=== PATIENT | male | born 1960 | race Caucasian/White ===

== ENCOUNTER 2022-10-11 18:04 | Inpatient (IN) | payer OTHER ==
[2022-10-11] MEDS ORDERED: SODIUM CHLORIDE 0.9% 500 ML 500 ML IV STA (18:07)
[2022-10-11 18:10] LABS: Glucose,Whole Blood 239 mg/dL (70-110)
[2022-10-11 18:21] LABS: Basophils % (A) 0 %; Eosinophils # (A) 0.1 k/uL (0-0.7); Eosinophils % (A) 0 %; HCT 47.3 % (39.0-53.0); HGB 15.8 gm/dL (13.0-17.5); Lymphocytes # (A) 1.4 k/uL (1.0-4.8); Lymphocytes % (A) 7 %; MCH 29.2 pg (25.0-35.0); MCHC 33.4 g/dL (31.0-37.0); MCV 87.3 fL (80.0-100.0); Mean Platelet Volume 8.1; Monocytes # (A) 1.2 k/uL (0-1.0); Monocytes % (A) 6 %; Neutrophils # (A) 16.8 k/uL (1.3-7.7); Neutrophils % (A) 86 %; Platelet Count 237 k/uL (150-450); RBC 5.42 m/uL (4.30-5.90); RDW 12.7 % (11.5-15.5); WBC 19.6 k/uL (3.8-10.6)
[2022-10-11 18:36] LABS: ALT 40 U/L (4-49); AST 52 U/L (17-59); African American GFR (CKD) >90 (>60 ml/min/1.73 sqM); Alkaline Phosphatase 89 U/L (38-126); Anion Gap 12 mmol/L; Blood Urea Nitrogen 50 mg/dL (9-20); Calcium 9.4 mg/dL (8.4-10.2); Carbon Dioxide 23 mmol/L (22-30); Chloride 107 mmol/L (98-107); Creatine Kinase 999 U/L (55-170); Glucose 229 mg/dL (74-99); Non-African American GFR(CKD) >90 (>60 ml/min/1.73 sqM); Potassium 4.6 mmol/L (3.5-5.1); Sodium 142 mmol/L (137-145); Total Bilirubin 1.1 mg/dL (0.2-1.3); Total Protein 7.3 g/dL (6.3-8.2)
[2022-10-11 18:40] LABS: Prothrombin Time 10.2 sec (9.0-12.0)
--- NOTE | 2022-10-11 18:49 | ED ---
Neuro HPI - General Stated Complaint: Possible CVA Time Seen by Provider: 10/11/22 18:07 Source: patient, EMS Mode of arrival: EMS Limitations: altered mental status, physical limitation - History of Present Illness Is the patient presenting with stroke symptoms?: Yes Last Known Well Date: 10/09/22 Onset/Timin -: days(s) Initial Comments: This patient is a 62-year-old man brought to have evaluation of suspected stroke. The patient is reportedly brought [place] the [place] truck stop. The staff there checked because the truck had been there since Tuesday. Camera footage s howed the patient last entering the vehicle on Tuesday. EMS was called and brought the patient in because he was not responsive. They noted he was not moving his right side and he was not able to speak. The patient is only able to answer very simple yes and no questions and sometimes can give one-word answers. Patient denying pain. Location: right arm, right leg Place: outdoors Improves With: none Worsens With: none Context: found down Treatments Prior to Arrival: oxygen, other (IV fluid) - Related Data Home Medications: Home Medications Medication Instructions Recorded Confirmed Atorvastatin [Lipitor] 20 mg PO HS 10/11/22 10/11/22 Ergocalciferol (Vitamin D2) 1,250 mcg PO WEEKLY 10/11/22 10/11/22 [Drisdol (50,000 Iu)] Glimepiride [Amaryl] 4 mg PO BID 10/11/22 10/11/22 Valsartan [Diovan] 160 mg PO DAILY 10/11/22 10/11/22 metFORMIN HCL [Glucophage] 1,000 mg PO BID 10/11/22 10/11/22 Allergies/Adverse Reactions: Allergies Allergy/AdvReac Type Severity Reaction Status Date / Time Unable to Assess Allergy Verified 10/11/22 18:57 Review of Systems ROS Statement: Those systems with pertinent positive or pertinent negative responses have been documented in the HPI. ROS Other: All systems not noted in ROS Statement are negative. Limitations: ROS unobtainable due to patients medical condition Respiratory: Denies: dyspnea Cardiovascular: Denies: chest pain Neurological: Denies: headache General Exam Limitations: altered mental status, physical limitation General appearance: alert Head exam: Present: atraumatic, normocephalic Eye exam: Present: PERRL ENT exam: Present: mucous membranes dry Neck exam: Present: normal inspection, full ROM. Absent: tenderness Respiratory exam: Present: rhonchi. Absent: respiratory distress, wheezes, rales Cardiovascular Exam: Present: regular rate, normal rhythm, normal heart sounds. Absent: systolic murmur, diastolic murmur, rubs, gallop GI/Abdominal exam: Present: soft. Absent: distended, tenderness, guarding, rebound, rigid, mass Extremities exam: Present: normal inspection, normal capillary refill. Absent: pedal edema, calf tenderness Back exam: Present: normal inspection. Absent: vertebral tenderness Neurological exam: Present: alert, CN II-XII intact, motor sensory deficit Expanded Neurological exam: Present: other (Right-sided neglect) Speech: Present: expressive aphasia Cranial nerves: EOM's Intact: Normal Motor strength exam: RUE: 0, LUE: 5, RLE: 0, LLE: 5 Eye Response: (4) open spontaneously Motor Response: (6) obeys commands Verbal Response: (4) confused conversation Skin exam: Present: warm, dry, intact, normal color. Absent: rash Stroke MDM - Lab Data Result diagrams: 10/13/22 05:22 10/17/22 04:51 Lab Results 10/11/22 10/11/22 10/11/22 Range/Units 18:08 18:10 18:10 WBC 19.6 H (3.8-10.6) k/uL RBC 5.42 (4.30-5.90) m/uL Hgb 15.8 (13.0-17.5) gm/dL Hct 47.3 (39.0-53.0) % MCV 87.3 (80.0-100.0) fL MCH 29.2 (25.0-35.0) pg MCHC 33.4 (31.0-37.0) g/dL RDW 12.7 (11.5-15.5) % Plt Count 237 (150-450) k/uL MPV 8.1 Neutrophils % 86 % Lymphocytes % 7 % Monocytes % 6 % Eosinophils % 0 % Basophils % 0 % Neutrophils # 16.8 H (1.3-7.7) k/uL Lymphocytes # 1.4 (1.0-4.8) k/uL Monocytes # 1.2 H (0-1.0) k/uL Eosinophils # 0.1 (0-0.7) k/uL Basophils # 0.0 (0-0.2) k/uL PT 10.2 (9.0-12.0) sec INR 1.0 (<1.2) APTT 21.4 L (22.0-30.0) sec Sodium (137-145) mmol/L Potassium (3.5-5.1) mmol/L Chloride (98-107) mmol/L Carbon Dioxide (22-30) mmol/L Anion Gap mmol/L BUN (9-20) mg/dL Creatinine (0.66-1.25) mg/dL Est GFR (CKD-EPI)AfAm (>60 ml/min/1.73 sqM) Est GFR (CKD-EPI)NonAf (>60 ml/min/1.73 sqM) Glucose (74-99) mg/dL POC Glucose (mg/dL) 239 H (70-110) mg/dL POC Glu Varnish Finisher ID Abilio Ortiz Calcium (8.4-10.2) mg/dL Total Bilirubin (0.2-1.3) mg/dL AST (17-59) U/L ALT (4-49) U/L Alkaline Phosphatase (38-126) U/L Creatine Kinase (55-170) U/L Troponin I (0.000-0.034) ng/mL Total Protein (6.3-8.2) g/dL Albumin (3.5-5.0) g/dL 10/11/22 10/11/22 Range/Units 18:10 18:10 WBC (3.8-10.6) k/uL RBC (4.30-5.90) m/uL Hgb (13.0-17.5) gm/dL Hct (39.0-53.0) % MCV (80.0-100.0) fL MCH (25.0-35.0) pg MCHC (31.0-37.0) g/dL RDW (11.5-15.5) % Plt Count (150-450) k/uL MPV Neutrophils % % Lymphocytes % % Monocytes % % Eosinophils % % Basophils % % Neutrophils # (1.3-7.7) k/uL Lymphocytes # (1.0-4.8) k/uL Monocytes # (0-1.0) k/uL Eosinophils # (0-0.7) k/uL Basophils # (0-0.2) k/uL PT (9.0-12.0) sec INR (<1.2) APTT (22.0-30.0) sec Sodium 142 (137-145) mmol/L Potassium 4.6 (3.5-5.1) mmol/L Chloride 107 (98-107) mmol/L Carbon Dioxide 23 (22-30) mmol/L Anion Gap 12 mmol/L BUN 50 H (9-20) mg/dL Creatinine 0.83 (0.66-1.25) mg/dL Est GFR (CKD-EPI)AfAm >90 (>60 ml/min/1.73 sqM) Est GFR (CKD-EPI)NonAf >90 (>60 ml/min/1.73 sqM) Glucose 229 H (74-99) mg/dL POC Glucose (mg/dL) (70-110) mg/dL POC Glu Varnish Finisher ID Calcium 9.4 (8.4-10.2) mg/dL Total Bilirubin 1.1 (0.2-1.3) mg/dL AST 52 (17-59) U/L ALT 40 (4-49) U/L Alkaline Phosphatase 89 (38-126) U/L Creatine Kinase 999 H (55-170) U/L Troponin I <0.012 (0.000-0.034) ng/mL Total Protein 7.3 (6.3-8.2) g/dL Albumin 4.0 (3.5-5.0) g/dL - NIH Stroke Scale 1a. Level of Consciousness: (0) alert 1b. LOC Questions: (2) answers no questions correctly 1c. LOC Commands: (2) performs no tasks correctly 2. Best Gaze: (2) forced deviation 4. Facial Palsy: (3) complete paralysis 5a. Motor Arm Left: (0) no drift 5b. Motor Arm Right: (4) no movement 6a. Motor Leg Left: (0) no drift 6b. Motor Leg Right: (4) no movement 8. Sensory: (2) severe/total sensory loss 9. Best Language: (2) severe aphasia 10. Dysarthria: (0) normal 11. Extinction/Inattention: (2) profound inattention - Thrombolytic Inclusion/Exclusion Thrombolytic Exclusion Criteria: Symptom Onset > 4.5 Hours - Medical Decision Making Patient is 62-year-old man brought in for suspected stroke after being found unresponsive. Last known well time was on Tuesday. The workup does find large left sided MCA distribution ischemic stroke. The patient will be admitted for further inpatient care and further neurology evaluation. Case discussed with specialists. Chest x-ray is obtained which I interpreted as being negative for acute infiltrate, pneumothorax, congestive heart failure The patient is sent for CT of the brain which I interpreted as showing large left sided MCA distribution ischemic stroke Was pt. sent in by a medical professional or institution (, PA, SENIOR CYTOGENETICS LABORATORY DIRECTOR, urgent care, hospital, or alf...) When possible be specific @ -[No] Did you speak to anyone other than the patient for history (EMS, parent, family, police, friend...)? What history was obtained from this source @ -[History by EMS Did you review nursing and triage notes (agree or disagree)? Why? @ -[I reviewed and agree with nursing and triage notes] Were old charts reviewed (outside hosp., previous admission, EMS record, old EKG, old radiological studies, urgent care reports/EKG's, alf records)? Report findings @ -[No old charts were reviewed] Differential Diagnosis (chest pain, altered mental status, abdominal pain women, abdominal pain men, vaginal bleeding, weakness, fever, dyspnea, syncope, headache, dizziness, GI bleed, back pain, seizure, CVA, palpatations, mental health, musculoskeletal)? @ -[Differential CVA Ischemic stroke, hemorrhagic stroke, brain tumor, atypical migraine, Wernicke's encephalopathy, seizure, multiple sclerosis, meningitis, encephalitis, hypoglycemia, Guillain-Deleon, electrolytes disturbance, myasthenia gravis.... This is not meant to be an all-inclusive list EKG interpreted by me (3pts min.). @ -[As above] X-rays interpreted by me (1pt min.). @ -[As above CT interpreted by me (1pt min.). @ -[As above U/S interpreted by me (1pt. min.). @ -[None done] What testing was considered but not performed or refused? (CT, X-rays, U/S, labs)? Why? @ -[None] What meds were considered but not given or refused? Why? @ -[TPAs considered patient is well outside of the window and this would represent a large risk of bleeding with small chance of any improvement Did you discuss the management of the patient with other professionals (professionals i.e. , PA, SENIOR CYTOGENETICS LABORATORY DIRECTOR, lab, RT, psych nurse, social work manager, newscast producer, teacher, lead security officer, manager rn case)? Give summary @ -[Case is discussed with admitting physician and also with vascular surgery Was smoking cessation discussed for >3mins.? @ -[No] Was critical care preformed (if so, how long)? @ -[yes, 35 minutes Were there social determinants of health that impacted care today? How? (Homelessness, low income, unemployed, alcoholism, drug addiction, transportation, low edu. Level, literacy, decrease access to med. care, long term, rehab)? @ -[No] Was there de-escalation of care discussed even if they declined (Discuss DNR or withdrawal of care, Hospice)? DNR status @ -[No] What co-morbidities impacted this encounter? (DM, HTN, Smoking, COPD, CAD, Cancer, CVA, ARF, Chemo, Hep., AIDS, mental health diagnosis, sleep apnea, morbid obesity)? @ -[None] Was patient admitted / discharged? Hospital course, mention meds given and route, prescriptions, significant lab abnormalities, going to OR and other pertinent info. @ -[Patient admitted for further evaluation and treatment of acute ischemic stroke Undiagnosed new problem with uncertain prognosis? @ -[No] Drug Therapy requiring intensive monitoring for toxicity (Heparin, Nitro, Insulin, Cardizem)? @ -[No] Were any procedures done? @ -[No] Diagnosis/symptom? @ -[acute ischemic stroke Acute aphasia acute hemiparesis Acute dehydration Acute, or Chronic, or Acute on Chronic? @ -[default] Uncomplicated (without systemic symptoms) or Complicated (systemic symptoms)? @ -[uncomplicated Side effects of treatment? @ -[No] Exacerbation, Progression, or Severe Exacerbation? @ -[No] Poses a threat to life or bodily function? How? (Chest pain, [place], [place], pneumonia, PE, COPD, DKA, ARF, appy, cholecystitis, CVA, Diverticulitis, Homicidal, Suicidal, threat to staff... and all critical care pts) @ -[yes - EKG Data -: EKG Interpreted by Me EKG shows normal: sinus rhythm, axis (Normal), intervals (Normal), QRS complexes (Normal) Rate: normal (Rate 75 bpm) Interpretation: nonspecific ST-T wave changes Past Medical History Past Medical History: Unable to Obtain History of Any Multi-Drug Resistant Organisms: Unobtainable Past Surgical History: Unable to Obtain Past Psychological History: Unable to Obtain Smoking Status: Unknown if ever smoked Past Drug Use History: Unable to Obtain Course Vital Signs 10/11/22 10/11/22 10/11/22 18:11 19:38 21:49 Temperature 99.2 F Pulse Rate 82 75 62 Respiratory 18 16 18 Rate Blood Pressure 141/83 156/85 164/89 O2 Sat by Pulse 96 98 Oximetry - Reevaluation(s) Reevaluation #1: 10/11/22 19:[address] Bradshaw from the stroke team. Reevaluation #2: 10/11/22 21:11 Case discussed with the vascular surgery, Dr. Boston states no acute vascular surgical management at this point. Critical Care Time Critical Care Time: Yes (35 minutes) Disposition Clinical Impression: Acute stroke due to ischemia Dis[facility] Condition: Serious Is patient prescribed a controlled substance at d/c from ED?: No
[2022-10-11 18:55] LABS: Partial Thromboplastin Time 21.4 sec (22.0-30.0)
--- NOTE | 2022-10-11 18:55 | CT ---
EXAMINATION TYPE: CT brain wo con for TPA CT DLP: 1259.6 mGycm, Automated exposure control for dose reduction was used. DATE OF EXAM: 10/11/2022 6:46 PM COMPARISON: None. CLINICAL INDICATION:Male, 62 years old with history of Neuro deficit, acute, stroke suspected, pt fou nd unresponsive. Neural deficit TECHNIQUE: Brain: Axial CT images of the brain were obtained with coronal and sagittal reformats created and rev iewed. Contrast used: None. Oral contrast used: None. FINDINGS: Brain: Extra-axial spaces: No abnormal extra-axial fluid collections. Ventricular system: Within normal limits Cerebral parenchyma: Lujan white matter loss of differentiation involving a majority of the left MCA t erritory and small area within the right parietal lobe. No hemorrhagic conversion. No acute intrapare nchymal hemorrhage or mass effect. The lujan-white junction is well differentiated. Cerebellum: Unremarkable. Mass effect: No evidence of midline shift. Intracranial vasculature: Atherosclerotic calcifications of the intracranial vessels. Soft tissues: Normal. Calvarium/osseous structures: No depressed skull fracture. Paranasal sinuses and mastoid air cells: Mild scattered paranasal sinus disease. Visualized orbits: Orbital contents are intact. IMPRESSION: 1. Left MCA territory large acute/subacute CVA. 2. Right parietal smaller acute/subacute CVA 3. No evidence for hemorrhagic conversion. Findings communicated to Dr. Oneal Evans MD on 10/11/2022 6:[address] Cash Painter.
--- NOTE | 2022-10-11 19:29 | CT ---
EXAMINATION TYPE: CT angio head neck CT DLP: 547 mGycm, Automated exposure control for dose reduction was used. DATE OF EXAM: 10/11/2022 7:04 PM COMPARISON: CT same day. CLINICAL INDICATION:Male, 62 years old with history of Neuro deficit, acute, stroke suspected; PHH, p t found unresponsive. Neuro deficit TECHNIQUE: Axially acquired helical CT angiogram of the head and neck was obtained with contrast. Axi al images are supplemented with 3D reconstructions [facility] NASCET criteria used. Contrast used:65ml mL of Isovue 370 with IV Contrast, Oral contrast used: None. FINDINGS: CTA HEAD: No evidence of acute intracranial hemorrhage, mass effect, or midline shift. The ventricles, sulci, a nd cisterns are unremarkable. The visualized portions of the internal carotid arteries, middle cerebral arteries, anterior cerebral arteries, and posterior cerebral arteries are patent. The basilar and vertebral arteries are patent. CTA NECK: Right Carotid System: The common carotid and external carotid arteries are patent. There is less than 50% stenosis at the c arotid bifurcation secondary to calcified/noncalcified plaque. The rest of the internal carotid arter y is patent. Left Carotid System: The common carotid artery is patent. The internal carotid artery is occluded extending from its origi n into the [place]. There is reconstitution at the [place]. Secondary to backflow. Vertebral arteries are patent without evidence hemodynamically significant stenosis. There is a three-vessel aortic arch. The origins of the great vessels are patent. No evidence of hemo dynamically significant stenosis. Upper thorax: IMPRESSION: 1. 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 Reconstitution in the [place]. 2. No evidence of dissection of the cervical internal carotid arteries or vertebral arteries or any evidence of significant stenosis at the right carotid bifurcation. 3. No additional evidence of intracranial high-grade stenosis or intracranial aneurysm.
--- NOTE | 2022-10-11 19:44 | XR ---
EXAMINATION TYPE: XR chest 2V DATE OF EXAM: 10/11/2022 7:15 PM COMPARISON: Chest radiographs from TECHNIQUE: XR chest 2V Frontal and lateral views of the chest. CLINICAL INDICATION:Male, 62 years old with history of altered mental status; FINDINGS: Lungs/Pleura: Low lung volumes are present. There is no evidence of pleural effusion, focal consolida tion, or pneumothorax. Pulmonary vascularity: Unremarkable. Heart/mediastinum: Cardiomediastinal silhouette is unremarkable. Musculoskeletal: No acute osseous pathology. IMPRESSION: Low lung volumes with a generalized hazy appearance which could represent atelectasis versus pulmonar y edema correlate with serum BNP.
[2022-10-11] MEDS: FAMOTIDINE 20 MG/2 ML VIAL IV SCH (20:38)
[2022-10-11] MEDS: SODIUM CHLORIDE 0.9% 1,000 ML IV SCH (20:38)
[2022-10-11] MEDS ORDERED: DEXTROSE 50% SYRINGE 50 ML IVP PRN ×2 (21:14)
--- NOTE | 2022-10-12 01:22 | P.HPIM ---
History of Present Illness H&P Date: 10/11/22 Chief Complaint: unresponsive 62 year old male , unknown past medical history patient was found unresponsive in his truck at a local truck stop. cameras were checked after someone noticed truck has not moved for days, he was seen walking into his truck on Tuesday,. EMS notified, he was found unresponsive in his truck. upon evaluation in the ED, he was found to have large L MCA subacute CVA patient does not speak and unable to provide any further history blood work was suggestive of some dehydration , and leukocytosis , no identifiable source of infection neurology and vascular surgery trousseau consultant notiffied with results of CT brain and CTA head and neck , no recommendation for acute intervention at this time review of systems unable to obtain on exam Constitutional: No acute distress, does not follow commands, moving spontaneously , disheveled Eyes: Anicteric sclerae, moist conjunctiva, Pupils equal round reactive to light ENMT: NC/AT Oropharynx clear, no erythema, or exudates Neck: Supple, no masses, or JVD No carotid bruits No thyromegaly Lungs: Clear to auscultation Clear to percussion Normal respiratory effort, no accessory muscle use Cardiovascular: Heart regular in rate and rhythm, No murmurs, gallops, or rubs No peripheral edema Abdominal: Soft Nontender, no guarding, rebound or rigidity Abdomen moving with respiration Normoactive bowel sounds No hepatomegaly, No splenomegaly No palpable mass No abdominal wall hernia noted Skin: some superficial abrasions over the face and left hand Extremities: No digital cyanosis No clubbing Pedal pulses intact and symmetrical Radial pulses intact and symmetrical No calf tenderness Psychiatric: awake , does not follow commands, aphasic Neuro again does not follow commands , unable to perform neuro exam Lymphatics: no palpable cervical or supraclavicular lymph nodes Past Medical History Past Medical History: Unable to Obtain History of Any Multi-Drug Resistant Organisms: Unobtainable Past Surgical History: Unable to Obtain Past Psychological History: Unable to Obtain Smoking Status: Unknown if ever smoked Past Drug Use History: Unable to Obtain Medications and Allergies Home Medications Medication Instructions Recorded Confirmed Type Atorvastatin [Lipitor] 20 mg PO HS 10/11/22 10/11/22 History Ergocalciferol (Vitamin D2) 1,250 mcg PO WEEKLY 10/11/22 10/11/22 History [Drisdol (50,000 Iu)] Glimepiride [Amaryl] 4 mg PO BID 10/11/22 10/11/22 History Valsartan [Diovan] 160 mg PO DAILY 10/11/22 10/11/22 History metFORMIN HCL [Glucophage] 1,000 mg PO BID 10/11/22 10/11/22 History Allergies Allergy/AdvReac Type Severity Reaction Status Date / Time Unable to Assess Allergy Verified 10/11/22 18:57 Physical Exam Vitals: Vital Signs Temp Pulse Pulse Resp BP BP Pulse Ox 10/11/22 22:58 98.8 F 72 18 159/66 98 10/11/22 21:49 99.2 F 62 18 164/89 10/11/22 19:38 75 16 156/85 98 10/11/22 18:11 82 18 141/83 96 Intake and Output 10/11/22 10/11/22 10/12/22 14:59 22:59 06:59 Other: Weight 90.718 kg Results CBC & Chem 7: 10/11/22 18:10 10/11/22 18:10 Labs: Abnormal Lab Results - Last 24 Hours (Table) 10/11/22 10/11/22 10/11/22 Range/Units 18:08 18:10 18:10 WBC 19.6 H (3.8-10.6) k/uL Neutrophils # 16.8 H (1.3-7.7) k/uL Monocytes # 1.2 H (0-1.0) k/uL APTT 21.4 L (22.0-30.0) sec BUN (9-20) mg/dL Glucose (74-99) mg/dL POC Glucose (mg/dL) 239 H (70-110) mg/dL Creatine Kinase (55-170) U/L 10/11/22 Range/Units 18:10 WBC (3.8-10.6) k/uL Neutrophils # (1.3-7.7) k/uL Monocytes # (0-1.0) k/uL APTT (22.0-30.0) sec BUN 50 H (9-20) mg/dL Glucose 229 H (74-99) mg/dL POC Glucose (mg/dL) (70-110) mg/dL Creatine Kinase 999 H (55-170) U/L Assessment and Plan Assessment: 62 year old male was found unresponsive in his truck after days of being at a local truck stop, I discussed the case with ED doc and I accepted the admission for subacute large L MCA and smaller R parietal subacute CVA acute metabolic encephalopathy secondary to below large L MCA and smaller R parietal subacute CVA CT brain and CTA head and neck done showing above , along with occlusion of the left internal carotid artery extending from its origin into the [place] , no evidence of dissection of the cervical internal carotid or vertebral arteries , no significant stenosis at the right carotid bifurcation . Aspirin , statin check echo cardiogram neurology consult neuro checks monitor vital signs fall precaution s speech eval PT/OT lipid panel IVF hydration with normal saline blood work showing negative Trops Hgb 15.8, WBC 19.6 no evidence of infectious source BUN elevated 50 , suggestive of dehydration full code DVT PPX mechanical
[2022-10-12 05:58] LABS: Glucose,Whole Blood 162 mg/dL (70-110)
[2022-10-12] MEDS: SODIUM CHLORIDE 0.9% 1,000 ML IV SCH ×2 (07:47→16:51)
[2022-10-12] MEDS: INSULIN ASPART (NovoLOG) 100 UNIT/ML VIAL SQ SCH ×4 (07:47→21:30)
[2022-10-12 09:04] LABS: African American GFR (CKD) >90 (>60 ml/min/1.73 sqM); Anion Gap 7 mmol/L; Blood Urea Nitrogen 38 mg/dL (9-20); Calcium 8.7 mg/dL (8.4-10.2); Carbon Dioxide 20 mmol/L (22-30); Chloride 113 mmol/L (98-107); Creatine Kinase 977 U/L (55-170); Glucose 173 mg/dL (74-99); Non-African American GFR(CKD) >90 (>60 ml/min/1.73 sqM); Sodium 140 mmol/L (137-145)
[2022-10-12 09:05] LABS: Potassium 4.3 mmol/L (3.5-5.1)
[2022-10-12 09:06] LABS: Basophils % (A) 0 %; Eosinophils # (A) 0.1 k/uL (0-0.7); Eosinophils % (A) 0 %; HCT 40.6 % (39.0-53.0); HGB 13.7 gm/dL (13.0-17.5); Lymphocytes # (A) 1.6 k/uL (1.0-4.8); Lymphocytes % (A) 11 %; MCH 29.8 pg (25.0-35.0); MCHC 33.7 g/dL (31.0-37.0); MCV 88.6 fL (80.0-100.0); Mean Platelet Volume 8.5; Monocytes % (A) 6 %; Neutrophils % (A) 81 %; Platelet Count 186 k/uL (150-450); RBC 4.59 m/uL (4.30-5.90); RDW 12.7 % (11.5-15.5); WBC 14.7 k/uL (3.8-10.6)
[2022-10-12] MEDS: FAMOTIDINE 20 MG/2 ML VIAL IV SCH ×2 (10:23→21:30)
[2022-10-12] MEDS: ASPIRIN 300 MG SUPP RECTAL SCH (10:23)
--- NOTE | 2022-10-12 10:47 | CA ---
Transthoracic Echo Report Name: Stewart Allan Age: 62 Gender: M : 1960 Exam Date: 10/12/2022 07:47 Exam Location: [place] [facility] Ht (in): 70 Wt (lb): 200 Ordering Physician: King Lock MD Attending/Referring Phys: [id number], Hayde Painter [employer] Harry Mulligan Procedure CPT: Indications: stroke Cardiac Hx: Technical Quality: Fair Contrast 1: Total Dose (mL): Contrast 2: Total Dose (mL): MEASUREMENTS (Male / Female) Normal Values 2D ECHO LV Diastolic Diameter PLAX 4.6 cm 4.2 - 5.9 / 3.9 - 5.3 cm LV Systolic Diameter PLAX 3.2 cm IVS Diastolic Thickness 1.4 cm 0.6 - 1.0 / 0.6 - 0.9 cm LVPW Diastolic Thickness 1.1 cm 0.6 - 1.0 / 0.6 - 0.9 cm LV Relative Wall Thickness 0.6 RV Internal Dim ED PLAX 3.2 cm LVOT Diameter 2.1 cm Aortic Root Diameter 2.6 cm LA Systolic Diameter LX 2.7 cm 3.0 - 4.0 / 2.7 - 3.8 cm LV Diastolic Volume MOD 4C 81.4 cm??? LV Systolic Volume MOD 4C 29.6 cm??? LV Ejection Fraction MOD 4C 63.6 % LV Cardiac Index MOD 4C 1333.3 cm???/min???m??? LV Diastolic Length 4C 8.0 cm LV Systolic Length 4C 7.0 cm LA Volume 43.9 cm??? 18 - 58 / 22 - 52 cm??? Ascending Aorta Diameter 3.4 cm DOPPLER AV Peak Velocity 200.0 cm/s AV Peak Gradient 16.0 mmHg LVOT Peak Velocity 101.3 cm/s LVOT Peak Gradient 4.1 mmHg AV Area Cont Eq pk 1.8 cm??? MV Peak Velocity 111.5 cm/s MV Peak Gradient 5.0 mmHg MV Mean Velocity 55.8 cm/s MV Mean Gradient 1.6 mmHg MV Velocity Time Integral 51.0 cm Mitral E Point Velocity 96.5 cm/s Mitral A Point Velocity 103.1 cm/s Mitral E to A Ratio 0.9 MV Deceleration Time 298.3 ms MV E' Velocity 7.7 cm/s Mitral E to MV E' Ratio 12.5 PV Peak Velocity 96.5 cm/s PV Peak Gradient 3.7 mmHg FINDINGS Left Ventricle Normal LV size. Mild septal hypertrophy. Left ventricular ejection fraction is estimated at 55-60 %. Right Ventricle Normal right ventricular size. Right Atrium Normal right atrial size. Left Atrium Normal left atrial size. LA volume index= 21ml/m2 Mitral Valve Structurally normal mitral valve. No mitral regurgitation. Aortic Valve Mild to moderate AV calcification. no aortic valve stenosis or regurgitation. Tricuspid Valve Structurally normal tricuspid valve. Trace tricuspid regurgitation. Pulmonic Valve Pulmonic valve not well visualized. No pulmonic regurgitation. Pericardium Normal pericardium. Aorta Normal size aortic root and proximal ascending aorta. CONCLUSIONS Normal LV size and systolic function. No significant abnormality on the Doppler exam. Mild calcification of aortic valve leaflets without restriction. No filling defects to indicate thrombus. No pericardial effusion. No pulmonary hypertension Previewed by: Dr. Umesh Duong MD (Electronically Signed) Final Date: 12 October 2022 10:46
[2022-10-12 11:35] LABS: Glucose,Whole Blood 190 mg/dL (70-110)
--- NOTE | 2022-10-12 11:57 | P.PN ---
Subjective Progress Note Date: 10/12/22 Hospital Course: 62-year-old male with history of hypertension, dyslipidemia, diabetes found unresponsive at a local truck stop. Per report, patient was not moving for the last few days. Upon ED evaluation, found to have a large left-sided MCA subacute stroke. Laboratory workup also showed leukocytosis, elevated BUN, and elevated CK. Patient admitted for further stroke workup and started on fluids. Neurology consulted. Subjective: Patient seen and examined at bedside. Not able to provide any meaningful history. Denies any pain. Has a Mars catheter in place. Pertinent positives and negatives as discussed above, a complete review of systems was performed and all other systems are negative. Vitals Signs Reviewed. General: nontoxic, no distress, appears at stated age Derm: warm, dry Head: atraumatic, normocephalic, symmetric Eyes: EOMI, no lid lag, anicteric sclera Mouth: no lip lesion, mucus membranes moist Cardiovascular: S1S2 reg, no murmur Lungs: CTA bilateral, no rhonchi, no rales , no accessory muscle use Abdominal: soft, nontender to palpation, no guarding, no appreciable organomegaly Ext: no gross muscle atrophy, no edema, no contractures Neuro: CN II-XI grossly intact, no focal neuro deficits, right-sided deficits, significant aphasia Psych: Awake and Alert, unable to follow commands Data Reviewed Today: Pertinent Labs: WBC 14.7, potassium 4.3, BUN 38, creatinine 0.64, blood sugars range between 160-190, CK 977 Imaging: Echo report reviewed, shows normal LV size and systolic function, no filling defects to indicate thrombus Assessment and Plan: Large left MCA and small right parietal subacute CVA Left ICA occlusion Acute metabolic encephalopathy secondary to above Mild rhabdomyolysis Dehydration Leukocytosis Type 2 diabetes History of hypertension -Neurology consulted -Might need vascular surgery consultation -carotid US -Aspirin, statin -Nothing by mouth -Per speech therapy, needs further swallow evaluation -PT/OT -Continue telemetry -UA pending, no others signs of infection -Repeat CBC tomorrow -Continue normal saline at 1 30 mL an hour -CK trending down -Sliding scale insulin, hold oral antidiabetic -Permissive hypertension, hold oral antihypertensives DVT ppx: Subcu heparin Code status: full code Anticipated discharge place: pending clinical course Anticipated discharge time: pending clinical course Objective - Vital Signs Vital signs: Vital Signs Temp 98 F 10/12/22 08:34 Pulse 65 10/12/22 08:34 Resp 18 10/12/22 08:34 BP 163/79 10/12/22 08:34 Pulse Ox 95 10/12/22 09:34 FiO2 Intake & Output 10/11/22 10/12/22 10/12/22 18:59 06:59 18:59 Output Total 1100 Balance -1100 Weight 90.718 kg Output: Urine 1100 Other: Voiding Method Indwelling Catheter Indwelling Catheter - Labs CBC & Chem 7: 10/12/22 07:32 10/12/22 07:32 Labs: Abnormal Lab Results - Last 24 Hours (Table) 10/11/22 10/11/22 10/11/22 Range/Units 18:08 18:10 18:10 WBC 19.6 H (3.8-10.6) k/uL Neutrophils # 16.8 H (1.3-7.7) k/uL Monocytes # 1.2 H (0-1.0) k/uL APTT 21.4 L (22.0-30.0) sec Chloride (98-107) mmol/L Carbon Dioxide (22-30) mmol/L BUN (9-20) mg/dL Creatinine (0.66-1.25) mg/dL Glucose (74-99) mg/dL POC Glucose (mg/dL) 239 H (70-110) mg/dL Hemoglobin A1c (<=6.0) % Creatine Kinase (55-170) U/L 10/11/22 10/12/22 10/12/22 Range/Units 18:10 05:56 07:32 WBC (3.8-10.6) k/uL Neutrophils # (1.3-7.7) k/uL Monocytes # (0-1.0) k/uL APTT (22.0-30.0) sec Chloride (98-107) mmol/L Carbon Dioxide (22-30) mmol/L BUN 50 H (9-20) mg/dL Creatinine (0.66-1.25) mg/dL Glucose 229 H (74-99) mg/dL POC Glucose (mg/dL) 162 H (70-110) mg/dL Hemoglobin A1c 8.0 H (<=6.0) % Creatine Kinase 999 H (55-170) U/L 10/12/22 10/12/22 10/12/22 Range/Units 07:32 07:32 11:34 WBC 14.7 H (3.8-10.6) k/uL Neutrophils # 12.0 H (1.3-7.7) k/uL Monocytes # (0-1.0) k/uL APTT (22.0-30.0) sec Chloride 113 H (98-107) mmol/L Carbon Dioxide 20 L (22-30) mmol/L BUN 38 H (9-20) mg/dL Creatinine 0.64 L (0.66-1.25) mg/dL Glucose 173 H (74-99) mg/dL POC Glucose (mg/dL) 190 H (70-110) mg/dL Hemoglobin A1c (<=6.0) % Creatine Kinase 977 H (55-170) U/L
[2022-10-12 12:12] LABS: Chol/HDL Ratio 5.24 Ratio; LDL Cholesterol,Calculated 125.1 mg/dL (0.0-131.0)
--- NOTE | 2022-10-12 12:14 | P.CNNES ---
History of Present Illness Consult date: 10/12/22 Requesting physician: Oneal Evans Reason for Consult: Acute ischemic stroke, left MCA. History of Present Illness: Patient is a 62-year-old male came to the hospital by ambulance yesterday (on Tuesday) at 6:04 PM. Patient at present is globally aphasic, not able to provide any history. As per EMS flow sheet, EMS was called to perform wellness check on patient as his family and his employer have not been able to reach him. When they arrived to find patient located inside the cab of a semitruck. He is found laying supine with his head underneath the steering wheel on top of the gas and brake pedals. The right side of the patient's torso is stuck underneath that the tow motor driver seat. Patient was unconscious, only responsive to strong painful stimuli at this time. GCS 4. Patient was incontinent of urine. Patient appeared to have strong leftward gaze. His last known well was on 10/09/2022. Patient was extricated from the truck and secured onto the stretcher. EKG showed sinus rhythm. Patient's GCS became 7 upon arrival to the ER. Patient's blood pressure was 160/111, which went up to 183/137, pulse rate 107, respiration 18, saturation 99%, blood sugar 326. Vital signs on arrival blood pressure 141/83, pulse rate 82, temperature 99.2. Patient's blood test shows WBC 19.6 hemoglobin 47.3, platelets are normal, PT/PTT normal, electrolytes are normal, BUN 50, creatinine 0.83. Hepatic panel normal, CK 1999. Troponin negative. Repeat BUN 38. CT head revealed left MCA territory large acute/subacute CVA. Right parietal smaller acute/subacute CVA. EKG shows sinus rhythm with sinus arrhythmia. Chest x-ray revealed low lung volumes with generalized hazy appearance which could represent atelectasis versus pulmonary edema, correlate with sit and BNP. Home medication includes metformin, Diovan, Amaryl, vitamin D and Lipitor 20 mg. Patient at present appears to have global aphasia, right hemiplegia. Patient has left gaze deviation. Please refer to examination below. Review of Systems Patient not able to answer any question. He just states "it's okay" ROS unobtainable: due to mental status Past Medical History Past Medical History: Unable to Obtain History of Any Multi-Drug Resistant Organisms: Unobtainable Past Surgical History: Unable to Obtain Past Psychological History: Unable to Obtain Smoking Status: Unknown if ever smoked Past Drug Use History: Unable to Obtain Medications and Allergies Home Medications Medication Instructions Recorded Confirmed Type Atorvastatin [Lipitor] 20 mg PO HS 10/11/22 10/11/22 History Ergocalciferol (Vitamin D2) 1,250 mcg PO WEEKLY 10/11/22 10/11/22 History [Drisdol (50,000 Iu)] Glimepiride [Amaryl] 4 mg PO BID 10/11/22 10/11/22 History Valsartan [Diovan] 160 mg PO DAILY 10/11/22 10/11/22 History metFORMIN HCL [Glucophage] 1,000 mg PO BID 10/11/22 10/11/22 History Allergies Allergy/AdvReac Type Severity Reaction Status Date / Time Unable to Assess Allergy Verified 10/11/22 18:57 Physical Examination - Vital Signs Vital Signs: Vital Signs Temp Pulse Pulse Resp BP BP Pulse Ox 10/12/22 08:34 98 F 65 18 163/79 98 10/12/22 04:00 99.6 F 74 18 155/75 96 10/12/22 02:00 68 18 10/12/22 00:00 99.1 F 68 18 148/79 98 10/11/22 22:58 98.8 F 72 18 159/66 98 10/11/22 21:49 99.2 F 62 18 164/89 10/11/22 19:38 75 16 156/85 98 10/11/22 18:11 82 18 141/83 96 Intake and Output 10/11/22 10/12/22 10/12/22 22:59 06:59 14:59 Output Total 1100 Balance -1100 Output: Urine 1100 Other: Voiding Method Indwelling Catheter Weight 90.718 kg Patient is a middle aged male, who appears somewhat encephalopathic. Patient is encephalopathic, but does become alert awake. Patient is globally a phasic. Patient cannot name any objects, cannot repeat sentences, cannot follow written or verbal directions. Patient has few syllables that he repeat like "it's okay". Attention, concentration and fund of knowledge is severely limited due to aphasia. On cranial nerve examination, pupils are equal, round and reacting to light, he has had an gaze deviation to the left. Visual sanchez could not be assessed. Extraocular muscles are intact although patient has preference to the left. No nystagmus. Patient has right facial weakness, central type. Patient would not protrude his tongue. Lower cranial nerves cannot be assessed. Hearing cannot be assessed. On muscle strength testing, patient is completely flaccid, spastic in the right upper and right lower extremities. In the left upper extremity, he does hold it up, but appears somewhat weak, or perhaps not able to follow directions completely. Likewise his left leg also appears to have some weakness. Patient slightly withdraws his right leg to painful stimuli but no movement in the right upper limb. Deep tendon reflexes are symmetric 0 at the biceps, 0 brachioradialis, 2 at the knees, 0 ankles and plantar is up on the right, down left. Sensory examination cannot be assessed. He does withdraw to painful stimulus of the left side. Cerebellar function cannot be assessed. Tone is increased in the right side of the body and bulk of muscles normal. Fasciculations were noted in bilateral calves. Gait deferred.. On general examination, there is no carotid bruit or murmur, S1-S2 audible. Chest is clear on consultation. Abdomen is soft nontender. No organomegaly, bowel sounds present. Peripheral pulses are present. No edema. Results - Laboratory Findings CBC and BMP: 10/12/22 07:32 10/12/22 07:32 Abnormal Lab Findings: Abnormal Labs 10/11/22 10/11/22 10/11/22 18:08 18:10 18:10 WBC 19.6 H Neutrophils # 16.8 H Monocytes # 1.2 H APTT 21.4 L Chloride Carbon Dioxide BUN Creatinine Glucose POC Glucose (mg/dL) 239 H Creatine Kinase 10/11/22 10/12/22 10/12/22 18:10 05:56 07:32 WBC 14.7 H Neutrophils # 12.0 H Monocytes # APTT Chloride Carbon Dioxide BUN 50 H Creatinine Glucose 229 H POC Glucose (mg/dL) 162 H Creatine Kinase 999 H 10/12/22 07:32 WBC Neutrophils # Monocytes # APTT Chloride 113 H Carbon Dioxide 20 L BUN 38 H Creatinine 0.64 L Glucose 173 H POC Glucose (mg/dL) Creatine Kinase 977 H Assessment and Plan Assessment: * Acute ischemic stroke, involving left MCA vascular territory with global aphasia and right hemiplegia. There is an additional area of acute/subacute ischemic stroke involving much smaller region in the right parietal lobe, which is also probably symptomatic with mild left-sided weakness. Patient's NIH stroke scale reported in the ED was 23. * Left ICA occlusion * Hypertension * Diabetes * Hyperlipidemia Plan: * Patient was not a candidate for TPA because he was outside the window. Patient does have left ICA occlusion, but apparently not a candidate for thrombectomy. * 2-D echo revealed normal left ventricular size and systolic function with EF 55-60%. Mild septal hypertrophy. Normal left atrial size. Mild calcification of the aortic valve leaflets without restriction. No thrombus. * CTA head and neck showed: Occlusion of the left internal carotid artery extending from its origin to the [place]. Reconstitution in the [place]. No evidence of dissection of the cervical internal carotid arteries or vertebral arteries or any evidence of significant stenosis at the right carotid bifurcation. No evidence of intracranial high-grade stenosis or intracranial aneurysm. * Fasting a.m. lipid panel * Hemoglobin A1c 8.0. Optimize control of diabetes to target A1c <7.0. * Permissive hypertension for next 24-48 hours. Keep systolic blood pressure < 200 to prevent hemorrhagic conversion. * Stat urine drug screen. * EEG to rule out any epileptiform activity * Patient to be started on aspirin 300 mg rectally. Patient not a candidate for DAP because of risk of hemorrhagic conversion. * Repeat CT head in the morning to rule out malignant cerebral edema. * Close neuro checks as per protocol. * Telemetry monitoring rule out any arrhythmia * DVT prophylaxis: Heparin 5000 units subcu every 8 hours * Pepcid 20 mg twice a day for gastric ulcer prophylaxis. * Neurology will continue ot follow. Thank you for the consult.
--- NOTE | 2022-10-12 12:56 | FL ---
Modified barium swallow. HISTORY: Dysphagia. Modified barium swallow was performed with the department of speech pathology. The patient was prese nted with various consistencies of barium. There is evidence of aspiration with thin liquid barium. Remaining structures do not demonstrate evid ence for aspiration or penetration at this time. Full report is to follow from the department of spee ch pathology. Impression: Aspiration with thin liquid barium.
[2022-10-12 13:09] LABS: Appearance,Urine Cloudy (Clear); Bacteria,Urine Few /hpf; Bilirubin,Urine Negative (Negative); Blood,Urine Moderate (Negative); Color,Urine Light Red; Glucose,Urine (UA) 4+ (Negative); Leukocyte Esterase,Urine Large (Negative); Mucus,Urine Occasional /hpf; Nitrite,Urine Negative (Negative); PH, Urine 5.5 (5.0-8.0); Protein,Urine 1+ (Negative); RBC,Urine 11 /hpf (0-5); Squamous Epithelial Cell,Urine <1 /hpf (0-4); Urobilinogen,Urine <2.0 mg/dL (<2.0); WBC,Urine 133 /hpf (0-5)
[2022-10-12 13:17] LABS: Amphetamine Screen,Urine Not Detected (NotDetected); Barbiturate Screen,Urine Not Detected (NotDetected); Benzodiazepines Screen,Urine Not Detected (NotDetected); Cocaine Screen,Urine Not Detected (NotDetected); Methadone Screen, Urine Not Detected (NotDetected); Opiate Screen,Urine Not Detected (NotDetected); Oxycodone Screen, Urine Not Detected (NotDetected); Phencyclidine Screen,Urine Not Detected (NotDetected); Tricyclic Antidepressant,Urine Not Detected (NotDetected); Urn Cannabinoid Scrn Not Detected (NotDetected)
[2022-10-12 13:22] LABS: Ketones,Urine 2+ (Negative)
--- NOTE | 2022-10-12 15:37 | US ---
EXAMINATION TYPE: US carotid duplex BILAT DATE OF EXAM: 10/12/2022 COMPARISON: NONE CLINICAL INDICATION: Male, 62 years old with history of left MCA stroke; MCA stroke TECHNIQUE: Carotid duplex ultrasound examination. Indirect Doppler criteria was utilized. FINDINGS: EXAM MEASUREMENTS: RIGHT: Peak Systolic Velocity (PSV) cm/sec ----- Right CCA: 96.4 ----- Right ICA: 71.6 ----- Right ECA: 143.8 ICA/CCA ratio: 0.7 RIGHT: End Diastole cm/sec ----- Right CCA: 19.4 ----- Right ICA: 29.9 ----- Right ECA: 9.1 LEFT: Peak Systolic Velocity (PSV) cm/sec ----- Left CCA: 45.0 ----- Left ICA: occluded ----- Left ECA: 58.1 ICA/CCA ratio: 1.3 LEFT: End Diastole cm/sec ----- Left CCA: 0.0 ----- Left ICA: occluded ----- Left ECA: 11.5 VERTEBRALS (direction of flow): Right Vertebral: Antegrade Left Vertebral: Antegrade Rhythm: Normal LINER REROLL TENDER NOTES: LT CCA is occluded from origin as CTA from yesterday shows IMPRESSION: Occlusion left common carotid artery and left ICA. Criteria for Assigning % of Stenosis / Diameter reduction (Estimation based on the indirect measurements of the internal carotid artery velocities (ICA PSV). 1. Normal (no stenosis)=ICA PSV < 125 cm/s: ratio < 2.0: ICA EDV<40 cm/s. 2. Less than 50% stenosis=ICA PSV < 125 cm/s: ratio < 2.0: ICA EDV<40 cm/s. 3. 50 to 69% stenosis=ICA PSV of 125 to 230 cm/s: ration 2.0 ? 4.0: ICA EDV 40-100 cm/s. 4. Greater than 70% stenosis to near occlusion= ICA PSV > 230 cm/s: ratio > 4.0: ICA EDV > 100 cm/s. 5. Near occlusion= ICA PSV velocities may be low or undetectable: variable ratio and ICA EDV. 6. Total occlusion=unable to detect flow.
[2022-10-12 16:34] LABS: Glucose,Whole Blood 160 mg/dL (70-110)
[2022-10-12] MEDS: HEPARIN SODIUM,PORCINE 5,000 UNIT/ML 1 ML VIAL SQ SCH (16:45)
[2022-10-12 20:04] LABS: Glucose,Whole Blood 188 mg/dL (70-110)
[2022-10-12] MEDS ORDERED: ATORVASTATIN 20 MG TAB PO SCH (21:00)
[2022-10-12] MEDS: ATORVASTATIN 40 MG TAB PO SCH (21:30)
[2022-10-13] MEDS: HEPARIN SODIUM,PORCINE 5,000 UNIT/ML 1 ML VIAL SQ SCH ×3 (00:15→15:10)
[2022-10-13 05:35] LABS: Glucose,Whole Blood 195 mg/dL (70-110)
[2022-10-13 06:02] LABS: African American GFR (CKD) >90 (>60 ml/min/1.73 sqM); Anion Gap 5 mmol/L; Blood Urea Nitrogen 32 mg/dL (9-20); Calcium 8.6 mg/dL (8.4-10.2); Carbon Dioxide 24 mmol/L (22-30); Chloride 112 mmol/L (98-107); Glucose 179 mg/dL (74-99); Non-African American GFR(CKD) >90 (>60 ml/min/1.73 sqM); Potassium 3.8 mmol/L (3.5-5.1); Sodium 141 mmol/L (137-145)
[2022-10-13 06:12] LABS: Basophils # (A) 0.1 k/uL (0-0.2); Basophils % (A) 0 %; Eosinophils # (A) 0.1 k/uL (0-0.7); Eosinophils % (A) 1 %; HCT 38.5 % (39.0-53.0); Lymphocytes # (A) 1.9 k/uL (1.0-4.8); Lymphocytes % (A) 17 %; MCHC 33.8 g/dL (31.0-37.0); MCV 88.8 fL (80.0-100.0); Mean Platelet Volume 8.2; Monocytes # (A) 0.6 k/uL (0-1.0); Monocytes % (A) 6 %; Neutrophils # (A) 8.2 k/uL (1.3-7.7); Neutrophils % (A) 75 %; Platelet Count 164 k/uL (150-450); RBC 4.34 m/uL (4.30-5.90); RDW 12.8 % (11.5-15.5)
[2022-10-13] MEDS: INSULIN ASPART (NovoLOG) 100 UNIT/ML VIAL SQ SCH ×4 (06:52→20:37)
[2022-10-13] MEDS: SODIUM CHLORIDE 0.9% 1,000 ML IV SCH ×4 (08:35→16:46)
[2022-10-13] MEDS: FAMOTIDINE 20 MG/2 ML VIAL IV SCH ×2 (08:35→20:37)
[2022-10-13] MEDS: ASPIRIN 300 MG SUPP RECTAL SCH (08:35)
[2022-10-13 08:52] VITALS: BMI 28.7
[2022-10-13 11:34] LABS: Glucose,Whole Blood 261 mg/dL (70-110)
--- NOTE | 2022-10-13 12:10 | CDI ---
Documentation Clarification Form Date: From: Chiquita Lincoln Phone: [phone] Admit Date: 10/11/2022 08:25:00 PM Patient Name: Stewart Allan Visit Number: [id number] Discharge Date: ATTENTION: The Clinical Documentation Specialists (CDI) and [facility] Coding Staff appreciate your assistance in clarifying documentation. Please respond to the clarification below the line at the bottom and electronically sign. The CDI & [facility] Coding staff will review the response and follow-up if needed. Please note: Queries are made part of the Legal Health Record. If you have any questions, please contact the author of this message via ITS. Dr. King Lock Rhabdomyolysis is documented in the Progress note on 10/12. Additional clarification regarding the type of rhabdomyolysis is requested. History/Risk Factors: "62-year-old man brought to have evaluation of suspected stroke. The patient is reportedly brought [place] the [place] stop." - Per ED/Neuro symptoms note dated 10/11 Clinical Indicators: "Camera footage showed the patient last entering the vehicle on Tuesday" - Per ED/Neuro symptoms note dated 10/11 CK 999 - 10/11 CK 977 - 10/12 Treatment: Per Progress Note on 10/12 "-Continue normal saline at 1 30 mL an hour -CK trending down" Please clarify the type of rhabdomyolysis, if known: [ ] Traumatic rhabdomyolysis due to prolonged immobility [ ] Other, please specify [ ] Unable to Determine Traumatic rhabdomyolysis due to prolonged immobility MTDD
--- NOTE | 2022-10-13 13:25 | P.PN ---
Subjective Progress Note Date: 10/13/22 Hospital Course: 62-year-old male with history of hypertension, dyslipidemia, diabetes found unresponsive [place] a local truck stop. Per report, patient was not moving for the last few days. Upon ED evaluation, found to have a large left-sided MCA subacute stroke. Laboratory workup also showed leukocytosis, elevated BUN, and elevated CK. Patient admitted for further stroke workup and started on fluids. Neurology consulted. Urine indicative of a possible urinary tract infection, st arted on IV ceftriaxone. Echo report reviewed, shows normal LV size and systolic function, no filling defects to indicate thrombus. Subjective: Patient seen and examined at bedside. Not able to provide any meaningful history. Denies any pain. Has a Mars catheter in place. Pertinent positives and negatives as discussed above, a complete review of systems was performed and all other systems are negative. Vitals Signs Reviewed. General: nontoxic, no distress, appears at stated age Derm: warm, dry Head: atraumatic, normocephalic, symmetric Eyes: EOMI, no lid lag, anicteric sclera Mouth: no lip lesion, mucus membranes moist Cardiovascular: S1S2 reg, no murmur Lungs: CTA bilateral, no rhonchi, no rales , no accessory muscle use Abdominal: soft, nontender to palpation, no guarding, no appreciable organomegaly Ext: no gross muscle atrophy, no edema, no contractures Neuro: CN II-XI grossly intact, no focal neuro deficits, right-sided deficits, significant aphasia Psych: Awake and Alert, unable to follow commands Data Reviewed Today: Pertinent Labs: WBC 11, hemoglobin 13, potassium 3.8, creatinine 0.64, blood sugars range between 179-195 Imaging: Carotid Doppler showed occlusion of left common carotid artery and left ICA Assessment and Plan: Large left MCA and small right parietal subacute CVA, , likely embolic Left ICA and common carotid occlusion Acute metabolic encephalopathy secondary to above Mild rhabdomyolysis Dehydration Urinary tract infection Acute metabolic encephalopathy Leukocytosis, resolved Type 2 diabetes History of hypertension -Neurology following, continue aspirin, EEG pending -Continue statin -There is a concern for embolic stroke given both left and right-sided strokes -On telemetry -Per speech therapy, started on pured diet -PT/OT -IV ceftriaxone -Continue normal saline at 1 30 mL an hour -CK trending down -Sliding scale insulin, hold oral antidiabetic -Permissive hypertension, hold oral antihypertensives DVT ppx: Subcu heparin Code status: full code Anticipated discharge place: pending clinical course Anticipated discharge time: pending clinical course Objective - Vital Signs Vital signs: Vital Signs Temp 97.5 F L 10/13/22 11:30 Pulse 56 L 10/13/22 11:30 Resp 20 10/13/22 11:30 BP 185/90 10/13/22 11:30 Pulse Ox 100 10/13/22 11:30 FiO2 Intake & Output 10/12/22 10/13/22 10/13/22 18:59 06:59 18:59 Intake Total 240 240 Output Total 400 1350 700 Balance -160 -1350 -460 Weight 90.718 kg Intake: Oral 240 240 Output: Urine 400 1350 700 Other: Voiding Method Indwelling Catheter Indwelling Catheter Indwelling Catheter - Labs CBC & Chem 7: 10/13/22 05:22 10/13/22 05:22 Labs: Abnormal Lab Results - Last 24 Hours (Table) 10/12/22 10/12/22 10/13/22 Range/Units 16:33 20:02 05:22 WBC 11.0 H (3.8-10.6) k/uL Hct 38.5 L (39.0-53.0) % Neutrophils # 8.2 H (1.3-7.7) k/uL Chloride (98-107) mmol/L BUN (9-20) mg/dL Creatinine (0.66-1.25) mg/dL Glucose (74-99) mg/dL POC Glucose (mg/dL) 160 H 188 H (70-110) mg/dL 10/13/22 10/13/22 10/13/22 Range/Units 05:22 05:32 11:31 WBC (3.8-10.6) k/uL Hct (39.0-53.0) % Neutrophils # (1.3-7.7) k/uL Chloride 112 H (98-107) mmol/L BUN 32 H (9-20) mg/dL Creatinine 0.64 L (0.66-1.25) mg/dL Glucose 179 H (74-99) mg/dL POC Glucose (mg/dL) 195 H 261 H (70-110) mg/dL
[2022-10-13 16:27] LABS: Glucose,Whole Blood 209 mg/dL (70-110)
--- NOTE | 2022-10-13 17:02 | CT ---
EXAMINATION TYPE: CT brain wo con DATE OF EXAM: 10/13/2022 COMPARISON: 10/11/2022 HISTORY: 62-year-old male post CVA TECHNIQUE: Examination was done in axial plane without intravenous contrast. Coronal and sagittal r econstructions performed. CT DLP: 1290.9 mGycm Automated exposure control for dose reduction was used. FINDINGS: Redemonstrated is extensive cortical and subcortical hypodensity throughout the left MCA distribution . Associated sulcal effacement. Overall appearance is unchanged. No herniation or midline shift. Slig ht asymmetrically smaller left lateral ventricle could be due to mild local mass effect or could be c ongenital variation. No evidence for acute intracranial hemorrhage or extra-axial fluid collection. No hydrocephalus. Leftward nasal septal deviation. Moderate mucosal thickening anterior right ethmoid air cells. Mastoi d air cells are well pneumatized. Orbital globes are intact. IMPRESSION: Similar changes of subacute left MCA large vascular territory infarct with extensive hypodensity and sulcal effacement. No hemorrhagic transformation, midline shift, hydrocephalus, or herniation.
[2022-10-13] MEDS: ATORVASTATIN 40 MG TAB PO SCH (20:10)
[2022-10-13 20:12] LABS: Glucose,Whole Blood 191 mg/dL (70-110)
--- NOTE | 2022-10-13 21:02 | EEG ---
ELECTROENCEPHALOGRAM REPORT PREAMBLE: This is a 62-year-old male with acute stroke. The patient was found unresponsive in the semi-truck with right hemiplegia. This study is performed to rule out any epileptiform activity. EEG FINDINGS: This is a 21-channel digital EEG recorded with video component, utilizing 10/20 International System with referential and bipolar montages. Background consists of moderately well-developed, but not very well regulated, mixed frequencies of 4 to 6 Hz theta, intermixed with some 2 to 3 Hz delta activity seen in bihemispheric region. Background does not seem to be reactive to eye opening or closing. Photic stimulation was not performed. Hyperventilation was not done. Different stages of sleep were not seen. No focal or generalized epileptiform activity was seen. IMPRESSION: This is an abnormal EEG due to background slowing of moderate degree. This is suggestive of generalized cerebral dysfunction as can be seen with toxic metabolic encephalopathy or related to diffuse structural brain abnormality. Clinical correlation is recommended. No epileptiform activity was seen. MMODL / IJN: [id number] /
[2022-10-14] MEDS: HEPARIN SODIUM,PORCINE 5,000 UNIT/ML 1 ML VIAL SQ SCH ×4 (00:02→23:32)
[2022-10-14] MEDS: SODIUM CHLORIDE 0.9% 1,000 ML IV SCH ×3 (00:12→17:57)
[2022-10-14 06:06] LABS: Glucose,Whole Blood 193 mg/dL (70-110)
[2022-10-14] MEDS: INSULIN ASPART (NovoLOG) 100 UNIT/ML VIAL SQ SCH ×4 (06:27→20:40)
[2022-10-14] MEDS: FAMOTIDINE 20 MG/2 ML VIAL IV SCH ×2 (10:07→20:02)
[2022-10-14] MEDS: ASPIRIN 81 MG PO SCH (10:07)
[2022-10-14] MEDS: VALSARTAN 160 MG TAB PO SCH (10:08)
[2022-10-14] MEDS: ASPIRIN 300 MG SUPP RECTAL SCH (10:31)
--- NOTE | 2022-10-14 10:56 | P.PN ---
Subjective Progress Note Date: 10/13/22 Patient was seen for a follow-up. Patient is laying in the bed. He is more alert and awake. Continues to be globally aphasic. Objective - Vital Signs Vital signs: Vital Signs Temp 97.6 F 10/13/22 16:00 Pulse 58 L 10/13/22 16:00 Resp 18 10/13/22 16:00 BP 187/84 10/13/22 16:00 Pulse Ox 97 10/13/22 16:00 FiO2 Intake & Output 10/13/22 10/13/22 10/14/22 06:59 18:59 06:59 Intake Total 840 Output Total 1350 1200 Balance -1350 -360 Intake: Oral 840 Output: Urine 1350 1200 Other: Voiding Method Indwelling Catheter Indwelling Catheter - Exam Patient is more alert and awake. Continues to be globally aphasic. Patient only says some syllables like "okay", "shit", "yup". Patient not able to name, repeat or follow directions. Patient has right hemiplegia including face arm and leg. Patient slightly withdraws right leg to the painful stimuli. Patient is also weak on the left side it appears. Patient has bilateral Babinski. - Labs CBC & Chem 7: 10/13/22 05:22 10/13/22 05:22 Labs: Abnormal Lab Results - Last 24 Hours (Table) 10/12/22 10/13/22 10/13/22 Range/Units 20:02 05:22 05:22 WBC 11.0 H (3.8-10.6) k/uL Hct 38.5 L (39.0-53.0) % Neutrophils # 8.2 H (1.3-7.7) k/uL Chloride 112 H (98-107) mmol/L BUN 32 H (9-20) mg/dL Creatinine 0.64 L (0.66-1.25) mg/dL Glucose 179 H (74-99) mg/dL POC Glucose (mg/dL) 188 H (70-110) mg/dL 10/13/22 10/13/22 10/13/22 Range/Units 05:32 11:31 16:26 WBC (3.8-10.6) k/uL Hct (39.0-53.0) % Neutrophils # (1.3-7.7) k/uL Chloride (98-107) mmol/L BUN (9-20) mg/dL Creatinine (0.66-1.25) mg/dL Glucose (74-99) mg/dL POC Glucose (mg/dL) 195 H 261 H 209 H (70-110) mg/dL Microbiology - Last 24 Hours (Table) 10/12/22 11:00 Urine Culture - Preliminary Urine,Voided Gram Neg Bacilli Assessment and Plan Assessment: * Acute ischemic stroke, involving left MCA vascular territory with global aphasia and right hemiplegia. There is an additional area of acute/subacute ischemic stroke involving much smaller region in the right parietal lobe, which is also probably symptomatic with mild left-sided weakness. Patient's NIH stroke scale reported in the ED was 23. * Left ICA occlusion * Dysphagia, due to above. * Hypertension * Diabetes * Hyperlipidemia Plan: * Patient continues to be severely hemiplegic on the right side, with global aphasia, dysphagia. Patient also has mild left hemiparesis as well. * Repeat CT head performed today showed similar changes of subacute left MCA large vascular territory infarct with extensive hypodensity and sulcal effacement. No hemorrhagic transformation, midline shift, hydrocephalus or herniation. I personally reviewed CT head, agree with the findings. * 2-D echo revealed normal left ventricular size and systolic function with EF 55-60%. Mild septal hypertrophy. Normal left atrial size. Mild calcification of the aortic valve leaflets without restriction. No thrombus. * CTA head and neck showed: Occlusion of the left internal carotid artery extending from its origin to the [place]. Reconstitution in the [place]. No evidence of dissection of the cervical internal carotid arteries or vertebral arteries or any evidence of significant stenosis at the right carotid bifurcation. No evidence of intracranial high-grade stenosis or intracranial aneurysm. * Fasting a.m. lipid panel cholesterol 188, LDL 125, HDL 35, triglycerides 135. Start Lipitor 80 mg daily, when able to take by mouth. * Hemoglobin A1c 8.0. Optimize control of diabetes to target A1c <7.0. * May start optimizing control of blood pressure gradually towards normotensive. At present blood pressure running around 183/98. * Stat urine drug screen negative. * EEG was abnormal due to background slowing of moderate degree, suggestive of encephalopathy. No epileptiform activity was seen. * Patient to be started on aspirin 300 mg rectally. May start DAP when patient able to take by mouth. * Close neuro checks * Telemetry monitoring so far showing sinus rhythm, with sinus bradycardia in the 40s. Some PVCs and PACs. * DVT prophylaxis: Heparin 5000 units subcu every 8 hours * Pepcid 20 mg twice a day for gastric ulcer prophylaxis. * PT, OT, speech therapy.
--- NOTE | 2022-10-14 11:10 | P.PN ---
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 Per report, patient was not moving for the last few days. Upon ED evaluation, found to have a large left-sided MCA subacute stroke. Laboratory workup also showed leukocytosis, elevated BUN, and elevated CK. Patient admitted for further stroke workup and started on fluids. Neurology consulted. Urine indicative of a possible urinary tract infection, started on IV ceftriaxone. Echo report reviewed, shows normal LV size and systolic function, no filling defects to indicate thrombus. Repeat head CT does not show any hemorrhagic transformation, midline shift, hydrocephalus, or herniation. EEG shows no epileptiform activity. Subjective: Patient seen and examined at bedside. Not able to provide any meaningful history. Denies any pain. Has a Mars catheter in place. Pertinent positives and negatives as discussed above, a complete review of systems was performed and all other systems are negative. Vitals Signs Reviewed. General: nontoxic, no distress, appears at stated age Derm: warm, dry Head: atraumatic, normocephalic, symmetric Eyes: EOMI, no lid lag, anicteric sclera Mouth: no lip lesion, mucus membranes moist Cardiovascular: S1S2 reg, no murmur Lungs: CTA bilateral, no rhonchi, no rales , no accessory muscle use Abdominal: soft, nontender to palpation, no guarding, no appreciable organomegaly Ext: no gross muscle atrophy, no edema, no contractures Neuro: CN II-XI grossly intact, no focal neuro deficits, right-sided deficits, significant aphasia Psych: Awake and Alert, unable to follow commands Data Reviewed Today: Pertinent Labs: WBC blood sugars range between 191-209 Imaging: Repeat CT had did not show any hemorrhagic transformation, midline shift, hydrocephalus, or herniation Assessment and Plan: Large left MCA and small right parietal subacute CVA, , likely embolic Left ICA and common carotid occlusion Acute metabolic encephalopathy secondary to above Mild rhabdomyolysis Dehydration Urinary tract infection Leukocytosis, resolved Type 2 diabetes Uncontrolled hypertension -Neurology following, continue aspirin, and statin -There is a concern for embolic stroke given both left and right-sided strokes -On telemetry -Per speech therapy, started on pured diet, patient tolerating about 50% of his oral intake -PT/OT -IV ceftriaxone -Continue normal saline at 1 30 mL an hour -CK trending down -Sliding scale insulin, hold oral antidiabetic -Restarted on home valsartan -Discontinue Mars catheter DVT ppx: Subcu heparin Code status: full code Anticipated discharge place: Subacute rehab Anticipated discharge time: pending clinical course Objective - Vital Signs Vital signs: Vital Signs Temp 98.1 F 10/14/22 08:00 Pulse 51 L 10/14/22 08:00 Resp 15 10/14/22 08:00 BP 167/81 10/14/22 08:00 Pulse Ox 97 10/14/22 08:00 FiO2 Intake & Output 10/13/22 10/14/22 10/14/22 18:59 06:59 18:59 Intake Total 840 328 Output Total 1200 600 Balance -360 -272 Intake: IV 10 Invasive Line 3 10 Intake, IV Titration 200 Amount Sodium Chloride 0.9% 1, 200 000 ml @ 130 mls/hr IV . Q7H42M [facility] Rx#:[id number] Oral 840 118 Output: Urine 1200 600 Uretheral (Mars) 600 Other: Voiding Method Indwelling Catheter Indwelling Catheter - Labs CBC & Chem 7: 10/13/22 05:22 10/13/22 05:22 Labs: Abnormal Lab Results - Last 24 Hours (Table) 10/13/22 10/13/22 10/13/22 Range/Units 11:31 16:26 20:10 POC Glucose (mg/dL) 261 H 209 H 191 H (70-110) mg/dL 10/14/22 Range/Units 06:03 POC Glucose (mg/dL) 193 H (70-110) mg/dL Microbiology - Last 24 Hours (Table) 10/12/22 11:00 Urine Culture - Preliminary Urine,Voided Gram Neg Bacilli
[2022-10-14 12:04] LABS: Glucose,Whole Blood 222 mg/dL (70-110)
[2022-10-14 16:34] LABS: Glucose,Whole Blood 245 mg/dL (70-110)
[2022-10-14] MEDS: ATORVASTATIN 40 MG TAB PO SCH (20:00)
[2022-10-14 20:02] LABS: Glucose,Whole Blood 178 mg/dL (70-110)
[2022-10-15] MEDS: SODIUM CHLORIDE 0.9% 1,000 ML IV SCH ×3 (01:20→17:01)
[2022-10-15 05:47] LABS: Glucose,Whole Blood 206 mg/dL (70-110)
[2022-10-15] MEDS: INSULIN ASPART (NovoLOG) 100 UNIT/ML VIAL SQ SCH ×4 (06:21→21:16)
[2022-10-15] MEDS: HEPARIN SODIUM,PORCINE 5,000 UNIT/ML 1 ML VIAL SQ SCH ×3 (09:07→23:28)
[2022-10-15] MEDS: VALSARTAN 160 MG TAB PO SCH (09:07)
[2022-10-15] MEDS: FAMOTIDINE 20 MG/2 ML VIAL IV SCH ×2 (09:07→21:17)
[2022-10-15] MEDS: hydroCHLOROthiazide 25 MG TAB PO SCH (09:08)
[2022-10-15] MEDS: ASPIRIN 81 MG PO SCH (09:08)
[2022-10-15 11:32] LABS: Glucose,Whole Blood 293 mg/dL (70-110)
--- NOTE | 2022-10-15 13:20 | P.PN ---
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 Per report, patient was not moving for the last few days. Upon ED evaluation, found to have a large left-sided MCA subacute stroke. Laboratory workup also showed leukocytosis, elevated BUN, and elevated CK. Patient admitted for further stroke workup and started on fluids. Neurology consulted. Urine indicative of a possible urinary tract infection, started on IV ceftriaxone. Echo report reviewed, shows normal LV size and systolic function, no filling defects to indicate thrombus. Repeat head CT does not show any hemorrhagic transformation, midline shift, hydrocephalus, or herniation. EEG shows no epileptiform activity. Pending guardianship and then subacute rehab Subjective: Patient seen and examined at bedside. Not able to provide any meaningful history. Denies any pain. Has a Mars catheter in place. Pertinent positives and negatives as discussed above, a complete review of systems was performed and all other systems are negative. Vitals Signs Reviewed. General: nontoxic, no distress, appears at stated age Derm: warm, dry Head: atraumatic, normocephalic, symmetric Eyes: EOMI, no lid lag, anicteric sclera Mouth: no lip lesion, mucus membranes moist Cardiovascular: S1S2 reg, no murmur Lungs: CTA bilateral, no rhonchi, no rales , no accessory muscle use Abdominal: soft, nontender to palpation, no guarding, no appreciable organomegaly Ext: no gross muscle atrophy, no edema, no contractures Neuro: CN II-XI grossly intact, no focal neuro deficits, right-sided deficits, significant aphasia Psych: Awake and Alert, unable to follow commands Data Reviewed Today: Pertinent Labs: Blood sugars range between 178-245 Imaging: No new imaging Assessment and Plan: Large left MCA and small right parietal subacute CVA, , possibly embolic Left ICA and common carotid occlusion Acute metabolic encephalopathy secondary to above Mild rhabdomyolysis Dehydration Urinary tract infection Leukocytosis, resolved Type 2 diabetes Uncontrolled hypertension -Neurology following, continue aspirin, and statin -There is a concern for embolic stroke given both left and right-sided strokes -On telemetry -Per speech therapy, started on pured diet, patient tolerating about 50% of his oral intake -PT/OT -IV ceftriaxone -Continue normal saline at 1 30 mL an hour -CK trending down -Sliding scale insulin, hold oral antidiabetic -On home valsartan, also started on hydrochlorothiazide DVT ppx: Subcu heparin Code status: full code Anticipated discharge place: Subacute rehab Anticipated discharge time: pending clinical course Objective - Vital Signs Vital signs: Vital Signs Temp 98.5 F 10/15/22 09:05 Pulse 48 L 10/15/22 12:00 Resp 17 10/15/22 12:00 BP 189/88 10/15/22 12:00 Pulse Ox 96 10/15/22 12:00 FiO2 Intake & Output 10/14/22 10/15/22 10/15/22 18:59 06:59 18:59 Intake Total 1228 236 120 Output Total 800 724 200 Balance 428 -488 -80 Weight 90.718 kg Intake: IV 10 Invasive Line 3 10 Intake, IV Titration 1100 Amount Sodium Chloride 0.9% 1, 1100 000 ml @ 130 mls/hr IV . Q7H42M [facility] Rx#:[id number] Oral 118 236 120 Output: Urine 800 724 200 Uretheral (Mars) 800 Other: Voiding Method Indwelling Catheter External Catheter External Catheter # Voids 1 # Bowel Movements 1 - Labs CBC & Chem 7: 10/13/22 05:22 10/13/22 05:22 Labs: Abnormal Lab Results - Last 24 Hours (Table) 10/14/22 10/14/22 10/15/22 Range/Units 16:32 20:01 05:45 POC Glucose (mg/dL) 245 H 178 H 206 H (70-110) mg/dL 10/15/22 Range/Units 11:31 POC Glucose (mg/dL) 293 H (70-110) mg/dL Microbiology - Last 24 Hours (Table) 10/12/22 11:00 Urine Culture - Final Urine,Voided Klebsiella pneumoniae
[2022-10-15 16:34] LABS: Glucose,Whole Blood 192 mg/dL (70-110)
[2022-10-15] MEDS: hydrALAZINE HCL 50 MG TAB PO SCH ×2 (16:58→21:19)
[2022-10-15 19:43] LABS: Glucose,Whole Blood 206 mg/dL (70-110)
[2022-10-15] MEDS: ATORVASTATIN 40 MG TAB PO SCH ×2 (21:17→21:19)
[2022-10-16] MEDS: SODIUM CHLORIDE 0.9% 1,000 ML IV SCH ×3 (00:30→20:11)
--- NOTE | 2022-10-16 02:05 | P.PN ---
Subjective Progress Note Date: 10/14/22 Patient was seen for a follow-up. Patient is laying in the bed. He is more alert and awake. Continues to be globally aphasic. Telemetry monitoring showing sinus rhythm, sinus bradycardia in the 40s, PVCs, PACs. Objective - Vital Signs Vital signs: Vital Signs Temp 97.6 F 10/14/22 15:47 Pulse 50 L 10/14/22 15:47 Resp 16 10/14/22 15:47 BP 175/79 10/14/22 15:47 Pulse Ox 100 10/14/22 15:47 FiO2 Intake & Output 10/13/22 10/14/22 10/14/22 18:59 06:59 18:59 Intake Total 840 328 Output Total 1200 600 Balance -360 -272 Weight 90.718 kg Intake: IV 10 Invasive Line 3 10 Intake, IV Titration 200 Amount Sodium Chloride 0.9% 1, 200 000 ml @ 130 mls/hr IV . Q7H42M [facility] Rx#:[id number] Oral 840 118 Output: Urine 1200 600 Uretheral (Mars) 600 Other: Voiding Method Indwelling Catheter Indwelling Catheter Indwelling Catheter - Exam Patient is more alert and awake. Continues to be globally aphasic. Patient only says some syllables like "okay", "yup". Patient not able to name, repeat or follow directions. Patient has right hemiplegia including face arm and leg. Patient slightly withdraws right leg to the painful stimuli. Patient is also weak on the left side it appears. Patient has bilateral Babinski. - Labs CBC & Chem 7: 10/13/22 05:22 10/13/22 05:22 Labs: Abnormal Lab Results - Last 24 Hours (Table) 10/13/22 10/14/22 10/14/22 Range/Units 20:10 06:03 11:54 POC Glucose (mg/dL) 191 H 193 H 222 H (70-110) mg/dL 10/14/22 Range/Units 16:32 POC Glucose (mg/dL) 245 H (70-110) mg/dL Microbiology - Last 24 Hours (Table) 10/12/22 11:00 Urine Culture - Preliminary Urine,Voided Gram Neg Bacilli Assessment and Plan Assessment: * Acute ischemic stroke, involving left MCA vascular territory with global aphasia and right hemiplegia. There is an additional area of acute/subacute ischemic stroke involving much smaller region in the right parietal lobe, which is also probably symptomatic with mild left-sided weakness. Patient's NIH stroke scale reported in the ED was 23. * Left ICA occlusion * Dysphagia, due to above. * Hypertension * Diabetes * Hyperlipidemia Plan: * Patient continues to be severely hemiplegic on the right side, with global aphasia, dysphagia. Patient also has mild left hemiparesis as well. * Repeat CT head performed 10/13/2022 showed similar changes of subacute left MCA large vascular territory infarct with extensive hypodensity and sulcal e ffacement. No hemorrhagic transformation, midline shift, hydrocephalus or herniation. I personally reviewed CT head, agree with the findings. * 2-D echo revealed normal left ventricular size and systolic function with EF 55-60%. Mild septal hypertrophy. Normal left atrial size. Mild calcifica tion of the aortic valve leaflets without restriction. No thrombus. * CTA head and neck showed: Occlusion of the left internal carotid artery extending from its origin to the [place]. Reconstitution in the [place]. No evidence of dissection of the cervical internal carotid arteries or vertebral arteries or any evidence of significant stenosis at the right carotid bifurcation. No evidence of intracranial high-grade stenosis or intracranial aneurysm. * Fasting a.m. lipid panel cholesterol 188, LDL 125, HDL 35, triglycerides 135. Start Lipitor 80 mg daily, when able to take by mouth. * Hemoglobin A1c 8.0. Optimize control of diabetes to target A1c <7.0. * May start optimizing control of blood pressure gradually towards normotensive. At present blood pressure running around 175/79.. * Stat urine drug screen negative. * EEG was abnormal due to background slowing of moderate degree, suggestive of encephalopathy. No epileptiform activity was seen. * Patient on aspirin 300 mg rectally. May start DAPT when able to take by mouth. * Close neuro checks * Telemetry monitoring so far showing sinus rhythm, with sinus bradycardia in the 40s. Some PVCs and PACs. * DVT prophylaxis: Heparin 5000 units subcu every 8 hours * Pepcid 20 mg twice a day for gastric ulcer prophylaxis. * PT, OT, speech therapy.
--- NOTE | 2022-10-16 02:09 | P.PN ---
Subjective Progress Note Date: 10/15/22 Patient was seen for a follow-up. Patient is laying in the bed. He is more alert and awake. Continues to be globally aphasic. He is more alert and awake. NG tube has been removed. Patient able to swallow pills. Objective - Vital Signs Vital signs: Vital Signs Temp 98.2 F 10/15/22 23:25 Pulse 54 L 10/15/22 23:25 Resp 16 10/15/22 23:25 BP 180/87 10/15/22 23:25 Pulse Ox 97 10/15/22 23:25 FiO2 Intake & Output 10/15/22 10/15/22 10/16/22 06:59 18:59 06:59 Intake Total 236 240 0 Output Total 724 1550 1050 Balance -488 -1310 -1050 Intake: Oral 236 240 0 Output: Urine 724 1550 1050 Other: Voiding Method External Catheter External Catheter External Catheter # Voids 1 # Bowel Movements 1 - Exam Patient is more alert and awake. Continues to be globally aphasic. Patient only says some syllables like "okay", "yup". Patient more babbling today. Still aphasic, not able to name any object, or repeat. Comprehension is impaired. Patient not able to follow directions. Patient has right hemiplegia including face arm and leg. Patient slightly withdraws right leg to the painful stimuli. Patient is also weak on the left side it appears. Patient has bilateral Babinski. Patient has some scratches and scabs in the left arm. - Labs CBC & Chem 7: 10/13/22 05:22 10/13/22 05:22 Labs: Abnormal Lab Results - Last 24 Hours (Table) 10/15/22 10/15/22 10/15/22 Range/Units 05:45 11:31 16:32 POC Glucose (mg/dL) 206 H 293 H 192 H (70-110) mg/dL 10/15/22 Range/Units 19:42 POC Glucose (mg/dL) 206 H (70-110) mg/dL Microbiology - Last 24 Hours (Table) 10/12/22 11:00 Urine Culture - Final Urine,Voided Klebsiella pneumoniae Assessment and Plan Assessment: * Acute ischemic stroke, involving left MCA vascular territory with global apha cee and right hemiplegia. There is an additional area of acute/subacute ischemic stroke involving much smaller region in the right parietal lobe, which is also probably symptomatic with mild left-sided weakness. Patient's NIH stroke scale reported in the ED was 23. * Left ICA occlusion * Dysphagia, due to above. * Hypertension * Diabetes * Hyperlipidemia Plan: * Patient continues to be severely hemiplegic on the right side, with global aphasia, dysphagia. Patient also has mild left hemiparesis as well. Patient has started to babble more, but still no intelligible speech. * Repeat CT head performed 10/13/2022 showed similar changes of subacute left MCA large vascular territory infarct with extensive hypodensity and sulcal effacement. No hemorrhagic transformation, midline shift, hydrocephalus or herniation. I personally reviewed CT head, agree with the findings. * 2-D echo revealed normal left ventricular size and systolic function with EF 55-60%. Mild septal hypertrophy. Normal left atrial size. Mild calcification of the aortic valve leaflets without restriction. No thrombus. * CTA head and neck showed: Occlusion of the left internal carotid artery extending from its origin to the [place]. Reconstitution in the [place]. No evidence of dissection of the cervical internal carotid arteries or vertebral arteries or any evidence of significant stenosis at the right carotid bifurcation. No evidence of intracranial high-grade stenosis or intracranial aneurysm. * Fasting a.m. lipid panel cholesterol 188, LDL 125, HDL 35, triglycerides 135. Start Lipitor 80 mg daily, when able to take by mouth. * Hemoglobin A1c 8.0. Optimize control of diabetes to target A1c <7.0. * May start optimizing control of blood pressure gradually towards normotensive. At present blood pressure running around 175/79.. * Stat urine drug screen negative. * EEG was abnormal due to background slowing of moderate degree, suggestive of encephalopathy. No epileptiform activity was seen. * Patient to be started on dual antiplatelet medication with aspirin 81 mg and Plavix and 5 mg. * Close neuro checks * Telemetry monitoring so far showing sinus rhythm, with sinus bradycardia in the 40s. Some PVCs and PACs. * DVT prophylaxis: Heparin 5000 units subcu every 8 hours * Pepcid 20 mg twice a day for gastric ulcer prophylaxis. * PT, OT, speech therapy. * Dr. Degroot will cover neurology service over the weekend.
[2022-10-16 05:51] LABS: Glucose,Whole Blood 271 mg/dL (70-110)
[2022-10-16] MEDS: INSULIN ASPART (NovoLOG) 100 UNIT/ML VIAL SQ SCH ×4 (06:02→20:20)
[2022-10-16] MEDS: FAMOTIDINE 20 MG/2 ML VIAL IV SCH ×2 (09:13→20:19)
[2022-10-16] MEDS: hydroCHLOROthiazide 25 MG TAB PO SCH (09:13)
[2022-10-16] MEDS: hydrALAZINE HCL 50 MG TAB PO SCH ×2 (09:13→15:46)
[2022-10-16] MEDS: HEPARIN SODIUM,PORCINE 5,000 UNIT/ML 1 ML VIAL SQ SCH ×3 (09:13→23:33)
[2022-10-16] MEDS: ASPIRIN 81 MG PO SCH (09:13)
[2022-10-16] MEDS: CLOPIDOGREL 75 MG TAB PO SCH (09:13)
[2022-10-16] MEDS: INSULIN DETEMIR (LEVEMIR) 100 UNIT/ML SYR SQ SCH (09:48)
[2022-10-16] MEDS: VALSARTAN 160 MG TAB PO SCH (09:55)
--- NOTE | 2022-10-16 11:02 | P.PN ---
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 Per report, patient was not moving for the last few days. Upon ED evaluation, found to have a large left-sided MCA subacute stroke. Laboratory workup also showed leukocytosis, elevated BUN, and elevated CK. Patient admitted for further stroke workup and started on fluids. Neurology consulted. Urine indicative of a possible urinary tract infection, started on IV ceftriaxone. Echo report reviewed, shows normal LV size and systolic function, no filling defects to indicate thrombus. Repeat head CT does not show any hemorrhagic transformation, midline shift, hydrocephalus, or herniation. EEG shows no epileptiform activity. Pending guardianship and then subacute rehab. Subjective: Patient seen and examined at bedside. Speech improving. Denies any pain. Has a Mars catheter in place. Pertinent positives and negatives as discussed above, a complete review of systems was performed and all other systems are negative. Vitals Signs Reviewed. General: nontoxic, no distress, appears at stated age Derm: warm, dry Head: atraumatic, normocephalic, symmetric Eyes: EOMI, no lid lag, anicteric sclera Mouth: no lip lesion, mucus membranes moist Cardiovascular: S1S2 reg, no murmur Lungs: CTA bilateral, no rhonchi, no rales , no accessory muscle use Abdominal: soft, nontender to palpation, no guarding, no appreciable organomegaly Ext: no gross muscle atrophy, no edema, no contractures Neuro: CN II-XI grossly intact, no focal neuro deficits, right-sided deficits, significant aphasia Psych: Awake and Alert, unable to follow commands Data Reviewed Today: Pertinent Labs: Sugars range between 192-293 Imaging: No new imaging Assessment and Plan: Large left MCA and small right parietal subacute CVA, , possibly embolic Left ICA and common carotid occlusion Acute metabolic encephalopathy secondary to above Mild rhabdomyolysis Dehydration Urinary tract infection Leukocytosis, resolved Type 2 diabetes Uncontrolled hypertension -Neurology following, continue aspirin, and statin -On telemetry -PT/OT/speech therapy -IV ceftriaxone, last dose today -Continue normal saline at 1 30 mL an hour -CK trending down -Repeat BMP tomorrow -Sliding scale insulin, hold oral antidiabetic, started on 5 units of Levemir -On home valsartan, also started on hydrochlorothiazide and hydralazine DVT ppx: Subcu heparin Code status: full code Anticipated discharge place: Subacute rehab Anticipated discharge time: pending clinical course Objective - Vital Signs Vital signs: Vital Signs Temp 97.6 F 10/16/22 09:25 Pulse 53 L 10/16/22 09:25 Resp 18 10/16/22 09:25 BP 188/80 10/16/22 09:25 Pulse Ox 97 10/16/22 09:25 FiO2 Intake & Output 10/15/22 10/16/22 10/16/22 18:59 06:59 18:59 Intake Total 240 0 Output Total 1550 1650 Balance -1310 -1650 Intake: Oral 240 0 Output: Urine 1550 1650 Other: Voiding Method External Catheter External Catheter External Catheter # Bowel Movements 1 - Labs CBC & Chem 7: 10/13/22 05:22 10/13/22 05:22 Labs: Abnormal Lab Results - Last 24 Hours (Table) 10/15/22 10/15/22 10/15/22 Range/Units 11:31 16:32 19:42 POC Glucose (mg/dL) 293 H 192 H 206 H (70-110) mg/dL 10/16/22 Range/Units 05:49 POC Glucose (mg/dL) 271 H (70-110) mg/dL
[2022-10-16 11:38] LABS: Glucose,Whole Blood 171 mg/dL (70-110)
[2022-10-16 16:48] LABS: Glucose,Whole Blood 198 mg/dL (70-110)
[2022-10-16 20:13] LABS: Glucose,Whole Blood 196 mg/dL (70-110)
[2022-10-16] MEDS: ATORVASTATIN 80 MG TAB PO SCH (20:19)
[2022-10-16] MEDS: hydrALAZINE HCL 25 MG TAB PO SCH (20:19)
[2022-10-17 05:26] LABS: African American GFR (CKD) >90 (>60 ml/min/1.73 sqM); Anion Gap 5 mmol/L; Blood Urea Nitrogen 13 mg/dL (9-20); Calcium 9.1 mg/dL (8.4-10.2); Carbon Dioxide 24 mmol/L (22-30); Chloride 104 mmol/L (98-107); Glucose 196 mg/dL (74-99); Non-African American GFR(CKD) >90 (>60 ml/min/1.73 sqM); Potassium 3.9 mmol/L (3.5-5.1); Sodium 133 mmol/L (137-145)
[2022-10-17 05:47] LABS: Glucose,Whole Blood 212 mg/dL (70-110)
[2022-10-17] MEDS: INSULIN DETEMIR (LEVEMIR) 100 UNIT/ML SYR SQ SCH (06:14)
[2022-10-17] MEDS: INSULIN ASPART (NovoLOG) 100 UNIT/ML VIAL SQ SCH ×4 (06:14→21:12)
[2022-10-17] MEDS: hydroCHLOROthiazide 25 MG TAB PO SCH (09:10)
[2022-10-17] MEDS: CLOPIDOGREL 75 MG TAB PO SCH (09:10)
[2022-10-17] MEDS: VALSARTAN 160 MG TAB PO SCH ×2 (09:10→21:12)
[2022-10-17] MEDS: ASPIRIN 81 MG PO SCH (09:10)
[2022-10-17] MEDS: hydrALAZINE HCL 25 MG TAB PO SCH ×3 (09:10→21:12)
[2022-10-17] MEDS: HEPARIN SODIUM,PORCINE 5,000 UNIT/ML 1 ML VIAL SQ SCH ×2 (09:11→15:22)
[2022-10-17] MEDS: FAMOTIDINE 20 MG/2 ML VIAL IV SCH ×2 (09:11→21:13)
[2022-10-17 12:07] LABS: Glucose,Whole Blood 248 mg/dL (70-110)
--- NOTE | 2022-10-17 14:16 | P.PN ---
Subjective Progress Note Date: 10/17/22 Hospital Course: 62-year-old male with history of hypertension, dyslipidemia, diabetes found unresponsive [place] stop. Per report, patient was not moving for the last few days. Upon ED evaluation, found to have a large left-sided MCA subacute stroke. Laboratory workup also showed leukocytosis, elevated BUN, and elevated CK. Patient admitted for further stroke workup and started on fluids. Neurology consulted. Urine indicative of a possible urinary tract infection, started on IV ceftriaxone. Echo report reviewed, shows normal LV size and systolic function, no filling defects to indicate thrombus. Repeat head CT does not show any hemorrhagic transformation, midline shift, hydrocephalus, or herniation. EEG shows no epileptiform activity. Pending guardianship and then subacute rehab. Subjective: Patient seen and examined at bedside. Speech improving. Denies any pain. Has a Mars catheter in place. Pertinent positives and negatives as discussed above, a complete review of systems was performed and all other systems are negative. Vitals Signs Reviewed. General: nontoxic, no distress, appears at stated age Derm: warm, dry Head: atraumatic, normocephalic, symmetric Eyes: EOMI, no lid lag, anicteric sclera Mouth: no lip lesion, mucus membranes moist Cardiovascular: S1S2 reg, no murmur Lungs: CTA bilateral, no rhonchi, no rales , no accessory muscle use Abdominal: soft, nontender to palpation, no guarding, no appreciable organomegaly Ext: no gross muscle atrophy, no edema, no contractures Neuro: CN II-XI grossly intact, no focal neuro deficits, right-sided deficits, significant aphasia Psych: Awake and Alert, unable to follow commands Data Reviewed Today: Pertinent Labs: Sodium 133, creatinine 0.62, blood sugars range between 196-212 Imaging: No new imaging Assessment and Plan: Large left MCA and small right parietal subacute CVA, , possibly embolic Left ICA and common carotid occlusion Acute metabolic encephalopathy secondary to above Mild rhabdomyolysis, resolving Dehydration resolved Urinary tract infection completed course of antibiotics Leukocytosis, resolved Type 2 diabetes Uncontrolled hypertension -Neurology following, continue aspirin, and statin -On telemetry -PT/OT/speech therapy -IV ceftriaxone, last dose today -Repeat BMP tomorrow -Sliding scale insulin, hold oral antidiabetic, on 5 units of Levemir -Valsartan increased, also started on hydrochlorothiazide and hydralazine DVT ppx: Subcu heparin Code status: full code Anticipated discharge place: Subacute rehab Anticipated discharge time: pending clinical course Objective - Vital Signs Vital signs: Vital Signs Temp 98.1 F 10/17/22 08:00 Pulse 65 10/17/22 12:00 Resp 18 10/17/22 12:00 BP 159/75 10/17/22 12:00 Pulse Ox 96 10/17/22 12:00 FiO2 Intake & Output 10/16/22 10/17/22 10/17/22 18:59 06:59 18:59 Intake Total 776 118 Output Total 2350 2750 Balance -9124 -9285 118 Intake: Oral 776 118 Output: Urine 2350 2750 Other: Voiding Method External Catheter External Catheter External Catheter - Labs CBC & Chem 7: 10/13/22 05:22 10/17/22 04:51 Labs: Abnormal Lab Results - Last 24 Hours (Table) 10/16/22 10/16/22 10/17/22 Range/Units 16:47 20:11 04:51 Sodium 133 L (137-145) mmol/L Creatinine 0.62 L (0.66-1.25) mg/dL Glucose 196 H (74-99) mg/dL POC Glucose (mg/dL) 198 H 196 H (70-110) mg/dL 10/17/22 10/17/22 Range/Units 05:45 12:05 Sodium (137-145) mmol/L Creatinine (0.66-1.25) mg/dL Glucose (74-99) mg/dL POC Glucose (mg/dL) 212 H 248 H (70-110) mg/dL
[2022-10-17 17:00] LABS: Glucose,Whole Blood 228 mg/dL (70-110)
[2022-10-17 20:52] LABS: Glucose,Whole Blood 248 mg/dL (70-110)
[2022-10-17] MEDS: ATORVASTATIN 80 MG TAB PO SCH (21:12)
[2022-10-18] MEDS: HEPARIN SODIUM,PORCINE 5,000 UNIT/ML 1 ML VIAL SQ SCH ×3 (00:32→16:56)
[2022-10-18 06:18] LABS: Glucose,Whole Blood 261 mg/dL (70-110)
[2022-10-18] MEDS: INSULIN ASPART (NovoLOG) 100 UNIT/ML VIAL SQ SCH ×4 (07:12→21:06)
[2022-10-18] MEDS: INSULIN DETEMIR (LEVEMIR) 100 UNIT/ML SYR SQ SCH (07:12)
[2022-10-18] MEDS ORDERED: INSULIN DETEMIR (LEVEMIR) 100 UNIT/ML SYR SQ ONE (08:00)
[2022-10-18] MEDS: ASPIRIN 81 MG PO SCH (10:03)
[2022-10-18] MEDS: VALSARTAN 160 MG TAB PO SCH ×2 (10:04→21:06)
[2022-10-18] MEDS: CLOPIDOGREL 75 MG TAB PO SCH (10:04)
[2022-10-18] MEDS: hydroCHLOROthiazide 25 MG TAB PO SCH (10:04)
[2022-10-18] MEDS: hydrALAZINE HCL 25 MG TAB PO SCH ×3 (10:04→21:05)
[2022-10-18] MEDS: FAMOTIDINE 20 MG/2 ML VIAL IV SCH ×2 (10:05→21:06)
[2022-10-18 11:43] LABS: Glucose,Whole Blood 229 mg/dL (70-110)
--- NOTE | 2022-10-18 13:58 | P.PN ---
Subjective Progress Note Date: 10/18/22 Hospital Course: 62-year-old male with history of hypertension, dyslipidemia, diabetes found unr esponsive at a local truck stop. Per report, patient was not moving for the last few days. Upon ED evaluation, found to have a large left-sided MCA subacute stroke. Laboratory workup also showed leukocytosis, elevated BUN, and elevated CK. Patient admitted for further stroke workup and started on fluids. Neurology consulted. Urine indicative of a possible urinary tract infection, started on IV ceftriaxone. Echo report reviewed, shows normal LV size and systolic function, no filling defects to indicate thrombus. Repeat head CT does not show any hemorrhagic transformation, midline shift, hydrocephalus, or herniation. EEG shows no epileptiform activity. Pending guardianship likely Tuesday and then subacute rehab. Subjective: Patient seen and examined at bedside. Speech improving. Denies any pain. Pertinent positives and negatives as discussed above, a complete review of systems was performed and all other systems are negative. Vitals Signs Reviewed. General: nontoxic, no distress, appears at stated age Derm: warm, dry Head: atraumatic, normocephalic, symmetric Eyes: EOMI, no lid lag, anicteric sclera Mouth: no lip lesion, mucus membranes moist Cardiovascular: S1S2 reg, no murmur Lungs: CTA bilateral, no rhonchi, no rales , no accessory muscle use Abdominal: soft, nontender to palpation, no guarding, no appreciable organomegaly Ext: no gross muscle atrophy, no edema, no contractures Neuro: CN II-XI grossly intact, no focal neuro deficits, right-sided deficits, significant aphasia Psych: Awake and Alert, unable to follow commands Data Reviewed Today: Pertinent Labs: Blood sugars range between 229-248 Imaging: No new imaging Assessment and Plan: Large left MCA and small right parietal subacute CVA, , possibly embolic Left ICA and common carotid occlusion Acute metabolic encephalopathy secondary to above Mild rhabdomyolysis, resolving Dehydration resolved Urinary tract infection completed course of antibiotics Leukocytosis, resolved Type 2 diabetes, uncontrolled Uncontrolled hypertension -Neurology following, continue aspirin, and statin -On telemetry -PT/OT/speech therapy -IV ceftriaxone, last dose today -Repeat BMP tomorrow -Sliding scale insulin, hold oral antidiabetic, Levemir increased to 10 units -Hydrochlorothiazide dose increase, continue valsartan and hydralazine DVT ppx: Subcu heparin Code status: full code Anticipated discharge place: Subacute rehab Anticipated discharge time: pending clinical course Objective - Vital Signs Vital signs: Vital Signs Temp 96.1 F L 10/18/22 12:00 Pulse 74 10/18/22 12:00 Resp 17 10/18/22 12:00 BP 159/80 10/18/22 12:00 Pulse Ox 95 10/18/22 12:00 FiO2 Intake & Output 10/17/22 10/18/22 10/18/22 18:59 06:59 18:59 Intake Total 236 200 Output Total 850 400 Balance -614 -200 Intake: Oral 236 200 Output: Urine 850 400 Other: Voiding Method External Catheter External Catheter # Voids 2 - Labs CBC & Chem 7: 10/13/22 05:22 10/17/22 04:51 Labs: Abnormal Lab Results - Last 24 Hours (Table) 10/17/22 10/17/22 10/18/22 Range/Units 16:58 20:49 06:16 POC Glucose (mg/dL) 228 H 248 H 261 H (70-110) mg/dL 10/18/22 Range/Units 11:41 POC Glucose (mg/dL) 229 H (70-110) mg/dL
--- NOTE | 2022-10-18 15:23 | CT ---
EXAMINATION TYPE: CT brain wo con DATE OF EXAM: 10/18/2022 COMPARISON: 10/13/2022. HISTORY: Altered mental status. CT DLP: 1260.4 mGycm Automated exposure control for dose reduction was used. FINDINGS: There is a large area of hypoattenuation seen throughout the left middle cerebral artery territory wh ich is slightly diminished when compared to the previous examination which likely relates to evolutio n of a middle cerebral artery territory infarct. No definitive hemorrhagic transformation is seen at this time. There is no significant mass effect, midline shift, extra axial fluid collection or hydrocephalus see n at this time. The visualized paranasal sinuses and mastoid air cells are clear. IMPRESSION: EVOLUTION OF A LARGE LEFT MIDDLE CEREBRAL ARTERY TERRITORY INFARCT.
[2022-10-18 15:58] LABS: Glucose,Whole Blood 197 mg/dL (70-110)
[2022-10-18 16:50] LABS: Glucose,Whole Blood 199 mg/dL (70-110)
[2022-10-18 20:33] LABS: Glucose,Whole Blood 224 mg/dL (70-110)
[2022-10-18] MEDS: ATORVASTATIN 80 MG TAB PO SCH (21:06)
[2022-10-19] MEDS: HEPARIN SODIUM,PORCINE 5,000 UNIT/ML 1 ML VIAL SQ SCH ×4 (00:13→23:24)
[2022-10-19 06:14] LABS: Glucose,Whole Blood 188 mg/dL (70-110)
[2022-10-19] MEDS: INSULIN DETEMIR (LEVEMIR) 100 UNIT/ML SYR SQ SCH (06:34)
[2022-10-19] MEDS: INSULIN ASPART (NovoLOG) 100 UNIT/ML VIAL SQ SCH ×4 (06:34→20:51)
[2022-10-19] MEDS: ASPIRIN 81 MG PO SCH (08:32)
[2022-10-19] MEDS: FAMOTIDINE 20 MG/2 ML VIAL IV SCH ×2 (08:32→20:50)
[2022-10-19] MEDS: CLOPIDOGREL 75 MG TAB PO SCH (08:32)
[2022-10-19 11:26] LABS: Glucose,Whole Blood 206 mg/dL (70-110)
--- NOTE | 2022-10-19 11:57 | P.PN ---
Subjective Progress Note Date: 10/19/22 62-year-old male with history of hypertension, dyslipidemia, diabetes found unresponsive [place] local truck stop. Per report, patient was not moving for the last few days. Upon ED evaluation, found to have a large left-sided MCA subacute stroke. Laboratory workup also showed leukocytosis, elevated BUN, and elevated CK. Patient admitted for further stroke workup and started on fluids. Neurology consulted. Urine indicative of a possible urinary tract infection, started on IV ceftriaxone. Echo report reviewed, shows normal LV size and systolic function, no filling defects to indicate thrombus. Repeat head CT does not show any hemorrhagic transformation, midline shift, hydrocephalus, or herniation. EEG shows no epileptiform activity. Pending guardianship likely Tuesday and then subacute rehab. Vitals Signs: BP 132/70, HR 59, RR 14, 95% on RA. 10/19 Patient was seen and examined. CT brain shows evolution of a large left MCA infarct. Difficulty communicating, he denies any complaints. General: nontoxic, no distress, appears at stated age Derm: warm, dry Head: atraumatic, normocephalic, symmetric Eyes: EOMI, no lid lag, anicteric sclera Cardiovascular: S1S2 reg, no murmur Lungs: CTA bilateral, no rhonchi, no rales , no accessory muscle use Ext: no gross muscle atrophy, no edema, no contractures Neuro: No focal neuro deficits, right-sided deficits, significant aphasia Psych: Awake and Alert, unable to follow commands Large left MCA and small right parietal subacute CVA, possibly embolic Left ICA and common carotid occlusion Acute metabolic encephalopathy secondary to above Hyponatremia due to dehydration Mild rhabdomyolysis, resolving Leukocytosis due to UTI, resolving Type 2 diabetes, uncontrolled Uncontrolled hypertension Resolved: UTI completed course of antibiotics Based on my assessment of this patient, this patient meets a moderate complexity level of care. Patient has an acute diagnosis of CVA that poses a threat to life or bodily function. Large left MCA and small right parietal subacute CVA, possibly embolic: ASA, Lipitor, Plavix. Brain CT, CTA head and neck, Echocardiogram, Video swallow, EEG, repeat Brain CT 10/13 and 10/18. NDD3 with 1:1 supervision. Telemetry monitoring. Neurochecks. Aspiration and Fall precautions. Neurology, PT/OT/ST on board. Left ICA and common carotid occlusion Acute metabolic encephalopathy secondary to above Hyponatremia due to dehydration Mild rhabdomyolysis, resolving Leukocytosis due to UTI, resolving Type 2 diabetes, uncontrolled: Levemir 10 units QD. ISS. Hypoglycemic precautions. Accuchecks ACHS. Uncontrolled hypertension: Hydralazine, HCTZ, Valsartan. Resolved: UTI completed course of antibiotics DVT prophylaxis with Heparin SQ. FULL CODE. Pending guardianship for placement. I have reviewed the following gis consultant notes: Neurology note. I have reviewed the results of the following tests: POC glucose 188-261. CT brain as above. I have ordered the following tests: I have discussed the care of this patient with the following independent historian: Discussed with case management, plans for guardianship hearing tomorrow. I have independently interpreted the following test below: I have discussed the management of this patient with the following physician: Discussed with Neurology Dr. Schafer, cleared for discharge to [facility]. This patient has a moderate risk of morbidity due to the following reasons: Objective - Vital Signs Vital signs: Vital Signs Temp 97.9 F 10/19/22 04:00 Pulse 59 L 10/19/22 04:00 Resp 14 10/19/22 04:00 BP 132/70 10/19/22 04:00 Pulse Ox 95 10/19/22 04:00 FiO2 Intake & Output 10/18/22 10/19/22 10/19/22 18:59 06:59 18:59 Intake Total 450 Output Total 800 700 Balance -350 -700 Intake: Oral 450 Output: Urine 800 700 Other: Voiding Method External Catheter - Labs CBC & Chem 7: 10/13/22 05:22 10/17/22 04:51 Labs: Abnormal Lab Results - Last 24 Hours (Table) 10/18/22 10/18/22 10/18/22 Range/Units 11:41 15:55 16:50 POC Glucose (mg/dL) 229 H 197 H 199 H (70-110) mg/dL 10/18/22 10/19/22 Range/Units 20:31 06:12 POC Glucose (mg/dL) 224 H 188 H (70-110) mg/dL
[2022-10-19] MEDS: hydrALAZINE HCL 25 MG TAB PO SCH ×3 (15:16→20:50)
[2022-10-19] MEDS: VALSARTAN 160 MG TAB PO SCH ×2 (15:16→20:50)
[2022-10-19 16:50] LABS: Glucose,Whole Blood 272 mg/dL (70-110)
--- NOTE | 2022-10-19 17:10 | P.PN ---
Subjective Progress Note Date: 10/19/22 I am seeing the patient for the first time during this hospital admission. Please refer to Dr. Carreno's note for further details. Patient is unable to give me history but appears has stroke and has significant global aphasia. Stroke work-up has been complete. Please refer to Dr. Carreno's notes for further details. Objective - Vital Signs Vital signs: Vital Signs Temp 98.0 F 10/19/22 12:00 Pulse 68 10/19/22 14:00 Resp 18 10/19/22 14:00 BP 105/69 10/19/22 12:00 Pulse Ox 97 10/19/22 12:00 FiO2 Intake & Output 10/18/22 10/19/22 10/19/22 18:59 06:59 18:59 Intake Total 450 118 Output Total 800 700 230 Balance -350 -700 -112 Weight 90.718 kg Intake: Oral 450 118 Output: Urine 800 700 230 Other: Voiding Method External Catheter External Catheter - Exam General: The patient is lying in bed and is not in acute distress. Neuro: Limited because of his significant aphasia The patient is awake, alert. Has severe aphasia global But appears more expressive aphasia > receptive. Upon asking him to show me a thumbs up he show me hand. Has right lower facial droop. Motor: Strength is hard to assess individual muscle strength: Right upper extremity is 0/5 and right lower is 2. Left is able to lift above gravity. Sensation and cerebellar: Hard to examine. - Labs CBC & Chem 7: 10/13/22 05:22 10/17/22 04:51 Labs: Abnormal Lab Results - Last 24 Hours (Table) 10/18/22 10/19/22 10/19/22 Range/Units 20:31 06:12 11:24 POC Glucose (mg/dL) 224 H 188 H 206 H (70-110) mg/dL 10/19/22 Range/Units 16:47 POC Glucose (mg/dL) 272 H (70-110) mg/dL Assessment and Plan Assessment: * Acute ischemic stroke, involving left MCA vascular territory with severe global aphasia (predominate expressive) and right hemiplegia. There is an additional area of acute/subacute ischemic stroke involving much smaller region in the right parietal lobe, which is also probably symptomatic with mild left-sided weakness. Patient's NIH stroke scale reported in the ED was 23. * Left ICA occlusion * Dysphagia, due to above. * Hypertension * Diabetes * Hyperlipidemia Plan: * Patient continues to be severely hemiplegic on the right side, with global aphasia, dysphagia. Patient also has mild left hemiparesis as well. Patient has started to babble more, but still no intelligible speech. * Repeat CT head performed 10/13/2022 showed similar changes of subacute left MCA large vascular territory infarct with extensive hypodensity and sulcal effacement. No hemorrhagic transformation, midline shift, hydrocephalus or herniation. I personally reviewed CT head, agree with the findings. * Repeat CT head on 10/18/22: Evolution of large left middle cerebral artery territory infarct. Personally reviewed the CT and there is no acute or subacute ischemic stroke. There is no bleed. * 2-D echo revealed normal left ventricular size and systolic function with EF 55-60%. Mild septal hypertrophy. Normal left atrial size. Mild calcification of the aortic valve leaflets without restriction. No thrombus. * CTA head and neck showed: Occlusion of the left internal carotid artery extending from its origin to the [place]. Reconstitution in the ci rcle of [place]. No evidence of dissection of the cervical internal carotid arteries or vertebral arteries or any evidence of significant stenosis at the right carotid bifurcation. No evidence of intracranial high-grade stenosis or intracranial aneurysm. * Fasting a.m. lipid panel cholesterol 188, LDL 125, HDL 35, triglycerides 135. On Lipitor 80 mg daily. * Hemoglobin A1c 8.0. Optimize control of diabetes to target A1c <7.0. * May start optimizing control of blood pressure gradually towards normotensive. * Stat urine drug screen negative. * EEG was abnormal due to background slowing of moderate degree, suggestive of encephalopathy. No epileptiform activity was seen. * Patient to be started on dual antiplatelet medication with aspirin 81 mg and Plavix and 5 mg. * Close neuro checks * Telemetry monitoring to be continued. Recommend an event monitor for 30 days to rule out any a-fib or flutter. * DVT prophylaxis: Heparin 5000 units subcu every 8 hours * Pepcid 20 mg twice a day for gastric ulcer prophylaxis. * PT, OT, speech therapy. * Will defer the rest of medical management to primary team. * Upon discharge, recommend patient to follow-up with neurologist as outpatient within 1-2 weeks. There is no further neurological work-up. Please notify neurology team if any further concerns. The plan is discussed with his nurse. Time with Patient: Less than 30
[2022-10-19 20:37] LABS: Glucose,Whole Blood 297 mg/dL (70-110)
[2022-10-19] MEDS: ATORVASTATIN 80 MG TAB PO SCH (20:50)
[2022-10-20 05:57] LABS: Glucose,Whole Blood 282 mg/dL (70-110)
[2022-10-20] MEDS: INSULIN DETEMIR (LEVEMIR) 100 UNIT/ML SYR SQ SCH (07:13)
[2022-10-20] MEDS: INSULIN ASPART (NovoLOG) 100 UNIT/ML VIAL SQ SCH ×4 (07:13→20:44)
[2022-10-20] MEDS: hydrALAZINE HCL 25 MG TAB PO SCH ×3 (08:21→22:20)
[2022-10-20] MEDS: ASPIRIN 81 MG PO SCH (08:21)
[2022-10-20] MEDS: FAMOTIDINE 20 MG/2 ML VIAL IV SCH ×2 (08:21→20:36)
[2022-10-20] MEDS: CLOPIDOGREL 75 MG TAB PO SCH (08:21)
[2022-10-20] MEDS: VALSARTAN 160 MG TAB PO SCH ×2 (08:22→20:36)
[2022-10-20] MEDS: HEPARIN SODIUM,PORCINE 5,000 UNIT/ML 1 ML VIAL SQ SCH ×3 (08:22→22:41)
[2022-10-20 11:35] LABS: Glucose,Whole Blood 214 mg/dL (70-110)
--- NOTE | 2022-10-20 12:23 | P.PN ---
Subjective Progress Note Date: 10/20/22 62-year-old male with history of hypertension, dyslipidemia, diabetes found unresponsive [place] truck stop. Per report, patient was not moving for the last few days. Upon ED evaluation, found to have a large left-sided MCA subacute stroke. Laboratory workup also showed leukocytosis, elevated BUN, and elevated CK. Patient admitted for further stroke workup and started on fluids. Neurology consulted. Urine indicative of a possible urinary tract infection, started on IV ceftriaxone. Echo report reviewed, shows normal LV size and systolic function, no filling defects to indicate thrombus. Repeat head CT does not show any hemorrhagic transformation, midline shift, hydrocephalus, or herniation. EEG shows no epileptiform activity. Pending guardianship likely Tuesday and then subacute rehab. Vitals Signs: BP 109/67, HR 69, RR 17, 97% on RA. 10/19 Patient was seen and examined. CT brain shows evolution of a large left MCA infarct. Difficulty communicating, he denies any complaints. General: nontoxic, no distress, appears at stated age Derm: warm, dry Head: atraumatic, normocephalic, symmetric Eyes: EOMI, no lid lag, anicteric sclera Cardiovascular: S1S2 reg, no murmur Lungs: CTA bilateral, no rhonchi, no rales , no accessory muscle use Ext: no gross muscle atrophy, no edema, no contractures Neuro: No focal neuro deficits, right-sided deficits, significant aphasia Psych: Awake and Alert, unable to follow commands Large left MCA and small right parietal subacute CVA, possibly embolic Left ICA and common carotid occlusion Acute metabolic encephalopathy secondary to above Hyponatremia due to dehydration Mild rhabdomyolysis, resolving Leukocytosis due to UTI, resolving Type 2 diabetes, uncontrolled Uncontrolled hypertension Resolved: UTI completed course of antibiotics Based on my assessment of this patient, this patient meets a moderate complexity level of care. Patient has an acute diagnosis of CVA that poses a threat to life or bodily function. Large left MCA and small right parietal subacute CVA, possibly embolic: ASA, Lipitor, Plavix. Brain CT, CTA head and neck, Echocardiogram, Video swallow, EEG, repeat Brain CT 10/13 and 10/18. NDD3 with 1:1 supervision. Telemetry monitoring. Neurochecks. Aspiration and Fall precautions. Neurology, PT/OT/ST on board. Event monitor on discharge. Left ICA and common carotid occlusion Acute metabolic encephalopathy secondary to above Hyponatremia due to dehydration Mild rhabdomyolysis, resolving Leukocytosis due to UTI, resolving Type 2 diabetes, uncontrolled: Levemir 10 units QD. ISS. Hypoglycemic precautions. Accuchecks ACHS. Uncontrolled hypertension: Hydralazine, HCTZ, Valsartan. Resolved: UTI completed course of antibiotics DVT prophylaxis with Heparin SQ. FULL CODE. Pending guardianship for placement. I have reviewed the following device sales consultant notes: Neurology note. I have reviewed the results of the following tests: POC glucose 206-297. I have ordered the following tests: I have discussed the care of this patient with the following independent historian: Discussed with case management, plans for guardianship hearing today. I have independently interpreted the following test below: I have discussed the management of this patient with the following physician: This patient has a moderate risk of morbidity due to the following reasons: Objective - Vital Signs Vital signs: Vital Signs Temp 97.8 F 10/20/22 08:20 Pulse 69 10/20/22 08:20 Resp 17 10/20/22 08:20 BP 109/67 10/20/22 08:20 Pulse Ox 97 10/20/22 08:20 FiO2 Intake & Output 10/19/22 10/20/22 10/20/22 18:59 06:59 18:59 Intake Total 118 Output Total 480 Balance -362 Weight 90.718 kg Intake: Oral 118 Output: Urine 480 Other: Voiding Method External Catheter External Catheter External Catheter # Voids 1 - Labs CBC & Chem 7: 10/13/22 05:22 10/17/22 04:51 Labs: Abnormal Lab Results - Last 24 Hours (Table) 10/19/22 10/19/22 10/20/22 Range/Units 16:47 20:35 05:56 POC Glucose (mg/dL) 272 H 297 H 282 H (70-110) mg/dL 10/20/22 Range/Units 11:33 POC Glucose (mg/dL) 214 H (70-110) mg/dL
[2022-10-20 16:26] LABS: Glucose,Whole Blood 186 mg/dL (70-110)
[2022-10-20 20:13] LABS: Glucose,Whole Blood 182 mg/dL (70-110)
[2022-10-20] MEDS: ATORVASTATIN 80 MG TAB PO SCH (20:36)
[2022-10-21 05:56] LABS: Glucose,Whole Blood 255 mg/dL (70-110)
[2022-10-21] MEDS: INSULIN ASPART (NovoLOG) 100 UNIT/ML VIAL SQ SCH ×4 (06:45→20:39)
[2022-10-21] MEDS: INSULIN DETEMIR (LEVEMIR) 100 UNIT/ML SYR SQ SCH (06:45)
[2022-10-21] MEDS: ASPIRIN 81 MG PO SCH (08:53)
[2022-10-21] MEDS: HEPARIN SODIUM,PORCINE 5,000 UNIT/ML 1 ML VIAL SQ SCH ×3 (08:53→23:27)
[2022-10-21] MEDS: hydrALAZINE HCL 25 MG TAB PO SCH ×3 (08:53→20:38)
[2022-10-21] MEDS: VALSARTAN 160 MG TAB PO SCH ×2 (08:53→20:39)
[2022-10-21] MEDS: CLOPIDOGREL 75 MG TAB PO SCH (08:53)
[2022-10-21] MEDS: FAMOTIDINE 20 MG/2 ML VIAL IV SCH (08:53)
[2022-10-21 11:45] LABS: Glucose,Whole Blood 273 mg/dL (70-110)
--- NOTE | 2022-10-21 14:54 | P.PN ---
Subjective Progress Note Date: 10/21/22 62-year-old male with history of hypertension, dyslipidemia, diabetes found unresponsive [place] truck stop. Per report, patient was not moving for the last few days. Upon ED evaluation, found to have a large left-sided MCA subacute stroke. Laboratory workup also showed leukocytosis, elevated BUN, and elevated CK. Patient admitted for further stroke workup and started on fluids. Neurology consulted. Urine indicative of a possible urinary tract infection, started on IV ceftriaxone. Echo report reviewed, shows normal LV size and systolic function, no filling defects to indicate thrombus. Repeat head CT does not show any hemorrhagic transformation, midline shift, hydrocephalus, or herniation. EEG shows no epileptiform activity. Pending guardianship likely Tuesday and then subacute rehab. 10/19 Patient was seen and examined. CT brain shows evolution of a large left MCA infarct. Difficulty communicating, he denies any complaints. 10/21 Patient was seen and examined. No changes in clinical condition. Discussed with social science instructor, plans for discharge to SNF vs inpatient rehab, [place] vs [place]. General: nontoxic, no distress, appears at stated age Derm: warm, dry Head: atraumatic, normocephalic, symmetric Eyes: EOMI, no lid lag, anicteric sclera Cardiovascular: S1S2 reg, no murmur Lungs: CTA bilateral, no rhonchi, no rales , no accessory muscle use Ext: no gross muscle atrophy, no edema, no contractures Neuro: No focal neuro deficits, right-sided deficits, significant aphasia Psych: Awake and Alert, unable to follow commands Large left MCA and small right parietal subacute CVA, possibly embolic Left ICA and common carotid occlusion Acute metabolic encephalopathy secondary to above Hyponatremia due to dehydration Mild rhabdomyolysis, resolving Leukocytosis due to UTI, resolving Type 2 diabetes, uncontrolled Uncontrolled hypertension Resolved: UTI completed course of antibiotics Based on my assessment of this patient, this patient meets a moderate complexity level of care. Patient has an acute diagnosis of CVA that poses a threat to life or bodily function. Large left MCA and small right parietal subacute CVA, possibly embolic: ASA, Lipitor, Plavix. Brain CT, CTA head and neck, Echocardiogram, Video swallow, EEG, repeat Brain CT 10/13 and 10/18. NDD3 with 1:1 supervision. Telemetry monitoring. Neurochecks. Aspiration and Fall precautions. Neurology, PT/OT/ST on board. Event monitor on discharge. Left ICA and common carotid occlusion Acute metabolic encephalopathy secondary to above Hyponatremia due to dehydration Mild rhabdomyolysis, resolving Leukocytosis due to UTI, resolving Type 2 diabetes, uncontrolled: Levemir 10 units QD. ISS. Hypoglycemic precautions. Accuchecks ACHS. Uncontrolled hypertension: Hydralazine, HCTZ, Valsartan. Resolved: UTI completed course of antibiotics DVT prophylaxis with Heparin SQ. FULL CODE. Pending placement. I have reviewed the following aws consultant notes: I have reviewed the results of the following tests: POC glucose. I have ordered the following tests: I have discussed the care of this patient with the following independent historian: Discussed with case management, pending placement. I have independently interpreted the following test below: I have discussed the management of this patient with the following physician: Objective - Vital Signs Vital signs: Vital Signs Temp 98.2 F 10/21/22 08:50 Pulse 71 10/21/22 11:25 Resp 18 10/21/22 11:25 BP 105/63 10/21/22 11:25 Pulse Ox 97 10/21/22 11:25 FiO2 Intake & Output 10/20/22 10/21/22 10/21/22 18:59 06:59 18:59 Intake Total 236 10 120 Output Total 175 150 Balance 61 -140 120 Intake: IV 10 0.9 10 Oral 236 120 Output: Urine 175 150 Other: Voiding Method External Catheter External Catheter External Catheter # Voids 1 # Bowel Movements 1 1 - Labs CBC & Chem 7: 10/13/22 05:22 10/17/22 04:51 Labs: Abnormal Lab Results - Last 24 Hours (Table) 10/20/22 10/20/22 10/21/22 Range/Units 16:24 20:12 05:54 POC Glucose (mg/dL) 186 H 182 H 255 H (70-110) mg/dL 10/21/22 Range/Units 11:41 POC Glucose (mg/dL) 273 H (70-110) mg/dL
[2022-10-21 16:36] LABS: Glucose,Whole Blood 215 mg/dL (70-110)
[2022-10-21 20:30] LABS: Glucose,Whole Blood 197 mg/dL (70-110)
[2022-10-21] MEDS: ATORVASTATIN 80 MG TAB PO SCH (20:38)
[2022-10-21] MEDS: FAMOTIDINE 20 MG TAB PO SCH (20:40)
[2022-10-22 06:05] LABS: Glucose,Whole Blood 209 mg/dL (70-110)
[2022-10-22] MEDS: INSULIN ASPART (NovoLOG) 100 UNIT/ML VIAL SQ SCH ×4 (06:28→21:16)
[2022-10-22] MEDS: INSULIN DETEMIR (LEVEMIR) 100 UNIT/ML SYR SQ SCH (06:28)
[2022-10-22] MEDS: FAMOTIDINE 20 MG TAB PO SCH ×2 (08:54→21:16)
[2022-10-22] MEDS: hydrALAZINE HCL 25 MG TAB PO SCH ×3 (08:54→21:16)
[2022-10-22] MEDS: ASPIRIN 81 MG PO SCH (08:54)
[2022-10-22] MEDS: CLOPIDOGREL 75 MG TAB PO SCH (08:54)
[2022-10-22] MEDS: HEPARIN SODIUM,PORCINE 5,000 UNIT/ML 1 ML VIAL SQ SCH ×3 (08:55→23:39)
[2022-10-22] MEDS: VALSARTAN 160 MG TAB PO SCH ×2 (09:27→21:16)
[2022-10-22 11:15] LABS: Glucose,Whole Blood 224 mg/dL (70-110)
--- NOTE | 2022-10-22 13:46 | P.PN ---
Subjective Progress Note Date: 10/22/22 62-year-old male with history of hypertension, dyslipidemia, diabetes found unresponsive [place] local truck stop. Per report, patient was not moving for the last few days. Upon ED evaluation, found to have a large left-sided MCA subacute stroke. Laboratory workup also showed leukocytosis, elevated BUN, and elevated CK. Patient admitted for further stroke workup and started on fluids. Neurology consulted. Urine indicative of a possible urinary tract infection, started on IV ceftriaxone. Echo report reviewed, shows normal LV size and systolic function, no filling defects to indicate thrombus. Repeat head CT does not show any hemorrhagic transformation, midline shift, hydrocephalus, or herniation. EEG shows no epileptiform activity. Pending guardianship likely Tuesday and then subacute rehab. 10/19 Patient was seen and examined. CT brain shows evolution of a large left MCA infarct. Difficulty communicating, he denies any complaints. 10/21 Patient was seen and examined. No changes in clinical condition. Discussed with social economist, plans for discharge to SNF vs inpatient rehab, [place] vs [place]. 10/22 Patient was seen and examined. No changes in clinical condition. Pending placement. General: nontoxic, no distress, appears at stated age Derm: warm, dry Head: atraumatic, normocephalic, symmetric Eyes: EOMI, no lid lag, anicteric sclera Cardiovascular: S1S2 reg, no murmur Lungs: CTA bilateral, no rhonchi, no rales , no accessory muscle use Ext: no gross muscle atrophy, no edema, no contractures Neuro: No focal neuro deficits, right-sided deficits, significant aphasia Psych: Awake and Alert, unable to follow commands Large left MCA and small right parietal subacute CVA, possibly embolic Left ICA and common carotid occlusion Acute metabolic encephalopathy secondary to above Hyponatremia due to dehydration Mild rhabdomyolysis, resolving Leukocytosis due to UTI, resolving Type 2 diabetes, uncontrolled Uncontrolled hypertension Resolved: UTI completed course of antibiotics Based on my assessment of this patient, this patient meets a moderate complexity level of care. Patient has an acute diagnosis of CVA that poses a threat to life or bodily function. Large left MCA and small right parietal subacute CVA, possibly embolic: ASA, Lipitor, Plavix. Brain CT, CTA head and neck, Echocardiogram, Video swallow, EEG, repeat Brain CT 10/13 and 10/18. NDD3 with 1:1 supervision. Telemetry monitoring. Neurochecks. Aspiration and Fall precautions. Neurology, PT/OT/ST o n board. Event monitor on discharge. Left ICA and common carotid occlusion Acute metabolic encephalopathy secondary to above Hyponatremia due to dehydration Mild rhabdomyolysis, resolving Leukocytosis due to UTI, resolving Type 2 diabetes, uncontrolled: Levemir 10 units QD. ISS. Hypoglycemic precaut ions. Accuchecks ACHS. Uncontrolled hypertension: Hydralazine, HCTZ, Valsartan. Resolved: UTI completed course of antibiotics DVT prophylaxis with Heparin SQ. FULL CODE. Pending placement. I have reviewed the following retirement consultant notes: I have reviewed the results of the following tests: POC glucose. I have ordered the following tests: I have discussed the care of this patient with the following independent historian: I have independently interpreted the following test below: I have discussed the management of this patient with the following physician: Objective - Vital Signs Vital signs: Vital Signs Temp 98.0 F 10/22/22 07:13 Pulse 66 10/22/22 10:17 Resp 16 10/22/22 10:17 BP 112/65 10/22/22 07:13 Pulse Ox 99 10/22/22 07:13 FiO2 Intake & Output 10/21/22 10/22/22 10/22/22 18:59 06:59 18:59 Intake Total 120 120 Output Total 500 Balance -380 120 Intake: Oral 120 120 Output: Urine 500 Straight 500 Other: Voiding Method External Catheter External Catheter External Catheter # Voids 1 # Bowel Movements 1 - Labs CBC & Chem 7: 10/13/22 05:22 10/17/22 04:51 Labs: Abnormal Lab Results - Last 24 Hours (Table) 10/21/22 10/21/22 10/22/22 Range/Units 16:34 20:27 06:04 POC Glucose (mg/dL) 215 H 197 H 209 H (70-110) mg/dL 10/22/22 Range/Units 11:14 POC Glucose (mg/dL) 224 H (70-110) mg/dL
[2022-10-22 16:27] LABS: Glucose,Whole Blood 144 mg/dL (70-110)
[2022-10-22 20:56] LABS: Glucose,Whole Blood 167 mg/dL (70-110)
[2022-10-22] MEDS: ATORVASTATIN 80 MG TAB PO SCH (21:16)
[2022-10-23] MEDS: INSULIN ASPART (NovoLOG) 100 UNIT/ML VIAL SQ SCH ×4 (06:13→21:30)
[2022-10-23] MEDS: INSULIN DETEMIR (LEVEMIR) 100 UNIT/ML SYR SQ SCH (06:13)
[2022-10-23] MEDS: CLOPIDOGREL 75 MG TAB PO SCH (07:58)
[2022-10-23] MEDS: ASPIRIN 81 MG PO SCH (07:58)
[2022-10-23] MEDS: hydrALAZINE HCL 25 MG TAB PO SCH ×3 (07:58→21:30)
[2022-10-23] MEDS: FAMOTIDINE 20 MG TAB PO SCH ×2 (07:59→21:29)
[2022-10-23] MEDS: HEPARIN SODIUM,PORCINE 5,000 UNIT/ML 1 ML VIAL SQ SCH ×3 (07:59→21:30)
[2022-10-23] MEDS: VALSARTAN 160 MG TAB PO SCH ×2 (07:59→21:29)
[2022-10-23 11:01] LABS: Glucose,Whole Blood 236 mg/dL (70-110)
--- NOTE | 2022-10-23 14:01 | P.PN ---
Subjective Progress Note Date: 10/23/22 62-year-old male with history of hypertension, dyslipidemia, diabetes found unresponsive [place] a local truck stop. Per report, patient was not moving for the last few days. Upon ED evaluation, found to have a large left-sided MCA subacute stroke. Laboratory workup also showed leukocytosis, elevated BUN, and elevated CK. Patient admitted for further stroke workup and started on fluids. Neurology consulted. Urine indicative of a possible urinary tract infection, started on IV ceftriaxone. Echo report reviewed, shows normal LV size and systolic function, no filling defects to indicate thrombus. Repeat head CT does not show any hemorrhagic transformation, midline shift, hydrocephalus, or herniation. EEG shows no epileptiform activity. Pending guardianship likely Tuesday and then subacute rehab. 10/19 Patient was seen and examined. CT brain shows evolution of a large left MCA infarct. Difficulty communicating, he denies any complaints. 10/21 Patient was seen and examined. No changes in clinical condition. Discussed with social media editor, plans for discharge to SNF vs inpatient rehab, [place] vs [place]. 10/22 Patient was seen and examined. No changes in clinical condition. Pending placement. 10/23 Patient was seen and examined. No changes in clinical condition. Pending placement. General: nontoxic, no distress, appears at stated age Derm: warm, dry Head: atraumatic, normocephalic, symmetric Eyes: EOMI, no lid lag, anicteric sclera Cardiovascular: S1S2 reg, no murmur Lungs: CTA bilateral, no rhonchi, no rales , no accessory muscle use Ext: no gross muscle atrophy, no edema, no contractures Neuro: No focal neuro deficits, right-sided deficits, significant aphasia Psych: Awake and Alert, unable to follow commands Large left MCA and small right parietal subacute CVA, possibly embolic Left ICA and common carotid occlusion Acute metabolic encephalopathy secondary to above Hyponatremia due to dehydration Mild rhabdomyolysis, resolving Leukocytosis due to UTI, resolving Type 2 diabetes, uncontrolled Uncontrolled hypertension Resolved: UTI completed course of antibiotics Based on my assessment of this patient, this patient meets a moderate complexity level of care. Patient has an acute diagnosis of CVA that poses a threat to life or bodily function. Large left MCA and small right parietal subacute CVA, possibly embolic: ASA, Lipitor, Plavix. Brain CT, CTA head and neck, Echocardiogram, Video swallow, EEG, repeat Brain CT 10/13 and 10/18. NDD3 with 1:1 supervision. Telemetry monitoring. Neurochecks. Aspiration and Fall precautions. Neurology, PT/OT/ST on board. Event monitor on discharge. Left ICA and common carotid occlusion Acute metabolic encephalopathy secondary to above Hyponatremia due to dehydration Mild rhabdomyolysis, resolving Leukocytosis due to UTI, resolving Type 2 diabetes, uncontrolled: Levemir 10 units QD. ISS. Hypoglycemic precautions. Accuchecks ACHS. Uncontrolled hypertension: Hydralazine, HCTZ, Valsartan. Resolved: UTI completed course of antibiotics DVT prophylaxis with Heparin SQ. FULL CODE. Pending placement. I have reviewed the following beauty consultant notes: I have reviewed the results of the following tests: POC glucose. I have ordered the following tests: I have discussed the care of this patient with the following independent historian: I have independently interpreted the following test below: I have discussed the management of this patient with the following physician: Objective - Vital Signs Vital signs: Vital Signs Temp 97.7 F 10/23/22 07:22 Pulse 70 10/23/22 13:17 Resp 18 10/23/22 13:17 BP 100/64 10/23/22 13:17 Pulse Ox 96 10/23/22 13:17 FiO2 Intake & Output 10/22/22 10/23/22 10/23/22 18:59 06:59 18:59 Intake Total 120 180 Output Total 600 Balance 120 -600 180 Intake: Oral 120 180 Output: Urine 600 Other: Voiding Method External Catheter External Catheter # Voids 2 - Labs CBC & Chem 7: 10/13/22 05:22 10/17/22 04:51 Labs: Abnormal Lab Results - Last 24 Hours (Table) 10/22/22 10/22/22 10/23/22 Range/Units 16:26 20:54 10:59 POC Glucose (mg/dL) 144 H 167 H 236 H (70-110) mg/dL
[2022-10-23 17:04] LABS: Glucose,Whole Blood 177 mg/dL (70-110)
[2022-10-23 21:20] LABS: Glucose,Whole Blood 225 mg/dL (70-110)
[2022-10-23] MEDS: ATORVASTATIN 80 MG TAB PO SCH (21:29)
[2022-10-24 06:29] LABS: Glucose,Whole Blood 194 mg/dL (70-110)
[2022-10-24] MEDS: CLOPIDOGREL 75 MG TAB PO SCH (08:25)
[2022-10-24] MEDS: ASPIRIN 81 MG PO SCH (08:25)
[2022-10-24] MEDS: VALSARTAN 160 MG TAB PO SCH ×2 (08:25→20:33)
[2022-10-24] MEDS: hydrALAZINE HCL 25 MG TAB PO SCH ×3 (08:25→20:32)
[2022-10-24] MEDS: INSULIN ASPART (NovoLOG) 100 UNIT/ML VIAL SQ SCH ×4 (08:25→20:33)
[2022-10-24] MEDS: HEPARIN SODIUM,PORCINE 5,000 UNIT/ML 1 ML VIAL SQ SCH ×3 (08:25→20:34)
[2022-10-24] MEDS: INSULIN DETEMIR (LEVEMIR) 100 UNIT/ML SYR SQ SCH (08:25)
[2022-10-24] MEDS: FAMOTIDINE 20 MG TAB PO SCH ×2 (08:25→20:33)
[2022-10-24 11:23] LABS: Glucose,Whole Blood 206 mg/dL (70-110)
--- NOTE | 2022-10-24 12:14 | P.PN ---
Subjective Progress Note Date: 10/24/22 62-year-old male with history of hypertension, dyslipidemia, diabetes found unresponsive [place] a local truck stop. Per report, patient was not moving for the last few days. Upon ED evaluation, found to have a large left-sided MCA subacute stroke. Laboratory workup also showed leukocytosis, elevated BUN, and elevated CK. Patient admitted for further stroke workup and started on fluids. Neurology consulted. Urine indicative of a possible urinary tract infection, started on IV ceftriaxone. Echo report reviewed, shows normal LV size and systolic function, no filling defects to indicate thrombus. Repeat head CT does not show any hemorrhagic transformation, midline shift, hydrocephalus, or herniation. EEG shows no epileptiform activity. Pending guardianship likely Tuesday and then subacute rehab. 10/19 Patient was seen and examined. CT brain shows evolution of a large left MCA infarct. Difficulty communicating, he denies any complaints. 10/21 Patient was seen and examined. No changes in clinical condition. Discussed with licensed clinical social worker, plans for discharge to SNF vs inpatient rehab, [place] vs [place]. 10/22 Patient was seen and examined. No changes in clinical condition. Pending placement. 10/23 Patient was seen and examined. No changes in clinical condition. Pending placement. 10/24 Patient was seen and examined. No changes in clinical condition. Pending placement. General: nontoxic, no distress, appears at stated age Derm: warm, dry Head: atraumatic, normocephalic, symmetric Eyes: EOMI, no lid lag, anicteric sclera Cardiovascular: S1S2 reg, no murmur Lungs: CTA bilateral, no rhonchi, no rales , no accessory muscle use Ext: no gross muscle atrophy, no edema, no contractures Neuro: No focal neuro deficits, right-sided deficits, significant aphasia Psych: Awake and Alert, unable to follow commands Large left MCA and small right parietal subacute CVA, possibly embolic Left ICA and common carotid occlusion Acute metabolic encephalopathy secondary to above Hyponatremia due to dehydration Mild rhabdomyolysis, resolving Leukocytosis due to UTI, resolving Type 2 diabetes, uncontrolled Uncontrolled hypertension Resolved: UTI completed course of antibiotics Based on my assessment of this patient, this patient meets a moderate complexity level of care. Patient has an acute diagnosis of CVA that poses a threat to life or bodily function. Large left MCA and small right parietal subacute CVA, possibly embolic: ASA, Lipitor, Plavix. Brain CT, CTA head and neck, Echocardiogram, Video swallow, EEG, repeat Brain CT 10/13 and 10/18. NDD3 with 1:1 supervision. Telemetry mo nitoring. Neurochecks. Aspiration and Fall precautions. Neurology, PT/OT/ST on board. Event monitor on discharge. Left ICA and common carotid occlusion Acute metabolic encephalopathy secondary to above Hyponatremia due to dehydration Mild rhabdomyolysis, resolving Leukocytosis due to UTI, resolving Type 2 diabetes, uncontrolled: Levemir 10 units QD. ISS. Hypoglycemic precautions. Accuchecks ACHS. Uncontrolled hypertension: Hydralazine, HCTZ, Valsartan. Resolved: UTI completed course of antibiotics DVT prophylaxis with Heparin SQ. FULL CODE. Pending placement. I have reviewed the following human performance consultant notes: I have reviewed the results of the following tests: POC glucose. I have ordered the following tests: I have discussed the care of this patient with the following independent histor sumanth: I have independently interpreted the following test below: I have discussed the management of this patient with the following physician: Objective - Vital Signs Vital signs: Vital Signs Temp 97.0 F L 10/24/22 07:08 Pulse 69 10/24/22 07:08 Resp 20 10/24/22 07:08 BP 127/73 10/24/22 02:00 Pulse Ox 99 10/24/22 07:08 FiO2 Intake & Output 10/23/22 10/24/22 10/24/22 18:59 06:59 18:59 Intake Total 180 Output Total 800 Balance -620 Intake: Oral 180 Output: Urine 800 Other: Voiding Method Diaper # Voids 1 - Labs CBC & Chem 7: 10/13/22 05:22 10/17/22 04:51 Labs: Abnormal Lab Results - Last 24 Hours (Table) 10/23/22 10/23/22 10/24/22 Range/Units 16:51 21:18 06:27 POC Glucose (mg/dL) 177 H 225 H 194 H (70-110) mg/dL 10/24/22 Range/Units 11:22 POC Glucose (mg/dL) 206 H (70-110) mg/dL
[2022-10-24 17:31] LABS: Glucose,Whole Blood 119 mg/dL (70-110)
[2022-10-24 20:25] LABS: Glucose,Whole Blood 166 mg/dL (70-110)
[2022-10-24] MEDS: ATORVASTATIN 80 MG TAB PO SCH (20:33)
[2022-10-25 06:20] LABS: Glucose,Whole Blood 159 mg/dL (70-110)
[2022-10-25] MEDS: INSULIN ASPART (NovoLOG) 100 UNIT/ML VIAL SQ SCH ×4 (06:34→22:17)
[2022-10-25] MEDS: INSULIN DETEMIR (LEVEMIR) 100 UNIT/ML SYR SQ SCH (06:34)
[2022-10-25] MEDS: hydrALAZINE HCL 25 MG TAB PO SCH ×4 (10:22→23:49)
[2022-10-25] MEDS: ASPIRIN 81 MG PO SCH (10:22)
[2022-10-25] MEDS: FAMOTIDINE 20 MG TAB PO SCH ×3 (10:22→23:49)
[2022-10-25] MEDS: HEPARIN SODIUM,PORCINE 5,000 UNIT/ML 1 ML VIAL SQ SCH ×3 (10:22→23:50)
[2022-10-25] MEDS: CLOPIDOGREL 75 MG TAB PO SCH (10:22)
[2022-10-25] MEDS: VALSARTAN 160 MG TAB PO SCH ×3 (10:34→23:50)
[2022-10-25 11:19] LABS: Glucose,Whole Blood 217 mg/dL (70-110)
--- NOTE | 2022-10-25 12:49 | P.PN ---
Subjective Progress Note Date: 10/25/22 62-year-old male with history of hypertension, dyslipidemia, diabetes found unresponsive at a local truck stop. Per report, patient was not moving for the last few days. Upon ED evaluation, found to have a large left-sided MCA subacute stroke. Laboratory workup also showed leukocytosis, elevated BUN, and elevated CK. Patient admitted for further stroke workup and started on fluids. Neurology consulted. Urine indicative of a possible urinary tract infection, started on IV ceftriaxone. Echo report reviewed, shows normal LV size and systolic function, no filling defects to indicate thrombus. Repeat head CT does not show any hemorrhagic transformation, midline shift, hydrocephalus, or herniation. EEG shows no epileptiform activity. Pending guardianship likely Tuesday and then subacute rehab. 10/19 Patient was seen and examined. CT brain shows evolution of a large left MCA infarct. Difficulty communicating, he denies any complaints. 10/21 Patient was seen and examined. No changes in clinical condition. Discussed with social insurance adviser, plans for discharge to SNF vs inpatient rehab, [place] vs [place]. 10/22 Patient was seen and examined. No changes in clinical condition. Pending placement. 10/23 Patient was seen and examined. No changes in clinical condition. Pending placement. 10/24 Patient was seen and examined. No changes in clinical condition. Pending placement. 10/25 Patient was seen and examined. No changes in clinical condition. Pending placement. General: nontoxic, no distress, appears at stated age Derm: warm, dry Head: atraumatic, normocephalic, symmetric Eyes: EOMI, no lid lag, anicteric sclera Cardiovascular: S1S2 reg, no murmur Lungs: CTA bilateral, no rhonchi, no rales , no accessory muscle use Ext: no gross muscle atrophy, no edema, no contractures Neuro: No focal neuro deficits, right-sided deficits, significant aphasia Psych: Awake and Alert, unable to follow commands Large left MCA and small right parietal subacute CVA, possibly embolic Left ICA and common carotid occlusion Acute metabolic encephalopathy secondary to above Hyponatremia due to dehydration Mild rhabdomyolysis, resolving Leukocytosis due to UTI, resolving Type 2 diabetes, uncontrolled Uncontrolled hypertension Resolved: UTI completed course of antibiotics Based on my assessment of this patient, this patient meets a moderate complexity level of care. Patient has an acute diagnosis of CVA that poses a threat to life or bodily function. Large left MCA and small right parietal subacute CVA, possibly embolic: ASA, Lipitor, Plavix. Brain CT, CTA head and neck, Echocardiogram, Video swallow, EEG, repeat Brain CT 10/13 and 10/18. NDD3 with 1:1 supervision. Telemetry monitoring. Neurochecks. Aspiration and Fall precautions. Neurology, PT/OT/ST on board. Event monitor on discharge. Left ICA and common carotid occlusion Acute metabolic encephalopathy secondary to above Hyponatremia due to dehydration Mild rhabdomyolysis, resolving Leukocytosis due to UTI, resolving Type 2 diabetes, uncontrolled: Levemir 10 units QD. ISS. Hypoglycemic precautions. Accuchecks ACHS. Uncontrolled hypertension: Hydralazine, HCTZ, Valsartan. Resolved: UTI completed course of antibiotics DVT prophylaxis with Heparin SQ. FULL CODE. Pending placement. I have reviewed the following sql consultant notes: I have reviewed the results of the following tests: POC glucose. I have ordered the following tests: I have discussed the care of this patient with the following independent historian: I have independently interpreted the following test below: I have discussed the management of this patient with the following physician: Objective - Vital Signs Vital signs: Vital Signs Temp 98.6 F 10/25/22 06:50 Pulse 70 10/25/22 06:50 Resp 17 10/25/22 06:50 BP 109/62 10/25/22 06:50 Pulse Ox 94 L 10/25/22 06:50 FiO2 Intake & Output 10/24/22 10/25/22 10/25/22 18:59 06:59 18:59 Weight 90.718 kg Other: Voiding Method Diaper Diaper # Voids 1 1 1 - Labs CBC & Chem 7: 10/13/22 05:22 10/17/22 04:51 Labs: Abnormal Lab Results - Last 24 Hours (Table) 10/24/22 10/24/22 10/25/22 Range/Units 17:25 20: 06:17 POC Glucose (mg/dL) 119 H 166 H 159 H (70-110) mg/dL 10/25/22 Range/Units 11:17 POC Glucose (mg/dL) 217 H (70-110) mg/dL
[2022-10-25 16:11] LABS: Glucose,Whole Blood 136 mg/dL (70-110)
--- NOTE | 2022-10-25 18:19 | CT ---
EXAMINATION TYPE: CT brain wo con CT DLP: 1163.4 mGycm, Automated exposure control for dose reduction was used. DATE OF EXAM: 10/25/2022 5:49 PM COMPARISON: . CLINICAL INDICATION:Male, 62 years old with history of worsening aphasia, Worsening aphasia. TECHNIQUE: Brain: Axial CT images of the brain were obtained with coronal and sagittal reformats created and rev iewed. Contrast used: None. Oral contrast used: None. FINDINGS: Brain: Extra-axial spaces: No abnormal extra-axial fluid collections. Ventricular system: Within normal limits Cerebral parenchyma: Evolution of left MCA territory infarct. Right e parietal region injury unchange d from prior. No acute intraparenchymal hemorrhage or mass effect. The drew-white junction is well d ifferentiated. Cerebellum: Unremarkable. Mass effect: No evidence of midline shift. Intracranial vasculature: unremarkable Soft tissues: Normal. Calvarium/osseous structures: No depressed skull fracture. Paranasal sinuses and mastoid air cells: Mild scattered paranasal sinus disease. Visualized orbits: Orbital contents are intact. IMPRESSION: 1. Evolution of left MCA territory infarct. No hemorrhagic conversion at this time. No new areas of infarct visualized. 2. Remote right parietal region injury.
[2022-10-25 21:04] LABS: Glucose,Whole Blood 188 mg/dL (70-110)
[2022-10-25] MEDS: ATORVASTATIN 80 MG TAB PO SCH ×2 (22:17→23:49)
[2022-10-26 06:07] LABS: Glucose,Whole Blood 184 mg/dL (70-110)
[2022-10-26] MEDS: INSULIN DETEMIR (LEVEMIR) 100 UNIT/ML SYR SQ SCH (06:54)
[2022-10-26] MEDS: INSULIN ASPART (NovoLOG) 100 UNIT/ML VIAL SQ SCH ×4 (06:54→20:32)
[2022-10-26] MEDS: CLOPIDOGREL 75 MG TAB PO SCH (09:07)
[2022-10-26] MEDS: FAMOTIDINE 20 MG TAB PO SCH ×2 (09:07→20:31)
[2022-10-26] MEDS: HEPARIN SODIUM,PORCINE 5,000 UNIT/ML 1 ML VIAL SQ SCH ×3 (09:07→23:54)
[2022-10-26] MEDS: VALSARTAN 160 MG TAB PO SCH ×2 (09:07→20:32)
[2022-10-26] MEDS: ASPIRIN 81 MG PO SCH (09:07)
[2022-10-26] MEDS: hydrALAZINE HCL 25 MG TAB PO SCH ×3 (09:07→20:31)
--- NOTE | 2022-10-26 11:44 | P.PN ---
Subjective Progress Note Date: 10/26/22 Hospital Course: 62-year-old male with history of hypertension, dyslipidemia, diabetes [place] unresponsive [place]. Per report, patient was not moving for the last few days. Upon ED evaluation, found to have a large left-sided MCA subacute stroke. Laboratory workup also showed leukocytosis, elevated BUN, and elevated CK. Patient admitted for further stroke workup and started on fluids. Neurology consulted. Urine indicative of a possible urinary tract infection, started on IV ceftriaxone. Echo report reviewed, shows normal LV size and systolic function, no filling defects to indicate thrombus. Repeat head CT does not show any hemorrhagic transformation, midline shift, hydrocephalus, or herniation. EEG shows no epileptiform activity. Pending placement. Subjective: Patient seen and examined at bedside. No acute events overnight. Pertinent positives and negatives as discussed above, a complete review of systems was performed and all other systems are negative. Vitals Signs Reviewed. General: nontoxic, no distress, appears at stated age Derm: warm, dry Head: atraumatic, normocephalic, symmetric Eyes: EOMI, no lid lag, anicteric sclera Cardiovascular: S1S2 reg, no murmur Lungs: CTA bilateral, no rhonchi, no rales , no accessory muscle use Ext: no gross muscle atrophy, no edema, no contractures Neuro: No focal neuro deficits, right-sided deficits, significant aphasia Psych: Awake and Alert, unable to follow commands Data Reviewed Today: Pertinent Labs: Blood sugars range between 171-198 Imaging: Repeat brain CT showed left MCA territory infarct evolution Assessment and Plan: Large left MCA and small right parietal subacute CVA, possibly embolic Left ICA and common carotid occlusion Acute metabolic encephalopathy secondary to above, resolved Hyponatremia due to dehydration, resolved Mild rhabdomyolysis, resolved Leukocytosis due to UTI, resolved Type 2 diabetes, uncontrolled Uncontrolled hypertension Urinary tract infection, resolved - No changes in medical therapy -Pending placement -Continue Levemir 10 units, sliding scale insulin -Continue hydralazine, hydrochlorothiazide, valsartan -No new strokes DVT ppx: Subcu heparin Code status: Full code Anticipated discharge place: Placement Anticipated discharge time: Pending bed availability Objective - Vital Signs Vital signs: Vital Signs Temp 97.7 F 10/26/22 07:52 Pulse 81 10/26/22 07:52 Resp 18 10/26/22 07:52 BP 110/64 10/26/22 07:52 Pulse Ox 97 10/26/22 09:08 FiO2 21 10/26/22 09:08 Intake & Output 10/25/22 10/26/22 10/26/22 18:59 06:59 18:59 Weight 90.718 kg Other: Voiding Method Diaper Diaper # Voids 1 2 # Bowel Movements 2 - Labs CBC & Chem 7: 10/13/22 05:22 10/17/22 04:51 Labs: Abnormal Lab Results - Last 24 Hours (Table) 10/25/22 10/25/22 10/26/22 Range/Units 16:09 21:04 06:06 POC Glucose (mg/dL) 136 H 188 H 184 H (70-110) mg/dL
[2022-10-26 12:36] LABS: Glucose,Whole Blood 296 mg/dL (70-110)
[2022-10-26 17:19] LABS: Glucose,Whole Blood 84 mg/dL (70-110)
[2022-10-26 20:12] LABS: Glucose,Whole Blood 192 mg/dL (70-110)
[2022-10-26] MEDS: ATORVASTATIN 80 MG TAB PO SCH (20:31)
[2022-10-27 06:01] LABS: Glucose,Whole Blood 239 mg/dL (70-110)
[2022-10-27] MEDS: INSULIN DETEMIR (LEVEMIR) 100 UNIT/ML SYR SQ SCH (06:44)
[2022-10-27] MEDS: INSULIN ASPART (NovoLOG) 100 UNIT/ML VIAL SQ SCH ×4 (06:44→21:28)
[2022-10-27] MEDS: HEPARIN SODIUM,PORCINE 5,000 UNIT/ML 1 ML VIAL SQ SCH ×2 (07:32→16:31)
[2022-10-27] MEDS: ASPIRIN 81 MG PO SCH (07:32)
[2022-10-27] MEDS: FAMOTIDINE 20 MG TAB PO SCH ×2 (07:32→21:28)
[2022-10-27] MEDS: CLOPIDOGREL 75 MG TAB PO SCH (07:33)
[2022-10-27] MEDS: VALSARTAN 160 MG TAB PO SCH ×2 (07:33→21:17)
[2022-10-27] MEDS: hydrALAZINE HCL 25 MG TAB PO SCH ×3 (07:33→21:23)
--- NOTE | 2022-10-27 11:37 | P.PN ---
Subjective Progress Note Date: 10/27/22 Hospital Course: 62-year-old male with history of hypertension, dyslipidemia, diabetes found unresponsive [place] stop. Per report, patient was not moving for the last few days. Upon ED evaluation, found to have a large left-sided MCA subacute stroke. Laboratory workup also showed leukocytosis, elevated BUN, and elevated CK. Patient admitted for further stroke workup and started on fluids. Neurology consulted. Urine indicative of a possible urinary tract infection, st arted on IV ceftriaxone. Echo report reviewed, shows normal LV size and systolic function, no filling defects to indicate thrombus. Repeat head CT does not show any hemorrhagic transformation, midline shift, hydrocephalus, or herniation. EEG shows no epileptiform activity. Pending placement. Subjective: Patient seen and examined at bedside. No acute events overnight. He did have urinary retention, Mars catheter placed. Pertinent positives and negatives as discussed above, a complete review of systems was performed and all other systems are negative. Vitals Signs Reviewed. General: nontoxic, no distress, appears at stated age Derm: warm, dry Head: atraumatic, normocephalic, symmetric Eyes: EOMI, no lid lag, anicteric sclera Cardiovascular: S1S2 reg, no murmur Lungs: CTA bilateral, no rhonchi, no rales , no accessory muscle use Ext: no gross muscle atrophy, no edema, no contractures Neuro: No focal neuro deficits, right-sided deficits, significant aphasia Psych: Awake and Alert, unable to follow commands Data Reviewed Today: Pertinent Labs: Blood sugars range between 84-239 Imaging: No new imaging Assessment and Plan: Large left MCA and small right parietal subacute CVA, possibly embolic Left ICA and common carotid occlusion Acute metabolic encephalopathy secondary to above, resolved Hyponatremia due to dehydration, resolved Mild rhabdomyolysis, resolved Leukocytosis due to UTI, resolved Type 2 diabetes, uncontrolled Uncontrolled hypertension Urinary tract infection, resolved Acute urinary retention -Started on Flomax 0.4 mg daily -Has a Mars catheter in place -Pending placement -Increase Levemir to 15 units, continue sliding scale insulin -Continue hydralazine, hydrochlorothiazide, valsartan DVT ppx: Subcu heparin Code status: Full code Anticipated discharge place: Placement Anticipated discharge time: Pending bed availability Objective - Vital Signs Vital signs: Vital Signs Temp 97.9 F 10/27/22 07:34 Pulse 71 10/27/22 07:34 Resp 17 10/27/22 07:34 BP 132/65 10/27/22 07:34 Pulse Ox 100 10/27/22 07:34 FiO2 21 10/26/22 09:08 Intake & Output 10/26/22 10/27/22 10/27/22 18:59 06:59 18:59 Output Total 1100 Balance -1100 Output: Urine 1100 Other: Voiding Method Indwelling Catheter Indwelling Catheter # Voids 1 # Bowel Movements 1 - Labs CBC & Chem 7: 10/13/22 05:22 10/17/22 04:51 Labs: Abnormal Lab Results - Last 24 Hours (Table) 10/26/22 10/26/22 10/27/22 Range/Units 12:34 20:10 06:00 POC Glucose (mg/dL) 296 H 192 H 239 H (70-110) mg/dL
[2022-10-27 11:58] LABS: Glucose,Whole Blood 155 mg/dL (70-110)
[2022-10-27] MEDS: TAMSULOSIN 0.4 MG CAP.ER.24H PO SCH (12:26)
[2022-10-27 16:47] LABS: Glucose,Whole Blood 149 mg/dL (70-110)
[2022-10-27 21:04] LABS: Glucose,Whole Blood 160 mg/dL (70-110)
[2022-10-27] MEDS: ATORVASTATIN 80 MG TAB PO SCH (21:28)
[2022-10-28] MEDS: HEPARIN SODIUM,PORCINE 5,000 UNIT/ML 1 ML VIAL SQ SCH ×4 (00:52→23:12)
[2022-10-28 06:19] LABS: Glucose,Whole Blood 161 mg/dL (70-110)
[2022-10-28] MEDS: INSULIN ASPART (NovoLOG) 100 UNIT/ML VIAL SQ SCH ×4 (06:34→20:35)
[2022-10-28] MEDS: INSULIN DETEMIR (LEVEMIR) 100 UNIT/ML SYR SQ SCH (06:34)
[2022-10-28] MEDS: VALSARTAN 160 MG TAB PO SCH (08:02)
[2022-10-28] MEDS: hydrALAZINE HCL 25 MG TAB PO SCH (08:02)
[2022-10-28] MEDS: TAMSULOSIN 0.4 MG CAP.ER.24H PO SCH (08:02)
[2022-10-28] MEDS: ASPIRIN 81 MG PO SCH (08:02)
[2022-10-28] MEDS: CLOPIDOGREL 75 MG TAB PO SCH (08:02)
[2022-10-28] MEDS: FAMOTIDINE 20 MG TAB PO SCH ×2 (08:02→20:35)
--- NOTE | 2022-10-28 10:45 | P.PN ---
Subjective Progress Note Date: 10/28/22 Hospital Course: 62-year-old male with history of hypertension, dyslipidemia, diabetes found un responsive [place] a local truck stop. Per report, patient was not moving for the last few days. Upon ED evaluation, found to have a large left-sided MCA subacute stroke. Laboratory workup also showed leukocytosis, elevated BUN, and elevated CK. Patient admitted for further stroke workup and started on fluids. Neurology consulted. Urine indicative of a possible urinary tract infection, started on IV ceftriaxone. Echo report reviewed, shows normal LV size and systolic function, no filling defects to indicate thrombus. Repeat head CT does not show any hemorrhagic transformation, midline shift, hydrocephalus, or herniation. EEG shows no epileptiform activity. Pending placement. Subjective: Patient seen and examined at bedside. No acute events overnight. León in place. Has been slightly hypotensive. Pertinent positives and negatives as discussed above, a complete review of systems was performed and all other systems are negative. Vitals Signs Reviewed. General: nontoxic, no distress, appears at stated age Derm: warm, dry Head: atraumatic, normocephalic, symmetric Eyes: EOMI, no lid lag, anicteric sclera Cardiovascular: S1S2 reg, no murmur Lungs: CTA bilateral, no rhonchi, no rales , no accessory muscle use Ext: no gross muscle atrophy, no edema, no contractures Neuro: No focal neuro deficits, right-sided deficits, significant aphasia Psych: Awake and Alert, unable to follow commands Data Reviewed Today: Pertinent Labs: Blood sugars range between 149-161 Imaging: No new imaging Assessment and Plan: Large left MCA and small right parietal subacute CVA, possibly embolic Left ICA and common carotid occlusion Acute metabolic encephalopathy secondary to above, resolved Hyponatremia due to dehydration, resolved Mild rhabdomyolysis, resolved Leukocytosis due to UTI, resolved Type 2 diabetes, with hyperglycemia HTN Urinary tract infection, resolved Acute urinary retention s/p león -continue Flomax 0.4 mg daily -Has a León catheter in place, will try voiding trial in 1-2 days -Pending placement -[id number] units, continue sliding scale insulin -Hydralazine dose decreased to 25 TID, continue hydrochlorothiazide, valsartan DVT ppx: Subcu heparin Code status: Full code Anticipated discharge place: Placement Anticipated discharge time: Pending bed availability Objective - Vital Signs Vital signs: Vital Signs Temp 98.1 F 10/28/22 07:02 Pulse 91 10/28/22 07:02 Resp 17 10/28/22 07:02 BP 103/66 10/28/22 07:02 Pulse Ox 95 10/28/22 07:02 FiO2 21 10/27/22 11:45 Intake & Output 10/27/22 10/28/22 10/28/22 18:59 06:59 18:59 Output Total 200 400 Balance -200 -400 Output: Urine 200 400 Other: Voiding Method Indwelling Catheter Indwelling Catheter # Bowel Movements 1 - Labs CBC & Chem 7: 10/13/22 05:22 10/17/22 04:51 Labs: Abnormal Lab Results - Last 24 Hours (Table) 10/27/22 10/27/22 10/27/22 Range/Units 11:51 16:45 21:03 POC Glucose (mg/dL) 155 H 149 H 160 H (70-110) mg/dL 10/28/22 Range/Units 06:17 POC Glucose (mg/dL) 161 H (70-110) mg/dL
[2022-10-28 11:40] LABS: Glucose,Whole Blood 212 mg/dL (70-110)
[2022-10-28] MEDS ORDERED: hydrALAZINE HCL 25 MG TAB PO SCH (16:00)
[2022-10-28 16:34] LABS: Glucose,Whole Blood 138 mg/dL (70-110)
[2022-10-28 20:33] LABS: Glucose,Whole Blood 170 mg/dL (70-110)
[2022-10-28] MEDS: ATORVASTATIN 80 MG TAB PO SCH (20:35)
[2022-10-29 06:00] LABS: Glucose,Whole Blood 158 mg/dL (70-110)
[2022-10-29] MEDS: INSULIN DETEMIR (LEVEMIR) 100 UNIT/ML SYR SQ SCH (06:52)
[2022-10-29] MEDS: INSULIN ASPART (NovoLOG) 100 UNIT/ML VIAL SQ SCH ×4 (06:52→20:56)
[2022-10-29] MEDS: CLOPIDOGREL 75 MG TAB PO SCH (08:11)
[2022-10-29] MEDS: ASPIRIN 81 MG PO SCH (08:11)
[2022-10-29] MEDS: FAMOTIDINE 20 MG TAB PO SCH ×2 (08:12→20:55)
[2022-10-29] MEDS: HEPARIN SODIUM,PORCINE 5,000 UNIT/ML 1 ML VIAL SQ SCH ×3 (08:12→23:23)
[2022-10-29] MEDS: TAMSULOSIN 0.4 MG CAP.ER.24H PO SCH (08:12)
[2022-10-29 09:08] LABS: Basophils % (A) 0 %; Eosinophils # (A) 0.1 k/uL (0-0.7); Eosinophils % (A) 1 %; HCT 42.3 % (39.0-53.0); HGB 14.2 gm/dL (13.0-17.5); Lymphocytes # (A) 1.6 k/uL (1.0-4.8); Lymphocytes % (A) 13 %; MCHC 33.5 g/dL (31.0-37.0); MCV 86.7 fL (80.0-100.0); Mean Platelet Volume 7.5; Monocytes # (A) 0.8 k/uL (0-1.0); Monocytes % (A) 6 %; Neutrophils # (A) 9.8 k/uL (1.3-7.7); Neutrophils % (A) 79 %; RBC 4.88 m/uL (4.30-5.90); RDW 13.1 % (11.5-15.5); WBC 12.4 k/uL (3.8-10.6)
[2022-10-29 09:15] LABS: Platelet Count 370 k/uL (150-450)
[2022-10-29 09:22] LABS: African American GFR (CKD) 33 (>60 ml/min/1.73 sqM); Anion Gap 11 mmol/L; Blood Urea Nitrogen 98 mg/dL (9-20); Calcium 9.6 mg/dL (8.4-10.2); Carbon Dioxide 19 mmol/L (22-30); Chloride 102 mmol/L (98-107); Glucose 144 mg/dL (74-99); Magnesium 2.8 mg/dL (1.6-2.3); Non-African American GFR(CKD) 28 (>60 ml/min/1.73 sqM); Potassium 4.8 mmol/L (3.5-5.1); Sodium 132 mmol/L (137-145)
[2022-10-29 11:22] LABS: Glucose,Whole Blood 160 mg/dL (70-110)
--- NOTE | 2022-10-29 12:23 | P.PN ---
Subjective Progress Note Date: 10/29/22 Hospital Course: 62-year-old male with history of hypertension, dyslipidemia, diabetes found un responsive [place] a local truck stop. Per report, patient was not moving for the last few days. Upon ED evaluation, found to have a large left-sided MCA subacute stroke. Laboratory workup also showed leukocytosis, elevated BUN, and elevated CK. Patient admitted for further stroke workup and started on fluids. Neurology consulted. Urine indicative of a possible urinary tract infection, started on IV ceftriaxone. Echo report reviewed, shows normal LV size and systolic function, no filling defects to indicate thrombus. Repeat head CT does not show any hemorrhagic transformation, midline shift, hydrocephalus, or herniation. EEG shows no epileptiform activity. Pending placement. Patient had periods of hypotension, now has ANNA. Started on fluids. BP meds held. Subjective: Patient seen and examined at bedside. No acute events overnight. León in place. Pertinent positives and negatives as discussed above, a complete review of systems was performed and all other systems are negative. Vitals Signs Reviewed. General: nontoxic, no distress, appears at stated age Derm: warm, dry Head: atraumatic, normocephalic, symmetric Eyes: EOMI, no lid lag, anicteric sclera Cardiovascular: S1S2 reg, no murmur Lungs: CTA bilateral, no rhonchi, no rales , no accessory muscle use Ext: no gross muscle atrophy, no edema, no contractures Neuro: right-sided deficits, significant aphasia Psych: Awake and Alert, follows some commands Data Reviewed Today: Pertinent Labs: WBC 12.4, sodium 132, right carpal 19, BUN 98, creatinine Imaging: No new imaging Assessment and Plan: Acute kidney injury, likely secondary to hypotension Large left MCA and small right parietal subacute CVA, possibly embolic Left ICA and common carotid occlusion Acute metabolic encephalopathy secondary to above, resolved Hyponatremia mild, hypovolemic Mild rhabdomyolysis, resolved Leukocytosis, likely secondary to dehydration Type 2 diabetes, with hyperglycemia History of hypertension Urinary tract infection, resolved Acute urinary retention s/p león -continue Flomax 0.4 mg daily -Continue León catheter for now -Renal ultrasound -Hold antihypertensives -Started on lactated Ringer 1 25 mL an hour -Repeat BMP tomorrow -[id number] units, continue sliding scale insulin DVT ppx: Subcu heparin Code status: Full code Anticipated discharge place: Placement Anticipated discharge time: Pending bed availability Objective - Vital Signs Vital signs: Vital Signs Temp 97.9 F 10/29/22 07:52 Pulse 67 10/29/22 07:52 Resp 14 10/29/22 07:52 BP 94/56 10/29/22 07:52 Pulse Ox 100 10/29/22 07:52 FiO2 21 10/27/22 11:45 Intake & Output 10/28/22 10/29/22 10/29/22 18:59 06:59 18:59 Output Total 300 Balance -300 Output: Urine 300 Other: Voiding Method Indwelling Catheter Indwelling Catheter # Bowel Movements 1 2 - Labs CBC & Chem 7: 10/29/22 08:27 10/29/22 08:27 Labs: Abnormal Lab Results - Last 24 Hours (Table) 10/28/22 10/28/22 10/29/22 Range/Units 16:32 20:32 05:58 WBC (3.8-10.6) k/uL Neutrophils # (1.3-7.7) k/uL Sodium (137-145) mmol/L Carbon Dioxide (22-30) mmol/L BUN (9-20) mg/dL Creatinine (0.66-1.25) mg/dL Glucose (74-99) mg/dL POC Glucose (mg/dL) 138 H 170 H 158 H (70-110) mg/dL Magnesium (1.6-2.3) mg/dL 10/29/22 10/29/22 10/29/22 Range/Units 08:27 08:27 11:21 WBC 12.4 H (3.8-10.6) k/uL Neutrophils # 9.8 H (1.3-7.7) k/uL Sodium 132 L (137-145) mmol/L Carbon Dioxide 19 L (22-30) mmol/L BUN 98 H (9-20) mg/dL Creatinine 2.39 H (0.66-1.25) mg/dL Glucose 144 H (74-99) mg/dL POC Glucose (mg/dL) 160 H (70-110) mg/dL Magnesium 2.8 H (1.6-2.3) mg/dL
--- NOTE | 2022-10-29 12:47 | US ---
EXAMINATION TYPE: US kidneys/renal and bladder DATE OF EXAM: 10/29/2022 COMPARISON: NONE CLINICAL INDICATION: Male, 62 years old with history of jeremiah; EXAM MEASUREMENTS: Right Kidney: 10.9 x 5.5 x 6.2 cm Left Kidney: 11.2 x 6.2 x 6.4 cm Right Kidney: No hydronephrosis or masses seen Left Kidney: No hydronephrosis or masses seen Bladder: patient has catheter There is no evidence for hydronephrosis at this point in time. No nephrolithiasis is seen. No ijeoma s are identified. IMPRESSION: Cortical medullary differentiation maintained. No evidence for obstructive uropathy.
[2022-10-29 16:53] LABS: Glucose,Whole Blood 143 mg/dL (70-110)
[2022-10-29] MEDS: LACTATED RINGERS 1,000 ML IV SCH ×2 (18:13→20:56)
[2022-10-29 20:54] LABS: Glucose,Whole Blood 122 mg/dL (70-110)
[2022-10-29] MEDS: ATORVASTATIN 80 MG TAB PO SCH (20:55)
[2022-10-30] MEDS: LACTATED RINGERS 1,000 ML IV SCH ×3 (05:00→20:49)
[2022-10-30 06:13] LABS: Glucose,Whole Blood 131 mg/dL (70-110)
[2022-10-30] MEDS: INSULIN ASPART (NovoLOG) 100 UNIT/ML VIAL SQ SCH ×4 (06:16→20:49)
[2022-10-30] MEDS: INSULIN DETEMIR (LEVEMIR) 100 UNIT/ML SYR SQ SCH (06:19)
[2022-10-30 08:25] LABS: Basophils # (A) 0.1 k/uL (0-0.2); Basophils % (A) 1 %; Eosinophils # (A) 0.2 k/uL (0-0.7); Eosinophils % (A) 1 %; HCT 43.2 % (39.0-53.0); HGB 13.9 gm/dL (13.0-17.5); Lymphocytes # (A) 1.5 k/uL (1.0-4.8); Lymphocytes % (A) 12 %; MCH 28.7 pg (25.0-35.0); MCHC 32.3 g/dL (31.0-37.0); MCV 88.9 fL (80.0-100.0); Mean Platelet Volume 7.6; Monocytes # (A) 0.7 k/uL (0-1.0); Monocytes % (A) 6 %; Neutrophils % (A) 80 %; Platelet Count 364 k/uL (150-450); RBC 4.86 m/uL (4.30-5.90); RDW 13.1 % (11.5-15.5); WBC 12.6 k/uL (3.8-10.6)
[2022-10-30 08:49] LABS: African American GFR (CKD) 54 (>60 ml/min/1.73 sqM); Anion Gap 14 mmol/L; Blood Urea Nitrogen 89 mg/dL (9-20); Calcium 9.7 mg/dL (8.4-10.2); Carbon Dioxide 16 mmol/L (22-30); Chloride 103 mmol/L (98-107); Glucose 119 mg/dL (74-99); Non-African American GFR(CKD) 46 (>60 ml/min/1.73 sqM); Potassium 5.2 mmol/L (3.5-5.1); Sodium 133 mmol/L (137-145)
[2022-10-30] MEDS: ASPIRIN 81 MG PO SCH (09:21)
[2022-10-30] MEDS: FAMOTIDINE 20 MG TAB PO SCH ×2 (09:21→20:54)
[2022-10-30] MEDS: HEPARIN SODIUM,PORCINE 5,000 UNIT/ML 1 ML VIAL SQ SCH ×3 (09:21→23:47)
[2022-10-30] MEDS: CLOPIDOGREL 75 MG TAB PO SCH (09:21)
[2022-10-30] MEDS: TAMSULOSIN 0.4 MG CAP.ER.24H PO SCH (09:21)
[2022-10-30 11:11] LABS: Glucose,Whole Blood 157 mg/dL (70-110)
[2022-10-30] MEDS: SODIUM BICARBONATE TAB 650 MG TAB PO SCH ×3 (12:16→20:54)
--- NOTE | 2022-10-30 13:41 | P.PN ---
Subjective Progress Note Date: 10/30/22 Hospital Course: 62-year-old male with history of hypertension, dyslipidemia, diabetes found unresponsive [place] local truck stop. Per report, patient was not moving for the last few days. Upon ED evaluation, found to have a large left-sided MCA subacute stroke. Laboratory workup also showed leukocytosis, elevated BUN, and elevated CK. Patient admitted for further stroke workup and started on fluids. Neurology consulted. Urine indicative of a possible urinary tract infection, st arted on IV ceftriaxone. Echo report reviewed, shows normal LV size and systolic function, no filling defects to indicate thrombus. Repeat head CT does not show any hemorrhagic transformation, midline shift, hydrocephalus, or herniation. EEG shows no epileptiform activity. Pending placement. Patient had periods of hypotension, now has ANNA. Started on fluids. BP meds held. Renal function improving. Patient also has poor oral intake. Subjective: Patient seen and examined at bedside. No acute events overnight. León in place. Pertinent positives and negatives as discussed above, a complete review of systems was performed and all other systems are negative. Vitals Signs Reviewed. General: nontoxic, no distress, appears at stated age Derm: warm, dry Head: atraumatic, normocephalic, symmetric Eyes: EOMI, no lid lag, anicteric sclera Cardiovascular: S1S2 reg, no murmur Lungs: CTA bilateral, no rhonchi, no rales , no accessory muscle use Ext: no gross muscle atrophy, no edema, no contractures Neuro: right-sided deficits, significant aphasia Psych: Awake and Alert, follows some commands Data Reviewed Today: Pertinent Labs: WBC 12.6, sodium 133, potassium 5.2, bicarb 16, creatinine 1.59, blood sugars range between 119-157 Imaging: No new imaging Assessment and Plan: Acute kidney injury, likely secondary to hypotension, improving Large left MCA and small right parietal subacute CVA, possibly embolic Left ICA and common carotid occlusion Acute metabolic encephalopathy secondary to above, resolved Hyponatremia mild, hypovolemic, resolving Mild rhabdomyolysis, resolved Leukocytosis, likely secondary to dehydration Type 2 diabetes, with hyperglycemia History of hypertension Urinary tract infection, resolved Acute urinary retention s/p león -continue Flomax 0.4 mg daily -Continue León catheter for now -Hold antihypertensives -On lactated Ringer 1 25 mL an hour -Repeat BMP tomorrow -[id number] units, continue sliding scale insulin -Start Marinol for appetite stimulant DVT ppx: Subcu heparin Code status: Full code Anticipated discharge place: Placement Anticipated discharge time: Pending bed availability Objective - Vital Signs Vital signs: Vital Signs Temp 97.1 F L 10/30/22 07:36 Pulse 64 10/30/22 07:36 Resp 16 10/30/22 07:36 BP 131/61 10/30/22 07:36 Pulse Ox 100 10/30/22 11:29 FiO2 21 10/30/22 11:29 Intake & Output 10/29/22 10/30/22 10/30/22 18:59 06:59 18:59 Output Total 1000 Balance -1000 Weight 90.718 kg Output: Urine 1000 Other: Voiding Method Indwelling Catheter Indwelling Catheter Indwelling Catheter # Bowel Movements 1 1 - Labs CBC & Chem 7: 10/30/22 07:13 10/30/22 07:13 Labs: Abnormal Lab Results - Last 24 Hours (Table) 10/29/22 10/29/22 10/30/22 Range/Units 16:52 20:50 06:06 WBC (3.8-10.6) k/uL Neutrophils # (1.3-7.7) k/uL Sodium (137-145) mmol/L Potassium (3.5-5.1) mmol/L Carbon Dioxide (22-30) mmol/L BUN (9-20) mg/dL Creatinine (0.66-1.25) mg/dL Glucose (74-99) mg/dL POC Glucose (mg/dL) 143 H 122 H 131 H (70-110) mg/dL 10/30/22 10/30/22 10/30/22 Range/Units 07:13 07:13 11:08 WBC 12.6 H (3.8-10.6) k/uL Neutrophils # 10.0 H (1.3-7.7) k/uL Sodium 133 L (137-145) mmol/L Potassium 5.2 H (3.5-5.1) mmol/L Carbon Dioxide 16 L (22-30) mmol/L BUN 89 H (9-20) mg/dL Creatinine 1.59 H (0.66-1.25) mg/dL Glucose 119 H (74-99) mg/dL POC Glucose (mg/dL) 157 H (70-110) mg/dL
[2022-10-30 16:25] LABS: Glucose,Whole Blood 113 mg/dL (70-110)
[2022-10-30] MEDS: droNABinol 2.5 MG CAP PO SCH (17:08)
[2022-10-30 20:49] LABS: Glucose,Whole Blood 146 mg/dL (70-110)
[2022-10-30] MEDS: ATORVASTATIN 80 MG TAB PO SCH (20:54)
[2022-10-31] MEDS: LACTATED RINGERS 1,000 ML IV SCH ×3 (04:32→20:49)
[2022-10-31 06:14] LABS: Glucose,Whole Blood 125 mg/dL (70-110)
[2022-10-31] MEDS: INSULIN ASPART (NovoLOG) 100 UNIT/ML VIAL SQ SCH ×4 (06:17→20:49)
[2022-10-31] MEDS: droNABinol 2.5 MG CAP PO SCH ×2 (06:23→17:06)
[2022-10-31] MEDS: INSULIN DETEMIR (LEVEMIR) 100 UNIT/ML SYR SQ SCH (06:23)
[2022-10-31 07:00] LABS: Basophils % (A) 0 %; Eosinophils # (A) 0.3 k/uL (0-0.7); Eosinophils % (A) 3 %; HCT 39.6 % (39.0-53.0); HGB 13.4 gm/dL (13.0-17.5); Lymphocytes # (A) 1.6 k/uL (1.0-4.8); Lymphocytes % (A) 16 %; MCH 29.3 pg (25.0-35.0); MCHC 33.8 g/dL (31.0-37.0); MCV 86.6 fL (80.0-100.0); Monocytes # (A) 0.6 k/uL (0-1.0); Monocytes % (A) 6 %; Neutrophils # (A) 7.1 k/uL (1.3-7.7); Neutrophils % (A) 73 %; Platelet Count 325 k/uL (150-450); RBC 4.57 m/uL (4.30-5.90); RDW 12.8 % (11.5-15.5); WBC 9.7 k/uL (3.8-10.6)
[2022-10-31 07:16] LABS: African American GFR (CKD) 82 (>60 ml/min/1.73 sqM); Anion Gap 7 mmol/L; Blood Urea Nitrogen 54 mg/dL (9-20); Calcium 9.2 mg/dL (8.4-10.2); Carbon Dioxide 24 mmol/L (22-30); Chloride 103 mmol/L (98-107); Glucose 115 mg/dL (74-99); Non-African American GFR(CKD) 71 (>60 ml/min/1.73 sqM); Potassium 4.3 mmol/L (3.5-5.1); Sodium 134 mmol/L (137-145)
[2022-10-31] MEDS: TAMSULOSIN 0.4 MG CAP.ER.24H PO SCH (08:30)
[2022-10-31] MEDS: HEPARIN SODIUM,PORCINE 5,000 UNIT/ML 1 ML VIAL SQ SCH ×3 (08:30→23:33)
[2022-10-31] MEDS: ASPIRIN 81 MG PO SCH (08:30)
[2022-10-31] MEDS: CLOPIDOGREL 75 MG TAB PO SCH (08:30)
[2022-10-31] MEDS: SODIUM BICARBONATE TAB 650 MG TAB PO SCH ×3 (08:30→20:48)
[2022-10-31] MEDS: FAMOTIDINE 20 MG TAB PO SCH ×2 (08:30→20:48)
[2022-10-31 11:45] LABS: Glucose,Whole Blood 112 mg/dL (70-110)
--- NOTE | 2022-10-31 12:03 | P.PN ---
Subjective Progress Note Date: 10/31/22 Hospital Course: 62-year-old male with history of hypertension, dyslipidemia, diabetes found un responsive at a local truck stop. Per report, patient was not moving for the last few days. Upon ED evaluation, found to have a large left-sided MCA subacute stroke. Laboratory workup also showed leukocytosis, elevated BUN, and elevated CK. Patient admitted for further stroke workup and started on fluids. Neurology consulted. Urine indicative of a possible urinary tract infection, started on IV ceftriaxone. Echo report reviewed, shows normal LV size and systolic function, no filling defects to indicate thrombus. Repeat head CT does not show any hemorrhagic transformation, midline shift, hydrocephalus, or herniation. EEG shows no epileptiform activity. Pending placement. Patient had periods of hypotension, now has ANNA. Started on fluids. BP meds held. Renal function improving. Patient also has poor oral intake. Subjective: Patient seen and examined at bedside. No acute events overnight. León in place. Pertinent positives and negatives as discussed above, a complete review of systems was performed and all other systems are negative. Vitals Signs Reviewed. General: nontoxic, no distress, appears at stated age Derm: warm, dry Head: atraumatic, normocephalic, symmetric Eyes: EOMI, no lid lag, anicteric sclera Cardiovascular: S1S2 reg, no murmur Lungs: CTA bilateral, no rhonchi, no rales , no accessory muscle use Ext: no gross muscle atrophy, no edema, no contractures Neuro: right-sided deficits, significant aphasia Psych: Awake and Alert, follows some commands Data Reviewed Today: Pertinent Labs: WBC 9.7, BUN 54, creatinine 1.12, blood sugars range between 1:15 to 146 Imaging: No new imaging Assessment and Plan: Acute kidney injury, likely secondary to hypotension, improving Large left MCA and small right parietal subacute CVA, possibly embolic Left ICA and common carotid occlusion Acute metabolic encephalopathy secondary to above, resolved Hyponatremia mild, hypovolemic, resolving Mild rhabdomyolysis, resolved Leukocytosis, likely secondary to dehydration Type 2 diabetes, with hyperglycemia History of hypertension Urinary tract infection, resolved Acute urinary retention s/p león -continue Flomax 0.4 mg daily -Continue León catheter for now -Started amlodipine 5 mg -On lactated Ringer 1 25 mL an hour -Repeat BMP tomorrow -[id number] units, continue sliding scale insulin -On Marinol for appetite stimulant DVT ppx: Subcu heparin Code status: Full code Anticipated discharge place: Placement Anticipated discharge time: Pending bed availability Objective - Vital Signs Vital signs: Vital Signs Temp 97.9 F 10/31/22 06:57 Pulse 63 10/31/22 06:57 Resp 16 10/31/22 06:57 BP 129/75 10/31/22 06:57 Pulse Ox 98 10/31/22 09:31 FiO2 21 10/31/22 09:31 Intake & Output 10/30/22 10/31/22 10/31/22 18:59 06:59 18:59 Output Total 1110 1300 Balance -1110 -1300 Output: Urine 1110 1300 Other: Voiding Method Indwelling Catheter Indwelling Catheter - Labs CBC & Chem 7: 10/31/22 06:38 10/31/22 06:38 Labs: Abnormal Lab Results - Last 24 Hours (Table) 10/30/22 10/30/22 10/31/22 Range/Units 16:23 20:47 06:13 Sodium (137-145) mmol/L BUN (9-20) mg/dL Glucose (74-99) mg/dL POC Glucose (mg/dL) 113 H 146 H 125 H (70-110) mg/dL 10/31/22 10/31/22 Range/Units 06:38 11:44 Sodium 134 L (137-145) mmol/L BUN 54 H (9-20) mg/dL Glucose 115 H (74-99) mg/dL POC Glucose (mg/dL) 112 H (70-110) mg/dL
[2022-10-31] MEDS: amLODIPine 5 MG TAB PO SCH (12:09)
[2022-10-31 16:43] LABS: Glucose,Whole Blood 88 mg/dL (70-110)
[2022-10-31 20:40] LABS: Glucose,Whole Blood 88 mg/dL (70-110)
[2022-10-31] MEDS: ATORVASTATIN 80 MG TAB PO SCH (20:48)
[2022-11-01] MEDS: LACTATED RINGERS 1,000 ML IV SCH ×3 (05:12→21:46)
[2022-11-01 06:36] LABS: Glucose,Whole Blood 120 mg/dL (70-110)
[2022-11-01] MEDS: droNABinol 2.5 MG CAP PO SCH ×2 (06:40→17:22)
[2022-11-01] MEDS: INSULIN DETEMIR (LEVEMIR) 100 UNIT/ML SYR SQ SCH (06:40)
[2022-11-01] MEDS: INSULIN ASPART (NovoLOG) 100 UNIT/ML VIAL SQ SCH ×4 (06:41→21:41)
[2022-11-01] MEDS: HEPARIN SODIUM,PORCINE 5,000 UNIT/ML 1 ML VIAL SQ SCH ×2 (09:27→17:21)
[2022-11-01] MEDS: ASPIRIN 81 MG PO SCH (09:31)
[2022-11-01] MEDS: amLODIPine 5 MG TAB PO SCH (09:31)
[2022-11-01] MEDS: FAMOTIDINE 20 MG TAB PO SCH ×2 (09:31→21:46)
[2022-11-01] MEDS: CLOPIDOGREL 75 MG TAB PO SCH (09:31)
[2022-11-01] MEDS: TAMSULOSIN 0.4 MG CAP.ER.24H PO SCH (09:31)
[2022-11-01] MEDS: SODIUM BICARBONATE TAB 650 MG TAB PO SCH ×3 (09:31→21:46)
--- NOTE | 2022-11-01 11:06 | P.PN ---
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 Per report, patient was not moving for the last few days. Upon ED evaluation, found to have a large left-sided MCA subacute stroke. Laboratory workup also showed leukocytosis, elevated BUN, and elevated CK. Patient admitted for further stroke workup and started on fluids. Neurology consulted. Urine indicative of a possible urinary tract infection, started on IV ceftriaxone. Echo report reviewed, shows normal LV size and systolic function, no filling defects to indicate thrombus. Repeat head CT does not show any hemorrhagic transformation, midline shift, hydrocephalus, or herniation. EEG shows no epileptiform activity. Pending placement. Patient had periods of hypotension, now has ANNA. Started on fluids. BP meds held. Renal function improving. Patient also has poor oral intake. Subjective: Patient seen and examined at bedside. No acute events overnight. León in place. Pertinent positives and negatives as discussed above, a complete review of systems was performed and all other systems are negative. Vitals Signs Reviewed. General: nontoxic, no distress, appears at stated age Derm: warm, dry Head: atraumatic, normocephalic, symmetric Eyes: EOMI, no lid lag, anicteric sclera Cardiovascular: S1S2 reg, no murmur Lungs: CTA bilateral, no rhonchi, no rales , no accessory muscle use Ext: no gross muscle atrophy, no edema, no contractures Neuro: right-sided deficits, significant aphasia Psych: Awake and Alert, follows some commands Data Reviewed Today: Pertinent Labs: Blood sugars range between 88-120 Imaging: No new imaging Assessment and Plan: Acute kidney injury, likely secondary to hypotension, improving Large left MCA and small right parietal subacute CVA, possibly embolic Left ICA and common carotid occlusion Acute metabolic encephalopathy secondary to above, resolved Hyponatremia mild, hypovolemic, resolving Mild rhabdomyolysis, resolved Leukocytosis, likely secondary to dehydration Type 2 diabetes, with hyperglycemia History of hypertension Urinary tract infection, resolved Acute urinary retention s/p león -continue Flomax 0.4 mg daily -Continue León catheter for now -Started amlodipine 5 mg -On lactated Ringer 1 25 mL an hour -[id number] units, continue sliding scale insulin -On Marinol for appetite stimulant DVT ppx: Subcu heparin Code status: Full code Anticipated discharge place: Placement Anticipated discharge time: Pending bed availability Objective - Vital Signs Vital signs: Vital Signs Temp 98.3 F 11/01/22 07:38 Pulse 77 11/01/22 07:38 Resp 20 11/01/22 08:00 BP 178/93 11/01/22 07:38 Pulse Ox 94 L 11/01/22 08:18 FiO2 21 10/31/22 09:31 Intake & Output 10/31/22 11/01/22 11/01/22 18:59 06:59 18:59 Output Total 1110 300 Balance -1110 -300 Output: Urine 1110 300 Other: Voiding Method Indwelling Catheter Indwelling Catheter Indwelling Catheter - Labs CBC & Chem 7: 10/31/22 06:38 10/31/22 06:38 Labs: Abnormal Lab Results - Last 24 Hours (Table) 10/31/22 11/01/22 Range/Units 11:44 06:35 POC Glucose (mg/dL) 112 H 120 H (70-110) mg/dL
[2022-11-01 12:07] LABS: Glucose,Whole Blood 133 mg/dL (70-110)
[2022-11-01 16:52] LABS: Glucose,Whole Blood 140 mg/dL (70-110)
[2022-11-01 21:31] LABS: Glucose,Whole Blood 145 mg/dL (70-110)
[2022-11-01] MEDS: ATORVASTATIN 80 MG TAB PO SCH (21:46)
[2022-11-02] MEDS: HEPARIN SODIUM,PORCINE 5,000 UNIT/ML 1 ML VIAL SQ SCH ×4 (01:20→23:34)
[2022-11-02] MEDS: LACTATED RINGERS 1,000 ML IV SCH ×2 (05:14→21:30)
[2022-11-02 06:25] LABS: Glucose,Whole Blood 129 mg/dL (70-110)
[2022-11-02] MEDS: INSULIN ASPART (NovoLOG) 100 UNIT/ML VIAL SQ SCH ×4 (06:33→21:28)
[2022-11-02] MEDS: INSULIN DETEMIR (LEVEMIR) 100 UNIT/ML SYR SQ SCH (06:41)
[2022-11-02] MEDS: droNABinol 2.5 MG CAP PO SCH ×2 (06:41→17:49)
[2022-11-02] MEDS: TAMSULOSIN 0.4 MG CAP.ER.24H PO SCH (08:58)
[2022-11-02] MEDS: ASPIRIN 81 MG PO SCH (08:58)
[2022-11-02] MEDS: SODIUM BICARBONATE TAB 650 MG TAB PO SCH ×3 (08:58→21:31)
[2022-11-02] MEDS: CLOPIDOGREL 75 MG TAB PO SCH (08:58)
[2022-11-02] MEDS: FAMOTIDINE 20 MG TAB PO SCH ×2 (08:58→21:31)
[2022-11-02] MEDS: amLODIPine 5 MG TAB PO SCH (08:58)
[2022-11-02 11:25] LABS: Glucose,Whole Blood 143 mg/dL (70-110)
--- NOTE | 2022-11-02 14:31 | P.PN ---
Subjective Progress Note Date: 11/02/22 62-year-old male with history of hypertension, dyslipidemia, diabetes found unresponsive [place]. Per report, patient was not moving for the last few days. Upon ED evaluation, found to have a large left-sided MCA subacute stroke. Laboratory workup also showed leukocytosis, elevated BUN, and elevated CK. Patient admitted for further stroke workup and started on fluids. Neurology consulted. Urine indicative of a possible urinary tract infection, started on IV ceftriaxone. Echo report reviewed, shows normal LV size and systolic function, no filling defects to indicate thrombus. Repeat head CT does not show any hemorrhagic transformation, midline shift, hydrocephalus, or herniation. EEG shows no epileptiform activity. Pending guardianship likely Tuesday and then subacute rehab. 10/19 Patient was seen and examined. CT brain shows evolution of a large left MCA infarct. Difficulty communicating, he denies any complaints. 10/21 Patient was seen and examined. No changes in clinical condition. Discussed with social insurance specialist, plans for discharge to SNF vs inpatient rehab, [place] vs [place]. 10/22 Patient was seen and examined. No changes in clinical condition. Pending placement. 10/23 Patient was seen and examined. No changes in clinical condition. Pending placement. 10/24 Patient was seen and examined. No changes in clinical condition. Pending placement. 10/25 Patient was seen and examined. No changes in clinical condition. Pending placement. 11/02 Patient was seen and examined. Developed ANNA. Currently on LR at 125 cc/hr. No new labs done today. POC glucose 129. Pending placement. General: nontoxic, no distress, appears at stated age Derm: warm, dry Head: atraumatic, normocephalic, symmetric Eyes: EOMI, no lid lag, anicteric sclera Cardiovascular: S1S2 reg, no murmur Lungs: CTA bilateral, no rhonchi, no rales , no accessory muscle use Ext: no gross muscle atrophy, no edema, no contractures Neuro: No focal neuro deficits, right-sided deficits, significant aphasia Psych: Awake and Alert, unable to follow commands Acute kidney injury Large left MCA and small right parietal subacute CVA, possibly embolic Left ICA and common carotid occlusion Acute metabolic encephalopathy secondary to above Mild rhabdomyolysis, resolving Leukocytosis due to UTI, resolving Type 2 diabetes, uncontrolled Uncontrolled hypertension Resolved: UTI completed course of antibiotics Based on my assessment of this patient, this patient meets a moderate complexity level of care. Patient has an acute diagnosis of CVA that poses a threat to life or bodily function. Acute kidney injury: Continue IV hydration. Repeat BMP tomorrow morning. Large left MCA and small right parietal subacute CVA, possibly embolic: ASA, Lipitor, Plavix. Brain CT, CTA head and neck, Echocardiogram, Video swallow, EEG, repeat Brain CT 10/13 and 10/18. NDD3 with 1:1 supervision. Telemetry monitoring. Neurochecks. Aspiration and Fall precautions. Neurology, PT/OT/ST on board. Event monitor on discharge. Left ICA and common carotid occlusion Acute metabolic encephalopathy secondary to above Mild rhabdomyolysis, resolving Leukocytosis due to UTI, resolving Type 2 diabetes, uncontrolled: Levemir 10 units QD. ISS. Hypoglycemic precautions. Accuchecks ACHS. Uncontrolled hypertension: Hydralazine, HCTZ, Valsartan. Resolved: UTI completed course of antibiotics DVT prophylaxis with Heparin SQ. FULL CODE. Pending placement. I have reviewed the following executive consultant notes: I have reviewed the results of the following tests: POC glucose. I have ordered the following tests: I have discussed the care of this patient with the following independent historian: I have independently interpreted the following test below: I have discussed the management of this patient with the following physician: Objective - Vital Signs Vital signs: Vital Signs Temp 97.9 F 11/02/22 07:01 Pulse 60 11/02/22 07:01 Resp 18 11/02/22 07:01 BP 139/75 11/02/22 07:01 Pulse Ox 96 11/02/22 08:25 FiO2 21 10/31/22 09:31 Intake & Output 11/01/22 11/02/22 11/02/22 18:59 06:59 18:59 Intake Total 480 Output Total 925 550 Balance -445 -550 Intake: Oral 480 Output: Urine 925 550 Other: Voiding Method Indwelling Catheter Indwelling Catheter # Bowel Movements 1 1 - Labs CBC & Chem 7: 10/31/22 06:38 10/31/22 06:38 Labs: Abnormal Lab Results - Last 24 Hours (Table) 11/01/22 11/01/22 11/01/22 Range/Units 12:05 16:50 21:29 POC Glucose (mg/dL) 133 H 140 H 145 H (70-110) mg/dL 11/02/22 Range/Units 06:23 POC Glucose (mg/dL) 129 H (70-110) mg/dL
[2022-11-02 16:13] LABS: Glucose,Whole Blood 122 mg/dL (70-110)
[2022-11-02 21:14] LABS: Glucose,Whole Blood 104 mg/dL (70-110)
[2022-11-02] MEDS: ATORVASTATIN 80 MG TAB PO SCH (21:31)
[2022-11-03] MEDS: LACTATED RINGERS 1,000 ML IV SCH ×3 (04:37→22:20)
[2022-11-03 06:18] LABS: Glucose,Whole Blood 111 mg/dL (70-110)
[2022-11-03] MEDS: INSULIN ASPART (NovoLOG) 100 UNIT/ML VIAL SQ SCH ×4 (06:58→22:21)
[2022-11-03] MEDS: INSULIN DETEMIR (LEVEMIR) 100 UNIT/ML SYR SQ SCH (07:01)
[2022-11-03] MEDS: droNABinol 2.5 MG CAP PO SCH ×2 (07:01→16:42)
[2022-11-03] MEDS: HEPARIN SODIUM,PORCINE 5,000 UNIT/ML 1 ML VIAL SQ SCH ×3 (08:54→22:26)
[2022-11-03] MEDS: SODIUM BICARBONATE TAB 650 MG TAB PO SCH ×3 (08:54→22:26)
[2022-11-03] MEDS: ASPIRIN 81 MG PO SCH (08:54)
[2022-11-03] MEDS: FAMOTIDINE 20 MG TAB PO SCH ×2 (08:54→22:26)
[2022-11-03] MEDS: TAMSULOSIN 0.4 MG CAP.ER.24H PO SCH (08:54)
[2022-11-03] MEDS: CLOPIDOGREL 75 MG TAB PO SCH (08:54)
[2022-11-03] MEDS: amLODIPine 5 MG TAB PO SCH (08:54)
[2022-11-03 11:21] LABS: African American GFR (CKD) >90 (>60 ml/min/1.73 sqM); Anion Gap 8 mmol/L; Blood Urea Nitrogen 22 mg/dL (9-20); Calcium 9.1 mg/dL (8.4-10.2); Carbon Dioxide 23 mmol/L (22-30); Chloride 102 mmol/L (98-107); Glucose 167 mg/dL (74-99); Non-African American GFR(CKD) 90 (>60 ml/min/1.73 sqM); Potassium 4.1 mmol/L (3.5-5.1); Sodium 133 mmol/L (137-145)
[2022-11-03 11:38] LABS: Glucose,Whole Blood 159 mg/dL (70-110)
--- NOTE | 2022-11-03 12:06 | P.PN ---
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 Per report, patient was not moving for the last few days. Upon ED evaluation, found to have a large left-sided MCA subacute stroke. Laboratory workup also showed leukocytosis, elevated BUN, and elevated CK. Patient admitted for further stroke workup and started on fluids. Neurology consulted. Urine indicative of a possible urinary tract infection, started on IV ceftriaxone. Echo report reviewed, shows normal LV size and systolic function, no filling defects to indicate thrombus. Repeat head CT does not show any hemorrhagic transformation, midline shift, hydrocephalus, or herniation. EEG shows no epileptiform activity. Pending guardianship likely Tuesday and then subacute rehab. 10/19 Patient was seen and examined. CT brain shows evolution of a large left MCA infarct. Difficulty communicating, he denies any complaints. 10/21 Patient was seen and examined. No changes in clinical condition. Discussed with clinical social work therapist, plans for discharge to SNF vs inpatient rehab, [place] vs [place]. 10/22 Patient was seen and examined. No changes in clinical condition. Pending placement. 10/23 Patient was seen and examined. No changes in clinical condition. Pending placement. 10/24 Patient was seen and examined. No changes in clinical condition. Pending placement. 10/25 Patient was seen and examined. No changes in clinical condition. Pending placement. 11/02 Patient was seen and examined. Developed ANNA. Currently on LR at 125 cc/hr. No new labs done today. POC glucose 129. Pending placement. 11/03 Patient was seen and examined. No acute events overnight. BMP shows Na 133, BUN 22, glucose 167. Pending placement. General: nontoxic, no distress, appears at stated age Derm: warm, dry Head: atraumatic, normocephalic, symmetric Eyes: EOMI, no lid lag, anicteric sclera Cardiovascular: S1S2 reg, no murmur Lungs: CTA bilateral, no rhonchi, no rales , no accessory muscle use Ext: no gross muscle atrophy, no edema, no contractures Neuro: No focal neuro deficits, right-sided deficits, significant aphasia Psych: Awake and Alert, unable to follow commands Acute kidney injury Large left MCA and small right parietal subacute CVA, possibly embolic Left ICA and common carotid occlusion Acute metabolic encephalopathy secondary to above Mild rhabdomyolysis, resolving Leukocytosis due to UTI, resolving Type 2 diabetes, uncontrolled Uncontrolled hypertension Resolved: UTI completed course of antibiotics Based on my assessment of this patient, this patient meets a moderate complexity level of care. Patient has an acute diagnosis of CVA that poses a threat to life or bodily function. Acute kidney injury: Continue IV hydration. Repeat BMP tomorrow morning. Large left MCA and small right parietal subacute CVA, possibly embolic: ASA, Lipitor, Plavix. Brain CT, CTA head and neck, Echocardiogram, Video swallow, EEG, repeat Brain CT 10/13 and 10/18. NDD3 with 1:1 supervision. Telemetry monitoring. Neurochecks. Aspiration and Fall precautions. Neurology, PT/OT/ST on board. Event monitor on discharge. Left ICA and common carotid occlusion Acute metabolic encephalopathy secondary to above Mild rhabdomyolysis, resolving Leukocytosis due to UTI, resolving Type 2 diabetes, uncontrolled: Levemir 10 units QD. ISS. Hypoglycemic precautions. Accuchecks ACHS. Uncontrolled hypertension: Hydralazine, HCTZ, Valsartan. Resolved: UTI completed course of antibiotics DVT prophylaxis with Heparin SQ. FULL CODE. Pending placement. I have reviewed the following systems development consultant notes: I have reviewed the results of the following tests: BMP, POC glucose. I have ordered the following tests: I have discussed the care of this patient with the following independent historian: I have independently interpreted the following test below: I have discussed the management of this patient with the following physician: Objective - Vital Signs Vital signs: Vital Signs Temp 97.6 F 11/03/22 07:39 Pulse 56 L 11/03/22 07:39 Resp 18 11/03/22 08:00 BP 148/75 11/03/22 07:39 Pulse Ox 97 11/03/22 07:39 FiO2 21 10/31/22 09:31 Intake & Output 11/02/22 11/03/22 11/03/22 18:59 06:59 18:59 Intake Total 1080 400 Output Total 400 250 Balance 680 -250 400 Weight 90.718 kg Intake: Oral 1080 400 Output: Urine 400 250 Other: Voiding Method Indwelling Catheter Indwelling Catheter Indwelling Catheter - Labs CBC & Chem 7: 10/31/22 06:38 11/03/22 10:09 Labs: Abnormal Lab Results - Last 24 Hours (Table) 0811/03/22 11/03/22 Range/Units 16:12 06:15 10:09 Sodium 133 L (137-145) mmol/L BUN 22 H (9-20) mg/dL Glucose 167 H (74-99) mg/dL POC Glucose (mg/dL) 122 H 111 H (70-110) mg/dL 11/03/22 Range/Units 11:36 Sodium (137-145) mmol/L BUN (9-20) mg/dL Glucose (74-99) mg/dL POC Glucose (mg/dL) 159 H (70-110) mg/dL
[2022-11-03 16:46] LABS: Glucose,Whole Blood 165 mg/dL (70-110)
[2022-11-03 19:54] LABS: Glucose,Whole Blood 150 mg/dL (70-110)
[2022-11-03] MEDS: ATORVASTATIN 80 MG TAB PO SCH (22:25)
[2022-11-04] MEDS: LACTATED RINGERS 1,000 ML IV SCH ×2 (03:44→18:09)
[2022-11-04 05:56] LABS: Glucose,Whole Blood 156 mg/dL (70-110)
[2022-11-04] MEDS: INSULIN DETEMIR (LEVEMIR) 100 UNIT/ML SYR SQ SCH (06:37)
[2022-11-04] MEDS: droNABinol 2.5 MG CAP PO SCH ×2 (06:38→18:17)
[2022-11-04] MEDS: INSULIN ASPART (NovoLOG) 100 UNIT/ML VIAL SQ SCH ×4 (06:38→21:08)
[2022-11-04] MEDS: HEPARIN SODIUM,PORCINE 5,000 UNIT/ML 1 ML VIAL SQ SCH ×3 (08:26→23:43)
[2022-11-04] MEDS: ASPIRIN 81 MG PO SCH (08:26)
[2022-11-04] MEDS: TAMSULOSIN 0.4 MG CAP.ER.24H PO SCH (08:27)
[2022-11-04] MEDS: FAMOTIDINE 20 MG TAB PO SCH ×2 (08:27→20:59)
[2022-11-04] MEDS: SODIUM BICARBONATE TAB 650 MG TAB PO SCH ×3 (08:27→20:59)
[2022-11-04] MEDS: CLOPIDOGREL 75 MG TAB PO SCH (08:27)
[2022-11-04] MEDS: amLODIPine 5 MG TAB PO SCH (08:27)
[2022-11-04 11:21] LABS: Glucose,Whole Blood 217 mg/dL (70-110)
--- NOTE | 2022-11-04 14:53 | P.PN ---
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 Per report, patient was not moving for the last few days. Upon ED evaluation, found to have a large left-sided MCA subacute stroke. Laboratory workup also showed leukocytosis, elevated BUN, and elevated CK. Patient admitted for further stroke workup and started on fluids. Neurology consulted. Urine indicative of a possible urinary tract infection, started on IV ceftriaxone. Echo report reviewed, shows normal LV size and systolic function, no filling defects to indicate thrombus. Repeat head CT does not show any hemorrhagic transformation, midline shift, hydrocephalus, or herniation. EEG shows no epileptiform activity. Pending guardianship likely Tuesday and then subacute rehab. 10/19 Patient was seen and examined. CT brain shows evolution of a large left MCA infarct. Difficulty communicating, he denies any complaints. 10/21 Patient was seen and examined. No changes in clinical condition. Discussed with healthcare social worker, plans for discharge to SNF vs inpatient rehab, [place] vs [place]. 10/22 Patient was seen and examined. No changes in clinical condition. Pending placement. 10/23 Patient was seen and examined. No changes in clinical condition. Pending placement. 10/24 Patient was seen and examined. No changes in clinical condition. Pending placement. 10/25 Patient was seen and examined. No changes in clinical condition. Pending placement. 11/02 Patient was seen and examined. Developed ANNA. Currently on LR at 125 cc/hr. No new labs done today. POC glucose 129. Pending placement. 11/03 Patient was seen and examined. No acute events overnight. BMP shows Na 133, BUN 22, glucose 167. Pending placement. 11/04 Patient was seen and examined. No acute events overnight. Pending placement. General: nontoxic, no distress, appears at stated age Derm: warm, dry Head: atraumatic, normocephalic, symmetric Eyes: EOMI, no lid lag, anicteric sclera Cardiovascular: S1S2 reg, no murmur Lungs: CTA bilateral, no rhonchi, no rales , no accessory muscle use Ext: no gross muscle atrophy, no edema, no contractures Neuro: No focal neuro deficits, right-sided deficits, significant aphasia Psych: Awake and Alert, unable to follow commands Acute kidney injury Large left MCA and small right parietal subacute CVA, possibly embolic Left ICA and common carotid occlusion Acute metabolic encephalopathy secondary to above Mild rhabdomyolysis, resolving Leukocytosis due to UTI, resolving Type 2 diabetes, uncontrolled Uncontrolled hypertension Resolved: UTI completed course of antibiotics Based on my assessment of this patient, this patient meets a moderate complexity level of care. Patient has an acute diagnosis of CVA that poses a threat to life or bodily function. Acute kidney injury: Decrease LR to 50 cc/hr. Large left MCA and small right parietal subacute CVA, possibly embolic: ASA, Lipitor, Plavix. Brain CT, CTA head and neck, Echocardiogram, Video swallow, EEG, repeat Brain CT 10/13 and 10/18. NDD3 with 1:1 supervision. Telemetry monitoring. Neurochecks. Aspiration and Fall precautions. Neurology, PT/OT/ST on board. Event monitor on discharge. Left ICA and common carotid occlusion Acute metabolic encephalopathy secondary to above Mild rhabdomyolysis, resolving Leukocytosis due to UTI, resolving Type 2 diabetes, uncontrolled: Levemir 10 units QD. ISS. Hypoglycemic precautions. Accuchecks ACHS. Uncontrolled hypertension: Hydralazine, HCTZ, Valsartan. Resolved: UTI completed course of antibiotics DVT prophylaxis with Heparin SQ. FULL CODE. Pending placement. I have reviewed the following senior talent management consultant notes: I have reviewed the results of the following tests: POC glucose. I have ordered the following tests: I have discussed the care of this patient with the following independent historian: I have independently interpreted the following test below: I have discussed the management of this patient with the following physician: Objective - Vital Signs Vital signs: Vital Signs Temp 97.8 F 11/04/22 07:11 Pulse 56 L 11/04/22 07:11 Resp 16 11/04/22 07:11 BP 132/78 11/04/22 07:11 Pulse Ox 100 11/04/22 07:11 FiO2 21 10/31/22 09:31 Intake & Output 11/03/22 11/04/22 11/04/22 18:59 06:59 18:59 Intake Total 600 Output Total 1100 Balance -500 Intake: Oral 600 Output: Urine 1100 [place] 550 Other: Voiding Method Indwelling Catheter Diaper Incontinent # Voids 1 1 # Bowel Movements 2 1 - Labs CBC & Chem 7: 10/31/22 06:38 11/03/22 10:09 Labs: Abnormal Lab Results - Last 24 Hours (Table) 11/03/22 11/03/22 11/04/22 Range/Units 16:40 19:53 05:54 POC Glucose (mg/dL) 165 H 150 H 156 H (70-110) mg/dL 11/04/22 Range/Units 11:18 POC Glucose (mg/dL) 217 H (70-110) mg/dL
[2022-11-04 16:46] LABS: Glucose,Whole Blood 83 mg/dL (70-110)
[2022-11-04 20:14] LABS: Glucose,Whole Blood 123 mg/dL (70-110)
[2022-11-04] MEDS: ATORVASTATIN 80 MG TAB PO SCH (20:59)
[2022-11-05 06:07] LABS: Glucose,Whole Blood 100 mg/dL (70-110)
[2022-11-05] MEDS: INSULIN ASPART (NovoLOG) 100 UNIT/ML VIAL SQ SCH ×4 (06:22→21:34)
[2022-11-05] MEDS: INSULIN DETEMIR (LEVEMIR) 100 UNIT/ML SYR SQ SCH (06:27)
[2022-11-05] MEDS: droNABinol 2.5 MG CAP PO SCH ×2 (06:27→17:25)
[2022-11-05] MEDS: TAMSULOSIN 0.4 MG CAP.ER.24H PO SCH (09:16)
[2022-11-05] MEDS: CLOPIDOGREL 75 MG TAB PO SCH (09:16)
[2022-11-05] MEDS: amLODIPine 5 MG TAB PO SCH (09:16)
[2022-11-05] MEDS: ASPIRIN 81 MG PO SCH (09:16)
[2022-11-05] MEDS: SODIUM BICARBONATE TAB 650 MG TAB PO SCH ×3 (09:16→21:30)
[2022-11-05] MEDS: HEPARIN SODIUM,PORCINE 5,000 UNIT/ML 1 ML VIAL SQ SCH ×2 (09:17→15:38)
[2022-11-05] MEDS: FAMOTIDINE 20 MG TAB PO SCH ×2 (09:17→21:30)
[2022-11-05 11:27] LABS: Glucose,Whole Blood 109 mg/dL (70-110)
[2022-11-05] MEDS: LACTATED RINGERS 1,000 ML IV SCH (14:02)
--- NOTE | 2022-11-05 15:16 | P.PN ---
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 Per report, patient was not moving for the last few days. Upon ED evaluation, found to have a large left-sided MCA subacute stroke. Laboratory workup also showed leukocytosis, elevated BUN, and elevated CK. Patient admitted for further stroke workup and started on fluids. Neurology consulted. Urine indicative of a possible urinary tract infection, started on IV ceftriaxone. Echo report reviewed, shows normal LV size and systolic function, no filling defects to indicate thrombus. Repeat head CT does not show any hemorrhagic transformation, midline shift, hydrocephalus, or herniation. EEG shows no epileptiform activity. Pending guardianship likely Tuesday and then subacute rehab. 10/19 Patient was seen and examined. CT brain shows evolution of a large left MCA infarct. Difficulty communicating, he denies any complaints. 10/21 Patient was seen and examined. No changes in clinical condition. Discussed with school social worker, plans for discharge to SNF vs inpatient rehab, [place] vs [place]. 10/22 Patient was seen and examined. No changes in clinical condition. Pending placement. 10/23 Patient was seen and examined. No changes in clinical condition. Pending placement. 10/24 Patient was seen and examined. No changes in clinical condition. Pending placement. 10/25 Patient was seen and examined. No changes in clinical condition. Pending placement. 11/02 Patient was seen and examined. Developed ANNA. Currently on LR at 125 cc/hr. No new labs done today. POC glucose 129. Pending placement. 11/03 Patient was seen and examined. No acute events overnight. BMP shows Na 133, BUN 22, glucose 167. Pending placement. 11/04 Patient was seen and examined. No acute events overnight. Pending placement. 11/05 Patient was seen and examined. No acute events overnight. Pending placement. General: nontoxic, no distress, appears at stated age Derm: warm, dry Head: atraumatic, normocephalic, symmetric Eyes: EOMI, no lid lag, anicteric sclera Cardiovascular: S1S2 reg, no murmur Lungs: CTA bilateral, no rhonchi, no rales , no accessory muscle use Ext: no gross muscle atrophy, no edema, no contractures Neuro: No focal neuro deficits, right-sided deficits, significant aphasia Psych: Awake and Alert, unable to follow commands Acute kidney injury Large left MCA and small right parietal subacute CVA, possibly embolic Left ICA and common carotid occlusion Acute metabolic encephalopathy secondary to above Mild rhabdomyolysis, resolving Leukocytosis due to UTI, resolving Type 2 diabetes, uncontrolled Uncontrolled hypertension Resolved: UTI completed course of antibiotics Based on my assessment of this patient, this patient meets a moderate complexity level of care. Patient has an acute diagnosis of CVA that poses a threat to life or bodily function. Acute kidney injury: Decrease LR to 50 cc/hr. Large left MCA and small right parietal subacute CVA, possibly embolic: ASA, Lip itor, Plavix. Brain CT, CTA head and neck, Echocardiogram, Video swallow, EEG, repeat Brain CT 10/13 and 10/18. NDD3 with 1:1 supervision. Telemetry monitoring. Neurochecks. Aspiration and Fall precautions. Neurology, PT/OT/ST on board. Event monitor on discharge. Left ICA and common carotid occlusion Acute metabolic encephalopathy secondary to above Mild rhabdomyolysis, resolving Leukocytosis due to UTI, resolving Type 2 diabetes, uncontrolled: Levemir 10 units QD. ISS. Hypoglycemic precautions. Accuchecks ACHS. Uncontrolled hypertension: Hydralazine, HCTZ, Valsartan. Resolved: UTI completed course of antibiotics DVT prophylaxis with Heparin SQ. FULL CODE. Pending placement. I have reviewed the following oracle drm consultant notes: I have reviewed the results of the following tests: POC glucose. I have ordered the following tests: I have discussed the care of this patient with the following independent historian: I have independently interpreted the following test below: I have discussed the management of this patient with the following physician: Objective - Vital Signs Vital signs: Vital Signs Temp 97.5 F L 11/05/22 13:49 Pulse 64 11/05/22 13:49 Resp 18 11/05/22 13:49 BP 119/67 11/05/22 13:49 Pulse Ox 98 11/05/22 13:49 FiO2 21 11/05/22 09:26 Intake & Output 11/04/22 11/05/22 11/05/22 18:59 06:59 18:59 Intake Total 600 Balance 600 Weight 90.718 kg Intake: Intake, IV Titration 600 Amount Lactated Ringers 1,000 ml 600 @ 50 mls/hr IV .Q20H [facility] Rx#:[id number] Other: Voiding Method Diaper Diaper Incontinent Incontinent # Voids 2 2 - Labs CBC & Chem 7: 10/31/22 06:38 11/03/22 10:09 Labs: Abnormal Lab Results - Last 24 Hours (Table) 11/04/22 Range/Units 20:13 POC Glucose (mg/dL) 123 H (70-110) mg/dL
[2022-11-05 17:00] LABS: Glucose,Whole Blood 117 mg/dL (70-110)
[2022-11-05 20:40] LABS: Glucose,Whole Blood 123 mg/dL (70-110)
[2022-11-05] MEDS: ATORVASTATIN 80 MG TAB PO SCH (21:30)
[2022-11-06] MEDS: HEPARIN SODIUM,PORCINE 5,000 UNIT/ML 1 ML VIAL SQ SCH ×3 (00:05→16:02)
[2022-11-06 06:16] LABS: Glucose,Whole Blood 139 mg/dL (70-110)
[2022-11-06] MEDS: INSULIN ASPART (NovoLOG) 100 UNIT/ML VIAL SQ SCH ×4 (07:28→21:31)
[2022-11-06] MEDS: CLOPIDOGREL 75 MG TAB PO SCH (07:46)
[2022-11-06] MEDS: SODIUM BICARBONATE TAB 650 MG TAB PO SCH ×3 (07:46→21:31)
[2022-11-06] MEDS: amLODIPine 5 MG TAB PO SCH (07:46)
[2022-11-06] MEDS: TAMSULOSIN 0.4 MG CAP.ER.24H PO SCH (07:46)
[2022-11-06] MEDS: ASPIRIN 81 MG PO SCH (07:46)
[2022-11-06] MEDS: droNABinol 2.5 MG CAP PO SCH ×2 (07:46→16:51)
[2022-11-06] MEDS: FAMOTIDINE 20 MG TAB PO SCH ×2 (07:46→21:31)
[2022-11-06] MEDS: INSULIN DETEMIR (LEVEMIR) 100 UNIT/ML SYR SQ SCH (07:47)
[2022-11-06] MEDS: LACTATED RINGERS 1,000 ML IV SCH (08:06)
[2022-11-06 11:14] LABS: Glucose,Whole Blood 179 mg/dL (70-110)
--- NOTE | 2022-11-06 15:58 | P.PN ---
Subjective Progress Note Date: 11/06/22 62-year-old male with history of hypertension, dyslipidemia, diabetes found unresponsive [place] stop. Per report, patient was not moving for the last few days. Upon ED evaluation, found to have a large left-sided MCA subacute stroke. Laboratory workup also showed leukocytosis, elevated BUN, and elevated CK. Patient admitted for further stroke workup and started on fluids. Neurology consulted. Urine indicative of a possible urinary tract infection, started on IV ceftriaxone. Echo report reviewed, shows normal LV size and systolic function, no filling defects to indicate thrombus. Repeat head CT does not show any hemorrhagic transformation, midline shift, hydrocephalus, or herniation. EEG shows no epileptiform activity. Pending guardianship likely Tuesday and then subacute rehab. 10/19 Patient was seen and examined. CT brain shows evolution of a large left MCA infarct. Difficulty communicating, he denies any complaints. 10/21 Patient was seen and examined. No changes in clinical condition. Discussed with social work professor, plans for discharge to SNF vs inpatient rehab, [place] vs [place]. 10/22 Patient was seen and examined. No changes in clinical condition. Pending placement. 10/23 Patient was seen and examined. No changes in clinical condition. Pending placement. 10/24 Patient was seen and examined. No changes in clinical condition. Pending placement. 10/25 Patient was seen and examined. No changes in clinical condition. Pending placement. 11/02 Patient was seen and examined. Developed ANNA. Currently on LR at 125 cc/hr. No new labs done today. POC glucose 129. Pending placement. 11/03 Patient was seen and examined. No acute events overnight. BMP shows Na 133, BUN 22, glucose 167. Pending placement. 11/04 Patient was seen and examined. No acute events overnight. Pending placement. 11/05 Patient was seen and examined. No acute events overnight. Pending placement. 11/06 Patient was seen and examined. No acute events overnight. Pending placement. General: nontoxic, no distress, appears at stated age Derm: warm, dry Head: atraumatic, normocephalic, symmetric Eyes: EOMI, no lid lag, anicteric sclera Cardiovascular: S1S2 reg, no murmur Lungs: CTA bilateral, no rhonchi, no rales , no accessory muscle use Ext: no gross muscle atrophy, no edema, no contractures Neuro: No focal neuro deficits, right-sided deficits, significant aphasia Psych: Awake and Alert, unable to follow commands Acute kidney injury Large left MCA and small right parietal subacute CVA, possibly embolic Left ICA and common carotid occlusion Acute metabolic encephalopathy secondary to above Mild rhabdomyolysis, resolving Leukocytosis due to UTI, resolving Type 2 diabetes, uncontrolled Uncontrolled hypertension Resolved: UTI completed course of antibiotics Based on my assessment of this patient, this patient meets a moderate complexity level of care. Patient has an acute diagnosis of CVA that poses a threat to life or bodily function. Acute kidney injury: LR to 50 cc/hr. Large left MCA and small right parietal subacute CVA, possibly embolic: ASA, Lipitor, Plavix. Brain CT, CTA head and neck, Echocardiogram, Video swallow, EEG, repeat Brain CT 10/13 and 10/18. NDD3 with 1:1 supervision. Telemetry monitoring. Neurochecks. Aspiration and Fall precautions. Neurology, PT/OT/ST on board. Event monitor on discharge. Left ICA and common carotid occlusion Acute metabolic encephalopathy secondary to above Mild rhabdomyolysis, resolving Leukocytosis due to UTI, resolving Type 2 diabetes, uncontrolled: Levemir 10 units QD. ISS. Hypoglycemic precautions. Accuchecks ACHS. Uncontrolled hypertension: Hydralazine, HCTZ, Valsartan. Resolved: UTI completed course of antibiotics DVT prophylaxis with Heparin SQ. FULL CODE. Pending placement. I have reviewed the following strategic sourcing consultant notes: I have reviewed the results of the following tests: POC glucose. I have ordered the following tests: I have discussed the care of this patient with the following independent historian: I have independently interpreted the following test below: I have discussed the management of this patient with the following physician: Objective - Vital Signs Vital signs: Vital Signs Temp 98.3 F 11/06/22 14:26 Pulse 80 11/06/22 14:26 Resp 15 11/06/22 14:26 BP 122/57 11/06/22 14:26 Pulse Ox 96 11/06/22 14:26 FiO2 21 11/05/22 09:26 Intake & Output 11/05/22 11/06/22 11/06/22 18:59 06:59 18:59 Intake Total 730 Balance 730 Intake: Oral 730 Other: Voiding Method Diaper Diaper Diaper Incontinent Incontinent Incontinent # Voids 4 3 # Bowel Movements 0 1 1 - Labs CBC & Chem 7: 10/31/22 06:38 11/03/22 10:09 Labs: Abnormal Lab Results - Last 24 Hours (Table) 11/05/22 11/05/22 11/06/22 Range/Units 16:59 20:38 06:13 POC Glucose (mg/dL) 117 H 123 H 139 H (70-110) mg/dL 11/06/22 Range/Units 11:11 POC Glucose (mg/dL) 179 H (70-110) mg/dL
[2022-11-06 16:38] LABS: Glucose,Whole Blood 120 mg/dL (70-110)
[2022-11-06 20:06] LABS: Glucose,Whole Blood 174 mg/dL (70-110)
[2022-11-06] MEDS: ATORVASTATIN 80 MG TAB PO SCH (21:31)
[2022-11-07] MEDS: HEPARIN SODIUM,PORCINE 5,000 UNIT/ML 1 ML VIAL SQ SCH ×3 (00:21→17:03)
[2022-11-07 06:16] LABS: Glucose,Whole Blood 122 mg/dL (70-110)
[2022-11-07] MEDS: LACTATED RINGERS 1,000 ML IV SCH (06:55)
[2022-11-07] MEDS: INSULIN ASPART (NovoLOG) 100 UNIT/ML VIAL SQ SCH ×4 (06:56→21:09)
[2022-11-07] MEDS: droNABinol 2.5 MG CAP PO SCH ×2 (07:12→17:03)
[2022-11-07] MEDS: INSULIN DETEMIR (LEVEMIR) 100 UNIT/ML SYR SQ SCH (07:12)
[2022-11-07] MEDS: ASPIRIN 81 MG PO SCH (07:43)
[2022-11-07] MEDS: FAMOTIDINE 20 MG TAB PO SCH ×2 (07:43→21:09)
[2022-11-07] MEDS: CLOPIDOGREL 75 MG TAB PO SCH (07:43)
[2022-11-07] MEDS: amLODIPine 5 MG TAB PO SCH (07:43)
[2022-11-07] MEDS: TAMSULOSIN 0.4 MG CAP.ER.24H PO SCH (07:43)
[2022-11-07] MEDS: SODIUM BICARBONATE TAB 650 MG TAB PO SCH ×3 (07:43→21:09)
[2022-11-07 10:49] LABS: Glucose,Whole Blood 211 mg/dL (70-110)
[2022-11-07 12:02] LABS: Glucose,Whole Blood 175 mg/dL (70-110)
--- NOTE | 2022-11-07 13:31 | P.PN ---
Subjective Progress Note Date: 11/07/22 62-year-old male with history of hypertension, dyslipidemia, diabetes found unresponsive [place] stop. Per report, patient was not moving for the last few days. Upon ED evaluation, found to have a large left-sided MCA subacute stroke. Laboratory workup also showed leukocytosis, elevated BUN, and elevated CK. Patient admitted for further stroke workup and started on fluids. Neurology consulted. Urine indicative of a possible urinary tract infection, started on IV ceftriaxone. Echo report reviewed, shows normal LV size and systolic function, no filling defects to indicate thrombus. Repeat head CT does not show any hemorrhagic transformation, midline shift, hydrocephalus, or herniation. EEG shows no epileptiform activity. Pending guardianship likely Tuesday and then subacute rehab. 10/19 Patient was seen and examined. CT brain shows evolution of a large left MCA infarct. Difficulty communicating, he denies any complaints. 10/21 Patient was seen and examined. No changes in clinical condition. Discussed with neonatal social worker, plans for discharge to SNF vs inpatient rehab, [place] vs [place]. 10/22 Patient was seen and examined. No changes in clinical condition. Pending placement. 10/23 Patient was seen and examined. No changes in clinical condition. Pending placement. 10/24 Patient was seen and examined. No changes in clinical condition. Pending placement. 10/25 Patient was seen and examined. No changes in clinical condition. Pending placement. 11/02 Patient was seen and examined. Developed ANNA. Currently on LR at 125 cc/hr. No new labs done today. POC glucose 129. Pending placement. 11/03 Patient was seen and examined. No acute events overnight. BMP shows Na 133, BUN 22, glucose 167. Pending placement. 11/04 Patient was seen and examined. No acute events overnight. Pending placement. 11/05 Patient was seen and examined. No acute events overnight. Pending placement. 11/06 Patient was seen and examined. No acute events overnight. Pending placement. 11/07 Patient was seen and examined. No acute events overnight. Pending placement. General: nontoxic, no distress, appears at stated age Derm: warm, dry Head: atraumatic, normocephalic, symmetric Eyes: EOMI, no lid lag, anicteric sclera Cardiovascular: S1S2 reg, no murmur Lungs: CTA bilateral, no rhonchi, no rales , no accessory muscle use Ext: no gross muscle atrophy, no edema, no contractures Neuro: No focal neuro deficits, right-sided deficits, significant aphasia Psych: Awake and Alert, unable to follow commands Acute kidney injury Large left MCA and small right parietal subacute CVA, possibly embolic Left ICA and common carotid occlusion Acute metabolic encephalopathy secondary to above Mild rhabdomyolysis, resolving Leukocytosis due to UTI, resolving Type 2 diabetes, uncontrolled Uncontrolled hypertension Resolved: UTI completed course of antibiotics Based on my assessment of this patient, this patient meets a moderate complexity level of care. Patient has an acute diagnosis of CVA that poses a threat to life or bodily function. Acute kidney injury: LR to 50 cc/hr. Large left MCA and small right parietal subacute CVA, possibly embolic: ASA, Lipitor, Plavix. Brain CT, CTA head and neck, Echocardiogram, Video swallow, EEG, repeat Brain CT 10/13 and 10/18. NDD3 with 1:1 supervision. Telemetry monitoring. Neurochecks. Aspiration and Fall precautions. Neurology, PT/OT/ST on board. Event monitor on discharge. Left ICA and common carotid occlusion Acute metabolic encephalopathy secondary to above Mild rhabdomyolysis, resolving Leukocytosis due to UTI, resolving Type 2 diabetes, uncontrolled: Levemir 10 units QD. ISS. Hypoglycemic precautions. Accuchecks ACHS. Uncontrolled hypertension: Hydralazine, HCTZ, Valsartan. Resolved: UTI completed course of antibiotics DVT prophylaxis with Heparin SQ. FULL CODE. Pending placement. I have reviewed the following testing consultant notes: I have reviewed the results of the following tests: POC glucose. I have ordered the following tests: I have discussed the care of this patient with the following independent historian: I have independently interpreted the following test below: I have discussed the management of this patient with the following physician: Objective - Vital Signs Vital signs: Vital Signs Temp 98.5 F 11/07/22 07:41 Pulse 55 L 11/07/22 07:41 Resp 16 11/07/22 11:10 BP 106/63 11/07/22 07:41 Pulse Ox 97 11/07/22 07:41 FiO2 21 11/05/22 09:26 Intake & Output 11/06/22 11/07/22 11/07/22 18:59 06:59 18:59 Intake Total 730 250 Balance 730 250 Intake: Oral 730 250 Other: Voiding Method Diaper Diaper Diaper Incontinent Incontinent Incontinent # Voids 2 1 # Bowel Movements 1 1 - Labs CBC & Chem 7: 10/31/22 06:38 11/03/22 10:09 Labs: Abnormal Lab Results - Last 24 Hours (Table) 11/06/22 11/06/22 11/07/22 Range/Units 16:36 20:03 06:14 POC Glucose (mg/dL) 120 H 174 H 122 H (70-110) mg/dL 11/07/22 11/07/22 Range/Units 10:47 11:51 POC Glucose (mg/dL) 211 H 175 H (70-110) mg/dL
[2022-11-07 16:51] LABS: Glucose,Whole Blood 136 mg/dL (70-110)
[2022-11-07 20:29] LABS: Glucose,Whole Blood 161 mg/dL (70-110)
[2022-11-07] MEDS: ATORVASTATIN 80 MG TAB PO SCH (21:09)
[2022-11-08] MEDS: LACTATED RINGERS 1,000 ML IV SCH ×2 (02:58→20:57)
[2022-11-08 06:19] LABS: Glucose,Whole Blood 116 mg/dL (70-110)
[2022-11-08] MEDS: INSULIN ASPART (NovoLOG) 100 UNIT/ML VIAL SQ SCH ×4 (06:25→21:03)
[2022-11-08] MEDS: INSULIN DETEMIR (LEVEMIR) 100 UNIT/ML SYR SQ SCH (06:41)
[2022-11-08] MEDS: droNABinol 2.5 MG CAP PO SCH ×2 (06:41→16:51)
[2022-11-08] MEDS: HEPARIN SODIUM,PORCINE 5,000 UNIT/ML 1 ML VIAL SQ SCH ×4 (08:08→23:47)
[2022-11-08] MEDS: FAMOTIDINE 20 MG TAB PO SCH ×2 (08:08→21:03)
[2022-11-08] MEDS: SODIUM BICARBONATE TAB 650 MG TAB PO SCH ×3 (08:08→21:03)
[2022-11-08] MEDS: CLOPIDOGREL 75 MG TAB PO SCH (08:08)
[2022-11-08] MEDS: TAMSULOSIN 0.4 MG CAP.ER.24H PO SCH (08:08)
[2022-11-08] MEDS: amLODIPine 5 MG TAB PO SCH (08:08)
[2022-11-08] MEDS: ASPIRIN 81 MG PO SCH (08:08)
[2022-11-08 11:33] LABS: Glucose,Whole Blood 197 mg/dL (70-110)
[2022-11-08 13:03] LABS: African American GFR (CKD) >90 (>60 ml/min/1.73 sqM); Anion Gap 5 mmol/L; Blood Urea Nitrogen 21 mg/dL (9-20); Calcium 9.2 mg/dL (8.4-10.2); Carbon Dioxide 29 mmol/L (22-30); Chloride 102 mmol/L (98-107); Glucose 174 mg/dL (74-99); Non-African American GFR(CKD) >90 (>60 ml/min/1.73 sqM); Potassium 4.1 mmol/L (3.5-5.1); Sodium 136 mmol/L (137-145)
--- NOTE | 2022-11-08 14:37 | P.PN ---
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 Per report, patient was not moving for the last few days. Upon ED evaluation, found to have a large left-sided MCA subacute stroke. Laboratory workup also showed leukocytosis, elevated BUN, and elevated CK. Patient admitted for further stroke workup and started on fluids. Neurology consulted. Urine indicative of a possible urinary tract infection, started on IV ceftriaxone. Echo report reviewed, shows normal LV size and systolic function, no filling defects to indicate thrombus. Repeat head CT does not show any hemorrhagic transformation, midline shift, hydrocephalus, or herniation. EEG shows no epileptiform activity. Pending guardianship likely Tuesday and then subacute rehab. 10/19 Patient was seen and examined. CT brain shows evolution of a large left MCA infarct. Difficulty communicating, he denies any complaints. 10/21 Patient was seen and examined. No changes in clinical condition. Discussed with social worker delinquency prevention, [place] 10[place]22 Patient was seen and examined. No changes in clinical condition. Pending placement. 10/23 Patient was seen and examined. No changes in clinical condition. Pending placement. 10/24 Patient was seen and examined. No changes in clinical condition. Pending placement. 10/25 Patient was seen and examined. No changes in clinical condition. Pending placement. 11/02 Patient was seen and examined. Developed ANNA. Currently on LR at 125 cc/hr. No new labs done today. POC glucose 129. Pending placement. 11/03 Patient was seen and examined. No acute events overnight. BMP shows Na 133, BUN 22, glucose 167. Pending placement. 11/04 Patient was seen and examined. No acute events overnight. Pending placement. 11/05 Patient was seen and examined. No acute events overnight. Pending placement. 11/06 Patient was seen and examined. No acute events overnight. Pending placement. 11/07 Patient was seen and examined. No acute events overnight. Pending placement. 11/08 Patient was seen and examined. No acute events overnight. BMP shows Na 136, BUN 21, glucose 174. Pending placement. General: nontoxic, no distress, appears at stated age Derm: warm, dry Head: atraumatic, normocephalic, symmetric Eyes: EOMI, no lid lag, anicteric sclera Cardiovascular: S1S2 reg, no murmur Lungs: CTA bilateral, no rhonchi, no rales , no accessory muscle use Ext: no gross muscle atrophy, no edema, no contractures Neuro: No focal neuro deficits, right-sided deficits, significant aphasia Psych: Awake and Alert, unable to follow commands Acute kidney injury Large left MCA and small right parietal subacute CVA, possibly embolic Left ICA and common carotid occlusion Acute metabolic encephalopathy secondary to above Mild rhabdomyolysis, resolving Leukocytosis due to UTI, resolving Type 2 diabetes, uncontrolled Uncontrolled hypertension Resolved: UTI completed course of antibiotics Based on my assessment of this patient, this patient meets a moderate complexity level of care. Patient has an acute diagnosis of CVA that poses a threat to life or bodily function. Acute kidney injury: LR to 50 cc/hr. Large left MCA and small right parietal subacute CVA, possibly embolic: ASA, Lipitor, Plavix. Brain CT, CTA head and neck, Echocardiogram, Video swallow, EEG, repeat Brain CT 10/13 and 10/18. NDD3 with 1:1 supervision. Telemetry monitoring. Neurochecks. Aspiration and Fall precautions. Neurology, PT/OT/ST o n board. Event monitor on discharge. Left ICA and common carotid occlusion Acute metabolic encephalopathy secondary to above Mild rhabdomyolysis, resolving Leukocytosis due to UTI, resolving Type 2 diabetes, uncontrolled: Levemir 10 units QD. ISS. Hypoglycemic precautions. Accuchecks ACHS. Uncontrolled hypertension: Hydralazine, HCTZ, Valsartan. Resolved: UTI completed course of antibiotics DVT prophylaxis with Heparin SQ. FULL CODE. Pending placement. I have reviewed the following independent consultant notes: I have reviewed the results of the following tests: BMP. I have ordered the following tests: I have discussed the care of this patient with the following independent historian: I have independently interpreted the following test below: I have discussed the management of this patient with the following physician: Objective - Vital Signs Vital signs: Vital Signs Temp 98.2 F 11/08/22 06:55 Pulse 54 L 11/08/22 06:55 Resp 16 11/08/22 09:04 BP 131/71 11/08/22 06:55 Pulse Ox 96 11/08/22 06:55 FiO2 21 11/05/22 09:26 Intake & Output 11/07/22 11/08/22 11/08/22 18:59 06:59 18:59 Intake Total 500 200 Balance 500 200 Intake: Oral 500 200 Other: Voiding Method Diaper Diaper Diaper Incontinent Incontinent Incontinent # Voids 2 2 - Labs CBC & Chem 7: 10/31/22 06:38 11/08/22 12:17 Labs: Abnormal Lab Results - Last 24 Hours (Table) 11/07/22 11/07/22 11/08/22 Range/Units 16:49 20:28 06:17 Sodium (137-145) mmol/L BUN (9-20) mg/dL Glucose (74-99) mg/dL POC Glucose (mg/dL) 136 H 161 H 116 H (70-110) mg/dL 11/08/22 11/08/22 Range/Units 11:31 12:17 Sodium 136 L (137-145) mmol/L BUN 21 H (9-20) mg/dL Glucose 174 H (74-99) mg/dL POC Glucose (mg/dL) 197 H (70-110) mg/dL
[2022-11-08 16:19] LABS: Glucose,Whole Blood 112 mg/dL (70-110)
[2022-11-08 19:59] LABS: Glucose,Whole Blood 160 mg/dL (70-110)
[2022-11-08] MEDS: ATORVASTATIN 80 MG TAB PO SCH (21:03)
[2022-11-09 05:32] LABS: Glucose,Whole Blood 129 mg/dL (70-110)
[2022-11-09] MEDS: INSULIN ASPART (NovoLOG) 100 UNIT/ML VIAL SQ SCH ×4 (05:49→20:35)
[2022-11-09] MEDS: INSULIN DETEMIR (LEVEMIR) 100 UNIT/ML SYR SQ SCH (06:36)
[2022-11-09] MEDS: droNABinol 2.5 MG CAP PO SCH ×2 (06:36→17:17)
[2022-11-09] MEDS: SODIUM BICARBONATE TAB 650 MG TAB PO SCH ×3 (09:31→20:40)
[2022-11-09] MEDS: TAMSULOSIN 0.4 MG CAP.ER.24H PO SCH (09:31)
[2022-11-09] MEDS: CLOPIDOGREL 75 MG TAB PO SCH (09:31)
[2022-11-09] MEDS: HEPARIN SODIUM,PORCINE 5,000 UNIT/ML 1 ML VIAL SQ SCH ×3 (09:31→23:13)
[2022-11-09] MEDS: amLODIPine 5 MG TAB PO SCH (09:31)
[2022-11-09] MEDS: ASPIRIN 81 MG PO SCH (09:31)
[2022-11-09] MEDS: FAMOTIDINE 20 MG TAB PO SCH ×2 (09:31→20:40)
[2022-11-09] MEDS: LACTATED RINGERS 1,000 ML IV SCH (09:32)
[2022-11-09 11:35] LABS: Glucose,Whole Blood 224 mg/dL (70-110)
--- NOTE | 2022-11-09 12:59 | P.PN ---
Subjective Progress Note Date: 11/09/22 Hospital Course: 62-year-old male with history of hypertension, dyslipidemia, diabetes found unresponsive [place] truck stop. Per report, patient was not moving for the last few days. Upon ED evaluation, found to have a large left-sided MCA subacute stroke. Laboratory workup also showed leukocytosis, elevated BUN, and elevated CK. Patient admitted for further stroke workup and started on fluids. Neurology consulted. Urine indicative of a possible urinary tract infection, st arted on IV ceftriaxone. Echo report reviewed, shows normal LV size and systolic function, no filling defects to indicate thrombus. Repeat head CT does not show any hemorrhagic transformation, midline shift, hydrocephalus, or herniation. EEG shows no epileptiform activity. Pending placement. Patient had periods of hypotension, developed acute kidney injury, resolved with IV fluids. BP meds held. Renal function improved. Oral intake has also improved. Subjective: Patient seen and examined at bedside. No acute events overnight. Pertinent positives and negatives as discussed above, a complete review of systems was performed and all other systems are negative. Vitals Signs Reviewed. General: nontoxic, no distress, appears at stated age Derm: warm, dry Head: atraumatic, normocephalic, symmetric Eyes: EOMI, no lid lag, anicteric sclera Cardiovascular: S1S2 reg, no murmur Lungs: CTA bilateral, no rhonchi, no rales , no accessory muscle use Ext: no gross muscle atrophy, no edema, no contractures Neuro: right-sided deficits, significant aphasia Psych: Awake and Alert, follows some commands Data Reviewed Today: Pertinent Labs: Blood sugars range between 88-120 Imaging: No new imaging Assessment and Plan: Large left MCA and small right parietal subacute CVA, possibly embolic Left ICA and common carotid occlusion Acute metabolic encephalopathy secondary to above, resolved Hyponatremia mild, hypovolemic, resolved Mild rhabdomyolysis, resolved Leukocytosis, likely secondary to dehydration, resolved Type 2 diabetes, with hyperglycemia History of hypertension Urinary tract infection, resolved Acute urinary retention, resolved Acute kidney injury, resolved -Currently only on amlodipine 5 mg daily for hypertension -Continue aspirin, Plavix, statin -Levemir 15 units daily, sliding scale insulin -Continue Flomax DVT ppx: Subcu heparin Code status: Full code Anticipated discharge place: Placement Anticipated discharge time: Pending bed availability Objective - Vital Signs Vital signs: Vital Signs Temp 97.9 F 11/09/22 07:14 Pulse 59 L 11/09/22 07:14 Resp 17 11/09/22 07:14 BP 106/63 11/09/22 07:14 Pulse Ox 97 11/09/22 07:14 FiO2 21 11/05/22 09:26 Intake & Output 11/08/22 11/09/22 11/09/22 18:59 06:59 18:59 Intake Total 800 Output Total 750 600 Balance 50 -600 Intake: Oral 800 Output: Urine 750 600 Other: Voiding Method Diaper Diaper Diaper Incontinent Incontinent Incontinent External Catheter External Catheter - Labs CBC & Chem 7: 10/31/22 06:38 11/08/22 12:17 Labs: Abnormal Lab Results - Last 24 Hours (Table) 11/08/22 11/08/22 11/08/22 Range/Units 12:17 16:18 19:57 Sodium 136 L (137-145) mmol/L BUN 21 H (9-20) mg/dL Glucose 174 H (74-99) mg/dL POC Glucose (mg/dL) 112 H 160 H (70-110) mg/dL 11/09/22 11/09/22 Range/Units 05:31 11:34 Sodium (137-145) mmol/L BUN (9-20) mg/dL Glucose (74-99) mg/dL POC Glucose (mg/dL) 129 H 224 H (70-110) mg/dL
[2022-11-09 16:23] LABS: Glucose,Whole Blood 95 mg/dL (70-110)
[2022-11-09 19:04] LABS: Glucose,Whole Blood 127 mg/dL (70-110)
[2022-11-09] MEDS: ATORVASTATIN 80 MG TAB PO SCH (20:40)
[2022-11-10 05:37] LABS: Glucose,Whole Blood 141 mg/dL (70-110)
[2022-11-10] MEDS: INSULIN ASPART (NovoLOG) 100 UNIT/ML VIAL SQ SCH ×4 (06:13→21:09)
[2022-11-10] MEDS: INSULIN DETEMIR (LEVEMIR) 100 UNIT/ML SYR SQ SCH (06:39)
[2022-11-10] MEDS: droNABinol 2.5 MG CAP PO SCH ×2 (06:39→20:09)
[2022-11-10] MEDS: TAMSULOSIN 0.4 MG CAP.ER.24H PO SCH (08:59)
[2022-11-10] MEDS: ASPIRIN 81 MG PO SCH (08:59)
[2022-11-10] MEDS: FAMOTIDINE 20 MG TAB PO SCH ×2 (08:59→21:15)
[2022-11-10] MEDS: amLODIPine 10 MG TAB PO SCH (08:59)
[2022-11-10] MEDS: SODIUM BICARBONATE TAB 650 MG TAB PO SCH ×3 (09:00→21:15)
[2022-11-10] MEDS: HEPARIN SODIUM,PORCINE 5,000 UNIT/ML 1 ML VIAL SQ SCH ×3 (09:00→23:48)
[2022-11-10] MEDS: CLOPIDOGREL 75 MG TAB PO SCH (09:00)
--- NOTE | 2022-11-10 10:48 | P.PN ---
Subjective Progress Note Date: 11/10/22 Hospital Course: 62-year-old male with history of hypertension, dyslipidemia, diabetes found un responsive at a local truck stop. Per report, patient was not moving for the last few days. Upon ED evaluation, found to have a large left-sided MCA subacute stroke. Laboratory workup also showed leukocytosis, elevated BUN, and elevated CK. Patient admitted for further stroke workup and started on fluids. Neurology consulted. Urine indicative of a possible urinary tract infection, started on IV ceftriaxone. Echo report reviewed, shows normal LV size and systolic function, no filling defects to indicate thrombus. Repeat head CT does not show any hemorrhagic transformation, midline shift, hydrocephalus, or herniation. EEG shows no epileptiform activity. Pending placement. Patient had periods of hypotension, developed acute kidney injury, resolved with IV fluids. BP meds held. Renal function improved. Oral intake has also improved. Subjective: Patient seen and examined at bedside. No acute events overnight. He has an external urinary catheter Pertinent positives and negatives as discussed above, a complete review of systems was performed and all other systems are negative. Vitals Signs Reviewed. General: nontoxic, no distress, appears at stated age Derm: warm, dry Head: atraumatic, normocephalic, symmetric Eyes: EOMI, no lid lag, anicteric sclera Cardiovascular: S1S2 reg, no murmur Lungs: CTA bilateral, no rhonchi, no rales , no accessory muscle use Ext: no gross muscle atrophy, no edema, no contractures Neuro: right-sided deficits, significant aphasia Psych: Awake and Alert, follows some commands Data Reviewed Today: Pertinent Labs: Blood sugars range between 95-224 Imaging: No new imaging Assessment and Plan: Large left MCA and small right parietal subacute CVA, possibly embolic Left ICA and common carotid occlusion Acute metabolic encephalopathy secondary to above, resolved Hyponatremia mild, hypovolemic, resolved Mild rhabdomyolysis, resolved Leukocytosis, likely secondary to dehydration, resolved Type 2 diabetes, with hyperglycemia History of hypertension Urinary tract infection, resolved Acute urinary retention, resolved Acute kidney injury, resolved -Amlodipine increased to 10 mg daily -Continue aspirin, Plavix, statin -Levemir 15 units daily, sliding scale insulin -Continue Flomax DVT ppx: Subcu heparin Code status: Full code Anticipated discharge place: Placement/guardianship Anticipated discharge time: Pending bed availability Objective - Vital Signs Vital signs: Vital Signs Temp 97.7 F 09/06/23 07:54 Pulse 77 11/10/22 07:54 Resp 18 11/10/22 07:54 BP 123/69 11/10/22 07:54 Pulse Ox 95 11/10/22 07:54 FiO2 21 11/05/22 09:26 Intake & Output 11/09/22 11/10/22 11/10/22 18:59 06:59 18:59 Output Total 950 300 Balance -950 -300 Output: Urine 950 300 Other: Voiding Method Diaper Diaper Incontinent Incontinent External Catheter External Catheter # Voids 1 - Labs CBC & Chem 7: 10/31/22 06:38 11/08/22 12:17 Labs: Abnormal Lab Results - Last 24 Hours (Table) 11/09/22 11/09/22 11/10/22 Range/Units 11:34 19:01 05:36 POC Glucose (mg/dL) 224 H 127 H 141 H (70-110) mg/dL
[2022-11-10 11:29] LABS: Glucose,Whole Blood 141 mg/dL (70-110)
[2022-11-10] MEDS: ACETAMINOPHEN TAB 325 MG TAB PO PRN ×2 (13:15→21:16)
[2022-11-10] MEDS: LACTATED RINGERS 1,000 ML IV SCH (15:02)
[2022-11-10] MEDS ORDERED: HEPARIN SODIUM,PORCINE 5,000 UNIT/ML 1 ML VIAL ONE (16:00)
[2022-11-10] MEDS ORDERED: SODIUM BICARBONATE TAB 650 MG TAB ONE (16:00)
[2022-11-10] MEDS ORDERED: droNABinol 2.5 MG CAP PO ONE (16:00)
[2022-11-10 16:41] LABS: Glucose,Whole Blood 140 mg/dL (70-110)
[2022-11-10 20:35] LABS: Glucose,Whole Blood 118 mg/dL (70-110)
[2022-11-10] MEDS: ATORVASTATIN 80 MG TAB PO SCH (21:15)
[2022-11-11 06:18] LABS: Glucose,Whole Blood 130 mg/dL (70-110)
[2022-11-11] MEDS: INSULIN ASPART (NovoLOG) 100 UNIT/ML VIAL SQ SCH ×4 (06:21→21:03)
[2022-11-11] MEDS: droNABinol 2.5 MG CAP PO SCH ×2 (07:01→17:27)
[2022-11-11] MEDS: INSULIN DETEMIR (LEVEMIR) 100 UNIT/ML SYR SQ SCH (07:01)
[2022-11-11] MEDS: CLOPIDOGREL 75 MG TAB PO SCH (08:38)
[2022-11-11] MEDS: TAMSULOSIN 0.4 MG CAP.ER.24H PO SCH (08:38)
[2022-11-11] MEDS: HEPARIN SODIUM,PORCINE 5,000 UNIT/ML 1 ML VIAL SQ SCH ×3 (08:38→23:28)
[2022-11-11] MEDS: FAMOTIDINE 20 MG TAB PO SCH ×2 (08:38→20:23)
[2022-11-11] MEDS: ASPIRIN 81 MG PO SCH (08:38)
[2022-11-11] MEDS: SODIUM BICARBONATE TAB 650 MG TAB PO SCH ×3 (08:38→20:23)
[2022-11-11] MEDS: amLODIPine 10 MG TAB PO SCH (08:38)
--- NOTE | 2022-11-11 11:03 | P.PN ---
Subjective Progress Note Date: 11/11/22 Hospital Course: 62-year-old male with history of hypertension, dyslipidemia, diabetes found unresponsive [place] stop. Per report, patient was not moving for the last few days. Upon ED evaluation, found to have a large left-sided MCA subacute stroke. Laboratory workup also showed leukocytosis, elevated BUN, and elevated CK. Patient admitted for further stroke workup and started on fluids. Neurology consulted. Urine indicative of a possible urinary tract infection, st arted on IV ceftriaxone. Echo report reviewed, shows normal LV size and systolic function, no filling defects to indicate thrombus. Repeat head CT does not show any hemorrhagic transformation, midline shift, hydrocephalus, or herniation. EEG shows no epileptiform activity. Patient had periods of hypotension, developed acute kidney injury, resolved with IV fluids. BP meds held. Renal function improved. Oral intake has also improved. Pending placement. Subjective: Patient seen and examined at bedside. No acute events overnight. He has an external urinary catheter Pertinent positives and negatives as discussed above, a complete review of systems was performed and all other systems are negative. Vitals Signs Reviewed. General: nontoxic, no distress, appears at stated age Derm: warm, dry Head: atraumatic, normocephalic, symmetric Eyes: EOMI, no lid lag, anicteric sclera Cardiovascular: S1S2 reg, no murmur Lungs: CTA bilateral, no rhonchi, no rales , no accessory muscle use Ext: no gross muscle atrophy, no edema, no contractures Neuro: right-sided deficits, significant aphasia Psych: Awake and Alert, follows some commands Data Reviewed Today: Pertinent Labs: Blood sugars range between 118-141 Imaging: No new imaging Assessment and Plan: Large left MCA and small right parietal subacute CVA, possibly embolic Left ICA and common carotid occlusion Acute metabolic encephalopathy secondary to above, resolved Hyponatremia mild, hypovolemic, resolved Mild rhabdomyolysis, resolved Leukocytosis, likely secondary to dehydration, resolved Type 2 diabetes, with hyperglycemia History of hypertension Urinary tract infection, resolved Acute urinary retention, resolved Acute kidney injury, resolved -Amlodipine 10 mg daily, BP better controlled now -Continue aspirin, Plavix, statin -Levemir 15 units daily, sliding scale insulin -Continue Flomax -Repeat BMP tomorrow DVT ppx: Subcu heparin Code status: Full code Anticipated discharge place: Placement/guardianship Anticipated discharge time: Pending bed availability Objective - Vital Signs Vital signs: Vital Signs Temp 98.3 F 11/11/22 08:00 Pulse 64 11/11/22 08:00 Resp 18 11/11/22 08:00 BP 125/66 11/11/22 08:00 Pulse Ox 96 11/11/22 08:23 FiO2 21 11/05/22 09:26 Intake & Output 11/10/22 11/11/22 11/11/22 18:59 06:59 18:59 Output Total 300 937 Balance -300 -937 Output: Urine 300 400 Post Void Residual 537 Other: Voiding Method Diaper Diaper Incontinent Incontinent External Catheter External Catheter # Bowel Movements 1 - Labs CBC & Chem 7: 10/31/22 06:38 11/08/22 12:17 Labs: Abnormal Lab Results - Last 24 Hours (Table) 11/10/22 11/10/22 11/10/22 Range/Units 11:27 16:40 20:33 POC Glucose (mg/dL) 141 H 140 H 118 H (70-110) mg/dL 11/11/22 Range/Units 06:16 POC Glucose (mg/dL) 130 H (70-110) mg/dL
[2022-11-11 12:16] LABS: Glucose,Whole Blood 158 mg/dL (70-110)
[2022-11-11] MEDS: LACTATED RINGERS 1,000 ML IV SCH (14:16)
[2022-11-11 16:22] LABS: Glucose,Whole Blood 120 mg/dL (70-110)
[2022-11-11] MEDS: ACETAMINOPHEN TAB 325 MG TAB PO PRN (20:22)
[2022-11-11] MEDS: ATORVASTATIN 80 MG TAB PO SCH (20:23)
[2022-11-11 20:32] LABS: Glucose,Whole Blood 158 mg/dL (70-110)
[2022-11-12 05:41] LABS: Glucose,Whole Blood 177 mg/dL (70-110)
[2022-11-12] MEDS: INSULIN DETEMIR (LEVEMIR) 100 UNIT/ML SYR SQ SCH (06:04)
[2022-11-12] MEDS: INSULIN ASPART (NovoLOG) 100 UNIT/ML VIAL SQ SCH ×4 (06:04→20:11)
[2022-11-12] MEDS: droNABinol 2.5 MG CAP PO SCH ×2 (06:04→18:14)
[2022-11-12 08:02] LABS: African American GFR (CKD) >90 (>60 ml/min/1.73 sqM); Anion Gap 8 mmol/L; Blood Urea Nitrogen 30 mg/dL (9-20); Calcium 8.7 mg/dL (8.4-10.2); Carbon Dioxide 24 mmol/L (22-30); Chloride 103 mmol/L (98-107); Glucose 155 mg/dL (74-99); Non-African American GFR(CKD) >90 (>60 ml/min/1.73 sqM); Potassium 4.1 mmol/L (3.5-5.1); Sodium 135 mmol/L (137-145)
[2022-11-12] MEDS: LACTATED RINGERS 1,000 ML IV SCH (09:18)
[2022-11-12] MEDS: amLODIPine 10 MG TAB PO SCH (11:04)
[2022-11-12] MEDS: ASPIRIN 81 MG PO SCH (11:04)
[2022-11-12] MEDS: HEPARIN SODIUM,PORCINE 5,000 UNIT/ML 1 ML VIAL SQ SCH ×3 (11:04→21:56)
[2022-11-12] MEDS: SODIUM BICARBONATE TAB 650 MG TAB PO SCH ×3 (11:04→20:11)
[2022-11-12] MEDS: TAMSULOSIN 0.4 MG CAP.ER.24H PO SCH (11:04)
[2022-11-12] MEDS: CLOPIDOGREL 75 MG TAB PO SCH (11:04)
[2022-11-12] MEDS: FAMOTIDINE 20 MG TAB PO SCH ×2 (11:04→20:11)
[2022-11-12 11:38] LABS: Glucose,Whole Blood 177 mg/dL (70-110)
[2022-11-12 11:43] LABS: Basophils % (A) 0 %; Eosinophils # (A) 0.1 k/uL (0-0.7); Eosinophils % (A) 1 %; HCT 41.7 % (39.0-53.0); HGB 13.7 gm/dL (13.0-17.5); Lymphocytes # (A) 0.9 k/uL (1.0-4.8); Lymphocytes % (A) 15 %; MCH 29.2 pg (25.0-35.0); MCHC 32.9 g/dL (31.0-37.0); MCV 88.7 fL (80.0-100.0); Monocytes # (A) 0.4 k/uL (0-1.0); Monocytes % (A) 6 %; Neutrophils # (A) 4.4 k/uL (1.3-7.7); Neutrophils % (A) 76 %; Platelet Count 201 k/uL (150-450); WBC 5.7 k/uL (3.8-10.6)
--- NOTE | 2022-11-12 12:30 | XR ---
EXAMINATION TYPE: XR chest 1V portable DATE OF EXAM: 11/12/2022 11:18 AM CLINICAL INDICATION:Male, 62 years old with history of fever; COMPARISON: Chest radiographs from 10/11/2022 TECHNIQUE: XR chest 1V portable Frontal view of the chest. FINDINGS: Lungs/Pleura: There is no evidence of pleural effusion, focal consolidation, or pneumothorax. Pulmonary vascularity: Unremarkable. Heart/mediastinum: Cardiomediastinal silhouette is unremarkable. Musculoskeletal: No acute osseous pathology. IMPRESSION: No acute cardiopulmonary disease/process.
[2022-11-12] MEDS: ACETAMINOPHEN TAB 325 MG TAB PO PRN (14:45)
--- NOTE | 2022-11-12 14:52 | P.PN ---
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 Per report, patient was not moving for the last few days. Upon ED evaluation, found to have a large left-sided MCA subacute stroke. Laboratory workup also showed leukocytosis, elevated BUN, and elevated CK. Patient admitted for further stroke workup and started on fluids. Neurology consulted. Urine indicative of a possible urinary tract infection, started on IV ceftriaxone. Echo report reviewed, shows normal LV size and systolic function, no filling defects to indicate thrombus. Repeat head CT does not show any hemorrhagic transformation, midline shift, hydrocephalus, or herniation. EEG shows no epileptiform activity. Patient had periods of hypotension, developed acute kidney injury, resolved with IV fluids. BP meds held. Renal function improved. Oral intake has also improved. Now having fever. Infectious work up pending. Pending placement. Subjective: Patient seen and examined at bedside. No acute events overnight. He was febrile overnight. Pertinent positives and negatives as discussed above, a complete review of systems was performed and all other systems are negative. Vitals Signs Reviewed. General: nontoxic, no distress, appears at stated age Derm: warm, dry, right lateral foot small ulcer with clear drainage Head: atraumatic, normocephalic, symmetric Eyes: EOMI, no lid lag, anicteric sclera Cardiovascular: S1S2 reg, no murmur Lungs: CTA bilateral, no rhonchi, no rales , no accessory muscle use Ext: no gross muscle atrophy, no edema, no contractures Neuro: right-sided deficits, significant aphasia Psych: Awake and Alert, follows some commands Data Reviewed Today: Pertinent Labs: WBC 5.7, creatinine 0.87, blood sugars range between 120-177 Imaging: Chest x-ray independently interpreted, no acute process. Assessment and Plan: Febrile Large left MCA and small right parietal subacute CVA, possibly embolic Left ICA and common carotid occlusion Acute metabolic encephalopathy secondary to above, resolved Hyponatremia mild, hypovolemic, resolved Mild rhabdomyolysis, resolved Leukocytosis, likely secondary to dehydration, resolved Type 2 diabetes, with hyperglycemia History of hypertension Urinary tract infection, resolved Acute urinary retention, resolved Acute kidney injury, resolved -Patient has a right lateral foot ulceration, no significant induration or drainage -Chest x-ray does not show any acute process. Urinalysis pending -Blood cultures pending -Amlodipine 10 mg daily, BP better controlled now -Continue aspirin, Plavix, statin -Levemir 15 units daily, sliding scale insulin -Continue Flomax DVT ppx: Subcu heparin Code status: Full code Anticipated discharge place: Placement/guardianship Anticipated discharge time: Pending bed availability Objective - Vital Signs Vital signs: Vital Signs Temp 98.3 F 11/12/22 13:21 Pulse 72 11/12/22 13:21 Resp 16 11/12/22 13:21 BP 117/71 11/12/22 13:21 Pulse Ox 98 11/12/22 13:21 FiO2 21 11/05/22 09:26 Intake & Output 11/11/22 11/12/22 11/12/22 18:59 06:59 18:59 Intake Total 340 100 Output Total 937 Balance -937 340 100 Weight 90.718 kg Intake: Oral 340 100 Output: Urine 400 Post Void Residual 537 Other: Voiding Method Diaper Diaper Diaper Incontinent Incontinent Incontinent External Catheter # Voids 4 # Bowel Movements 1 1 - Labs CBC & Chem 7: 11/12/22 05:42 11/12/22 05:42 Labs: Abnormal Lab Results - Last 24 Hours (Table) 11/11/22 11/11/22 11/12/22 Range/Units 16:21 20:29 05:39 Lymphocytes # (1.0-4.8) k/uL Sodium (137-145) mmol/L BUN (9-20) mg/dL Glucose (74-99) mg/dL POC Glucose (mg/dL) 120 H 158 H 177 H (70-110) mg/dL 11/12/22 11/12/22 11/12/22 Range/Units 05:42 05:42 11:36 Lymphocytes # 0.9 L (1.0-4.8) k/uL Sodium 135 L (137-145) mmol/L BUN 30 H (9-20) mg/dL Glucose 155 H (74-99) mg/dL POC Glucose (mg/dL) 177 H (70-110) mg/dL
[2022-11-12 16:13] LABS: Glucose,Whole Blood 108 mg/dL (70-110)
[2022-11-12 19:14] LABS: Appearance,Urine Clear (Clear); Bilirubin,Urine Negative (Negative); Blood,Urine Negative (Negative); Color,Urine Yellow; Glucose,Urine (UA) Trace (Negative); Ketones,Urine Negative (Negative); Leukocyte Esterase,Urine Moderate (Negative); Mucus,Urine Rare /hpf; Nitrite,Urine Negative (Negative); Protein,Urine Trace (Negative); RBC,Urine 1 /hpf (0-5); Specific Gravity,Urine 1.028 (1.001-1.035); Squamous Epithelial Cell,Urine <1 /hpf (0-4); Urobilinogen,Urine <2.0 mg/dL (<2.0); WBC,Urine 4 /hpf (0-5)
[2022-11-12 19:21] LABS: Glucose,Whole Blood 139 mg/dL (70-110)
[2022-11-12] MEDS: ATORVASTATIN 80 MG TAB PO SCH (20:11)
[2022-11-13] MEDS: LACTATED RINGERS 1,000 ML IV SCH ×2 (02:06→21:19)
[2022-11-13 05:52] LABS: Glucose,Whole Blood 115 mg/dL (70-110)
[2022-11-13] MEDS: INSULIN ASPART (NovoLOG) 100 UNIT/ML VIAL SQ SCH ×4 (11:12→21:17)
[2022-11-13] MEDS: SODIUM BICARBONATE TAB 650 MG TAB PO SCH ×3 (11:22→21:17)
[2022-11-13] MEDS: droNABinol 2.5 MG CAP PO SCH ×2 (11:22→18:00)
[2022-11-13] MEDS: FAMOTIDINE 20 MG TAB PO SCH ×2 (11:23→21:17)
[2022-11-13] MEDS: CLOPIDOGREL 75 MG TAB PO SCH (11:23)
[2022-11-13] MEDS: TAMSULOSIN 0.4 MG CAP.ER.24H PO SCH (11:23)
[2022-11-13] MEDS: INSULIN DETEMIR (LEVEMIR) 100 UNIT/ML SYR SQ SCH (11:23)
[2022-11-13] MEDS: amLODIPine 10 MG TAB PO SCH (11:23)
[2022-11-13] MEDS: HEPARIN SODIUM,PORCINE 5,000 UNIT/ML 1 ML VIAL SQ SCH ×2 (11:23→18:00)
[2022-11-13] MEDS: ASPIRIN 81 MG PO SCH (11:23)
[2022-11-13 11:43] LABS: Glucose,Whole Blood 193 mg/dL (70-110)
--- NOTE | 2022-11-13 13:21 | P.PN ---
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 Per report, patient was not moving for the last few days. Upon ED evaluation, found to have a large left-sided MCA subacute stroke. Laboratory workup also showed leukocytosis, elevated BUN, and elevated CK. Patient admitted for further stroke workup and started on fluids. Neurology consulted. Urine indicative of a possible urinary tract infection, started on IV ceftriaxone. Echo report reviewed, shows normal LV size and systolic function, no filling defects to indicate thrombus. Repeat head CT does not show any hemorrhagic transformation, midline shift, hydrocephalus, or herniation. EEG shows no epileptiform activity. Patient had periods of hypotension, developed acute kidney injury, resolved with IV fluids. BP meds held. Renal function improved. Oral intake has also improved. Now having fever. Infectious work up pending. Pending placement. Subjective: Patient seen and examined at bedside. No acute events overnight. No more fevers Pertinent positives and negatives as discussed above, a complete review of systems was performed and all other systems are negative. Vitals Signs Reviewed. General: nontoxic, no distress, appears at stated age Derm: warm, dry, right lateral foot small ulcer with clear drainage Head: atraumatic, normocephalic, symmetric Eyes: EOMI, no lid lag, anicteric sclera Cardiovascular: S1S2 reg, no murmur Lungs: CTA bilateral, no rhonchi, no rales , no accessory muscle use Ext: no gross muscle atrophy, no edema, no contractures Neuro: right-sided deficits, significant aphasia Psych: Awake and Alert, follows some commands Data Reviewed Today: Pertinent Labs: Urinalysis did show moderate leukocyte esterase, urine culture pending, blood glucose ranged between 108-193 Imaging: No new imaging Assessment and Plan: Isolated Febrile Large left MCA and small right parietal subacute CVA, possibly embolic Left ICA and common carotid occlusion Acute metabolic encephalopathy secondary to above, resolved Hyponatremia mild, hypovolemic, resolved Mild rhabdomyolysis, resolved Leukocytosis, likely secondary to dehydration, resolved Type 2 diabetes, with hyperglycemia History of hypertension Urinary tract infection, resolved Acute urinary retention, resolved Acute kidney injury, resolved -Patient has a right lateral foot ulceration, no significant induration or drainage, unlikely to be source of infection -Urinalysis does show moderate leukocyte esterase, urine culture pending -Blood cultures pending -Amlodipine 10 mg daily, BP better controlled now -Continue aspirin, Plavix, statin -Levemir 15 units daily, sliding scale insulin -Continue Flomax DVT ppx: Subcu heparin Code status: Full code Anticipated discharge place: Placement/guardianship Anticipated discharge time: Pending bed availability Objective - Vital Signs Vital signs: Vital Signs Temp 98.5 F 11/13/22 07:00 Pulse 56 L 11/13/22 07:00 Resp 18 11/13/22 07:00 BP 103/66 11/13/22 07:00 Pulse Ox 94 L 11/13/22 08:48 FiO2 21 11/05/22 09:26 Intake & Output 11/12/22 11/13/22 11/13/22 18:59 06:59 18:59 Intake Total 100 717 Balance 100 717 Intake: Oral 100 717 Other: Voiding Method Diaper Incontinent # Voids 2 2 1 # Bowel Movements 1 1 - Labs CBC & Chem 7: 11/12/22 05:42 11/12/22 05:42 Labs: Abnormal Lab Results - Last 24 Hours (Table) 11/12/22 11/12/22 11/13/22 Range/Units 18:48 19:18 05:52 POC Glucose (mg/dL) 139 H 115 H (70-110) mg/dL Urine Protein Trace H (Negative) Urine Glucose (UA) Trace H (Negative) Ur Leukocyte Esterase Moderate H (Negative) Urine Mucus Rare H (None) /hpf 11/13/22 Range/Units 11:41 POC Glucose (mg/dL) 193 H (70-110) mg/dL Urine Protein (Negative) Urine Glucose (UA) (Negative) Ur Leukocyte Esterase (Negative) Urine Mucus (None) /hpf
[2022-11-13 16:16] LABS: Glucose,Whole Blood 113 mg/dL (70-110)
[2022-11-13] MEDS: ACETAMINOPHEN TAB 325 MG TAB PO PRN (18:05)
[2022-11-13 19:47] LABS: Glucose,Whole Blood 170 mg/dL (70-110)
[2022-11-13] MEDS: ATORVASTATIN 80 MG TAB PO SCH (21:17)
[2022-11-14] MEDS: HEPARIN SODIUM,PORCINE 5,000 UNIT/ML 1 ML VIAL SQ SCH ×3 (00:27→17:24)
[2022-11-14 05:37] LABS: Glucose,Whole Blood 129 mg/dL (70-110)
[2022-11-14] MEDS: INSULIN ASPART (NovoLOG) 100 UNIT/ML VIAL SQ SCH ×4 (05:44→22:14)
[2022-11-14] MEDS: INSULIN DETEMIR (LEVEMIR) 100 UNIT/ML SYR SQ SCH (06:10)
[2022-11-14] MEDS: droNABinol 2.5 MG CAP PO SCH ×2 (06:10→17:29)
[2022-11-14] MEDS: ACETAMINOPHEN TAB 325 MG TAB PO PRN ×2 (11:25→17:24)
[2022-11-14] MEDS: TAMSULOSIN 0.4 MG CAP.ER.24H PO SCH (11:25)
[2022-11-14] MEDS: FAMOTIDINE 20 MG TAB PO SCH ×2 (11:26→21:17)
[2022-11-14] MEDS: ASPIRIN 81 MG PO SCH (11:26)
[2022-11-14] MEDS: CLOPIDOGREL 75 MG TAB PO SCH (11:26)
[2022-11-14] MEDS: amLODIPine 10 MG TAB PO SCH (11:26)
[2022-11-14] MEDS: SODIUM BICARBONATE TAB 650 MG TAB PO SCH ×3 (11:26→21:17)
[2022-11-14] MEDS: polyethylene glycoL 3350 17 GM POWD.PACK PO SCH (11:27)
[2022-11-14 11:44] LABS: Glucose,Whole Blood 164 mg/dL (70-110)
--- NOTE | 2022-11-14 12:26 | P.PN ---
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 Per report, patient was not moving for the last few days. Upon ED evaluation, found to have a large left-sided MCA subacute stroke. Laboratory workup also showed leukocytosis, elevated BUN, and elevated CK. Patient admitted for further stroke workup and started on fluids. Neurology consulted. Urine indicative of a possible urinary tract infection, started on IV ceftriaxone. Echo report reviewed, shows normal LV size and systolic function, no filling defects to indicate thrombus. Repeat head CT does not show any hemorrhagic transformation, midline shift, hydrocephalus, or herniation. EEG shows no epileptiform activity. Patient had periods of hypotension, developed acute kidney injury, resolved with IV fluids. BP meds held. Renal function improved. Oral intake has also improved. Now having fever. Infectious work up pending. Pending placement. Subjective: Patient seen and examined at bedside. No acute events overnight. No more fevers Pertinent positives and negatives as discussed above, a complete review of systems was performed and all other systems are negative. Vitals Signs Reviewed. General: nontoxic, no distress, appears at stated age Derm: warm, dry, right lateral foot small ulcer with clear drainage Head: atraumatic, normocephalic, symmetric Eyes: EOMI, no lid lag, anicteric sclera Cardiovascular: S1S2 reg, no murmur Lungs: CTA bilateral, no rhonchi, no rales , no accessory muscle use Ext: no gross muscle atrophy, no edema, no contractures Neuro: right-sided deficits, significant aphasia Psych: Awake and Alert, follows some commands Data Reviewed Today: Pertinent Labs: Blood glucose ranged between 113-170 Imaging: No new imaging Assessment and Plan: Isolated Febrile Large left MCA and small right parietal subacute CVA, possibly embolic Left ICA and common carotid occlusion Acute metabolic encephalopathy secondary to above, resolved Hyponatremia mild, hypovolemic, resolved Mild rhabdomyolysis, resolved Leukocytosis, likely secondary to dehydration, resolved Type 2 diabetes, with hyperglycemia History of hypertension Urinary tract infection, resolved Acute urinary retention, resolved Acute kidney injury, resolved Constipation -Patient has a right lateral foot ulceration, no significant induration or drainage, unlikely to be source of infection -Urinalysis does show moderate leukocyte esterase, urine culture growing group D enterococcus, wait for sensitivities, any treatment if any further signs of infection, patient has been afebrile since that one isolated episode -Blood cultures negative growth to date -Amlodipine 10 mg daily, BP better controlled now -Continue aspirin, Plavix, statin -Levemir 15 units daily, sliding scale insulin -Continue Flomax -MiraLAX added DVT ppx: Subcu heparin Code status: Full code Anticipated discharge place: Placement/guardianship Anticipated discharge time: Pending bed availability Objective - Vital Signs Vital signs: Vital Signs Temp 98.4 F 11/14/22 00:30 Pulse 66 11/14/22 00:30 Resp 18 11/14/22 00:30 BP 127/60 11/14/22 00:30 Pulse Ox 94 L 11/14/22 00:30 FiO2 21 11/05/22 09:26 Intake & Output 11/13/22 11/14/22 11/14/22 18:59 06:59 18:59 Other: Voiding Method Incontinent # Voids 2 2 # Bowel Movements 1 - Labs CBC & Chem 7: 11/12/22 05:42 11/12/22 05:42 Labs: Abnormal Lab Results - Last 24 Hours (Table) 11/13/22 11/13/22 11/14/22 Range/Units 16:15 19:47 05:36 POC Glucose (mg/dL) 113 H 170 H 129 H (70-110) mg/dL 11/14/22 Range/Units 11:43 POC Glucose (mg/dL) 164 H (70-110) mg/dL Microbiology - Last 24 Hours (Table) 11/12/22 18:48 Urine Culture - Preliminary Urine,Catheterized Group D Enterococcus 11/12/22 10:53 Blood Culture - Preliminary Blood 11/12/22 10:53 Blood Culture - Preliminary Blood
[2022-11-14 16:57] LABS: Glucose,Whole Blood 100 mg/dL (70-110)
[2022-11-14] MEDS: LACTATED RINGERS 1,000 ML IV SCH (18:39)
[2022-11-14] MEDS: ATORVASTATIN 80 MG TAB PO SCH (21:17)
[2022-11-14 21:48] LABS: Glucose,Whole Blood 133 mg/dL (70-110)
[2022-11-15] MEDS: HEPARIN SODIUM,PORCINE 5,000 UNIT/ML 1 ML VIAL SQ SCH ×4 (00:03→23:45)
[2022-11-15 06:01] LABS: Glucose,Whole Blood 149 mg/dL (70-110)
[2022-11-15] MEDS: INSULIN ASPART (NovoLOG) 100 UNIT/ML VIAL SQ SCH ×4 (06:06→21:19)
[2022-11-15] MEDS: INSULIN DETEMIR (LEVEMIR) 100 UNIT/ML SYR SQ SCH (06:10)
[2022-11-15] MEDS: droNABinol 2.5 MG CAP PO SCH ×2 (06:10→17:04)
[2022-11-15] MEDS: ASPIRIN 81 MG PO SCH (08:41)
[2022-11-15] MEDS: TAMSULOSIN 0.4 MG CAP.ER.24H PO SCH (08:41)
[2022-11-15] MEDS: amLODIPine 10 MG TAB PO SCH (08:41)
[2022-11-15] MEDS: polyethylene glycoL 3350 17 GM POWD.PACK PO SCH (08:41)
[2022-11-15] MEDS: SODIUM BICARBONATE TAB 650 MG TAB PO SCH ×3 (08:41→20:12)
[2022-11-15] MEDS: CLOPIDOGREL 75 MG TAB PO SCH (08:41)
[2022-11-15] MEDS: FAMOTIDINE 20 MG TAB PO SCH ×2 (08:41→20:14)
[2022-11-15 11:18] LABS: Glucose,Whole Blood 157 mg/dL (70-110)
--- NOTE | 2022-11-15 14:25 | P.PN ---
Subjective Progress Note Date: 11/15/22 Hospital Course: 62-year-old male with history of hypertension, dyslipidemia, diabetes found unresponsive [place] truck stop. Per report, patient was not moving for the last few days. Upon ED evaluation, found to have a large left-sided MCA subacute stroke. Laboratory workup also showed leukocytosis, elevated BUN, and elevated CK. Patient admitted for further stroke workup and started on fluids. Neurology consulted. Urine indicative of a possible urinary tract infection, st arted on IV ceftriaxone. Echo report reviewed, shows normal LV size and systolic function, no filling defects to indicate thrombus. Repeat head CT does not show any hemorrhagic transformation, midline shift, hydrocephalus, or herniation. EEG shows no epileptiform activity. Patient had periods of hypotension, developed acute kidney injury, resolved with IV fluids. BP meds held. Renal function improved. Oral intake has also improved. Had isolated episode of fever. Infectious work up mostly unremarkable. Pending placement. Subjective: Patient seen and examined at bedside. No acute events overnight. No more fevers Pertinent positives and negatives as discussed above, a complete review of systems was performed and all other systems are negative. Vitals Signs Reviewed. General: nontoxic, no distress, appears at stated age Derm: warm, dry, right lateral foot small ulcer with clear drainage Head: atraumatic, normocephalic, symmetric Eyes: EOMI, no lid lag, anicteric sclera Cardiovascular: S1S2 reg, no murmur Lungs: CTA bilateral, no rhonchi, no rales , no accessory muscle use Ext: no gross muscle atrophy, no edema, no contractures Neuro: right-sided deficits, significant aphasia Psych: Awake and Alert, follows some commands Data Reviewed Today: Pertinent Labs: Blood glucose ranged between 100-157 Imaging: No new imaging Assessment and Plan: Isolated episode of Febrile Large left MCA and small right parietal subacute CVA, possibly embolic Left ICA and common carotid occlusion Acute metabolic encephalopathy secondary to above, resolved Hyponatremia mild, hypovolemic, resolved Mild rhabdomyolysis, resolved Leukocytosis, likely secondary to dehydration, resolved Type 2 diabetes, with hyperglycemia History of hypertension Urinary tract infection, resolved Acute urinary retention, resolved Acute kidney injury, resolved Constipation -Patient has a right lateral foot ulceration, no significant induration or drainage, unlikely to be source of infection -Urinalysis does show moderate leukocyte esterase, urine culture growing group D enterococcus, wait for sensitivities, any treatment if any further signs of infection, patient has been afebrile since that one isolated episode -Blood cultures negative growth to date -Amlodipine 10 mg daily, BP better controlled now -Continue aspirin, Plavix, statin -Levemir 15 units daily, sliding scale insulin -Continue Flomax -MiraLAX DVT ppx: Subcu heparin Code status: Full code Anticipated discharge place: Placement/guardianship Anticipated discharge time: Pending bed availability Objective - Vital Signs Vital signs: Vital Signs Temp 98.1 F 11/15/22 13:23 Pulse 58 L 11/15/22 13:23 Resp 16 11/15/22 13:23 BP 118/73 11/15/22 13:23 Pulse Ox 96 11/15/22 13:23 FiO2 21 11/05/22 09:26 Intake & Output 11/14/22 11/15/22 11/15/22 18:59 06:59 18:59 Other: Voiding Method Incontinent Incontinent # Voids 2 - Labs CBC & Chem 7: 11/12/22 05:42 11/12/22 05:42 Labs: Abnormal Lab Results - Last 24 Hours (Table) 11/14/22 11/15/22 11/15/22 Range/Units 21:47 06:00 11:16 POC Glucose (mg/dL) 133 H 149 H 157 H (70-110) mg/dL Microbiology - Last 24 Hours (Table) 11/12/22 10:53 Blood Culture - Preliminary Blood 11/12/22 10:53 Blood Culture - Preliminary Blood 11/12/22 18:48 Urine Culture - Preliminary Urine,Catheterized Group D Enterococcus
[2022-11-15 16:20] LABS: Glucose,Whole Blood 112 mg/dL (70-110)
[2022-11-15] MEDS: ATORVASTATIN 80 MG TAB PO SCH (20:12)
[2022-11-15] MEDS: LACTATED RINGERS 1,000 ML IV SCH (20:12)
[2022-11-15 20:49] LABS: Glucose,Whole Blood 255 mg/dL (70-110)
[2022-11-16 06:27] LABS: Glucose,Whole Blood 139 mg/dL (70-110)
[2022-11-16] MEDS: INSULIN ASPART (NovoLOG) 100 UNIT/ML VIAL SQ SCH ×4 (06:28→20:58)
[2022-11-16] MEDS: INSULIN DETEMIR (LEVEMIR) 100 UNIT/ML SYR SQ SCH (06:40)
[2022-11-16] MEDS: droNABinol 2.5 MG CAP PO SCH ×2 (08:08→17:05)
[2022-11-16] MEDS: FAMOTIDINE 20 MG TAB PO SCH ×2 (08:09→20:58)
[2022-11-16] MEDS: SODIUM BICARBONATE TAB 650 MG TAB PO SCH ×4 (08:09→20:58)
[2022-11-16] MEDS: HEPARIN SODIUM,PORCINE 5,000 UNIT/ML 1 ML VIAL SQ SCH ×4 (08:09→23:42)
[2022-11-16] MEDS: amLODIPine 10 MG TAB PO SCH (08:09)
[2022-11-16] MEDS: ASPIRIN 81 MG PO SCH (08:09)
[2022-11-16] MEDS: TAMSULOSIN 0.4 MG CAP.ER.24H PO SCH (08:09)
[2022-11-16] MEDS: CLOPIDOGREL 75 MG TAB PO SCH (08:09)
[2022-11-16] MEDS: polyethylene glycoL 3350 17 GM POWD.PACK PO SCH (08:09)
--- NOTE | 2022-11-16 11:16 | P.PN ---
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 Per report, patient was not moving for the last few days. Upon ED evaluation, found to have a large left-sided MCA subacute stroke. Laboratory workup also showed leukocytosis, elevated BUN, and elevated CK. Patient admitted for further stroke workup and started on fluids. Neurology consulted. Urine indicative of a possible urinary tract infection, started on IV ceftriaxone. Echo report reviewed, shows normal LV size and systolic function, no filling defects to indicate thrombus. Repeat head CT does not show any hemorrhagic transformation, midline shift, hydrocephalus, or herniation. EEG shows no epileptiform activity. Patient had periods of hypotension, developed acute kidney injury, resolved with IV fluids. BP meds held. Renal function improved. Oral intake has also improved. Had isolated episode of fever. Infectious work up mostly unremarkable. Pending placement. Subjective: Patient seen and examined at bedside. No acute events overnight. No more fevers. Pertinent positives and negatives as discussed above, a complete review of systems was performed and all other systems are negative. Vitals Signs Reviewed. General: nontoxic, no distress, appears at stated age Derm: warm, dry, right lateral foot small ulcer with clear drainage Head: atraumatic, normocephalic, symmetric Eyes: EOMI, no lid lag, anicteric sclera Cardiovascular: S1S2 reg, no murmur Lungs: CTA bilateral, no rhonchi, no rales , no accessory muscle use Ext: no gross muscle atrophy, no edema, no contractures Neuro: right-sided deficits, significant aphasia Psych: Awake and Alert, follows some commands Data Reviewed Today: Pertinent Labs: Blood glucose ranged between 112 to 225 Imaging: No new imaging Assessment and Plan: Isolated episode of Febrile Large left MCA and small right parietal subacute CVA, possibly embolic Left ICA and common carotid occlusion Acute metabolic encephalopathy secondary to above, resolved Hyponatremia mild, hypovolemic, resolved Mild rhabdomyolysis, resolved Leukocytosis, likely secondary to dehydration, resolved Type 2 diabetes, with hyperglycemia History of hypertension Urinary tract infection, resolved Acute urinary retention, resolved Acute kidney injury, resolved Constipation -Patient has a right lateral foot ulceration, no significant induration or drainage, unlikely to be source of infection -Urinalysis does show moderate leukocyte esterase, urine culture growing group D enterococcus, we'll hold off treatment for now ,patient has been afebrile since that one isolated episode -Blood cultures negative growth to date -Amlodipine 10 mg daily, BP better controlled now -Continue aspirin, Plavix, statin -Levemir 15 units daily, sliding scale insulin -Continue Flomax -MiraLAX DVT ppx: Subcu heparin Code status: Full code Anticipated discharge place: Placement/guardianship Anticipated discharge time: Pending bed availability Objective - Vital Signs Vital signs: Vital Signs Temp 97.5 F L 11/16/22 08:00 Pulse 55 L 11/16/22 08:00 Resp 16 11/16/22 08:00 BP 120/70 11/16/22 08:00 Pulse Ox 95 11/16/22 08:00 FiO2 21 11/05/22 09:26 Intake & Output 11/15/22 11/16/22 11/16/22 18:59 06:59 18:59 Other: Voiding Method Incontinent Incontinent # Voids 5 3 - Labs CBC & Chem 7: 11/12/22 05:42 11/12/22 05:42 Labs: Abnormal Lab Results - Last 24 Hours (Table) 11/15/22 11/15/22 11/15/22 Range/Units 11:16 16:18 20:47 POC Glucose (mg/dL) 157 H 112 H 255 H (70-110) mg/dL 11/16/22 Range/Units 06:25 POC Glucose (mg/dL) 139 H (70-110) mg/dL Microbiology - Last 24 Hours (Table) 11/12/22 10:53 Blood Culture - Preliminary Blood 11/12/22 10:53 Blood Culture - Preliminary Blood 11/12/22 18:48 Urine Culture - Final Urine,Catheterized Enterococcus faecalis
[2022-11-16 11:42] LABS: Glucose,Whole Blood 136 mg/dL (70-110)
[2022-11-16 16:39] LABS: Glucose,Whole Blood 164 mg/dL (70-110)
[2022-11-16 20:49] LABS: Glucose,Whole Blood 166 mg/dL (70-110)
[2022-11-16] MEDS: ATORVASTATIN 80 MG TAB PO SCH (20:58)
[2022-11-17 06:28] LABS: Glucose,Whole Blood 141 mg/dL (70-110)
[2022-11-17] MEDS: INSULIN ASPART (NovoLOG) 100 UNIT/ML VIAL SQ SCH ×4 (06:28→20:33)
[2022-11-17] MEDS: INSULIN DETEMIR (LEVEMIR) 100 UNIT/ML SYR SQ SCH (06:34)
[2022-11-17] MEDS: droNABinol 2.5 MG CAP PO SCH ×2 (07:26→15:46)
[2022-11-17] MEDS: TAMSULOSIN 0.4 MG CAP.ER.24H PO SCH (07:26)
[2022-11-17] MEDS: HEPARIN SODIUM,PORCINE 5,000 UNIT/ML 1 ML VIAL SQ SCH ×3 (07:27→23:22)
[2022-11-17] MEDS: SODIUM BICARBONATE TAB 650 MG TAB PO SCH ×3 (09:54→20:33)
[2022-11-17] MEDS: amLODIPine 10 MG TAB PO SCH (09:54)
[2022-11-17] MEDS: CLOPIDOGREL 75 MG TAB PO SCH (09:55)
[2022-11-17] MEDS: polyethylene glycoL 3350 17 GM POWD.PACK PO SCH (09:55)
[2022-11-17] MEDS: FAMOTIDINE 20 MG TAB PO SCH ×2 (09:55→20:33)
[2022-11-17] MEDS: ASPIRIN 81 MG PO SCH (09:55)
[2022-11-17 11:18] LABS: Glucose,Whole Blood 194 mg/dL (70-110)
--- NOTE | 2022-11-17 11:21 | P.PN ---
Subjective Progress Note Date: 11/17/22 Hospital Course: 62-year-old male with history of hypertension, dyslipidemia, diabetes found un responsive [place] local truck stop. Per report, patient was not moving for the last few days. Upon ED evaluation, found to have a large left-sided MCA subacute stroke. Laboratory workup also showed leukocytosis, elevated BUN, and elevated CK. Patient admitted for further stroke workup and started on fluids. Neurology consulted. Urine indicative of a possible urinary tract infection, started on IV ceftriaxone. Echo report reviewed, shows normal LV size and systolic function, no filling defects to indicate thrombus. Repeat head CT does not show any hemorrhagic transformation, midline shift, hydrocephalus, or herniation. EEG shows no epileptiform activity. Patient had periods of hypotension, developed acute kidney injury, resolved with IV fluids. BP meds held. Renal function improved. Oral intake has also improved. Had isolated episode of fever. Infectious work up mostly unremarkable. Pending placement. Subjective: Patient seen and examined at bedside. No acute events overnight. No more fevers. Pertinent positives and negatives as discussed above, a complete review of systems was performed and all other systems are negative. Vitals Signs Reviewed. General: nontoxic, no distress, appears at stated age Derm: warm, dry, right lateral foot small ulcer with clear drainage Head: atraumatic, normocephalic, symmetric Eyes: EOMI, no lid lag, anicteric sclera Cardiovascular: S1S2 reg, no murmur Lungs: CTA bilateral, no rhonchi, no rales , no accessory muscle use Ext: no gross muscle atrophy, no edema, no contractures Neuro: right-sided deficits, significant aphasia Psych: Awake and Alert, follows some commands Data Reviewed Today: Pertinent Labs: Blood glucose ranged between 141-194 Imaging: No new imaging Assessment and Plan: Isolated episode of Febrile Large left MCA and small right parietal subacute CVA, possibly embolic Left ICA and common carotid occlusion Acute metabolic encephalopathy secondary to above, resolved Hyponatremia mild, hypovolemic, resolved Mild rhabdomyolysis, resolved Leukocytosis, likely secondary to dehydration, resolved Type 2 diabetes, with hyperglycemia History of hypertension Urinary tract infection, resolved Acute urinary retention, resolved Acute kidney injury, resolved Constipation -Patient has a right lateral foot ulceration, no significant induration or drainage, unlikely to be source of infection -Urinalysis does show moderate leukocyte esterase, urine culture growing group D enterococcus, we'll hold off treatment for now ,patient has been afebrile since that one isolated episode -Blood cultures negative growth to date -Amlodipine 10 mg daily, BP better controlled now -Continue aspirin, Plavix, statin -Levemir 15 units daily, sliding scale insulin -Continue Flomax -MiraLAX DVT ppx: Subcu heparin Code status: Full code Anticipated discharge place: Placement/guardianship Anticipated discharge time: Pending bed availability Objective - Vital Signs Vital signs: Vital Signs Temp 97.7 F 11/17/22 09:24 Pulse 99 11/17/22 09:24 Resp 14 11/17/22 09:24 BP 121/76 11/17/22 09:24 Pulse Ox 99 11/17/22 09:24 FiO2 21 11/05/22 09:26 Intake & Output 11/16/22 11/17/22 11/17/22 18:59 06:59 18:59 Other: Voiding Method Incontinent # Voids 3 2 - Labs CBC & Chem 7: 11/12/22 05:42 11/12/22 05:42 Labs: Abnormal Lab Results - Last 24 Hours (Table) 11/16/22 11/16/22 11/16/22 Range/Units 11:40 16:38 20:46 POC Glucose (mg/dL) 136 H 164 H 166 H (70-110) mg/dL 11/17/22 11/17/22 Range/Units 06:27 11:17 POC Glucose (mg/dL) 141 H 194 H (70-110) mg/dL
[2022-11-17 16:36] LABS: Glucose,Whole Blood 146 mg/dL (70-110)
[2022-11-17 20:19] LABS: Glucose,Whole Blood 193 mg/dL (70-110)
[2022-11-17] MEDS: ATORVASTATIN 80 MG TAB PO SCH (20:33)
[2022-11-18 05:54] LABS: Glucose,Whole Blood 151 mg/dL (70-110)
[2022-11-18] MEDS: INSULIN DETEMIR (LEVEMIR) 100 UNIT/ML SYR SQ SCH (06:44)
[2022-11-18] MEDS: INSULIN ASPART (NovoLOG) 100 UNIT/ML VIAL SQ SCH ×5 (08:10→20:48)
[2022-11-18] MEDS: polyethylene glycoL 3350 17 GM POWD.PACK PO SCH (09:36)
[2022-11-18] MEDS: droNABinol 2.5 MG CAP PO SCH ×2 (09:37→16:51)
[2022-11-18] MEDS: amLODIPine 10 MG TAB PO SCH (09:37)
[2022-11-18] MEDS: TAMSULOSIN 0.4 MG CAP.ER.24H PO SCH (09:37)
[2022-11-18] MEDS: ASPIRIN 81 MG PO SCH (09:37)
[2022-11-18] MEDS: HEPARIN SODIUM,PORCINE 5,000 UNIT/ML 1 ML VIAL SQ SCH ×3 (09:37→22:43)
[2022-11-18] MEDS: SODIUM BICARBONATE TAB 650 MG TAB PO SCH ×3 (09:37→20:48)
[2022-11-18] MEDS: CLOPIDOGREL 75 MG TAB PO SCH (09:37)
[2022-11-18] MEDS: FAMOTIDINE 20 MG TAB PO SCH ×2 (09:37→20:48)
[2022-11-18] MEDS: ACETAMINOPHEN TAB 325 MG TAB PO PRN (10:22)
--- NOTE | 2022-11-18 11:43 | P.PN ---
Subjective Progress Note Date: 11/18/22 Hospital Course: 62-year-old male with history of hypertension, dyslipidemia, diabetes found un responsive [place] a local truck stop. Per report, patient was not moving for the last few days. Upon ED evaluation, found to have a large left-sided MCA subacute stroke. Laboratory workup also showed leukocytosis, elevated BUN, and elevated CK. Patient admitted for further stroke workup and started on fluids. Neurology consulted. Urine indicative of a possible urinary tract infection, started on IV ceftriaxone. Echo report reviewed, shows normal LV size and systolic function, no filling defects to indicate thrombus. Repeat head CT does not show any hemorrhagic transformation, midline shift, hydrocephalus, or herniation. EEG shows no epileptiform activity. Patient had periods of hypotension, developed acute kidney injury, resolved with IV fluids. BP meds held. Renal function improved. Oral intake has also improved. Had isolated episode of fever. Infectious work up mostly unremarkable. Pending placement. Subjective: Patient seen and examined at bedside. No acute events overnight. No more fevers. Pertinent positives and negatives as discussed above, a complete review of systems was performed and all other systems are negative. Vitals Signs Reviewed. General: nontoxic, no distress, appears at stated age Derm: warm, dry, right lateral foot small ulcer with clear drainage Head: atraumatic, normocephalic, symmetric Eyes: EOMI, no lid lag, anicteric sclera Cardiovascular: S1S2 reg, no murmur Lungs: CTA bilateral, no rhonchi, no rales , no accessory muscle use Ext: no gross muscle atrophy, no edema, no contractures Neuro: right-sided deficits, significant aphasia Psych: Awake and Alert, follows some commands Data Reviewed Today: Pertinent Labs: Blood glucose ranged between 146-194 Imaging: No new imaging Assessment and Plan: Large left MCA and small right parietal subacute CVA, possibly embolic Left ICA and common carotid occlusion Type 2 diabetes, with hyperglycemia History of hypertension Acute metabolic encephalopathy secondary to above, resolved Hyponatremia mild, hypovolemic, resolved Mild rhabdomyolysis, resolved Leukocytosis, likely secondary to dehydration, resolved Urinary tract infection, resolved Acute urinary retention, resolved Acute kidney injury, resolved Constipation Isolated episode of Febrile -Amlodipine 10 mg daily, BP better controlled now -Continue aspirin, Plavix, statin -Levemir 15 units daily, sliding scale insulin -Continue Flomax -MiraLAX -Patient has a right lateral foot ulceration, no significant induration or drainage, unlikely to be source of infection -Urinalysis does show moderate leukocyte esterase, urine culture growing group D enterococcus, we'll hold off treatment for now ,patient has been afebrile since that one isolated episode -Blood cultures negative growth to date DVT ppx: Subcu heparin Code status: Full code Anticipated discharge place: Placement/guardianship Anticipated discharge time: Pending bed availability Objective - Vital Signs Vital signs: Vital Signs Temp 97.9 F 11/18/22 07:44 Pulse 63 11/18/22 07:44 Resp 16 11/18/22 07:44 BP 118/74 11/18/22 07:44 Pulse Ox 93 L 11/18/22 07:44 FiO2 21 11/05/22 09:26 Intake & Output 11/17/22 11/18/22 11/18/22 18:59 06:59 18:59 Intake Total 250 Balance 250 Intake: Oral 250 Other: Voiding Method Incontinent External Catheter # Voids 5 2 - Labs CBC & Chem 7: 11/12/22 05:42 11/12/22 05:42 Labs: Abnormal Lab Results - Last 24 Hours (Table) 11/17/22 11/17/22 11/18/22 Range/Units 16:35 20:17 05:52 POC Glucose (mg/dL) 146 H 193 H 151 H (70-110) mg/dL Microbiology - Last 24 Hours (Table) 11/12/22 10:53 Blood Culture - Final Blood 11/12/22 10:53 Blood Culture - Final Blood
[2022-11-18 12:28] LABS: Glucose,Whole Blood 164 mg/dL (70-110)
[2022-11-18 17:02] LABS: Glucose,Whole Blood 138 mg/dL (70-110)
[2022-11-18 19:42] LABS: Glucose,Whole Blood 210 mg/dL (70-110)
[2022-11-18] MEDS: ATORVASTATIN 80 MG TAB PO SCH (20:48)
[2022-11-19 05:52] LABS: Glucose,Whole Blood 134 mg/dL (70-110)
[2022-11-19] MEDS: droNABinol 2.5 MG CAP PO SCH ×2 (06:14→17:03)
[2022-11-19] MEDS: INSULIN ASPART (NovoLOG) 100 UNIT/ML VIAL SQ SCH ×4 (06:14→20:43)
[2022-11-19] MEDS: INSULIN DETEMIR (LEVEMIR) 100 UNIT/ML SYR SQ SCH (06:14)
[2022-11-19] MEDS: HEPARIN SODIUM,PORCINE 5,000 UNIT/ML 1 ML VIAL SQ SCH ×3 (10:05→22:54)
[2022-11-19] MEDS: polyethylene glycoL 3350 17 GM POWD.PACK PO SCH (10:05)
[2022-11-19] MEDS: ASPIRIN 81 MG PO SCH (10:06)
[2022-11-19] MEDS: amLODIPine 10 MG TAB PO SCH (10:06)
[2022-11-19] MEDS: TAMSULOSIN 0.4 MG CAP.ER.24H PO SCH (10:06)
[2022-11-19] MEDS: FAMOTIDINE 20 MG TAB PO SCH ×2 (10:06→19:42)
[2022-11-19] MEDS: CLOPIDOGREL 75 MG TAB PO SCH (10:06)
[2022-11-19] MEDS: SODIUM BICARBONATE TAB 650 MG TAB PO SCH ×3 (10:06→19:42)
--- NOTE | 2022-11-19 10:48 | P.PN ---
Subjective Progress Note Date: 11/19/22 Hospital Course: 62-year-old male with history of hypertension, dyslipidemia, diabetes found unresponsive [place] a local truck stop. Per report, patient was not moving for the last few days. Upon ED evaluation, found to have a large left-sided MCA subacute stroke. Laboratory workup also showed leukocytosis, elevated BUN, and elevated CK. Patient admitted for further stroke workup and started on fluids. Neurology consulted. Urine indicative of a possible urinary tract infection, started on IV ceftriaxone. Echo report reviewed, shows normal LV size and systolic function, no filling defects to indicate thrombus. Repeat head CT does not show any hemorrhagic transformation, midline shift, hydrocephalus, or herniation. EEG shows no epileptiform activity. Patient had periods of h ypotension, developed acute kidney injury, resolved with IV fluids. BP meds held. Renal function improved. Oral intake has also improved. Had isolated episode of fever. Infectious work up mostly unremarkable. Pending placement. Subjective: Patient seen and examined at bedside. No acute events overnight. No more fevers. Pertinent positives and negatives as discussed above, a complete review of systems was performed and all other systems are negative. Vitals Signs Reviewed. General: nontoxic, no distress, appears at stated age Derm: warm, dry, right lateral foot small ulcer with scab Head: atraumatic, normocephalic, symmetric Eyes: EOMI, no lid lag, anicteric sclera Cardiovascular: S1S2 reg, no murmur Lungs: CTA bilateral, no rhonchi, no rales , no accessory muscle use Ext: no gross muscle atrophy, no edema, no contractures Neuro: right-sided deficits, significant aphasia Psych: Awake and Alert, follows some commands Data Reviewed Today: Pertinent Labs: Blood glucose ranged between 134-210 Imaging: No new imaging Assessment and Plan: Large left MCA and small right parietal subacute CVA, possibly embolic Left ICA and common carotid occlusion Type 2 diabetes, with hyperglycemia History of hypertension Acute metabolic encephalopathy secondary to above, resolved Hyponatremia mild, hypovolemic, resolved Mild rhabdomyolysis, resolved Leukocytosis, likely secondary to dehydration, resolved Urinary tract infection, resolved Acute urinary retention, resolved Acute kidney injury, resolved Constipation Isolated episode of Febrile -Amlodipine 10 mg daily, BP better controlled now -Continue aspirin, Plavix, statin -Levemir 15 units daily, sliding scale insulin -Continue Flomax -MiraLAX -Patient has a right lateral foot ulceration, no significant induration or dr diya, unlikely to be source of infection -Urinalysis does show moderate leukocyte esterase, urine culture growing group D enterococcus, we'll hold off treatment for now ,patient has been afebrile since that one isolated episode -Blood cultures negative growth to date DVT ppx: Subcu heparin Code status: Full code Anticipated discharge place: Placement/guardianship Anticipated discharge time: Pending bed availability Objective - Vital Signs Vital signs: Vital Signs Temp 97.8 F 11/19/22 07:29 Pulse 63 11/19/22 00:15 Resp 16 11/19/22 07:29 BP 119/68 11/19/22 07:29 Pulse Ox 97 11/19/22 08:51 FiO2 21 11/05/22 09:26 Intake & Output 11/18/22 11/19/22 11/19/22 18:59 06:59 18:59 Intake Total 237 Output Total 525 Balance -525 237 Weight 90.718 kg Intake: Oral 237 Output: Urine 525 Other: Voiding Method External Catheter External Catheter External Catheter - Labs CBC & Chem 7: 11/12/22 05:42 11/12/22 05:42 Labs: Abnormal Lab Results - Last 24 Hours (Table) 11/18/22 11/18/22 11/18/22 Range/Units 12:14 17:00 19:41 POC Glucose (mg/dL) 164 H 138 H 210 H (70-110) mg/dL 11/19/22 Range/Units 05:51 POC Glucose (mg/dL) 134 H (70-110) mg/dL
[2022-11-19 11:21] LABS: Glucose,Whole Blood 229 mg/dL (70-110)
[2022-11-19 16:26] LABS: Glucose,Whole Blood 160 mg/dL (70-110)
[2022-11-19] MEDS: ATORVASTATIN 80 MG TAB PO SCH (19:42)
[2022-11-19 20:26] LABS: Glucose,Whole Blood 168 mg/dL (70-110)
[2022-11-19] MEDS: ACETAMINOPHEN TAB 325 MG TAB PO PRN (20:43)
[2022-11-20 06:35] LABS: Glucose,Whole Blood 166 mg/dL (70-110)
[2022-11-20] MEDS: INSULIN DETEMIR (LEVEMIR) 100 UNIT/ML SYR SQ SCH (06:43)
[2022-11-20] MEDS: INSULIN ASPART (NovoLOG) 100 UNIT/ML VIAL SQ SCH ×4 (06:43→20:23)
[2022-11-20] MEDS: droNABinol 2.5 MG CAP PO SCH ×2 (06:44→18:25)
[2022-11-20] MEDS: FAMOTIDINE 20 MG TAB PO SCH ×2 (08:52→20:23)
[2022-11-20] MEDS: polyethylene glycoL 3350 17 GM POWD.PACK PO SCH (08:52)
[2022-11-20] MEDS: ASPIRIN 81 MG PO SCH (08:52)
[2022-11-20] MEDS: TAMSULOSIN 0.4 MG CAP.ER.24H PO SCH (08:52)
[2022-11-20] MEDS: SODIUM BICARBONATE TAB 650 MG TAB PO SCH ×3 (08:52→20:23)
[2022-11-20] MEDS: amLODIPine 10 MG TAB PO SCH (08:52)
[2022-11-20] MEDS: CLOPIDOGREL 75 MG TAB PO SCH (08:52)
[2022-11-20] MEDS: HEPARIN SODIUM,PORCINE 5,000 UNIT/ML 1 ML VIAL SQ SCH ×3 (08:52→23:35)
[2022-11-20 10:03] LABS: HCT 43.5 % (39.0-53.0); MCH 28.8 pg (25.0-35.0); MCHC 32.1 g/dL (31.0-37.0); MCV 89.6 fL (80.0-100.0); Mean Platelet Volume 7.2; Platelet Count 357 k/uL (150-450); RBC 4.85 m/uL (4.30-5.90); WBC 12.8 k/uL (3.8-10.6)
[2022-11-20 10:16] LABS: ALT 44 U/L (4-49); AST 26 U/L (17-59); African American GFR (CKD) >90 (>60 ml/min/1.73 sqM); Albumin 3.7 g/dL (3.5-5.0); Albumin/Globulin Ratio 1.2; Alkaline Phosphatase 92 U/L (38-126); Anion Gap 8 mmol/L; Blood Urea Nitrogen 31 mg/dL (9-20); Calcium 9.9 mg/dL (8.4-10.2); Carbon Dioxide 23 mmol/L (22-30); Chloride 105 mmol/L (98-107); Globulin 3.2 g/dL; Glucose 174 mg/dL (74-99); Magnesium 1.7 mg/dL (1.6-2.3); Non-African American GFR(CKD) >90 (>60 ml/min/1.73 sqM); Potassium 4.7 mmol/L (3.5-5.1); Sodium 136 mmol/L (137-145); Total Bilirubin 0.6 mg/dL (0.2-1.3); Total Protein 6.9 g/dL (6.3-8.2)
[2022-11-20 11:02] LABS: Glucose,Whole Blood 199 mg/dL (70-110)
[2022-11-20 16:43] LABS: Glucose,Whole Blood 150 mg/dL (70-110)
[2022-11-20] MEDS ORDERED: MAGNESIUM SULFATE-D5W PMX 1 GM in DEXTROSE/WATER 1 100ML.BAG IVPB SCH (17:30)
[2022-11-20] MEDS ORDERED: MAGNESIUM CITRATE 296 ML BOTTLE PO ONE (17:31)
[2022-11-20] MEDS ORDERED: MAGNESIUM OXIDE 400 MG TAB PO STA (17:37)
--- NOTE | 2022-11-20 17:49 | P.PN ---
Subjective Progress Note Date: 11/20/22 Hospital course: Patient is a very pleasant 62-year-old male with history of hypertension, dyslipidemia, diabetes found unresponsive at a local truck stop on 10/11/22. Per report, patient was not moving for a few days and please/EMS were called to investigate. Patient was brought to the emergency department for evaluation. He underwent a CT brain and was found to have a large left-sided MCA subacute stroke. Laboratory workup also showed leukocytosis, elevated BUN, and elevated CK. Patient was admitted under our services for further stroke workup and star kenny on IV fluids. Neurology was consulted. Urine indicative of a possible urinary tract infection, started on IV ceftriaxone. Echo report reviewed, revealed normal LV size and systolic function with an EF of 55-60%, no filling defects to indicate thrombus. Repeat head CT on 10/13/22 did not show any hemorrhagic transformation, midline shift, hydrocephalus, or herniation. EEG reported no epileptiform activity. Carotid Dopplers revealing occlusion of left common carotid artery and left ICA. Patient again underwent CT head on 10/18/22 which revealed evolution of a large left middle cerebral artery territory infarct and computed tomography scan again completed on 10/25/22 showing evolution of large MCA territory infarct and a remote right parietal region injury. Patient had periods of hypotension, developed acute kidney injury and was treated with IV fluid hydration. He underwent a renal ultrasound showing cortical medullary differentiation maintained with no evidence for obstructive uropathy.. BP meds were held and after IV fluid hydration, Renal function improved. Oral intake has also improved. Patient had Isolated episode of fever and this was believed to be to secondary to atelectasis. Patient encouraged to use incentive spirometry as infectious workup negative. patient has been followed by neurology, physical and occupational therapy, and case management/social work. Per social work, Full guardianship hearing is scheduled next week as discharge plan and placement is pending guardianship. Patient will require rehab upon discharge as he continues to have right-sided flaccidity/weakness and moderate to severe aphasia. Physical exam: Patient seen and fully evaluated at bedside this morning. Patient is able to follow some commands and answer yes or no questions but has noted moderate to severe aphasia and continued right-sided weakness/flaccidity. Vitals Signs Reviewed. General: nontoxic, no distress, appears at stated age Derm: warm, dry, right lateral foot small ulcer with scab Head: atraumatic, normocephalic, symmetric Eyes: EOMI, no lid lag, anicteric sclera Cardiovascular: S1S2 reg, no murmur Lungs: CTA bilateral, no rhonchi, no rales , no accessory muscle use Ext: no gross muscle atrophy, no edema, no contractures Neuro: right-sided deficits, significant aphasia Psych: Awake and Alert, follows some commands Assessment and Plan: Large left MCA and small right parietal subacute CVA, possibly embolic Left ICA and common carotid occlusion Type 2 diabetes, with hyperglycemia. Hemoglobin A1c 8.0%. Hypertension Acute metabolic encephalopathy secondary to above, resolved Hyponatremia mild, hypovolemic, resolvedwith IV fluid hydration Mild rhabdomyolysis, resolved with IV fluid hydration Leukocytosis, reactive Urinary tract infection, resolved Acute urinary retention, resolved Acute kidney injury, resolved Constipation, resolved Isolated episode of Febrile temp, resolved Enterococcus faecalis UTI, completed 5 day course of IV antibiotics with Ro cephin on 10/16/22 Hypomagnesemia -Continue daily medication regimen with aspirin 81 mg, amlodipine 10 mg daily, atorvastatin 80 mg nightly, Plavix 75 mg daily, Pepcid 20 mg every 12 hours, and Flomax 0.4 mg nightly. -Continue glycemic protocol with NovoLog sliding scale and Levemir 15 units daily. blood glucose levels ranging from 134-229 over the past 24 hours. -Continue MiraLAX 17 g daily -Patient has a right lateral foot ulceration, no significant induration or drainage. Continue wound care and offloading off of heel (pt has air boots/heel protectors) -Physical and occupational therapy following. -Discussed with [facility] social contact worker, Full guardianship hearing is scheduled next week as discharge plan and placement is pending guardianship. -Patient will require rehab upon discharge as he continues to have right-sided flaccidity/weakness and moderate to severe aphasia. Data Reviewed: -Labs completed and reviewed. CBC showing mild leukocytosis with WBC count of 0.8. BMP showing mild prerenal azotemia with BUN of 31 otherwise normal findings. Magnesium slightly low 1.7 and orders placed for replacement with Mag-Ox 400 mg by mouth 1 dose -Vital signs reviewed. Blood pressure 134/77, heart rate 64, respiratory rate 18, temp 98.1F, SpO2 of 92% on room air. DVT ppx: Subcu heparin Code status: Full code Anticipated discharge place: Placement/guardianship Anticipated discharge time: Pending bed availability Patient was seen independently by Nurse Pracitioner. This document was prepared using [employer] dictation software. Please allow for errors in regional administrative assistant, while rare they do occur. Objective - Vital Signs Vital signs: Vital Signs Temp 98.1 F 11/20/22 08:13 Pulse 64 11/20/22 08:13 Resp 18 11/20/22 08:13 BP 134/77 11/20/22 08:13 Pulse Ox 92 L 11/20/22 08:13 FiO2 21 11/05/22 09:26 Intake & Output 11/19/22 11/20/22 11/20/22 18:59 06:59 18:59 Intake Total 240 Balance 240 Intake: Oral 240 Other: Voiding Method External Catheter Diaper Incontinent # Voids 2 1 # Bowel Movements 1 - Labs CBC & Chem 7: 11/20/22 09:42 11/20/22 09:42 Labs: Abnormal Lab Results - Last 24 Hours (Table) 11/19/22 11/19/22 11/19/22 Range/Units 11:18 16:25 20:24 POC Glucose (mg/dL) 229 H 160 H 168 H (70-110) mg/dL 11/20/22 Range/Units 06:33 POC Glucose (mg/dL) 166 H (70-110) mg/dL
[2022-11-20 20:20] LABS: Glucose,Whole Blood 190 mg/dL (70-110)
[2022-11-20] MEDS: ATORVASTATIN 80 MG TAB PO SCH (20:23)
[2022-11-21 06:29] LABS: Glucose,Whole Blood 149 mg/dL (70-110)
[2022-11-21] MEDS: INSULIN ASPART (NovoLOG) 100 UNIT/ML VIAL SQ SCH ×4 (06:32→20:54)
[2022-11-21] MEDS: droNABinol 2.5 MG CAP PO SCH ×2 (06:36→17:25)
[2022-11-21] MEDS: INSULIN DETEMIR (LEVEMIR) 100 UNIT/ML SYR SQ SCH (06:36)
[2022-11-21] MEDS: amLODIPine 10 MG TAB PO SCH (07:49)
[2022-11-21] MEDS: ASPIRIN 81 MG PO SCH (07:49)
[2022-11-21] MEDS: CLOPIDOGREL 75 MG TAB PO SCH (07:49)
[2022-11-21] MEDS: HEPARIN SODIUM,PORCINE 5,000 UNIT/ML 1 ML VIAL SQ SCH ×3 (07:49→23:07)
[2022-11-21] MEDS: SODIUM BICARBONATE TAB 650 MG TAB PO SCH ×3 (07:49→20:54)
[2022-11-21] MEDS: TAMSULOSIN 0.4 MG CAP.ER.24H PO SCH (07:49)
[2022-11-21] MEDS: FAMOTIDINE 20 MG TAB PO SCH ×2 (07:50→20:54)
[2022-11-21] MEDS: polyethylene glycoL 3350 17 GM POWD.PACK PO SCH (07:50)
[2022-11-21] MEDS ORDERED: bisacodyL 10 MG SUPP RECTAL PRN (10:42)
[2022-11-21 11:28] LABS: Glucose,Whole Blood 199 mg/dL (70-110)
--- NOTE | 2022-11-21 15:22 | P.PN ---
Subjective Progress Note Date: 11/21/22 Hospital course: Patient is a very pleasant 62-year-old male with history of hypertension, dyslipidemia, diabetes found unresponsive at a local truck stop on 10/11/22. Per report, patient was not moving for a few days and please/EMS were called to investigate. Patient was brought to the emergency department for evaluation. He underwent a CT brain and was found to have a large left-sided MCA subacute stroke. Laboratory workup also showed leukocytosis, elevated BUN, and elevated CK. Patient was admitted under our services for further stroke workup and star kenny on IV fluids. Neurology was consulted. Urine indicative of a possible urinary tract infection, started on IV ceftriaxone. Echo report reviewed, revealed normal LV size and systolic function with an EF of 55-60%, no filling defects to indicate thrombus. Repeat head CT on 10/13/22 did not show any hemorrhagic transformation, midline shift, hydrocephalus, or herniation. EEG reported no epileptiform activity. Carotid Dopplers revealing occlusion of left common carotid artery and left ICA. Patient again underwent CT head on 10/18/22 which revealed evolution of a large left middle cerebral artery territory infarct and computed tomography scan again completed on 10/25/22 showing evolution of large MCA territory infarct and a remote right parietal region injury. Patient had periods of hypotension, developed acute kidney injury and was treated with IV fluid hydration. He underwent a renal ultrasound showing cortical medullary differentiation maintained with no evidence for obstructive uropathy.. BP meds were held and after IV fluid hydration, Renal function improved. Oral intake has also improved. Patient had Isolated episode of fever and this was believed to be to secondary to atelectasis. Patient encouraged to use incentive spirometry as infectious workup negative. patient has been followed by neurology, physical and occupational therapy, and case management/social work. Per social work, Full guardianship hearing is scheduled next week as discharge plan and placement is pending guardianship. Patient will require rehab upon discharge as he continues to have right-sided flaccidity/weakness and moderate to severe aphasia. Physical exam: Patient seen and fully evaluated at bedside this morning. Vitals Signs Reviewed. General: nontoxic, no distress, appears at stated age Derm: warm, dry, right lateral foot small ulcer with scab Head: atraumatic, normocephalic, symmetric Eyes: EOMI, no lid lag, anicteric sclera Cardiovascular: S1S2 reg, no murmur Lungs: CTA bilateral, no rhonchi, no rales , no accessory muscle use Ext: no gross muscle atrophy, no edema, no contractures Neuro: right-sided deficits, significant aphasia Psych: Awake and Alert, follows some commands Assessment and Plan: Large left MCA and small right parietal subacute CVA, Left ICA and common carotid occlusion Type 2 diabetes, with hyperglycemia. Hemoglobin A1c 8.0%. Hypertension Acute metabolic encephalopathy secondary to above, resolved Hyponatremia mild, hypovolemic, resolvedwith IV fluid hydration Mild rhabdomyolysis, resolved with IV fluid hydration Leukocytosis, reactive Urinary tract infection, resolved Acute urinary retention, resolved Acute kidney injury, resolved Constipation, resolved Isolated episode of Febrile temp, resolved Enterococcus faecalis UTI, completed 5 day course of IV antibiotics with Rocephin on 10/16/22 Hypomagnesemia, replaced -Continue daily medication regimen with aspirin 81 mg, amlodipine 10 mg daily, atorvastatin 80 mg nightly, Plavix 75 mg daily, Pepcid 20 mg every 12 hours, and Flomax 0.4 mg nightly. -Continue glycemic protocol with NovoLog sliding scale and Levemir 15 units daily. blood glucose levels ranging from 134-229 over the past 24 hours. -Continue MiraLAX 17 g daily -Patient has a right lateral foot ulceration, no significant induration or drainage. Continue wound care and offloading off of heel (pt has air boots/heel protectors) -Physical and occupational therapy following. -Discussed with [facility] social service technician, Full guardianship hearing is scheduled next week as discharge plan and placement is pending guardianship. -Patient will require rehab upon discharge as he continues to have right-sided flaccidity/weakness and moderate to severe aphasia. Data Reviewed: -Vital signs reviewed. Blood pressure 113/75, heart rate 68, respiratory rate 18, temp 97.7F, SpO2 of 97% on room air. DVT ppx: Subcu heparin Code status: Full code Anticipated discharge place: Placement/guardianship Anticipated discharge time: Pending bed availability Patient was seen independently by Nurse Pracitioner. This document was prepared using [employer] dictation software. Please allow for errors in birthing nurse, while rare they do occur. Objective - Vital Signs Vital signs: Vital Signs Temp 97.7 F 11/21/22 07:33 Pulse 68 11/21/22 07:33 Resp 18 11/21/22 07:33 BP 113/75 11/21/22 07:33 Pulse Ox 97 11/21/22 07:33 FiO2 21 11/05/22 09:26 Intake & Output 11/20/22 11/21/22 11/21/22 18:59 06:59 18:59 Other: Voiding Method Diaper Incontinent # Voids 1 2 - Labs CBC & Chem 7: 11/20/22 09:42 11/20/22 09:42 Labs: Abnormal Lab Results - Last 24 Hours (Table) 11/20/22 11/20/22 11/20/22 Range/Units 09:42 09:42 10:56 WBC 12.8 H (3.8-10.6) k/uL Sodium 136 L (137-145) mmol/L BUN 31 H (9-20) mg/dL Glucose 174 H (74-99) mg/dL POC Glucose (mg/dL) 199 H (70-110) mg/dL 11/20/22 11/20/22 11/21/22 Range/Units 16:42 20:18 06:28 WBC (3.8-10.6) k/uL Sodium (137-145) mmol/L BUN (9-20) mg/dL Glucose (74-99) mg/dL POC Glucose (mg/dL) 150 H 190 H 149 H (70-110) mg/dL
[2022-11-21 16:35] LABS: Glucose,Whole Blood 190 mg/dL (70-110)
[2022-11-21 20:39] LABS: Glucose,Whole Blood 193 mg/dL (70-110)
[2022-11-21] MEDS: ATORVASTATIN 80 MG TAB PO SCH (20:54)
[2022-11-22] MEDS: INSULIN ASPART (NovoLOG) 100 UNIT/ML VIAL SQ SCH ×4 (06:23→21:55)
[2022-11-22 06:24] LABS: Glucose,Whole Blood 150 mg/dL (70-110)
[2022-11-22] MEDS: INSULIN DETEMIR (LEVEMIR) 100 UNIT/ML SYR SQ SCH (06:29)
[2022-11-22] MEDS: droNABinol 2.5 MG CAP PO SCH ×2 (06:29→17:15)
[2022-11-22] MEDS: polyethylene glycoL 3350 17 GM POWD.PACK PO SCH (08:49)
[2022-11-22] MEDS: CLOPIDOGREL 75 MG TAB PO SCH (08:49)
[2022-11-22] MEDS: HEPARIN SODIUM,PORCINE 5,000 UNIT/ML 1 ML VIAL SQ SCH ×2 (08:49→16:56)
[2022-11-22] MEDS: amLODIPine 10 MG TAB PO SCH (08:49)
[2022-11-22] MEDS: ASPIRIN 81 MG PO SCH (08:49)
[2022-11-22] MEDS: FAMOTIDINE 20 MG TAB PO SCH ×2 (08:49→21:51)
[2022-11-22] MEDS: TAMSULOSIN 0.4 MG CAP.ER.24H PO SCH (08:49)
[2022-11-22] MEDS: SODIUM BICARBONATE TAB 650 MG TAB PO SCH ×3 (08:49→21:51)
[2022-11-22 11:25] LABS: Glucose,Whole Blood 281 mg/dL (70-110)
--- NOTE | 2022-11-22 15:37 | P.PN ---
Subjective Progress Note Date: 11/22/22 Hospital course: Patient is a very pleasant 62-year-old male with history of hypertension, dyslipidemia, diabetes found unresponsive [place] stop on 10/11/22. Per report, patient was not moving for a few days and please/EMS were called to investigate. Patient was brought to the emergency department for evaluation. He underwent a CT brain and was found to have a large left-sided MCA subacute stroke. Laboratory workup also showed leukocytosis, elevated BUN, and elevated CK. Patient was admitted under our services for further stroke workup and star kenny on IV fluids. Neurology was consulted. Urine indicative of a possible urinary tract infection, started on IV ceftriaxone. Echo report reviewed, revealed normal LV size and systolic function with an EF of 55-60%, no filling defects to indicate thrombus. Repeat head CT on 10/13/22 did not show any hemorrhagic transformation, midline shift, hydrocephalus, or herniation. EEG reported no epileptiform activity. Carotid Dopplers revealing occlusion of left common carotid artery and left ICA. Patient again underwent CT head on 10/18/22 which revealed evolution of a large left middle cerebral artery territory infarct and computed tomography scan again completed on 10/25/22 showing evolution of large MCA territory infarct and a remote right parietal region injury. Patient had periods of hypotension, developed acute kidney injury and was treated with IV fluid hydration. He underwent a renal ultrasound showing cortical medullary differentiation maintained with no evidence for obstructive uropathy.. BP meds were held and after IV fluid hydration, Renal function improved. Oral intake has also improved. Patient had Isolated episode of fever and this was believed to be to secondary to atelectasis. Patient encouraged to use incentive spirometry as infectious workup negative. patient has been followed by neurology, physical and occupational therapy, and case management/social work. Per social work, Full guardianship hearing is scheduled next week as discharge plan and placement is pending guardianship. Patient will require rehab upon discharge as he continues to have right-sided flaccidity/weakness and moderate to severe aphasia. Physical exam: Patient seen and fully evaluated at bedside this morning. He denies having any pain or complaints at this time. Patient continues to await court case for guardianship and placement in rehabilitation facility. Vitals Signs Reviewed. 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 Hemoglobin A1c 8.0%. Hypertension Acute metabolic encephalopathy secondary to above, resolved Hyponatremia mild, hypovolemic, resolvedwith IV fluid hydration Mild rhabdomyolysis, resolved with IV fluid hydration Leukocytosis, reactive Urinary tract infection, resolved Acute urinary retention, resolved Acute kidney injury, resolved Constipation, resolved Isolated episode of Febrile temp, resolved Enterococcus faecalis UTI, completed 5 day course of IV antibiotics with Rocephin on 10/16/22 Hypomagnesemia, replaced -Continue daily medication regimen with aspirin 81 mg, amlodipine 10 mg daily, atorvastatin 80 mg nightly, Plavix 75 mg daily, Pepcid 20 mg every 12 hours, and Flomax 0.4 mg nightly. -Continue glycemic protocol with NovoLog sliding scale and Levemir 15 units daily. blood glucose levels ranging from 134-229 over the past 24 hours. -Continue MiraLAX 17 g daily -Patient has a right lateral foot ulceration, no significant induration or drainage. Continue wound care and offloading off of heel (pt has air boots/heel protectors) -Physical and occupational therapy following. -Discussed with [employer] social [employer] teacher, Full guardianship hearing is scheduled next week as discharge plan and placement is pending guardianship. -Patient requires rehab upon discharge as he continues to have right-sided flaccidity/weakness and moderate to severe aphasia. Data Reviewed: -Vital signs reviewed. Blood pressure 129/74, heart rate 60, respiratory rate 19, temp 96.7F, and SpO2 of 98% on room air. DVT ppx: Subcu heparin Code status: Full code Anticipated discharge place: Placement/guardianship Anticipated discharge time: Pending bed availability Patient was seen independently by Nurse Pracitioner. This document was prepared using [employer] dictation software. Please allow for errors in cruise director, while rare they do occur. Objective - Vital Signs Vital signs: Vital Signs Temp 98.7 F 11/21/22 19:48 Pulse 62 11/22/22 01:40 Resp 18 11/21/22 20:00 BP 118/71 11/22/22 01:40 Pulse Ox 98 11/22/22 01:40 FiO2 21 11/05/22 09:26 Intake & Output 11/21/22 11/22/22 11/22/22 18:59 06:59 18:59 Other: Voiding Method Diaper Diaper # Voids 3 2 - Labs CBC & Chem 7: 11/20/22 09:42 11/20/22 09:42 Labs: Abnormal Lab Results - Last 24 Hours (Table) 11/21/22 11/21/22 11/21/22 Range/Units 11:26 16:34 20:37 POC Glucose (mg/dL) 199 H 190 H 193 H (70-110) mg/dL 11/22/22 Range/Units 06:22 POC Glucose (mg/dL) 150 H (70-110) mg/dL
[2022-11-22 16:35] LABS: Glucose,Whole Blood 303 mg/dL (70-110)
[2022-11-22 20:54] LABS: Glucose,Whole Blood 327 mg/dL (70-110)
[2022-11-22] MEDS: ATORVASTATIN 80 MG TAB PO SCH (21:51)
[2022-11-23] MEDS: HEPARIN SODIUM,PORCINE 5,000 UNIT/ML 1 ML VIAL SQ SCH ×3 (00:41→17:51)
[2022-11-23 05:50] LABS: Glucose,Whole Blood 118 mg/dL (70-110)
[2022-11-23] MEDS: INSULIN ASPART (NovoLOG) 100 UNIT/ML VIAL SQ SCH ×4 (06:05→21:39)
[2022-11-23] MEDS: droNABinol 2.5 MG CAP PO SCH ×2 (06:44→17:51)
[2022-11-23] MEDS: amLODIPine 10 MG TAB PO SCH (07:46)
[2022-11-23] MEDS: polyethylene glycoL 3350 17 GM POWD.PACK PO SCH (07:46)
[2022-11-23] MEDS: FAMOTIDINE 20 MG TAB PO SCH ×2 (07:46→21:34)
[2022-11-23] MEDS: SODIUM BICARBONATE TAB 650 MG TAB PO SCH ×3 (07:46→21:34)
[2022-11-23] MEDS: CLOPIDOGREL 75 MG TAB PO SCH (07:46)
[2022-11-23] MEDS: INSULIN DETEMIR (LEVEMIR) 100 UNIT/ML SYR SQ SCH (07:46)
[2022-11-23] MEDS: TAMSULOSIN 0.4 MG CAP.ER.24H PO SCH (07:46)
[2022-11-23] MEDS: ASPIRIN 81 MG PO SCH (07:46)
[2022-11-23 11:24] LABS: Glucose,Whole Blood 245 mg/dL (70-110)
--- NOTE | 2022-11-23 15:40 | P.PN ---
Subjective Progress Note Date: 11/23/22 Hospital course: Patient is a very pleasant 62-year-old male with history of hypertension, dyslipidemia, diabetes found unresponsive at a local truck stop on 10/11/22. Per report, patient was not moving for a few days and please/EMS were called to investigate. Patient was brought to the emergency department for evaluation. He underwent a CT brain and was found to have a large left-sided MCA subacute stroke. Laboratory workup also showed leukocytosis, elevated BUN, and elevated CK. Patient was admitted under our services for further stroke workup and star kenny on IV fluids. Neurology was consulted. Urine indicative of a possible urinary tract infection, started on IV ceftriaxone. Echo report reviewed, revealed normal LV size and systolic function with an EF of 55-60%, no filling defects to indicate thrombus. Repeat head CT on 10/13/22 did not show any hemorrhagic transformation, midline shift, hydrocephalus, or herniation. EEG reported no epileptiform activity. Carotid Dopplers revealing occlusion of left common carotid artery and left ICA. Patient again underwent CT head on 10/18/22 which revealed evolution of a large left middle cerebral artery territory infarct and computed tomography scan again completed on 10/25/22 showing evolution of large MCA territory infarct and a remote right parietal region injury. Patient had periods of hypotension, developed acute kidney injury and was treated with IV fluid hydration. He underwent a renal ultrasound showing cortical medullary differentiation maintained with no evidence for obstructive uropathy.. BP meds were held and after IV fluid hydration, Renal function improved. Oral intake has also improved. Patient had Isolated episode of fever and this was believed to be to secondary to atelectasis. Patient encouraged to use incentive spirometry as infectious workup negative. patient has been followed by neurology, physical and occupational therapy, and case management/social work. Per social work, Full guardianship hearing is scheduled this week as discharge plan and placement is pending guardianship. Patient will require rehab upon discharge as he continues to have right-sided flaccidity/weakness and moderate to severe aphasia. Physical exam: Patient seen and fully evaluated at bedside this morning. He denies having any pain or complaints at this time. Patient continues to await court case for guardianship scheduled this week and placement in rehabilitation facility. Vitals Signs Reviewed. General: nontoxic, no distress, appears at stated age Derm: warm, dry, right lateral foot small ulcer with scab Head: atraumatic, normocephalic, symmetric Eyes: EOMI, no lid lag, anicteric sclera Cardiovascular: S1S2 reg, no murmur Lungs: CTA bilateral, no rhonchi, no rales , no accessory muscle use Ext: no gross muscle atrophy, no edema, no contractures Neuro: right-sided deficits, significant aphasia Psych: Awake and Alert, follows some commands Assessment and Plan: Large left MCA and small right parietal subacute CVA, unlikely to be embolic Left ICA and common carotid occlusion Type 2 diabetes, with hyperglycemia. Hemoglobin A1c 8.0%. Hypertension Acute metabolic encephalopathy secondary to above, resolved Hyponatremia mild, hypovolemic, resolvedwith IV fluid hydration Mild rhabdomyolysis, resolved with IV fluid hydration Leukocytosis, reactive Urinary tract infection, resolved Acute urinary retention, resolved Acute kidney injury, resolved Constipation, resolved Isolated episode of Febrile temp, resolved Enterococcus faecalis UTI, completed 5 day course of IV antibiotics with Rocephin on 10/16/22 Hypomagnesemia, replaced -Continue daily medication regimen with aspirin 81 mg, amlodipine 10 mg daily, atorvastatin 80 mg nightly, Plavix 75 mg daily, Pepcid 20 mg every 12 hours, and Flomax 0.4 mg nightly. -Continue glycemic protocol with NovoLog sliding scale and Levemir 15 units daily. blood glucose levels ranging from 134-229 over the past 24 hours. -Continue MiraLAX 17 g daily -Patient has a right lateral foot ulceration, no significant induration or drainage. Continue wound care and offloading off of heel (pt has air boots/heel protectors) -Physical and occupational therapy following. -Discussed with [employer] social work professor, Full guardianship hearing is scheduled next week as discharge plan and placement is pending guardianship. -Patient requires rehab upon discharge as he continues to have right-sided flaccidity/weakness and moderate to severe aphasia. Data Reviewed: -Vital signs reviewed. Blood pressure 108/68, heart rate 82, respiratory rate 17, temp 98.4F, SpO2 of 98% on room air DVT ppx: Subcu heparin Code status: Full code Anticipated discharge place: Placement/guardianship Anticipated discharge time: Pending bed availability Patient was seen independently by Nurse Pracitioner. This document was prepared using [employer] dictation software. Please allow for errors in physical science teacher, while rare they do occur. Luis Cruz NP rendered care for this patient independently, reviewed the findings and plan as documented in the note above. I did not physically speak with or examine the patient on this date. Objective - Vital Signs Vital signs: Vital Signs Temp 98.4 F 11/23/22 07:04 Pulse 82 11/23/22 07:04 Resp 17 11/23/22 07:04 BP 108/68 11/23/22 07:04 Pulse Ox 98 11/23/22 07:04 FiO2 21 11/05/22 09:26 Intake & Output 11/22/22 11/23/22 11/23/22 18:59 06:59 18:59 Other: Voiding Method Diaper # Voids 5 1 # Bowel Movements 1 - Labs CBC & Chem 7: 11/20/22 09:42 11/20/22 09:42 Labs: Abnormal Lab Results - Last 24 Hours (Table) 11/22/22 11/22/22 11/22/22 Range/Units 11:24 16:33 20:52 POC Glucose (mg/dL) 281 H 303 H 327 H (70-110) mg/dL 11/23/22 Range/Units 05:48 POC Glucose (mg/dL) 118 H (70-110) mg/dL
[2022-11-23 17:03] LABS: Glucose,Whole Blood 157 mg/dL (70-110)
[2022-11-23 20:22] LABS: Glucose,Whole Blood 132 mg/dL (70-110)
[2022-11-23] MEDS: ATORVASTATIN 80 MG TAB PO SCH (21:34)
[2022-11-24] MEDS: HEPARIN SODIUM,PORCINE 5,000 UNIT/ML 1 ML VIAL SQ SCH ×3 (00:28→15:26)
[2022-11-24 05:35] LABS: Glucose,Whole Blood 120 mg/dL (70-110)
[2022-11-24] MEDS: INSULIN ASPART (NovoLOG) 100 UNIT/ML VIAL SQ SCH ×4 (06:18→20:57)
[2022-11-24] MEDS: INSULIN DETEMIR (LEVEMIR) 100 UNIT/ML SYR SQ SCH (06:30)
[2022-11-24] MEDS: droNABinol 2.5 MG CAP PO SCH ×2 (06:30→17:10)
[2022-11-24] MEDS: polyethylene glycoL 3350 17 GM POWD.PACK PO SCH (08:43)
[2022-11-24] MEDS: TAMSULOSIN 0.4 MG CAP.ER.24H PO SCH (08:43)
[2022-11-24] MEDS: amLODIPine 10 MG TAB PO SCH (08:43)
[2022-11-24] MEDS: CLOPIDOGREL 75 MG TAB PO SCH (08:43)
[2022-11-24] MEDS: ASPIRIN 81 MG PO SCH (08:43)
[2022-11-24] MEDS: FAMOTIDINE 20 MG TAB PO SCH ×2 (08:43→20:57)
[2022-11-24] MEDS: SODIUM BICARBONATE TAB 650 MG TAB PO SCH ×3 (08:43→20:56)
[2022-11-24 11:46] LABS: Glucose,Whole Blood 184 mg/dL (70-110)
--- NOTE | 2022-11-24 17:03 | P.PN ---
Subjective Progress Note Date: 11/24/22 Hospital course: Patient is a very pleasant 62-year-old male with history of hypertension, dyslipidemia, diabetes found unresponsive at a local truck stop on 10/11/22. Per report, patient was not moving for a few days and please/EMS were called to investigate. Patient was brought to the emergency department for evaluation. He underwent a CT brain and was found to have a large left-sided MCA subacute stroke. Laboratory workup also showed leukocytosis, elevated BUN, and elevated CK. Patient was admitted under our services for further stroke workup and star kenny on IV fluids. Neurology was consulted. Urine indicative of a possible urinary tract infection, started on IV ceftriaxone. Echo report reviewed, revealed normal LV size and systolic function with an EF of 55-60%, no filling defects to indicate thrombus. Repeat head CT on 10/13/22 did not show any hemorrhagic transformation, midline shift, hydrocephalus, or herniation. EEG reported no epileptiform activity. Carotid Dopplers revealing occlusion of left common carotid artery and left ICA. Patient again underwent CT head on 10/18/22 which revealed evolution of a large left middle cerebral artery territory infarct and computed tomography scan again completed on 10/25/22 showing evolution of large MCA territory infarct and a remote right parietal region injury. Patient had periods of hypotension, developed acute kidney injury and was treated with IV fluid hydration. He underwent a renal ultrasound showing cortical medullary differentiation maintained with no evidence for obstructive uropathy.. BP meds were held and after IV fluid hydration, Renal function improved. Oral intake has also improved. Patient had Isolated episode of fever and this was believed to be to secondary to atelectasis. Patient encouraged to use incentive spirometry as infectious workup negative. patient has been followed by neurology, physical and occupational therapy, and case management/social work. Per social work, Full guardianship hearing is scheduled this week as discharge plan and placement is pending guardianship. Patient will require rehab upon discharge as he continues to have right-sided flaccidity/weakness and moderate to severe aphasia. Physical exam: Patient seen and fully evaluated at bedside this morning. He denies having any pain or complaints at this time. Patient continues to await court case for guardianship scheduled this afternoon and placement in rehabilitation facility. Patient was able to slightly move right leg when assessed this morning. This is the first time patient has been able to move right lower extremity independently since initial assessment. Vitals Signs Reviewed. General: nontoxic, no distress, appears at stated age Derm: warm, dry, right lateral foot small ulcer with scab Head: atraumatic, normocephalic, symmetric Eyes: EOMI, no lid lag, anicteric sclera Cardiovascular: S1S2 reg, no murmur Lungs: CTA bilateral, no rhonchi, no rales , no accessory muscle use Ext: no gross muscle atrophy, no edema, no contractures Neuro: right-sided deficits, significant aphasia Psych: Awake and Alert, follows some commands Assessment and Plan: Large left MCA and small right parietal subacute CVA, unlikely to be embolic Left ICA and common carotid occlusion Type 2 diabetes, with hyperglycemia. Hemoglobin A1c 8.0%. Hypertension Acute metabolic encephalopathy secondary to above, resolved Hyponatremia mild, hypovolemic, resolvedwith IV fluid hydration Mild rhabdomyolysis, resolved with IV fluid hydration Leukocytosis, reactive Urinary tract infection, resolved Acute urinary retention, resolved Acute kidney injury, resolved Constipation, resolved Isolated episode of Febrile temp, resolved Enterococcus faecalis UTI, completed 5 day course of IV antibiotics with Rocephin on 10/16/22 Hypomagnesemia, replaced -Continue daily medication regimen with aspirin 81 mg, amlodipine 10 mg daily, atorvastatin 80 mg nightly, Plavix 75 mg daily, Pepcid 20 mg every 12 hours, and Flomax 0.4 mg nightly. -Continue glycemic protocol with NovoLog sliding scale and Levemir 15 units daily. blood glucose levels ranging from 134-229 over the past 24 hours. -Continue MiraLAX 17 g daily -Patient has a right lateral foot ulceration, no significant induration or drainage. Continue wound care and offloading off of heel (pt has air boots/heel protectors) -Physical and occupational therapy following. -Discussed with [employer] social scientist, Full guardianship hearing is scheduled next week as discharge plan and placement is pending guardianship. -Patient requires rehab upon discharge as he continues to have right-sided flaccidity/weakness and moderate to severe aphasia. Data Reviewed: -Vital signs reviewed. Blood pressure 116/70, heart rate 55, respiratory rate 18, temp 97.2F, SpO2 of 96% on room air. -Blood glucose levels ranging from 118-245 over the past 24 hours. DVT ppx: Subcu heparin Code status: Full code Anticipated discharge place: Placement/guardianship Anticipated discharge time: Pending bed availability Patient was seen independently by Nurse Pracitioner. This document was prepared using [employer] dictation software. Please allow for errors in furrier apprentice, while rare they do occur. Luis Cruz NP rendered care for this patient independently, reviewed the fi ndings and plan as documented in the note above. I did not physically speak with or examine the patient on this date. Objective - Vital Signs Vital signs: Vital Signs Temp 97.2 F L 11/24/22 07:13 Pulse 55 L 11/24/22 07:13 Resp 18 11/24/22 07:13 BP 116/70 11/24/22 07:13 Pulse Ox 96 11/24/22 07:13 FiO2 21 11/05/22 09:26 Intake & Output 11/23/22 11/24/22 11/24/22 18:59 06:59 18:59 Intake Total 1080 Balance 1080 Intake: Oral 1080 Other: # Voids 2 2 - Labs CBC & Chem 7: 11/20/22 09:42 11/20/22 09:42 Labs: Abnormal Lab Results - Last 24 Hours (Table) 11/23/22 11/23/22 11/23/22 Range/Units 11:17 17:00 20:21 POC Glucose (mg/dL) 245 H 157 H 132 H (70-110) mg/dL 11/24/22 Range/Units 05:34 POC Glucose (mg/dL) 120 H (70-110) mg/dL
[2022-11-24 17:14] LABS: Glucose,Whole Blood 162 mg/dL (70-110)
[2022-11-24 20:21] LABS: Glucose,Whole Blood 156 mg/dL (70-110)
[2022-11-24] MEDS: ATORVASTATIN 80 MG TAB PO SCH (20:56)
[2022-11-25] MEDS: HEPARIN SODIUM,PORCINE 5,000 UNIT/ML 1 ML VIAL SQ SCH ×4 (00:35→23:43)
[2022-11-25 05:56] LABS: Glucose,Whole Blood 134 mg/dL (70-110)
[2022-11-25] MEDS: INSULIN ASPART (NovoLOG) 100 UNIT/ML VIAL SQ SCH ×4 (06:28→21:25)
[2022-11-25] MEDS: droNABinol 2.5 MG CAP PO SCH ×2 (06:29→17:26)
[2022-11-25] MEDS: INSULIN DETEMIR (LEVEMIR) 100 UNIT/ML SYR SQ SCH (06:29)
[2022-11-25] MEDS: ASPIRIN 81 MG PO SCH (10:21)
[2022-11-25] MEDS: SODIUM BICARBONATE TAB 650 MG TAB PO SCH ×3 (10:21→21:25)
[2022-11-25] MEDS: FAMOTIDINE 20 MG TAB PO SCH ×2 (10:22→21:25)
[2022-11-25] MEDS: TAMSULOSIN 0.4 MG CAP.ER.24H PO SCH (10:22)
[2022-11-25] MEDS: CLOPIDOGREL 75 MG TAB PO SCH (10:22)
[2022-11-25] MEDS: amLODIPine 10 MG TAB PO SCH (10:22)
[2022-11-25] MEDS: polyethylene glycoL 3350 17 GM POWD.PACK PO SCH (10:23)
[2022-11-25 11:36] LABS: Glucose,Whole Blood 227 mg/dL (70-110)
[2022-11-25 16:31] LABS: Glucose,Whole Blood 124 mg/dL (70-110)
--- NOTE | 2022-11-25 17:00 | P.PN ---
Subjective Progress Note Date: 11/25/22 Hospital course: Patient is a very pleasant 62-year-old male with history of hypertension, dyslipidemia, diabetes found unresponsive [place] local truck stop on 10/11/22. Per report, patient was not moving for a few days and please/EMS were called to investigate. Patient was brought to the emergency department for evaluation. He underwent a CT brain and was found to have a large left-sided MCA subacute stroke. Laboratory workup also showed leukocytosis, elevated BUN, and elevated CK. Patient was admitted under our services for further stroke workup and star kenny on IV fluids. Neurology was consulted. Urine indicative of a possible urinary tract infection, started on IV ceftriaxone. Echo report reviewed, revealed normal LV size and systolic function with an EF of 55-60%, no filling defects to indicate thrombus. Repeat head CT on 10/13/22 did not show any hemorrhagic transformation, midline shift, hydrocephalus, or herniation. EEG reported no epileptiform activity. Carotid Dopplers revealing occlusion of left common carotid artery and left ICA. Patient again underwent CT head on 10/18/22 which revealed evolution of a large left middle cerebral artery territory infarct and computed tomography scan again completed on 10/25/22 showing evolution of large MCA territory infarct and a remote right parietal region injury. Patient had periods of hypotension, developed acute kidney injury and was treated with IV fluid hydration. He underwent a renal ultrasound showing cortical medullary differentiation maintained with no evidence for obstructive uropathy.. BP meds were held and after IV fluid hydration, Renal function improved. Oral intake has also improved. Patient had Isolated episode of fever and this was believed to be to secondary to atelectasis. Patient encouraged to use incentive spirometry as infectious workup negative. patient has been followed by neurology, physical and occupational therapy, and case management/social work. Per social work, Full guardianship hearing is scheduled this week as discharge plan and placement is pending guardianship. Patient will require rehab upon discharge as he continues to have right-sided flaccidity/weakness and moderate to severe aphasia. Physical exam: Patient seen and fully evaluated at bedside this morning. He denies having any pain or complaints at this time. Patient does show mild improvement and is now able to lift right leg off of the bed. He continues to have complete flaccidity of right upper extremity and difficulties with speech. Vitals Signs Reviewed. General: nontoxic, no distress, appears at stated age Derm: warm, dry, right lateral foot small ulcer with scab Head: atraumatic, normocephalic, symmetric Eyes: EOMI, no lid lag, anicteric sclera Cardiovascular: S1S2 reg, no murmur Lungs: CTA bilateral, no rhonchi, no rales , no accessory muscle use Ext: no gross muscle atrophy, no edema, no contractures Neuro: right-sided deficits, significant aphasia Psych: Awake and Alert, follows some commands Assessment and Plan: Large left MCA and small right parietal subacute CVA, unlikely to be embolic Left ICA and common carotid occlusion Type 2 diabetes, with hyperglycemia. Hemoglobin A1c 8.0%. Hypertension Acute metabolic encephalopathy secondary to above, resolved Hyponatremia mild, hypovolemic, resolvedwith IV fluid hydration Mild rhabdomyolysis, resolved with IV fluid hydration Leukocytosis, reactive Urinary tract infection, resolved Acute urinary retention, resolved Acute kidney injury, resolved Constipation, resolved Isolated episode of Febrile temp, resolved Enterococcus faecalis UTI, completed 5 day course of IV antibiotics with Rocephin on 10/16/22 Hypomagnesemia, replaced -Continue daily medication regimen with aspirin 81 mg, amlodipine 10 mg daily, atorvastatin 80 mg nightly, Plavix 75 mg daily, Pepcid 20 mg every 12 hours, and Flomax 0.4 mg nightly. -Continue glycemic protocol with NovoLog sliding scale and Levemir 15 units daily. blood glucose levels ranging from 134-229 over the past 24 hours. -Continue MiraLAX 17 g daily -Patient has a right lateral foot ulceration, no significant induration or drainage. Continue wound care and offloading off of heel (pt has air boots/heel protectors) -Physical and occupational therapy following. -Patient requires rehab upon discharge as he continues to have right-sided flaccidity/weakness and moderate to severe aphasia. Data Reviewed: -Vital signs reviewed. Blood pressure 120/72, heart rate 57, respiratory rate 18, temp 97.6F, SpO2 of 97% on room air.. DVT ppx: Subcu heparin Code status: Full code Anticipated discharge place: Placement/guardianship Anticipated discharge time: Pending placement bed availability Patient was seen independently by Nurse Pracitioner. This document was prepared using [employer] dictation software. Please allow for errors in independent producer, while rare they do occur. Luis Cruz NP rendered care for this patient independently, reviewed the findings and plan as documented in the note above. I did not physically speak with or examine the patient on this date. Objective - Vital Signs Vital signs: Vital Signs Temp 97.6 F 11/25/22 07:10 Pulse 57 L 11/25/22 07:10 Resp 18 11/25/22 07:10 BP 120/72 11/25/22 07:10 Pulse Ox 97 11/25/22 07:10 FiO2 21 11/05/22 09:26 Intake & Output 11/24/22 11/25/22 11/25/22 18:59 06:59 18:59 Intake Total 1080 Balance 1080 Intake: Oral 1080 Other: Voiding Method Diaper Diaper # Voids 2 3 - Labs CBC & Chem 7: 11/20/22 09:42 11/20/22 09:42 Labs: Abnormal Lab Results - Last 24 Hours (Table) 11/24/22 11/24/22 11/24/22 Range/Units 11:35 17:11 20:17 POC Glucose (mg/dL) 184 H 162 H 156 H (70-110) mg/dL 11/25/22 Range/Units 05:53 POC Glucose (mg/dL) 134 H (70-110) mg/dL
[2022-11-25 20:15] LABS: Glucose,Whole Blood 127 mg/dL (70-110)
[2022-11-25] MEDS: ATORVASTATIN 80 MG TAB PO SCH (21:25)
[2022-11-26] MEDS: ACETAMINOPHEN TAB 325 MG TAB PO PRN (04:25)
[2022-11-26 06:14] LABS: Glucose,Whole Blood 140 mg/dL (70-110)
[2022-11-26] MEDS: INSULIN DETEMIR (LEVEMIR) 100 UNIT/ML SYR SQ SCH (06:32)
[2022-11-26] MEDS: INSULIN ASPART (NovoLOG) 100 UNIT/ML VIAL SQ SCH ×4 (06:32→22:31)
[2022-11-26] MEDS: droNABinol 2.5 MG CAP PO SCH ×2 (06:32→17:21)
[2022-11-26] MEDS: polyethylene glycoL 3350 17 GM POWD.PACK PO SCH (08:38)
[2022-11-26] MEDS: ASPIRIN 81 MG PO SCH (08:38)
[2022-11-26] MEDS: TAMSULOSIN 0.4 MG CAP.ER.24H PO SCH (08:38)
[2022-11-26] MEDS: FAMOTIDINE 20 MG TAB PO SCH ×2 (08:38→22:31)
[2022-11-26] MEDS: SODIUM BICARBONATE TAB 650 MG TAB PO SCH ×3 (08:38→22:31)
[2022-11-26] MEDS: HEPARIN SODIUM,PORCINE 5,000 UNIT/ML 1 ML VIAL SQ SCH ×3 (08:38→23:48)
[2022-11-26] MEDS: CLOPIDOGREL 75 MG TAB PO SCH (08:39)
[2022-11-26] MEDS: amLODIPine 10 MG TAB PO SCH (08:39)
[2022-11-26 11:14] LABS: Glucose,Whole Blood 153 mg/dL (70-110)
--- NOTE | 2022-11-26 11:14 | XR ---
EXAMINATION TYPE: XR shoulder complete RT DATE OF EXAM: 11/26/2022 COMPARISON: NONE HISTORY: Pain TECHNIQUE: Three views are submitted. FINDINGS: There is evidence of a remote fracture involving the right humeral neck. Arthropathy of the glenohume ral joint and AC joint. Use osteopenia. Widening of the AC joint. The lungs are clear. IMPRESSION: 1. Remote right humeral neck fracture with widening of the AC joint correlate for grade 1 ligamentous injury\ Separation.
[2022-11-26 16:48] LABS: Glucose,Whole Blood 94 mg/dL (70-110)
--- NOTE | 2022-11-26 17:22 | P.PN ---
Subjective Progress Note Date: 11/26/22 Hospital course: Patient is a very pleasant 62-year-old male with history of hypertension, dyslipidemia, diabetes found unresponsive [place] truck stop on 10/11/22. Per report, patient was not moving for a few days and please/EMS were called to investigate. Patient was brought to the emergency department for evaluation. He underwent a CT brain and was found to have a large left-sided MCA subacute stroke. Laboratory workup also showed leukocytosis, elevated BUN, and elevated CK. Patient was admitted under our services for further stroke workup and star kenny on IV fluids. Neurology was consulted. Urine indicative of a possible urinary tract infection, started on IV ceftriaxone. Echo report reviewed, revealed normal LV size and systolic function with an EF of 55-60%, no filling defects to indicate thrombus. Repeat head CT on 10/13/22 did not show any hemorrhagic transformation, midline shift, hydrocephalus, or herniation. EEG reported no epileptiform activity. Carotid Dopplers revealing occlusion of left common carotid artery and left ICA. Patient again underwent CT head on 10/18/22 which revealed evolution of a large left middle cerebral artery territory infarct and computed tomography scan again completed on 10/25/22 showing evolution of large MCA territory infarct and a remote right parietal region injury. Patient had periods of hypotension, developed acute kidney injury and was treated with IV fluid hydration. He underwent a renal ultrasound showing cortical medullary differentiation maintained with no evidence for obstructive uropathy.. BP meds were held and after IV fluid hydration, Renal function improved. Oral intake has also improved. Patient had Isolated episode of fever and this was believed to be to secondary to atelectasis. Patient encouraged to use incentive spirometry as infectious workup negative. patient has been followed by neurology, physical and occupational therapy, and case management/social work. Per social work, Full guardianship hearing is scheduled this week as discharge plan and placement is pending guardianship. Patient will require rehab upon discharge as he continues to have right-sided flaccidity/weakness and moderate to severe aphasia. Physical exam: Patient seen and fully evaluated at bedside this morning. He was holding right arm/shoulder reporting severe pain. Concerns for subluxation of right shoulder with possible clavicular separation. Patient had no reported falls or injuries, patient does have right upper extremity flaccidity. Vitals Signs Reviewed. General: nontoxic, no distress, appears at stated age Derm: warm, dry, right lateral foot small ulcer with scab Head: atraumatic, normocephalic, symmetric Eyes: EOMI, no lid lag, anicteric sclera Cardiovascular: S1S2 reg, no murmur Lungs: CTA bilateral, no rhonchi, no rales , no accessory muscle use Ext: no gross muscle atrophy, no edema, no contractures Neuro: right-sided deficits, significant aphasia Psych: Awake and Alert, follows some commands Assessment and Plan: Large left MCA and small right parietal subacute CVA, unlikely to be embolic Left ICA and common carotid occlusion Type 2 diabetes, with hyperglycemia. Hemoglobin A1c 8.0%. Hypertension Acute metabolic encephalopathy secondary to above, resolved Hyponatremia mild, hypovolemic, resolvedwith IV fluid hydration Mild rhabdomyolysis, resolved with IV fluid hydration Leukocytosis, reactive Urinary tract infection, resolved Acute urinary retention, resolved Acute kidney injury, resolved Constipation, resolved Isolated episode of Febrile temp, resolved Enterococcus faecalis UTI, completed 5 day course of IV antibiotics with Rocephin on 10/16/22 Hypomagnesemia, replaced -Continue daily medication regimen with aspirin 81 mg, amlodipine 10 mg daily, atorvastatin 80 mg nightly, Plavix 75 mg daily, Pepcid 20 mg every 12 hours, and Flomax 0.4 mg nightly. -Continue glycemic protocol with NovoLog sliding scale and Levemir 15 units daily. blood glucose levels ranging from 134-229 over the past 24 hours. -Continue MiraLAX 17 g daily -Patient has a right lateral foot ulceration, no significant induration or drainage. Continue wound care and offloading off of heel (pt has air boots/heel protectors) -Physical and occupational therapy following. -Patient requires rehab upon discharge as he continues to have right-sided f laccidity/weakness and moderate to severe aphasia. Right shoulder pain -Patient with right upper extremity weakness, right shoulder pain is concerning for subluxation of right shoulder secondary to right upper extremity flaccidity. -Orthopedic surgery consulted. Order placed for x-ray right shoulder Order placed for sling right arm. Data Reviewed: -Vital signs reviewed. Blood pressure 111/71, heart rate 55, respiratory rate 14, temp 97.9F, SpO2 of 97% on room air. DVT ppx: Subcu heparin Code status: Full code Anticipated discharge place: Placement/guardianship Anticipated discharge time: Pending placement bed availability Patient was seen independently by Nurse Pracitioner. This document was prepared using [employer] dictation software. Please allow for errors in clinical nursing intern, while rare they do occur. Luis Cruz COMPRESSED GAS PLANT WORKER rendered care for this patient independently, reviewed the findi ngs and plan as documented in the note above. I did not physically speak with or examine the patient on this date. Objective - Vital Signs Vital signs: Vital Signs Temp 97.5 F L 11/26/22 01:18 Pulse 59 L 11/26/22 01:18 Resp 17 11/26/22 01:18 BP 110/68 11/26/22 01:18 Pulse Ox 97 11/26/22 01:18 FiO2 21 11/05/22 09:26 Intake & Output 11/25/22 11/26/22 11/26/22 18:59 06:59 18:59 Intake Total 1080 Balance 1080 Weight 90.718 kg Intake: Oral 1080 Other: Voiding Method Incontinent Incontinent # Voids 4 - Labs CBC & Chem 7: 11/20/22 09:42 11/20/22 09:42 Labs: Abnormal Lab Results - Last 24 Hours (Table) 11/25/22 11/25/22 11/25/22 Range/Units 11:32 16:27 20:13 POC Glucose (mg/dL) 227 H 124 H 127 H (70-110) mg/dL 11/26/22 Range/Units 06:10 POC Glucose (mg/dL) 140 H (70-110) mg/dL
[2022-11-26] MEDS: HYDROcodone/APAP 5-325MG 1 EACH TAB PO PRN (17:23)
--- NOTE | 2022-11-26 19:24 | P.CNOR ---
History of Present Illness - [facility] Consult date: 11/26/22 History of present illness: This patient is a 62- year old male who presented to [facility] emergency department on 10/11/22 via EMS from a local truck stop as patient was found to be unresponsive. Patient was found to have a suffered a subacute stroke. Patient continues to have right sided weakness and severe aphasia as a result. Patient is admitted under the care of internal medicine. Patient is planning to discharge to rehab. Orthopedics is consulted for evaluation of right shoulder pain. Patient is examined bedside this afternoon with Dr. Redding. Per nursing, there have been no new falls or injuries. Patient complains of right shoulder pain to physical therapist and staff. No additional verbalized complaints at this time. Past Medical History Past Medical History: Unable to Obtain History of Any Multi-Drug Resistant Organisms: Unobtainable Past Surgical History: Unable to Obtain Past Psychological History: Unable to Obtain Smoking Status: Unknown if ever smoked Past Drug Use History: Unable to Obtain Medications and Allergies Home Medications Medication Instructions Recorded Confirmed Type Atorvastatin [Lipitor] 20 mg PO HS 10/11/22 10/11/22 History Ergocalciferol (Vitamin D2) 1,250 mcg PO WEEKLY 10/11/22 10/11/22 History [Drisdol (50,000 Iu)] Glimepiride [Amaryl] 4 mg PO BID 10/11/22 10/11/22 History Valsartan [Diovan] 160 mg PO DAILY 10/11/22 10/11/22 History metFORMIN HCL [Glucophage] 1,000 mg PO BID 10/11/22 10/11/22 History Allergies Allergy/AdvReac Type Severity Reaction Status Date / Time Unable to Assess Allergy Verified 10/11/22 18:57 Physical Examination On examination, patient in lying in bed in no apparent distress. He appears to be resting comfortably. His head appears normocephalic and atrauamtic. His breathing appears nonlabor. Focused examination of the right shoulder is conducted. There is no erythema, ecchymosis, skin discoloration. No open wounds. No signs of trauma. No obvious deformities. There is mild pain with palpation of the anterior shoulder. Active ROM not performed due to right sided weakness secondary to CVA. There is minimal discomfort with passive range of motion of the shoulder. The right upper extremity is warm and well perfused. Results Right shoulder x-ray 11/26/22: Remote, healed fracture of the right proximal humerus. Slight widening of the AC joint. - Labs Labs: Abnormal Lab Results - Last 24 Hours (Table) 11/25/22 11/26/22 11/26/22 Range/Units 20:13 06:10 11:13 POC Glucose (mg/dL) 127 H 140 H 153 H (70-110) mg/dL H & H 10/11/22 10/12/22 10/13/22 Range/Units 18:10 07:32 05:22 Hgb 15.8 13.7 13.0 (13.0-17.5) gm/dL Hct 47.3 40.6 38.5 L (39.0-53.0) % 10/29/22 10/30/22 10/31/22 Range/Units 08:27 07:13 06:38 Hgb 14.2 13.9 13.4 (13.0-17.5) gm/dL Hct 42.3 43.2 39.6 (39.0-53.0) % 11/12/22 11/20/22 Range/Units 05:42 09:42 Hgb 13.7 14.0 (13.0-17.5) gm/dL Hct 41.7 43.5 (39.0-53.0) % Coagulation 10/11/22 Range/Units 18:10 INR 1.0 (<1.2) Result Diagrams: 11/20/22 09:42 11/20/22 09:42 Assessment and Plan Assessment: Right shoulder pain AC joint sprain Prior healed right proximal humerus fracture Right sided weakness secondary to CVA Plan: - Patient was examined along with Dr. Redding. Recommend conservative treatment at this time. Patient may wear sling for right upper extremity as needed for comfort. - Patient may continue physical therapy as tolerated. - Pain management per admitting team. - We will sign off at this time. Will follow peripherally as he remains inpatient.
[2022-11-26 20:33] LABS: Glucose,Whole Blood 138 mg/dL (70-110)
[2022-11-26] MEDS: ATORVASTATIN 80 MG TAB PO SCH (22:31)
[2022-11-27 06:02] LABS: Glucose,Whole Blood 122 mg/dL (70-110)
[2022-11-27] MEDS: INSULIN ASPART (NovoLOG) 100 UNIT/ML VIAL SQ SCH ×4 (06:20→22:16)
[2022-11-27] MEDS: INSULIN DETEMIR (LEVEMIR) 100 UNIT/ML SYR SQ SCH (06:30)
[2022-11-27] MEDS: polyethylene glycoL 3350 17 GM POWD.PACK PO SCH (08:41)
[2022-11-27] MEDS: HEPARIN SODIUM,PORCINE 5,000 UNIT/ML 1 ML VIAL SQ SCH ×2 (08:41→16:15)
[2022-11-27] MEDS: CLOPIDOGREL 75 MG TAB PO SCH (08:41)
[2022-11-27] MEDS: TAMSULOSIN 0.4 MG CAP.ER.24H PO SCH (08:41)
[2022-11-27] MEDS: SODIUM BICARBONATE TAB 650 MG TAB PO SCH ×3 (08:41→20:51)
[2022-11-27] MEDS: FAMOTIDINE 20 MG TAB PO SCH ×2 (08:41→20:51)
[2022-11-27] MEDS: ASPIRIN 81 MG PO SCH (08:41)
[2022-11-27] MEDS: amLODIPine 10 MG TAB PO SCH (08:41)
[2022-11-27] MEDS: droNABinol 2.5 MG CAP PO SCH ×2 (08:49→18:02)
[2022-11-27 11:24] LABS: Glucose,Whole Blood 163 mg/dL (70-110)
--- NOTE | 2022-11-27 14:15 | P.PN ---
Subjective Progress Note Date: 11/27/22 Hospital course: Patient is a very pleasant 62-year-old male with history of hypertension, dyslipidemia, diabetes found unresponsive at a local truck stop on 10/11/22. Per report, patient was not moving for a few days and please/EMS were called to investigate. Patient was brought to the emergency department for evaluation. He underwent a CT brain and was found to have a large left-sided MCA subacute stroke. Laboratory workup also showed leukocytosis, elevated BUN, and elevated CK. Patient was admitted under our services for further stroke workup and star kenny on IV fluids. Neurology was consulted. Urine indicative of a possible urinary tract infection, started on IV ceftriaxone. Echo report reviewed, revealed normal LV size and systolic function with an EF of 55-60%, no filling defects to indicate thrombus. Repeat head CT on 10/13/22 did not show any hemorrhagic transformation, midline shift, hydrocephalus, or herniation. EEG reported no epileptiform activity. Carotid Dopplers revealing occlusion of left common carotid artery and left ICA. Patient again underwent CT head on 10/18/22 which revealed evolution of a large left middle cerebral artery territory infarct and computed tomography scan again completed on 10/25/22 showing evolution of large MCA territory infarct and a remote right parietal region injury. Patient had periods of hypotension, developed acute kidney injury and was treated with IV fluid hydration. He underwent a renal ultrasound showing cortical medullary differentiation maintained with no evidence for obstructive uropathy.. BP meds were held and after IV fluid hydration, Renal function improved. Oral intake has also improved. Patient had Isolated episode of fever and this was believed to be to secondary to atelectasis. Patient encouraged to use incentive spirometry as infectious workup negative. patient has been followed by neurology, physical and occupational therapy, and case management/social work. Per social work, Full guardianship hearing is scheduled this week as discharge plan and placement is pending guardianship. Patient will require rehab upon discharge as he continues to have right-sided flaccidity/weakness and moderate to severe aphasia. Physical exam: Patient seen and fully evaluated at bedside this morning. He was sleeping upon initial assessment and easily awoken via verbal stimuli. Patient has sling in place to right arm. He denies having any complaints of pain or discomfort at this time. Vitals Signs Reviewed. General: nontoxic, no distress, appears at stated age Derm: warm, dry, right lateral foot small ulcer with scab Head: atraumatic, normocephalic, symmetric Eyes: EOMI, no lid lag, anicteric sclera Cardiovascular: S1S2 reg, no murmur Lungs: CTA bilateral, no rhonchi, no rales , no accessory muscle use Ext: no gross muscle atrophy, no edema, no contractures. Right arm in sling. Neuro: right-sided deficits, significant aphasia Psych: Awake and Alert, follows some commands Assessment and Plan: Large left MCA and small right parietal subacute CVA, unlikely to be embolic Left ICA and common carotid occlusion Type 2 diabetes, with hyperglycemia. Hemoglobin A1c 8.0%. Hypertension Acute metabolic encephalopathy secondary to above, resolved Hyponatremia mild, hypovolemic, resolvedwith IV fluid hydration Mild rhabdomyolysis, resolved with IV fluid hydration Leukocytosis, reactive Urinary tract infection, resolved Acute urinary retention, resolved Acute kidney injury, resolved Constipation, resolved Isolated episode of Febrile temp, resolved Enterococcus faecalis UTI, completed 5 day course of IV antibiotics with Rocephin on 10/16/22 Hypomagnesemia, replaced -Continue daily medication regimen with aspirin 81 mg, amlodipine 10 mg daily, atorvastatin 80 mg nightly, Plavix 75 mg daily, Pepcid 20 mg every 12 hours, and Flomax 0.4 mg nightly. -Continue glycemic protocol with NovoLog sliding scale and Levemir 15 units daily. blood glucose levels ranging from 134-229 over the past 24 hours. -Continue MiraLAX 17 g daily -Patient has a right lateral foot ulceration, no significant induration or drainage. Continue wound care and offloading off of heel (pt has air boots/heel protectors) -Physical and occupational therapy following. -Patient requires rehab upon discharge as he continues to have right-sided flaccidity/weakness and moderate to severe aphasia. Right shoulder pain -Patient with right upper extremity weakness, right shoulder pain is concerning for subluxation of right shoulder secondary to right upper extremity flaccidity. -X-ray right shoulder was completed and reviewed. Radiology report stating remote right humeral neck fracture with widening of the before meals joint concerning for grade 1 ligamentous injury/separation -Orthopedic surgery evaluated, in agreement with right arm sling. Reviewed documentation in chart stating symptoms consistent with before meals joint sprain and prior healed right proximal humerus fracture. Recommended patient of physical therapy as tolerated symptomatic care and pain management, and sling as needed for comfort. Data Reviewed: -Vital signs reviewed. Blood pressure 121/72, heart rate 61, respiratory rate 17, temp 98.0F, and SpO2 of 96% on room air. DVT ppx: Subcu heparin Code status: Full code Anticipated discharge place: Placement/guardianship Anticipated discharge time: Pending placement bed availability Patient was seen independently by Nurse Pracitioner. This document was prepared using [employer] 2000 dictation software. Please allow for errors in early childhood education instructor, while rare they do occur. Luis Cruz NP rendered care for this patient independently, reviewed the findings and plan as documented in the note above. I did not physically speak with or examine the patient on this date. . Objective - Vital Signs Vital signs: Vital Signs Temp 98.0 F 11/27/22 07:05 Pulse 61 11/27/22 07:05 Resp 17 11/27/22 07:05 BP 121/72 11/27/22 07:05 Pulse Ox 96 11/27/22 07:05 FiO2 21 11/05/22 09:26 Intake & Output 11/26/22 11/27/22 11/27/22 18:59 06:59 18:59 Intake Total 1080 Balance 1080 Intake: Oral 1080 Other: Voiding Method Incontinent Incontinent # Voids 2 2 # Bowel Movements 1 - Labs CBC & Chem 7: 11/20/22 09:42 11/20/22 09:42 Labs: Abnormal Lab Results - Last 24 Hours (Table) 11/26/22 11/26/22 11/27/22 Range/Units 11:13 20:31 05:57 POC Glucose (mg/dL) 153 H 138 H 122 H (70-110) mg/dL
[2022-11-27 17:45] LABS: Glucose,Whole Blood 142 mg/dL (70-110)
[2022-11-27] MEDS: HYDROcodone/APAP 5-325MG 1 EACH TAB PO PRN (18:02)
[2022-11-27] MEDS: ATORVASTATIN 80 MG TAB PO SCH (20:51)
[2022-11-27 20:57] LABS: Glucose,Whole Blood 105 mg/dL (70-110)
[2022-11-28] MEDS: HYDROcodone/APAP 5-325MG 1 EACH TAB PO PRN ×2 (00:09→22:36)
[2022-11-28] MEDS: HEPARIN SODIUM,PORCINE 5,000 UNIT/ML 1 ML VIAL SQ SCH ×4 (00:17→22:34)
[2022-11-28 06:17] LABS: Glucose,Whole Blood 109 mg/dL (70-110)
[2022-11-28] MEDS: INSULIN ASPART (NovoLOG) 100 UNIT/ML VIAL SQ SCH ×4 (06:25→22:34)
[2022-11-28] MEDS: INSULIN DETEMIR (LEVEMIR) 100 UNIT/ML SYR SQ SCH (06:31)
[2022-11-28] MEDS: droNABinol 2.5 MG CAP PO SCH ×2 (06:31→16:57)
[2022-11-28 09:04] LABS: HCT 36.7 % (39.6-50.0); HGB 12.3 d/dL (13.0-17.0); MCH 28.7 pg (27.0-32.0); MCHC 33.5 d/dL (32.0-37.0); MCV 85.7 FL (80.0-97.0); Mean Platelet Volume 9.6 FL (9.5-12.2); NRBC Per 100 WBC 0 X 10*3/uL (0.00-0.01); Platelet Count 302 X 10*3/uL (140-440); RBC 4.28 X 10*6/uL (4.40-5.60); RDW 13.1 % (11.5-14.5); WBC 10.05 X 10*3/uL (4.50-10.00)
[2022-11-28] MEDS: CLOPIDOGREL 75 MG TAB PO SCH (09:17)
[2022-11-28] MEDS: TAMSULOSIN 0.4 MG CAP.ER.24H PO SCH (09:17)
[2022-11-28] MEDS: SODIUM BICARBONATE TAB 650 MG TAB PO SCH ×3 (09:17→22:34)
[2022-11-28] MEDS: amLODIPine 10 MG TAB PO SCH (09:17)
[2022-11-28] MEDS: FAMOTIDINE 20 MG TAB PO SCH ×2 (09:17→22:34)
[2022-11-28] MEDS: ASPIRIN 81 MG PO SCH (09:17)
[2022-11-28] MEDS: polyethylene glycoL 3350 17 GM POWD.PACK PO SCH (09:17)
[2022-11-28 11:26] LABS: Glucose,Whole Blood 130 mg/dL (70-110)
--- NOTE | 2022-11-28 11:47 | P.PN ---
Subjective Progress Note Date: 11/28/22 Hospital course: Patient is a very pleasant 62-year-old male with history of hypertension, dyslipidemia, diabetes found unresponsive at [place] local truck stop on 10/11/22. Per report, patient was not moving for a few days and please/EMS were called to investigate. Patient was brought to the emergency department for evaluation. He underwent a CT brain and was found to have a large left-sided MCA subacute stroke. Laboratory workup also showed leukocytosis, elevated BUN, and elevated CK. Patient was admitted under our services for further stroke workup and star kenny on IV fluids. Neurology was consulted. Urine indicative of a possible urinary tract infection, started on IV ceftriaxone. Echo report reviewed, revealed normal LV size and systolic function with an EF of 55-60%, no filling defects to indicate thrombus. Repeat head CT on 10/13/22 did not show any hemorrhagic transformation, midline shift, hydrocephalus, or herniation. EEG reported no epileptiform activity. Carotid Dopplers revealing occlusion of left common carotid artery and left ICA. Patient again underwent CT head on 10/18/22 which revealed evolution of a large left middle cerebral artery territory infarct and computed tomography scan again completed on 10/25/22 showing evolution of large MCA territory infarct and a remote right parietal region injury. Patient had periods of hypotension, developed acute kidney injury and was treated with IV fluid hydration. He underwent a renal ultrasound showing cortical medullary differentiation maintained with no evidence for obstructive uropathy.. BP meds were held and after IV fluid hydration, Renal function improved. Oral intake has also improved. Patient had Isolated episode of fever and this was believed to be to secondary to atelectasis. Patient encouraged to use incentive spirometry as infectious workup negative. patient has been followed by neurology, physical and occupational therapy, and case management/social work. Per social work, Full guardianship has been granted to the state and they are working on placement. Patient will require rehab upon discharge as he continues to have right-sided flaccidity/weakness and moderate to severe aphasia. Physical exam: Patient seen and fully evaluated at bedside this morning. He was sleeping upon initial assessment and easily awoken via verbal stimuli. Sling remains in place to right upper extremity. Patient denies having any pain or complaints this morning. Vitals Signs Reviewed. General: nontoxic, no distress, appears at stated age Derm: warm, dry, right lateral foot small ulcer with scab Head: atraumatic, normocephalic, symmetric Eyes: EOMI, no lid lag, anicteric sclera Cardiovascular: S1S2 reg, no murmur Lungs: CTA bilateral, no rhonchi, no rales , no accessory muscle use Ext: no gross muscle atrophy, no edema, no contractures. Right arm in sling. Neuro: right-sided deficits, significant aphasia Psych: Awake and Alert, follows some commands Assessment and Plan: Large left MCA and small right parietal subacute CVA, unlikely to be embolic Left ICA and common carotid occlusion Type 2 diabetes, with hyperglycemia. Hemoglobin A1c 8.0%. Hypertension Acute metabolic encephalopathy secondary to above, resolved Hyponatremia mild, hypovolemic, resolvedwith IV fluid hydration Mild rhabdomyolysis, resolved with IV fluid hydration Leukocytosis, reactive Urinary tract infection, resolved Acute urinary retention, resolved Acute kidney injury, resolved Constipation, resolved Isolated episode of Febrile temp, resolved Enterococcus faecalis UTI, completed 5 day course of IV antibiotics with Rocephin on 10/16/22 Hypomagnesemia, replaced -Continue daily medication regimen with aspirin 81 mg, amlodipine 10 mg daily, atorvastatin 80 mg nightly, Plavix 75 mg daily, Pepcid 20 mg every 12 hours, and Flomax 0.4 mg nightly. -Continue glycemic protocol with NovoLog sliding scale and Levemir 15 units daily. blood glucose levels ranging from 134-229 over the past 24 hours. -Continue MiraLAX 17 g daily -Patient has a right lateral foot ulceration, no significant induration or drainage. Continue wound care and offloading off of heel (pt has air boots/heel protectors) -Physical and occupational therapy following. -Patient requires rehab upon discharge as he continues to have right-sided flaccidity/weakness and moderate to severe aphasia. Right shoulder pain -Patient with right upper extremity weakness, right shoulder pain is concerning for subluxation of right shoulder secondary to right upper extremity flaccidity. -X-ray right shoulder was completed and reviewed. Radiology report stating remote right humeral neck fracture with widening of the before meals joint concerning for grade 1 ligamentous injury/separation -Orthopedic surgery evaluated, in agreement with right arm sling. Reviewed documentation in chart stating symptoms consistent with before meals joint sprain and prior healed right proximal humerus fracture. Recommended patient of physical therapy as tolerated symptomatic care and pain management, and sling as needed for comfort. Data Reviewed: -Vital signs reviewed. Blood pressure 121/71, heart rate 54, respiratory rate 1 8, temp 97.9 F, and SpO2 of 96% on room air. Morning labs completed and reviewed. CBC showing mild leukocytosis with WBC of 10.05 improving from previous 12.8 along with stable normocytic anemia with hemoglobin of 12.3. BMP unremarkable. Magnesium normal findings at 1.9. Liver profile remains unremarkable. DVT ppx: Subcu heparin Code status: Full code Anticipated discharge place: Placement/guardianship Anticipated discharge time: Pending placement bed availability Patient was seen independently by Nurse Pracitioner. This document was prepared using [employer] dictation software. Please allow for errors in career development counselor, while rare they do occur. Luis Cruz, SURVEILLANCE DIRECTOR rendered care for this patient independently, reviewed the findings and plan as documented in the note above. I did not physically speak with or examine the patient on this date. Objective - Vital Signs Vital signs: Vital Signs Temp 97.9 F 11/28/22 07:15 Pulse 54 L 11/28/22 07:15 Resp 18 11/28/22 07:15 BP 121/71 11/28/22 07:15 Pulse Ox 97 11/28/22 07:15 FiO2 21 11/05/22 09:26 Intake & Output 11/27/22 11/28/22 11/28/22 18:59 06:59 18:59 Other: Voiding Method Incontinent # Voids 1 2 - Labs CBC & Chem 7: 11/28/22 05:46 11/28/22 05:46 Labs: Abnormal Lab Results - Last 24 Hours (Table) 11/27/22 11/27/22 Range/Units 11:23 17:43 POC Glucose (mg/dL) 163 H 142 H (70-110) mg/dL
[2022-11-28 12:11] LABS: ALT 23 U/L (10-49); AST 15 U/L (14-35); Albumin 3.6 d/dL (3.8-4.9); Albumin/Globulin Ratio 1.38 Ratio (1.60-3.17); Alkaline Phosphatase 87 U/L (41-126); Blood Urea Nitrogen 30.6 mg/dL (9.0-27.0); Calcium 9.3 mg/dL (8.7-10.3); Carbon Dioxide 23.2 mmol/L (21.6-31.8); Chloride 101 mmol/L (96-109); Globulin 2.6 d/dL (1.6-3.3); Glucose 100 mg/dL (70-110); Magnesium 1.9 mg/dL (1.5-2.4); Sodium 136 mmol/L (135-145); Total Bilirubin 0.6 mg/dL (0.3-1.2); Total Protein 6.2 d/dL (6.2-8.2)
[2022-11-28 16:39] LABS: Glucose,Whole Blood 154 mg/dL (70-110)
[2022-11-28 20:48] LABS: Glucose,Whole Blood 166 mg/dL (70-110)
[2022-11-28] MEDS: ATORVASTATIN 80 MG TAB PO SCH (22:34)
[2022-11-29 06:20] LABS: Glucose,Whole Blood 105 mg/dL (70-110)
[2022-11-29] MEDS: INSULIN ASPART (NovoLOG) 100 UNIT/ML VIAL SQ SCH ×4 (06:45→22:37)
[2022-11-29] MEDS: droNABinol 2.5 MG CAP PO SCH ×2 (06:48→17:03)
[2022-11-29] MEDS: INSULIN DETEMIR (LEVEMIR) 100 UNIT/ML SYR SQ SCH (06:49)
[2022-11-29] MEDS: HEPARIN SODIUM,PORCINE 5,000 UNIT/ML 1 ML VIAL SQ SCH ×3 (08:57→22:48)
[2022-11-29] MEDS: FAMOTIDINE 20 MG TAB PO SCH ×2 (08:57→22:48)
[2022-11-29] MEDS: TAMSULOSIN 0.4 MG CAP.ER.24H PO SCH (08:57)
[2022-11-29] MEDS: polyethylene glycoL 3350 17 GM POWD.PACK PO SCH (08:57)
[2022-11-29] MEDS: amLODIPine 10 MG TAB PO SCH (08:57)
[2022-11-29] MEDS: SODIUM BICARBONATE TAB 650 MG TAB PO SCH ×3 (08:57→22:48)
[2022-11-29] MEDS: ASPIRIN 81 MG PO SCH (08:57)
[2022-11-29] MEDS: CLOPIDOGREL 75 MG TAB PO SCH (08:57)
[2022-11-29] MEDS: HYDROcodone/APAP 5-325MG 1 EACH TAB PO PRN ×3 (09:06→22:48)
[2022-11-29 11:29] LABS: Glucose,Whole Blood 151 mg/dL (70-110)
[2022-11-29 16:48] LABS: Glucose,Whole Blood 95 mg/dL (70-110)
--- NOTE | 2022-11-29 17:24 | P.PN ---
Subjective Progress Note Date: 11/29/22 Hospital course: Patient is a very pleasant 62-year-old male with history of hypertension, dyslipidemia, diabetes found unresponsive [place] truck stop on 10/11/22. Per report, patient was not moving for a few days and please/EMS were called to investigate. Patient was brought to the emergency department for evaluation. He underwent a CT brain and was found to have a large left-sided MCA subacute stroke. Laboratory workup also showed leukocytosis, elevated BUN, and elevated CK. Patient was admitted under our services for further stroke workup and star kenny on IV fluids. Neurology was consulted. Urine indicative of a possible urinary tract infection, started on IV ceftriaxone. Echo report reviewed, revealed normal LV size and systolic function with an EF of 55-60%, no filling defects to indicate thrombus. Repeat head CT on 10/13/22 did not show any hemorrhagic transformation, midline shift, hydrocephalus, or herniation. EEG reported no epileptiform activity. Carotid Dopplers revealing occlusion of left common carotid artery and left ICA. Patient again underwent CT head on 10/18/22 which revealed evolution of a large left middle cerebral artery territory infarct and computed tomography scan again completed on 10/25/22 showing evolution of large MCA territory infarct and a remote right parietal region injury. Patient had periods of hypotension, developed acute kidney injury and was treated with IV fluid hydration. He underwent a renal ultrasound showing cortical medullary differentiation maintained with no evidence for obstructive uropathy.. BP meds were held and after IV fluid hydration, Renal function improved. Oral intake has also improved. Patient had Isolated episode of fever and this was believed to be to secondary to atelectasis. Patient encouraged to use incentive spirometry as infectious workup negative. patient has been followed by neurology, physical and occupational therapy, and case management/social work. Per social work, Full guardianship has been granted to the state and they are working on placement. Patient will require rehab upon discharge as he continues to have right-sided flaccidity/weakness and moderate to severe aphasia. Physical exam: Patient seen and fully evaluated at bedside this morning. He was sitting on the edge of the bed working with physical therapy. Patient was able to lift right leg off the floor 1 and appeared very excited about this achievement. Vitals Signs Reviewed. General: nontoxic, no distress, appears at stated age Derm: warm, dry, right lateral foot small ulcer with scab Head: atraumatic, normocephalic, symmetric Eyes: EOMI, no lid lag, anicteric sclera Cardiovascular: S1S2 reg, no murmur Lungs: CTA bilateral, no rhonchi, no rales , no accessory muscle use Ext: no gross muscle atrophy, no edema, no contractures. Right arm in sling. Neuro: right-sided deficits, significant aphasia Psych: Awake and Alert, follows some commands Assessment and Plan: Large left MCA and small right parietal subacute CVA, unlikely to be embolic Left ICA and common carotid occlusion Type 2 diabetes, with hyperglycemia. Hemoglobin A1c 8.0%. Hypertension Acute metabolic encephalopathy secondary to above, resolved Hyponatremia mild, hypovolemic, resolvedwith IV fluid hydration Mild rhabdomyolysis, resolved with IV fluid hydration Leukocytosis, reactive Urinary tract infection, resolved Acute urinary retention, resolved Acute kidney injury, resolved Constipation, resolved Isolated episode of Febrile temp, resolved Enterococcus faecalis UTI, completed 5 day course of IV antibiotics with Rocephin on 10/16/22 Hypomagnesemia, replaced -Continue daily medication regimen with aspirin 81 mg, amlodipine 10 mg daily, atorvastatin 80 mg nightly, Plavix 75 mg daily, Pepcid 20 mg every 12 hours, and Flomax 0.4 mg nightly. -Continue glycemic protocol with NovoLog sliding scale and Levemir 15 units daily. blood glucose levels ranging from 134-229 over the past 24 hours. -Continue MiraLAX 17 g daily -Patient has a right lateral foot ulceration, no significant induration or drainage. Continue wound care and offloading off of heel (pt has air boots/heel protectors) -Physical and occupational therapy following. -Patient requires rehab upon discharge as he continues to have right-sided flaccidity/weakness and moderate to severe aphasia. Right shoulder pain -Patient with right upper extremity weakness, right shoulder pain is concerning for subluxation of right shoulder secondary to right upper extremity flaccidity. -X-ray right shoulder was completed and reviewed. Radiology report stating remote right humeral neck fracture with widening of the before meals joint concerning for grade 1 ligamentous injury/separation -Orthopedic surgery evaluated, in agreement with right arm sling. Reviewed documentation in chart stating symptoms consistent with AC joint sprain and prior healed right proximal humerus fracture. Recommended patient continue physical therapy as tolerated, symptomatic care and pain management, and sling as needed for comfort. Data Reviewed: -Vital signs reviewed. Blood pressure 123/66, heart rate 64, respiratory rate 17, temp 98.3F, and SpO2 of 95% on room air. DVT ppx: Subcu heparin Code status: Full code Anticipated discharge place: Placement/guardianship Anticipated discharge time: Pending placement bed availability Patient was seen independently by Nurse Pracitioner. This document was prepared using [employer] dictation software. Please allow for errors in machine deburrer, while rare they do occur. Luis Cruz AUTOMOTIVE DRIVABILITY TECHNICIAN rendered care for this patient independently, reviewed the findings and plan as documented in the note above. I did not physically speak with or examine the patient on this date Objective - Vital Signs Vital signs: Vital Signs Temp 98.3 F 11/29/22 07:13 Pulse 64 11/29/22 07:13 Resp 17 11/29/22 07:13 BP 123/66 11/29/22 07:13 Pulse Ox 95 11/29/22 07:13 FiO2 21 11/05/22 09:26 Intake & Output 11/28/22 11/29/22 11/29/22 18:59 06:59 18:59 Other: Voiding Method Diaper Diaper Incontinent Incontinent # Voids 2 1 - Labs CBC & Chem 7: 11/28/22 05:46 11/28/22 05:46 Labs: Abnormal Lab Results - Last 24 Hours (Table) 11/28/22 11/28/22 11/28/22 Range/Units 05:46 05:46 11:24 WBC 10.05 H (4.50-10.00) X 10*3/uL RBC 4.28 L (4.40-5.60) X 10*6/uL Hgb 12.3 L (13.0-17.0) d/dL Hct 36.7 L (39.6-50.0) % BUN 30.6 H (9.0-27.0) mg/dL BUN/Creatinine Ratio 30.60 H (12.00-20.00) Ratio POC Glucose (mg/dL) 130 H (70-110) mg/dL Albumin 3.6 L (3.8-4.9) d/dL Albumin/Globulin Ratio 1.38 L (1.60-3.17) Ratio 11/28/22 11/28/22 Range/Units 16:37 20:46 WBC (4.50-10.00) X 10*3/uL RBC (4.40-5.60) X 10*6/uL Hgb (13.0-17.0) d/dL Hct (39.6-50.0) % BUN (9.0-27.0) mg/dL BUN/Creatinine Ratio (12.00-20.00) Ratio POC Glucose (mg/dL) 154 H 166 H (70-110) mg/dL Albumin (3.8-4.9) d/dL Albumin/Globulin Ratio (1.60-3.17) Ratio
[2022-11-29 20:57] LABS: Glucose,Whole Blood 148 mg/dL (70-110)
[2022-11-29] MEDS: ATORVASTATIN 80 MG TAB PO SCH (22:48)
[2022-11-30 06:03] LABS: Glucose,Whole Blood 108 mg/dL (70-110)
[2022-11-30] MEDS: INSULIN ASPART (NovoLOG) 100 UNIT/ML VIAL SQ SCH ×4 (07:07→21:23)
[2022-11-30] MEDS: SODIUM BICARBONATE TAB 650 MG TAB PO SCH ×3 (07:44→20:19)
[2022-11-30] MEDS: droNABinol 2.5 MG CAP PO SCH ×2 (07:44→17:05)
[2022-11-30] MEDS: ASPIRIN 81 MG PO SCH (07:44)
[2022-11-30] MEDS: INSULIN DETEMIR (LEVEMIR) 100 UNIT/ML SYR SQ SCH (07:44)
[2022-11-30] MEDS: FAMOTIDINE 20 MG TAB PO SCH ×2 (07:44→20:19)
[2022-11-30] MEDS: CLOPIDOGREL 75 MG TAB PO SCH (07:44)
[2022-11-30] MEDS: TAMSULOSIN 0.4 MG CAP.ER.24H PO SCH (07:44)
[2022-11-30] MEDS: amLODIPine 10 MG TAB PO SCH (07:44)
[2022-11-30] MEDS: HEPARIN SODIUM,PORCINE 5,000 UNIT/ML 1 ML VIAL SQ SCH ×3 (07:44→23:22)
[2022-11-30] MEDS: polyethylene glycoL 3350 17 GM POWD.PACK PO SCH (07:44)
[2022-11-30] MEDS: HYDROcodone/APAP 5-325MG 1 EACH TAB PO PRN ×2 (08:05→20:20)
[2022-11-30 11:33] LABS: Glucose,Whole Blood 184 mg/dL (70-110)
--- NOTE | 2022-11-30 16:24 | P.PN ---
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 Per report, patient was not moving for a few days and please/EMS were called to investigate. Patient was brought to the emergency department for evaluation. He underwent a CT brain and was found to have a large left-sided MCA subacute stroke. Laboratory workup also showed leukocytosis, elevated BUN, and elevated CK. Patient was admitted under our services for further stroke workup and star kenny on IV fluids. Neurology was consulted. Urine indicative of a possible urinary tract infection, started on IV ceftriaxone. Echo report reviewed, revealed normal LV size and systolic function with an EF of 55-60%, no filling defects to indicate thrombus. Repeat head CT on 10/13/22 did not show any hemorrhagic transformation, midline shift, hydrocephalus, or herniation. EEG reported no epileptiform activity. Carotid Dopplers revealing occlusion of left common carotid artery and left ICA. Patient again underwent CT head on 10/18/22 which revealed evolution of a large left middle cerebral artery territory infarct and computed tomography scan again completed on 10/25/22 showing evolution of large MCA territory infarct and a remote right parietal region injury. Patient had periods of hypotension, developed acute kidney injury and was treated with IV fluid hydration. He underwent a renal ultrasound showing cortical medullary differentiation maintained with no evidence for obstructive uropathy.. BP meds were held and after IV fluid hydration, Renal function improved. Oral intake has also improved. Patient had Isolated episode of fever and this was believed to be to secondary to atelectasis. Patient encouraged to use incentive spirometry as infectious workup negative. patient has been followed by neurology, physical and occupational therapy, and case management/social work. Per social work, Full guardianship has been granted to the state and they are working on placement. Patient will require rehab upon discharge as he continues to have right-sided flaccidity/weakness and moderate to severe aphasia. Physical exam: Patient seen and fully evaluated at bedside this morning. He was resting in bed this morning but easily awoken via verbal stimuli. Patient currently denies having any pain or complaints at this time. He was again able to elevate right lower extremity off of bed but remains unable to move right arm and continues with moderate aphasia. Vitals Signs Reviewed. General: nontoxic, no distress, appears at stated age Derm: warm, dry, right lateral foot small ulcer with scab Head: atraumatic, normocephalic, symmetric Eyes: EOMI, no lid lag, anicteric sclera Cardiovascular: S1S2 reg, no murmur Lungs: CTA bilateral, no rhonchi, no rales , no accessory muscle use Ext: no gross muscle atrophy, no edema, no contractures. Right arm in sling. Neuro: right-sided deficits, significant aphasia Psych: Awake and Alert, follows some commands Assessment and Plan: Large left MCA and small right parietal subacute CVA, unlikely to be embolic Left ICA and common carotid occlusion Type 2 diabetes, with hyperglycemia. Hemoglobin A1c 8.0%. Hypertension Acute metabolic encephalopathy secondary to above, resolved Hyponatremia mild, hypovolemic, resolvedwith IV fluid hydration Mild rhabdomyolysis, resolved with IV fluid hydration Leukocytosis, reactive Urinary tract infection, resolved Acute urinary retention, resolved Acute kidney injury, resolved Constipation, resolved Isolated episode of Febrile temp, resolved Enterococcus faecalis UTI, completed 5 day course of IV antibiotics with Rocephin on 10/16/22 Hypomagnesemia, replaced -Continue daily medication regimen with aspirin 81 mg, amlodipine 10 mg daily, atorvastatin 80 mg nightly, Plavix 75 mg daily, Pepcid 20 mg every 12 hours, and Flomax 0.4 mg nightly. -Continue glycemic protocol with NovoLog sliding scale and Levemir 15 units daily. blood glucose levels ranging from 134-229 over the past 24 hours. -Continue MiraLAX 17 g daily -Patient has a right lateral foot ulceration, no significant induration or drainage. Continue wound care and offloading off of heel (pt has air boots/heel protectors) -Physical and occupational therapy following. -Patient requires rehab upon discharge as he continues to have right-sided flaccidity/weakness and moderate to severe aphasia. Right shoulder pain -Patient with right upper extremity weakness, right shoulder pain is concerning for subluxation of right shoulder secondary to right upper extremity flaccidity. -X-ray right shoulder was completed and reviewed. Radiology report stating remote right humeral neck fracture with widening of the before meals joint concerning for grade 1 ligamentous injury/separation -Orthopedic surgery evaluated, in agreement with right arm sling. Reviewed do cumentation in chart stating symptoms consistent with AC joint sprain and prior healed right proximal humerus fracture. Recommended patient continue physical therapy as tolerated, symptomatic care and pain management, and sling as needed for comfort. Data Reviewed: -Vital signs reviewed. Blood pressure 112/68, heart rate 56, respiratory rate 16, temp 98.0F, SpO2 of 96% on room air. DVT ppx: Subcu heparin Code status: Full code Anticipated discharge place: Placement/guardianship Anticipated discharge time: Pending placement bed availability Patient was seen independently by Nurse Pracitioner. This document was prepared using [employer] dictation software. Please allow for errors in cane weigher, while rare they do occur. Luis Cruz NP rendered care for this patient independently, reviewed the findings and plan as documented in the note above. I did not physically speak with or examine the patient on this date. Objective - Vital Signs Vital signs: Vital Signs Temp 98 F 11/30/22 06:58 Pulse 56 L 11/30/22 06:58 Resp 16 11/30/22 06:58 BP 112/68 11/30/22 06:58 Pulse Ox 96 11/30/22 06:58 FiO2 21 11/05/22 09:26 Intake & Output 11/29/22 11/30/22 11/30/22 18:59 06:59 18:59 Other: Voiding Method Diaper Incontinent # Voids 2 3 - Labs CBC & Chem 7: 11/28/22 05:46 11/28/22 05:46 Labs: Abnormal Lab Results - Last 24 Hours (Table) 11/29/22 11/29/22 Range/Units 11:27 20:55 POC Glucose (mg/dL) 151 H 148 H (70-110) mg/dL
[2022-11-30 16:39] LABS: Glucose,Whole Blood 129 mg/dL (70-110)
[2022-11-30] MEDS: ATORVASTATIN 80 MG TAB PO SCH (20:19)
[2022-11-30 21:04] LABS: Glucose,Whole Blood 158 mg/dL (70-110)
[2022-12-01 05:57] LABS: Glucose,Whole Blood 124 mg/dL (70-110)
[2022-12-01] MEDS: INSULIN ASPART (NovoLOG) 100 UNIT/ML VIAL SQ SCH ×4 (06:09→21:30)
[2022-12-01] MEDS: ASPIRIN 81 MG PO SCH (08:30)
[2022-12-01] MEDS: SODIUM BICARBONATE TAB 650 MG TAB PO SCH ×3 (08:30→19:52)
[2022-12-01] MEDS: droNABinol 2.5 MG CAP PO SCH ×2 (08:30→16:57)
[2022-12-01] MEDS: INSULIN DETEMIR (LEVEMIR) 100 UNIT/ML SYR SQ SCH (08:30)
[2022-12-01] MEDS: polyethylene glycoL 3350 17 GM POWD.PACK PO SCH (08:30)
[2022-12-01] MEDS: TAMSULOSIN 0.4 MG CAP.ER.24H PO SCH (08:30)
[2022-12-01] MEDS: HEPARIN SODIUM,PORCINE 5,000 UNIT/ML 1 ML VIAL SQ SCH ×3 (08:30→23:38)
[2022-12-01] MEDS: CLOPIDOGREL 75 MG TAB PO SCH (08:30)
[2022-12-01] MEDS: FAMOTIDINE 20 MG TAB PO SCH ×2 (08:30→19:52)
[2022-12-01] MEDS: amLODIPine 10 MG TAB PO SCH (08:30)
[2022-12-01 11:33] LABS: Glucose,Whole Blood 201 mg/dL (70-110)
--- NOTE | 2022-12-01 12:54 | P.PN ---
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 Per report, patient was not moving for a few days and please/EMS were called to investigate. Patient was brought to the emergency department for evaluation. He underwent a CT brain and was found to have a large left-sided MCA subacute stroke. Laboratory workup also showed leukocytosis, elevated BUN, and elevated CK. Patient was admitted under our services for further stroke workup and started on IV fluids. Neurology was consulted. Urine indicative of a possible urinary tract infection, started on IV ceftriaxone. Echo report reviewed, revealed normal LV size and systolic function with an EF of 55-60%, no filling defects to indicate thrombus. Repeat head CT on 10/13/22 did not show any hemorrhagic transformation, midline shift, hydrocephalus, or herniation. EEG reported no epileptiform activity. Carotid Dopplers revealing occlusion of left common carotid artery and left ICA. Patient again underwent CT head on 10/18/22 which revealed evolution of a large left middle cerebral artery territory infarct and computed tomography scan again completed on 10/25/22 showing evolution of large MCA territory infarct and a remote right parietal region injury. Patient had periods of hypotension, developed acute kidney injury and was treated with IV fluid hydration. He underwent a renal ultrasound showing cortical medullary differentiation maintained with no evidence for obstructive uropathy.. BP meds were held and after IV fluid hydration, Renal function improved. Oral intake has also improved. Patient had Isolated episode of fever and this was believed to be to secondary to atelectasis. Patient encouraged to use incentive spirometry as infectious workup negative. patient has been followed by neurology, physical and occupational therapy, and case management/social work. Per social work, Full guardianship has been granted to the state and they are working on placement. Patient will require rehab upon discharge as he continues to have right-sided flaccidity/weakness and moderate to severe aphasia. Patient seen and examined at bedside. No acute events overnight. Vitals Signs Reviewed. General: nontoxic, no distress, appears at stated age Derm: warm, dry, right lateral foot small ulcer with scab Head: atraumatic, normocephalic, symmetric Eyes: EOMI, no lid lag, anicteric sclera Cardiovascular: S1S2 reg, no murmur Lungs: CTA bilateral, no rhonchi, no rales , no accessory muscle use Ext: no gross muscle atrophy, no edema, no contractures. Right arm in sling. 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 Hemoglobin A1c 8.0%. Hypertension Acute metabolic encephalopathy secondary to above, resolved Hyponatremia mild, hypovolemic, resolved with IV fluid hydration Mild rhabdomyolysis, resolved with IV fluid hydration Leukocytosis, reactive Urinary tract infection, resolved Acute urinary retention, resolved Acute kidney injury, resolved Constipation, resolved Isolated episode of Febrile temp, resolved Enterococcus faecalis UTI, completed 5 day course of IV antibiotics with Rocephin on 10/16/22 Hypomagnesemia, resolved -Continue daily medication regimen with aspirin 81 mg, amlodipine 10 mg daily, atorvastatin 80 mg nightly, Plavix 75 mg daily, Pepcid 20 mg every 12 hours, and Flomax 0.4 mg nightly. -Continue glycemic protocol with NovoLog sliding scale and Levemir 15 units daily. -Continue MiraLAX 17 g daily -Patient has a right lateral foot ulceration, no significant induration or drainage. Continue wound care and offloading off of heel (pt has air boots/heel protectors) -Physical and occupational therapy following. -Patient requires rehab upon discharge as he continues to have right-sided flaccidity/weakness and moderate to severe aphasia. Right shoulder pain -Patient with right upper extremity weakness, right shoulder pain is concerning for subluxation of right shoulder secondary to right upper extremity flaccidity. -X-ray right shoulder showed remote right humeral neck fracture with widening of the before meals joint concerning for grade 1 ligamentous injury/separation -Orthopedic surgery evaluated, in agreement with right arm sling, continue physical therapy as tolerated, symptomatic care and pain management, and sling as needed for comfort. Data Reviewed: -Blood glucose range between 124-184 DVT ppx: Subcu heparin Code status: Full code Anticipated discharge place: Placement/guardianship Anticipated discharge time: Pending placement bed availability Objective - Vital Signs Vital signs: Vital Signs Temp 97.5 F L 12/01/22 07:10 Pulse 56 L 12/01/22 08:31 Resp 18 12/01/22 08:31 BP 109/60 12/01/22 07:10 Pulse Ox 95 12/01/22 07:10 FiO2 21 11/05/22 09:26 Intake & Output 11/30/22 12/01/22 12/01/22 18:59 06:59 18:59 Other: Voiding Method Diaper Diaper Diaper Incontinent Incontinent Incontinent # Voids 2 3 - Labs CBC & Chem 7: 11/28/22 05:46 11/28/22 05:46 Labs: Abnormal Lab Results - Last 24 Hours (Table) 11/30/22 11/30/22 12/01/22 Range/Units 16:32 21:02 05:56 POC Glucose (mg/dL) 129 H 158 H 124 H (70-110) mg/dL 12/01/22 Range/Units 11:32 POC Glucose (mg/dL) 201 H (70-110) mg/dL
[2022-12-01 16:52] LABS: Glucose,Whole Blood 114 mg/dL (70-110)
[2022-12-01] MEDS: ATORVASTATIN 80 MG TAB PO SCH (19:53)
[2022-12-01] MEDS: HYDROcodone/APAP 5-325MG 1 EACH TAB PO PRN (19:55)
[2022-12-01 21:12] LABS: Glucose,Whole Blood 157 mg/dL (70-110)
[2022-12-02 05:40] LABS: Glucose,Whole Blood 139 mg/dL (70-110)
[2022-12-02] MEDS: INSULIN ASPART (NovoLOG) 100 UNIT/ML VIAL SQ SCH ×4 (06:04→19:52)
[2022-12-02] MEDS: INSULIN DETEMIR (LEVEMIR) 100 UNIT/ML SYR SQ SCH (07:59)
[2022-12-02] MEDS: HEPARIN SODIUM,PORCINE 5,000 UNIT/ML 1 ML VIAL SQ SCH ×3 (07:59→22:23)
[2022-12-02] MEDS: droNABinol 2.5 MG CAP PO SCH ×2 (08:00→16:52)
[2022-12-02] MEDS: amLODIPine 10 MG TAB PO SCH (08:00)
[2022-12-02] MEDS: polyethylene glycoL 3350 17 GM POWD.PACK PO SCH (08:00)
[2022-12-02] MEDS: ASPIRIN 81 MG PO SCH (08:00)
[2022-12-02] MEDS: TAMSULOSIN 0.4 MG CAP.ER.24H PO SCH (08:00)
[2022-12-02] MEDS: SODIUM BICARBONATE TAB 650 MG TAB PO SCH ×3 (08:00→19:52)
[2022-12-02] MEDS: FAMOTIDINE 20 MG TAB PO SCH ×2 (08:00→19:52)
[2022-12-02] MEDS: CLOPIDOGREL 75 MG TAB PO SCH (08:00)
[2022-12-02 11:30] LABS: Glucose,Whole Blood 190 mg/dL (70-110)
--- NOTE | 2022-12-02 11:39 | P.PN ---
Subjective Progress Note Date: 12/02/22 Hospital course: Patient is a very pleasant 62-year-old male with history of hypertension, dysl ipidemia, diabetes found unresponsive [place] truck stop on 10/11/22. Per report, patient was not moving for a few days and please/EMS were called to investigate. Patient was brought to the emergency department for evaluation. He underwent a CT brain and was found to have a large left-sided MCA subacute stroke. Laboratory workup also showed leukocytosis, elevated BUN, and elevated CK. Patient was admitted under our services for further stroke workup and started on IV fluids. Neurology was consulted. Urine indicative of a possible urinary tract infection, started on IV ceftriaxone. Echo report reviewed, revealed normal LV size and systolic function with an EF of 55-60%, no filling defects to indicate thrombus. Repeat head CT on 10/13/22 did not show any hemorrhagic transformation, midline shift, hydrocephalus, or herniation. EEG reported no epileptiform activity. Carotid Dopplers revealing occlusion of left common carotid artery and left ICA. Patient again underwent CT head on 10/18/22 which revealed evolution of a large left middle cerebral artery territory infarct and computed tomography scan again completed on 10/25/22 showing evolution of large MCA territory infarct and a remote right parietal region injury. Patient had periods of hypotension, developed acute kidney injury and was treated with IV fluid hydration. He underwent a renal ultrasound showing cortical medullary differentiation maintained with no evidence for obstructive uropathy.. BP meds were held and after IV fluid hydration, Renal function improved. Oral intake has also improved. Patient had Isolated episode of fever and this was believed to be to secondary to atelectasis. Patient encouraged to use incentive spirometry as infectious workup negative. patient has been followed by neurology, physical and occupational therapy, and case management/social work. Per social work, Full guardianship has been granted to the state and they are working on placement. Patient will require rehab upon discharge as he continues to have right-sided flaccidity/weakness and moderate to severe aphasia. Patient seen and examined at bedside. No acute events overnight. Vitals Signs Reviewed. General: nontoxic, no distress, appears at stated age Derm: warm, dry, right lateral foot small ulcer with scab Head: atraumatic, normocephalic, symmetric Eyes: EOMI, no lid lag, anicteric sclera Cardiovascular: S1S2 reg, no murmur Lungs: CTA bilateral, no rhonchi, no rales , no accessory muscle use Ext: no gross muscle atrophy, no edema, no contractures. Right arm in sling. 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 Hemoglobin A1c 8.0%. Hypertension Acute metabolic encephalopathy secondary to above, resolved Hyponatremia mild, hypovolemic, resolved with IV fluid hydration Mild rhabdomyolysis, resolved with IV fluid hydration Leukocytosis, reactive Urinary tract infection, resolved Acute urinary retention, resolved Acute kidney injury, resolved Constipation, resolved Isolated episode of Febrile temp, resolved Enterococcus faecalis UTI, completed 5 day course of IV antibiotics with Rocephin on 10/16/22 Hypomagnesemia, resolved -Continue daily medication regimen with aspirin 81 mg, amlodipine 10 mg daily, atorvastatin 80 mg nightly, Plavix 75 mg daily, Pepcid 20 mg every 12 hours, and Flomax 0.4 mg nightly. -Continue glycemic protocol with NovoLog sliding scale and Levemir 15 units daily. -Continue MiraLAX 17 g daily -Patient has a right lateral foot ulceration, no significant induration or drainage. Continue wound care and offloading off of heel (pt has air boots/heel protectors) -Physical and occupational therapy following. -Patient requires rehab upon discharge as he continues to have right-sided flaccidity/weakness and moderate to severe aphasia. Right shoulder pain -Patient with right upper extremity weakness, right shoulder pain is concerning for subluxation of right shoulder secondary to right upper extremity flaccidity. -X-ray right shoulder showed remote right humeral neck fracture with widening of the before meals joint concerning for grade 1 ligamentous injury/separation -Orthopedic surgery evaluated, in agreement with right arm sling, continue physical therapy as tolerated, symptomatic care and pain management, and sling as needed for comfort. Data Reviewed: -Blood glucose range between 114-190 DVT ppx: Subcu heparin Code status: Full code Anticipated discharge place: Placement/guardianship Anticipated discharge time: Pending placement bed availability Objective - Vital Signs Vital signs: Vital Signs Temp 97.5 F L 12/02/22 07:10 Pulse 64 12/02/22 08:00 Resp 20 12/02/22 08:00 BP 137/69 12/02/22 07:10 Pulse Ox 96 12/02/22 07:10 FiO2 21 11/05/22 09:26 Intake & Output 12/01/22 12/02/22 12/02/22 18:59 06:59 18:59 Output Total 400 Balance -400 Weight 90.718 kg Output: Urine 400 Other: Voiding Method Diaper Diaper Diaper Incontinent Incontinent Incontinent External Catheter # Voids 2 2 - Labs CBC & Chem 7: 11/28/22 05:46 11/28/22 05:46 Labs: Abnormal Lab Results - Last 24 Hours (Table) 12/01/22 12/01/22 12/02/22 Range/Units 16:51 21:11 05:39 POC Glucose (mg/dL) 114 H 157 H 139 H (70-110) mg/dL 12/02/22 Range/Units 11:29 POC Glucose (mg/dL) 190 H (70-110) mg/dL
[2022-12-02 16:39] LABS: Glucose,Whole Blood 131 mg/dL (70-110)
[2022-12-02 19:52] LABS: Glucose,Whole Blood 153 mg/dL (70-110)
[2022-12-02] MEDS: ATORVASTATIN 80 MG TAB PO SCH (19:52)
[2022-12-02] MEDS: HYDROcodone/APAP 5-325MG 1 EACH TAB PO PRN (22:21)
[2022-12-03] MEDS: INSULIN ASPART (NovoLOG) 100 UNIT/ML VIAL SQ SCH ×4 (06:10→21:17)
[2022-12-03 06:11] LABS: Glucose,Whole Blood 137 mg/dL (70-110)
[2022-12-03] MEDS: SODIUM BICARBONATE TAB 650 MG TAB PO SCH ×3 (08:47→21:14)
[2022-12-03] MEDS: ASPIRIN 81 MG PO SCH (08:47)
[2022-12-03] MEDS: droNABinol 2.5 MG CAP PO SCH ×2 (08:47→18:21)
[2022-12-03] MEDS: CLOPIDOGREL 75 MG TAB PO SCH (08:47)
[2022-12-03] MEDS: HEPARIN SODIUM,PORCINE 5,000 UNIT/ML 1 ML VIAL SQ SCH ×2 (08:47→18:21)
[2022-12-03] MEDS: amLODIPine 10 MG TAB PO SCH (08:47)
[2022-12-03] MEDS: polyethylene glycoL 3350 17 GM POWD.PACK PO SCH (08:47)
[2022-12-03] MEDS: FAMOTIDINE 20 MG TAB PO SCH ×2 (08:47→21:14)
[2022-12-03] MEDS: INSULIN DETEMIR (LEVEMIR) 100 UNIT/ML SYR SQ SCH (08:47)
[2022-12-03] MEDS: TAMSULOSIN 0.4 MG CAP.ER.24H PO SCH (08:47)
[2022-12-03 11:15] LABS: Glucose,Whole Blood 154 mg/dL (70-110)
--- NOTE | 2022-12-03 11:19 | P.PN ---
Subjective Progress Note Date: 12/03/22 Hospital course: Patient is a very pleasant 62-year-old male with history of hypertension, dysl ipidemia, diabetes found unresponsive at a local truck stop on 10/11/22. Per report, patient was not moving for a few days and please/EMS were called to investigate. Patient was brought to the emergency department for evaluation. He underwent a CT brain and was found to have a large left-sided MCA subacute stroke. Laboratory workup also showed leukocytosis, elevated BUN, and elevated CK. Patient was admitted under our services for further stroke workup and started on IV fluids. Neurology was consulted. Urine indicative of a possible urinary tract infection, started on IV ceftriaxone. Echo report reviewed, revealed normal LV size and systolic function with an EF of 55-60%, no filling defects to indicate thrombus. Repeat head CT on 10/13/22 did not show any hemorrhagic transformation, midline shift, hydrocephalus, or herniation. EEG reported no epileptiform activity. Carotid Dopplers revealing occlusion of left common carotid artery and left ICA. Patient again underwent CT head on 10/18/22 which revealed evolution of a large left middle cerebral artery territory infarct and computed tomography scan again completed on 10/25/22 showing evolution of large MCA territory infarct and a remote right parietal region injury. Patient had periods of hypotension, developed acute kidney injury and was treated with IV fluid hydration. He underwent a renal ultrasound showing cortical medullary differentiation maintained with no evidence for obstructive uropathy.. BP meds were held and after IV fluid hydration, Renal function improved. Oral intake has also improved. Patient had Isolated episode of fever and this was believed to be to secondary to atelectasis. Patient encouraged to use incentive spirometry as infectious workup negative. patient has been followed by neurology, physical and occupational therapy, and case management/social work. Per social work, Full guardianship has been granted to the state and they are working on placement. Patient will require rehab upon discharge as he continues to have right-sided flaccidity/weakness and moderate to severe aphasia. Patient seen and examined at bedside. No acute events overnight. Vitals Signs Reviewed. General: nontoxic, no distress, appears at stated age Derm: warm, dry, right lateral foot small ulcer with scab Head: atraumatic, normocephalic, symmetric Eyes: EOMI, no lid lag, anicteric sclera Cardiovascular: S1S2 reg, no murmur Lungs: CTA bilateral, no rhonchi, no rales , no accessory muscle use Ext: no gross muscle atrophy, no edema, no contractures. Right arm in sling. 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 Hemoglobin A1c 8.0%. Hypertension Acute metabolic encephalopathy secondary to above, resolved Hyponatremia mild, hypovolemic, resolved with IV fluid hydration Mild rhabdomyolysis, resolved with IV fluid hydration Leukocytosis, reactive Urinary tract infection, resolved Acute urinary retention, resolved Acute kidney injury, resolved Constipation, resolved Isolated episode of Febrile temp, resolved Enterococcus faecalis UTI, completed 5 day course of IV antibiotics with Rocephin on 10/16/22 Hypomagnesemia, resolved -Continue daily medication regimen with aspirin 81 mg, amlodipine 10 mg daily, atorvastatin 80 mg nightly, Plavix 75 mg daily, Pepcid 20 mg every 12 hours, and Flomax 0.4 mg nightly. -Continue glycemic protocol with NovoLog sliding scale and Levemir 15 units daily. -Continue MiraLAX 17 g daily -Patient has a right lateral foot ulceration, no significant induration or drainage. Continue wound care and offloading off of heel (pt has air boots/heel protectors) -Physical and occupational therapy following. -Patient requires rehab upon discharge as he continues to have right-sided flaccidity/weakness and moderate to severe aphasia. Right shoulder pain -Patient with right upper extremity weakness, right shoulder pain is concerning for subluxation of right shoulder secondary to right upper extremity flaccidity. -X-ray right shoulder showed remote right humeral neck fracture with widening of the before meals joint concerning for grade 1 ligamentous injury/separation -Orthopedic surgery evaluated, in agreement with right arm sling, continue physical therapy as tolerated, symptomatic care and pain management, and sling as needed for comfort. Data Reviewed: -Blood glucose range between 131-154 DVT ppx: Subcu heparin Code status: Full code Anticipated discharge place: Placement/guardianship Anticipated discharge time: Pending placement bed availability Objective - Vital Signs Vital signs: Vital Signs Temp 97.5 F L 12/03/22 07:33 Pulse 61 12/03/22 07:33 Resp 18 12/03/22 07:33 BP 125/72 12/03/22 07:33 Pulse Ox 98 12/03/22 07:33 FiO2 21 11/05/22 09:26 Intake & Output 12/02/22 12/03/22 12/03/22 18:59 06:59 18:59 Output Total 400 Balance -400 Output: Urine 400 Other: Voiding Method Diaper Diaper Incontinent Incontinent External Catheter External Catheter - Labs CBC & Chem 7: 11/28/22 05:46 11/28/22 05:46 Labs: Abnormal Lab Results - Last 24 Hours (Table) 12/02/22 12/02/22 12/02/22 Range/Units 11:29 16:38 19:48 POC Glucose (mg/dL) 190 H 131 H 153 H (70-110) mg/dL 12/03/22 12/03/22 Range/Units 06:07 11:13 POC Glucose (mg/dL) 137 H 154 H (70-110) mg/dL
[2022-12-03 16:34] LABS: Glucose,Whole Blood 147 mg/dL (70-110)
[2022-12-03] MEDS: ATORVASTATIN 80 MG TAB PO SCH (21:14)
[2022-12-03 21:17] LABS: Glucose,Whole Blood 149 mg/dL (70-110)
[2022-12-04] MEDS: HEPARIN SODIUM,PORCINE 5,000 UNIT/ML 1 ML VIAL SQ SCH ×4 (00:27→23:37)
[2022-12-04 06:13] LABS: Glucose,Whole Blood 145 mg/dL (70-110)
[2022-12-04] MEDS: INSULIN ASPART (NovoLOG) 100 UNIT/ML VIAL SQ SCH ×4 (06:13→20:22)
[2022-12-04] MEDS: droNABinol 2.5 MG CAP PO SCH ×2 (06:14→16:13)
[2022-12-04] MEDS: INSULIN DETEMIR (LEVEMIR) 100 UNIT/ML SYR SQ SCH (06:15)
[2022-12-04] MEDS: FAMOTIDINE 20 MG TAB PO SCH ×2 (08:33→20:12)
[2022-12-04] MEDS: CLOPIDOGREL 75 MG TAB PO SCH (08:33)
[2022-12-04] MEDS: polyethylene glycoL 3350 17 GM POWD.PACK PO SCH (08:33)
[2022-12-04] MEDS: SODIUM BICARBONATE TAB 650 MG TAB PO SCH ×3 (08:33→20:12)
[2022-12-04] MEDS: TAMSULOSIN 0.4 MG CAP.ER.24H PO SCH (08:33)
[2022-12-04] MEDS: ASPIRIN 81 MG PO SCH (08:33)
[2022-12-04] MEDS: amLODIPine 10 MG TAB PO SCH (08:33)
[2022-12-04 11:22] LABS: Glucose,Whole Blood 172 mg/dL (70-110)
--- NOTE | 2022-12-04 11:39 | P.PN ---
Subjective Progress Note Date: 12/04/22 Hospital course: Patient is a very pleasant 62-year-old male with history of hypertension, dyslipidemia, diabetes found unresponsive at a local truck stop on 10/11/22. Per report, patient was not moving for a few days and please/EMS were called to investigate. Patient was brought to the emergency department for evaluation. He underwent a CT brain and was found to have a large left-sided MCA subacute stroke. Laboratory workup also showed leukocytosis, elevated BUN, and elevated CK. Patient was admitted under our services for further stroke workup and started on IV fluids. Neurology was consulted. Urine indicative of a possible urinary tract infection, started on IV ceftriaxone. Echo report reviewed, revealed normal LV size and systolic function with an EF of 55-60%, no filling defects to indicate thrombus. Repeat head CT on 10/13/22 did not show any hemorrhagic transformation, midline shift, hydrocephalus, or herniation. EEG reported no epileptiform activity. Carotid Dopplers revealing occlusion of left common carotid artery and left ICA. Patient again underwent CT head on 10/18/22 which revealed evolution of a large left middle cerebral artery territory infarct and computed tomography scan again completed on 10/25/22 showing evolution of large MCA territory infarct and a remote right parietal region injury. Patient had periods of hypotension, developed acute kidney injury and was treated with IV fluid hydration. He underwent a renal ultrasound showing cortical medullary differentiation maintained with no evidence for obstructive uropathy.. BP meds were held and after IV fluid hydration, Renal function improved. Oral intake has also improved. Patient had Isolated episode of fever and this was believed to be to secondary to atelectasis. Patient encouraged to use incentive spirometry as infectious workup negative. patient has been followed by neurology, physical and occupational therapy, and case management/social work. Per social work, Full guardianship has been granted to the state and they are working on placement. Patient will require rehab upon discharge as he continues to have right-sided flaccidity/weakness and moderate to severe aphasia. Patient seen and examined at bedside. No acute events overnight. Vitals Signs Reviewed. General: nontoxic, no distress, appears at stated age Derm: warm, dry, right lateral foot small ulcer with scab Head: atraumatic, normocephalic, symmetric Eyes: EOMI, no lid lag, anicteric sclera Cardiovascular: S1S2 reg, no murmur Lungs: CTA bilateral, no rhonchi, no rales , no accessory muscle use Ext: no gross muscle atrophy, no edema, no contractures. Right arm in sling. 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 Hemoglobin A1c 8.0%. Hypertension Acute metabolic encephalopathy secondary to above, resolved Hyponatremia mild, hypovolemic, resolved with IV fluid hydration Mild rhabdomyolysis, resolved with IV fluid hydration Leukocytosis, reactive Urinary tract infection, resolved Acute urinary retention, resolved Acute kidney injury, resolved Constipation, resolved Isolated episode of Febrile temp, resolved Enterococcus faecalis UTI, completed 5 day course of IV antibiotics with Rocephin on 10/16/22 Hypomagnesemia, resolved -Continue daily medication regimen with aspirin 81 mg, amlodipine 10 mg daily, atorvastatin 80 mg nightly, Plavix 75 mg daily, Pepcid 20 mg every 12 hours, and Flomax 0.4 mg nightly. -Continue glycemic protocol with NovoLog sliding scale and Levemir 15 units daily. -Continue MiraLAX 17 g daily -Patient has a right lateral foot ulceration, no significant induration or drainage. Continue wound care and offloading off of heel (pt has air boots/heel protectors) -Physical and occupational therapy following. -Patient requires rehab upon discharge as he continues to have right-sided flaccidity/weakness and moderate to severe aphasia. Right shoulder pain -Patient with right upper extremity weakness, right shoulder pain is concerning for subluxation of right shoulder secondary to right upper extremity flaccidity. -X-ray right shoulder showed remote right humeral neck fracture with widening of the before meals joint concerning for grade 1 ligamentous injury/separation -Orthopedic surgery evaluated, in agreement with right arm sling, continue physical therapy as tolerated, symptomatic care and pain management, and sling as needed for comfort. Data Reviewed: -Blood glucose range between 145-172 DVT ppx: Subcu heparin Code status: Full code Anticipated discharge place: Placement/guardianship Anticipated discharge time: Pending placement bed availability Objective - Vital Signs Vital signs: Vital Signs Temp 97.6 F 12/04/22 07:19 Pulse 59 L 12/04/22 07:19 Resp 16 12/04/22 07:19 BP 117/66 12/04/22 07:19 Pulse Ox 98 12/04/22 07:19 FiO2 21 11/05/22 09:26 Intake & Output 12/03/22 12/04/22 12/04/22 18:59 06:59 18:59 Output Total 500 200 Balance -500 -200 Output: Urine 500 200 Other: Voiding Method Diaper Diaper Diaper Incontinent Incontinent Incontinent External Catheter External Catheter External Catheter - Labs CBC & Chem 7: 11/28/22 05:46 11/28/22 05:46 Labs: Abnormal Lab Results - Last 24 Hours (Table) 12/03/22 12/03/22 12/04/22 Range/Units 16:33 21:16 06:12 POC Glucose (mg/dL) 147 H 149 H 145 H (70-110) mg/dL 12/04/22 Range/Units 11:21 POC Glucose (mg/dL) 172 H (70-110) mg/dL
[2022-12-04 16:41] LABS: Glucose,Whole Blood 183 mg/dL (70-110)
[2022-12-04] MEDS: ATORVASTATIN 80 MG TAB PO SCH (20:12)
[2022-12-04 20:21] LABS: Glucose,Whole Blood 123 mg/dL (70-110)
[2022-12-05 05:57] LABS: Glucose,Whole Blood 149 mg/dL (70-110)
[2022-12-05] MEDS: INSULIN ASPART (NovoLOG) 100 UNIT/ML VIAL SQ SCH ×4 (06:21→21:00)
[2022-12-05] MEDS: INSULIN DETEMIR (LEVEMIR) 100 UNIT/ML SYR SQ SCH (06:26)
[2022-12-05] MEDS: droNABinol 2.5 MG CAP PO SCH ×2 (06:26→17:22)
[2022-12-05] MEDS: TAMSULOSIN 0.4 MG CAP.ER.24H PO SCH (08:15)
[2022-12-05] MEDS: CLOPIDOGREL 75 MG TAB PO SCH (08:15)
[2022-12-05] MEDS: polyethylene glycoL 3350 17 GM POWD.PACK PO SCH (08:15)
[2022-12-05] MEDS: HEPARIN SODIUM,PORCINE 5,000 UNIT/ML 1 ML VIAL SQ SCH ×2 (08:15→17:22)
[2022-12-05] MEDS: amLODIPine 10 MG TAB PO SCH (08:15)
[2022-12-05] MEDS: SODIUM BICARBONATE TAB 650 MG TAB PO SCH ×3 (08:15→21:00)
[2022-12-05] MEDS: FAMOTIDINE 20 MG TAB PO SCH ×2 (08:15→21:00)
[2022-12-05] MEDS: ASPIRIN 81 MG PO SCH (08:15)
[2022-12-05 11:31] LABS: Glucose,Whole Blood 142 mg/dL (70-110)
[2022-12-05] MEDS: HYDROcodone/APAP 5-325MG 1 EACH TAB PO PRN (12:29)
--- NOTE | 2022-12-05 12:29 | P.PN ---
Subjective Progress Note Date: 12/05/22 Hospital course: Patient is a very pleasant 62-year-old male with history of hypertension, dyslipidemia, diabetes found unresponsive at a local truck stop on 10/11/22. Per report, patient was not moving for a few days and please/EMS were called to investigate. Patient was brought to the emergency department for evaluation. He underwent a CT brain and was found to have a large left-sided MCA subacute stroke. Laboratory workup also showed leukocytosis, elevated BUN, and elevated CK. Patient was admitted under our services for further stroke workup and started on IV fluids. Neurology was consulted. Urine indicative of a possible urinary tract infection, started on IV ceftriaxone. Echo report reviewed, revealed normal LV size and systolic function with an EF of 55-60%, no filling defects to indicate thrombus. Repeat head CT on 10/13/22 did not show any hemorrhagic transformation, midline shift, hydrocephalus, or herniation. EEG reported no epileptiform activity. Carotid Dopplers revealing occlusion of left common carotid artery and left ICA. Patient again underwent CT head on 10/18/22 which revealed evolution of a large left middle cerebral artery territory infarct and computed tomography scan again completed on 10/25/22 showing evolution of large MCA territory infarct and a remote right parietal region injury. Patient had periods of hypotension, developed acute kidney injury and was treated with IV fluid hydration. He underwent a renal ultrasound showing cortical medullary differentiation maintained with no evidence for obstructive uropathy.. BP meds were held and after IV fluid hydration, Renal function improved. Oral intake has also improved. Patient had Isolated episode of fever and this was believed to be to secondary to atelectasis. Patient encouraged to use incentive spirometry as infectious workup negative. patient has been followed by neurology, physical and occupational therapy, and case management/social work. Per social work, Full guardianship has been granted to the state and they are working on placement. Patient will require rehab upon discharge as he continues to have right-sided flaccidity/weakness and moderate to severe aphasia. Patient seen and examined at bedside. No acute events overnight. Vitals Signs Reviewed. General: nontoxic, no distress, appears at stated age Derm: warm, dry, right lateral foot small ulcer with scab Head: atraumatic, normocephalic, symmetric Eyes: EOMI, no lid lag, anicteric sclera Cardiovascular: S1S2 reg, no murmur Lungs: CTA bilateral, no rhonchi, no rales , no accessory muscle use Ext: no gross muscle atrophy, no edema, no contractures. Right arm in sling. 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 Hemoglobin A1c 8.0%. Hypertension Acute metabolic encephalopathy secondary to above, resolved Hyponatremia mild, hypovolemic, resolved with IV fluid hydration Mild rhabdomyolysis, resolved with IV fluid hydration Leukocytosis, reactive Urinary tract infection, resolved Acute urinary retention, resolved Acute kidney injury, resolved Constipation, resolved Isolated episode of Febrile temp, resolved Enterococcus faecalis UTI, completed 5 day course of IV antibiotics with Rocephin on 10/16/22 Hypomagnesemia, resolved -Continue daily medication regimen with aspirin 81 mg, amlodipine 10 mg daily, atorvastatin 80 mg nightly, Plavix 75 mg daily, Pepcid 20 mg every 12 hours, and Flomax 0.4 mg nightly. -Continue glycemic protocol with NovoLog sliding scale and Levemir 15 units daily. -Continue MiraLAX 17 g daily -Patient has a right lateral foot ulceration, no significant induration or drainage. Continue wound care and offloading off of heel (pt has air boots/heel protectors) -Physical and occupational therapy following. -Patient requires rehab upon discharge as he continues to have right-sided flaccidity/weakness and moderate to severe aphasia. Right shoulder pain -Patient with right upper extremity weakness, right shoulder pain is concerning for subluxation of right shoulder secondary to right upper extremity flaccidity. -X-ray right shoulder showed remote right humeral neck fracture with widening of the before meals joint concerning for grade 1 ligamentous injury/separation -Orthopedic surgery evaluated, in agreement with right arm sling, continue physical therapy as tolerated, symptomatic care and pain management, and sling as needed for comfort. Data Reviewed: -Blood glucose range between 123-142 DVT ppx: Subcu heparin Code status: Full code Anticipated discharge place: Placement/guardianship Anticipated discharge time: Pending placement bed availability Objective - Vital Signs Vital signs: Vital Signs Temp 98.5 F 12/05/22 07:21 Pulse 83 12/05/22 07:21 Resp 17 12/05/22 07:21 BP 131/74 12/05/22 07:21 Pulse Ox 97 12/05/22 07:21 FiO2 21 11/05/22 09:26 Intake & Output 12/04/22 12/05/22 12/05/22 18:59 06:59 18:59 Output Total 575 400 Balance -575 -400 Output: Urine 575 400 Other: Voiding Method Diaper Diaper Diaper Incontinent Incontinent Incontinent External Catheter External Catheter External Catheter - Labs CBC & Chem 7: 11/28/22 05:46 11/28/22 05:46 Labs: Abnormal Lab Results - Last 24 Hours (Table) 12/04/22 12/04/22 12/05/22 Range/Units 16:39 20:19 05:55 POC Glucose (mg/dL) 183 H 123 H 149 H (70-110) mg/dL 12/05/22 Range/Units 11:29 POC Glucose (mg/dL) 142 H (70-110) mg/dL
[2022-12-05 16:49] LABS: Glucose,Whole Blood 115 mg/dL (70-110)
[2022-12-05 20:15] LABS: Glucose,Whole Blood 168 mg/dL (70-110)
[2022-12-05] MEDS: ATORVASTATIN 80 MG TAB PO SCH (21:00)
[2022-12-06] MEDS: HEPARIN SODIUM,PORCINE 5,000 UNIT/ML 1 ML VIAL SQ SCH ×4 (01:13→23:47)
[2022-12-06 06:05] LABS: Glucose,Whole Blood 153 mg/dL (70-110)
[2022-12-06] MEDS: INSULIN ASPART (NovoLOG) 100 UNIT/ML VIAL SQ SCH ×4 (06:21→21:24)
[2022-12-06] MEDS: INSULIN DETEMIR (LEVEMIR) 100 UNIT/ML SYR SQ SCH (06:22)
[2022-12-06] MEDS: droNABinol 2.5 MG CAP PO SCH ×2 (06:22→16:59)
[2022-12-06] MEDS: FAMOTIDINE 20 MG TAB PO SCH ×2 (06:59→20:29)
[2022-12-06] MEDS: CLOPIDOGREL 75 MG TAB PO SCH (06:59)
[2022-12-06] MEDS: TAMSULOSIN 0.4 MG CAP.ER.24H PO SCH (06:59)
[2022-12-06] MEDS: amLODIPine 10 MG TAB PO SCH (06:59)
[2022-12-06] MEDS: polyethylene glycoL 3350 17 GM POWD.PACK PO SCH (06:59)
[2022-12-06] MEDS: SODIUM BICARBONATE TAB 650 MG TAB PO SCH ×3 (06:59→20:29)
[2022-12-06] MEDS: ASPIRIN 81 MG PO SCH (06:59)
[2022-12-06 11:31] LABS: Glucose,Whole Blood 174 mg/dL (70-110)
--- NOTE | 2022-12-06 11:38 | P.PN ---
Subjective Progress Note Date: 12/06/22 Hospital course: Patient is a very pleasant 62-year-old male with history of hypertension, dyslipidemia, diabetes found unresponsive [place] truck stop on 10/11/22. Per report, patient was not moving for a few days and please/EMS were called to investigate. Patient was brought to the emergency department for evaluation. He underwent a CT brain and was found to have a large left-sided MCA subacute stroke. Laboratory workup also showed leukocytosis, elevated BUN, and elevated CK. Patient was admitted under our services for further stroke workup and started on IV fluids. Neurology was consulted. Urine indicative of a possible urinary tract infection, started on IV ceftriaxone. Echo report reviewed, revealed normal LV size and systolic function with an EF of 55-60%, no filling defects to indicate thrombus. Repeat head CT on 10/13/22 did not show any hemorrhagic transformation, midline shift, hydrocephalus, or herniation. EEG reported no epileptiform activity. Carotid Dopplers revealing occlusion of left common carotid artery and left ICA. Patient again underwent CT head on 10/18/22 which revealed evolution of a large left middle cerebral artery territory infarct and computed tomography scan again completed on 10/25/22 showing evolution of large MCA territory infarct and a remote right parietal region injury. Patient had periods of hypotension, developed acute kidney injury and was treated with IV fluid hydration. He underwent a renal ultrasound showing cortical medullary differentiation maintained with no evidence for obstructive uropathy.. BP meds were held and after IV fluid hydration, Renal function improved. Oral intake has also improved. Patient had Isolated episode of fever and this was believed to be to secondary to atelectasis. Patient encouraged to use incentive spirometry as infectious workup negative. patient has been followed by neurology, physical and occupational therapy, and case management/social work. Per social work, Full guardianship has been granted to the state and they are working on placement. Patient will require rehab upon discharge as he continues to have right-sided flaccidity/weakness and moderate to severe aphasia. Patient seen and examined at bedside. No acute events overnight. Vitals Signs Reviewed. General: nontoxic, no distress, appears at stated age Derm: warm, dry, right lateral foot small ulcer with scab Head: atraumatic, normocephalic, symmetric Eyes: EOMI, no lid lag, anicteric sclera Cardiovascular: S1S2 reg, no murmur Lungs: CTA bilateral, no rhonchi, no rales , no accessory muscle use Ext: no gross muscle atrophy, no edema, no contractures. 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 Hemoglobin A1c 8.0%. Hypertension Acute metabolic encephalopathy secondary to above, resolved Hyponatremia mild, hypovolemic, resolved Mild rhabdomyolysis, resolved Leukocytosis, resolved Urinary tract infection, resolved Acute urinary retention, resolved Acute kidney injury, resolved Constipation, resolved Isolated episode of Febrile temp, resolved Enterococcus faecalis UTI, completed 5 day course of IV antibiotics with Rocephin on 10/16/22 Hypomagnesemia, resolved -Continue daily medication regimen with aspirin 81 mg, amlodipine 10 mg daily, atorvastatin 80 mg nightly, Plavix 75 mg daily, Pepcid 20 mg every 12 hours, and Flomax 0.4 mg nightly. -Continue glycemic protocol with NovoLog sliding scale and Levemir 15 units daily. -Continue MiraLAX 17 g daily -Patient has a right lateral foot ulceration, no significant induration or drainage. Continue wound care and offloading off of heel (pt has air boots/heel protectors) -Physical and occupational therapy following. -Patient requires rehab upon discharge as he continues to have right-sided flaccidity/weakness and moderate to severe aphasia. Right shoulder pain -Patient with right upper extremity weakness, right shoulder pain is concerning for subluxation of right shoulder secondary to right upper extremity flaccidity. -X-ray right shoulder showed remote right humeral neck fracture with widening of the before meals joint concerning for grade 1 ligamentous injury/separation -Orthopedic surgery evaluated, in agreement with right arm sling, continue physical therapy as tolerated, symptomatic care and pain management, and sling as needed for comfort. Data Reviewed: -Blood glucose range between 115-168 DVT ppx: Subcu heparin Code status: Full code Anticipated discharge place: Placement/guardianship Anticipated discharge time: Pending placement bed availability Objective - Vital Signs Vital signs: Vital Signs Temp 98.4 F 12/06/22 07:10 Pulse 67 12/06/22 07:10 Resp 15 12/06/22 07:10 BP 124/76 12/06/22 07:10 Pulse Ox 95 12/06/22 07:10 FiO2 21 11/05/22 09:26 Intake & Output 12/05/22 12/06/22 12/06/22 18:59 06:59 18:59 Intake Total 1080 Output Total 1 450 Balance 1079 -450 Intake: Oral 1080 Output: Urine 450 Stool 1 Other: Voiding Method Diaper Diaper Diaper Incontinent Incontinent Incontinent External Catheter External Catheter - Labs CBC & Chem 7: 11/28/22 05:46 11/28/22 05:46 Labs: Abnormal Lab Results - Last 24 Hours (Table) 12/05/22 12/05/22 12/06/22 Range/Units 16:48 20:14 06:03 POC Glucose (mg/dL) 115 H 168 H 153 H (70-110) mg/dL 12/06/22 Range/Units 11:29 POC Glucose (mg/dL) 174 H (70-110) mg/dL
[2022-12-06 16:28] LABS: Glucose,Whole Blood 130 mg/dL (70-110)
[2022-12-06 19:14] LABS: Glucose,Whole Blood 164 mg/dL (70-110)
[2022-12-06] MEDS: ATORVASTATIN 80 MG TAB PO SCH (20:29)
[2022-12-07 05:47] LABS: Glucose,Whole Blood 127 mg/dL (70-110)
[2022-12-07] MEDS: INSULIN ASPART (NovoLOG) 100 UNIT/ML VIAL SQ SCH ×4 (05:50→20:15)
[2022-12-07] MEDS: INSULIN DETEMIR (LEVEMIR) 100 UNIT/ML SYR SQ SCH (06:45)
[2022-12-07] MEDS: droNABinol 2.5 MG CAP PO SCH ×2 (07:46→16:37)
[2022-12-07] MEDS: amLODIPine 10 MG TAB PO SCH (07:46)
[2022-12-07] MEDS: TAMSULOSIN 0.4 MG CAP.ER.24H PO SCH (07:47)
[2022-12-07] MEDS: FAMOTIDINE 20 MG TAB PO SCH ×2 (07:47→20:29)
[2022-12-07] MEDS: polyethylene glycoL 3350 17 GM POWD.PACK PO SCH (07:47)
[2022-12-07] MEDS: HEPARIN SODIUM,PORCINE 5,000 UNIT/ML 1 ML VIAL SQ SCH ×3 (07:47→23:16)
[2022-12-07] MEDS: ASPIRIN 81 MG PO SCH (07:47)
[2022-12-07] MEDS: SODIUM BICARBONATE TAB 650 MG TAB PO SCH ×3 (07:47→20:29)
[2022-12-07] MEDS: CLOPIDOGREL 75 MG TAB PO SCH (07:47)
[2022-12-07 11:26] LABS: Glucose,Whole Blood 121 mg/dL (70-110)
--- NOTE | 2022-12-07 14:55 | P.PN ---
Subjective Progress Note Date: 12/07/22 Hospital course: Patient is a very pleasant 62-year-old male with history of hypertension, dyslipidemia, diabetes found unresponsive at a local truck stop on 10/11/22. Per report, patient was not moving for a few days and please/EMS were called to investigate. Patient was brought to the emergency department for evaluation. He underwent a CT brain and was found to have a large left-sided MCA subacute s troke. Laboratory workup also showed leukocytosis, elevated BUN, and elevated CK. Patient was admitted under our services for further stroke workup and started on IV fluids. Neurology was consulted. Urine indicative of a possible urinary tract infection, started on IV ceftriaxone. Echo report reviewed, revealed normal LV size and systolic function with an EF of 55-60%, no filling defects to indicate thrombus. Repeat head CT on 10/13/22 did not show any hemorrhagic transformation, midline shift, hydrocephalus, or herniation. EEG reported no epileptiform activity. Carotid Dopplers revealing occlusion of left common carotid artery and left ICA. Patient again underwent CT head on 10/18/22 which revealed evolution of a large left middle cerebral artery territory infarct and computed tomography scan again completed on 10/25/22 showing evolution of large MCA territory infarct and a remote right parietal region injury. Patient had periods of hypotension, developed acute kidney injury and was treated with IV fluid hydration. He underwent a renal ultrasound showing cortical medullary differentiation maintained with no evidence for obstructive uropathy.. BP meds were held and after IV fluid hydration, Renal function improved. Oral intake has also improved. Patient had Isolated episode of fever and this was believed to be to secondary to atelectasis. Patient encouraged to use incentive spirometry as infectious workup negative. patient has been followed by neurology, physical and occupational therapy, and case management/social work. Per social work, Full guardianship has been granted to the state and they are working on placement. Patient will require rehab upon discharge as he continues to have right-sided flaccidity/weakness and moderate to severe aphasia. Patient seen and examined at bedside. No acute events overnight. Vitals Signs Reviewed. General: nontoxic, no distress, appears at stated age Derm: warm, dry, right lateral foot small ulcer with scab Head: atraumatic, normocephalic, symmetric Eyes: EOMI, no lid lag, anicteric sclera Cardiovascular: S1S2 reg, no murmur Lungs: CTA bilateral, no rhonchi, no rales , no accessory muscle use Ext: no gross muscle atrophy, no edema, no contractures. 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 Hemoglobin A1c 8.0%. Hypertension Acute metabolic encephalopathy secondary to above, resolved Hyponatremia mild, hypovolemic, resolved Mild rhabdomyolysis, resolved Leukocytosis, resolved Urinary tract infection, resolved Acute urinary retention, resolved Acute kidney injury, resolved Constipation, resolved Isolated episode of Febrile temp, resolved Enterococcus faecalis UTI, completed 5 day course of IV antibiotics with Rocephin on 10/16/22 Hypomagnesemia, resolved -Continue daily medication regimen with aspirin 81 mg, amlodipine 10 mg daily, atorvastatin 80 mg nightly, Plavix 75 mg daily, Pepcid 20 mg every 12 hours, and Flomax 0.4 mg nightly. -Continue glycemic protocol with NovoLog sliding scale and Levemir 15 units daily. -Continue MiraLAX 17 g daily -Patient has a right lateral foot ulceration, no significant induration or drainage. Continue wound care and offloading off of heel (pt has air boots/heel protectors) -Physical and occupational therapy following. -Patient requires rehab upon discharge as he continues to have right-sided flaccidity/weakness and moderate to severe aphasia. Right shoulder pain -Patient with right upper extremity weakness, right shoulder pain is concerning for subluxation of right shoulder secondary to right upper extremity flaccidity. -X-ray right shoulder showed remote right humeral neck fracture with widening of the before meals joint concerning for grade 1 ligamentous injury/separation -Orthopedic surgery evaluated, in agreement with right arm sling, continue physical therapy as tolerated, symptomatic care and pain management, and sling as needed for comfort. Data Reviewed: -Blood glucose range between 115-168 DVT ppx: Subcu heparin Code status: Full code Anticipated discharge place: Placement/guardianship Anticipated discharge time: Pending placement bed availability Objective - Vital Signs Vital signs: Vital Signs Temp 97.8 F 12/07/22 13:39 Pulse 59 L 12/07/22 07:51 Resp 17 12/07/22 13:39 BP 133/75 12/07/22 13:39 Pulse Ox 98 12/07/22 13:39 FiO2 21 11/05/22 09:26 Intake & Output 12/06/22 12/07/22 12/07/22 18:59 06:59 18:59 Output Total 1300 350 Balance -1300 -350 Output: Urine 1300 350 Other: Voiding Method Diaper Diaper Diaper Incontinent Incontinent Incontinent External Catheter External Catheter # Bowel Movements 1 - Labs CBC & Chem 7: 11/28/22 05:46 11/28/22 05:46 Labs: Abnormal Lab Results - Last 24 Hours (Table) 12/06/22 12/06/22 12/07/22 Range/Units 16:26 19:12 05:46 POC Glucose (mg/dL) 130 H 164 H 127 H (70-110) mg/dL 12/07/22 Range/Units 11:25 POC Glucose (mg/dL) 121 H (70-110) mg/dL
[2022-12-07 16:31] LABS: Glucose,Whole Blood 133 mg/dL (70-110)
[2022-12-07 19:16] LABS: Glucose,Whole Blood 109 mg/dL (70-110)
[2022-12-07] MEDS: ATORVASTATIN 80 MG TAB PO SCH (20:29)
[2022-12-08 05:30] LABS: Glucose,Whole Blood 117 mg/dL (70-110)
[2022-12-08] MEDS: INSULIN ASPART (NovoLOG) 100 UNIT/ML VIAL SQ SCH ×4 (06:00→20:55)
[2022-12-08] MEDS: INSULIN DETEMIR (LEVEMIR) 100 UNIT/ML SYR SQ SCH (06:43)
[2022-12-08] MEDS: TAMSULOSIN 0.4 MG CAP.ER.24H PO SCH (08:07)
[2022-12-08] MEDS: ASPIRIN 81 MG PO SCH (08:07)
[2022-12-08] MEDS: SODIUM BICARBONATE TAB 650 MG TAB PO SCH ×3 (08:07→21:06)
[2022-12-08] MEDS: droNABinol 2.5 MG CAP PO SCH ×2 (08:07→17:06)
[2022-12-08] MEDS: polyethylene glycoL 3350 17 GM POWD.PACK PO SCH (08:07)
[2022-12-08] MEDS: CLOPIDOGREL 75 MG TAB PO SCH (08:07)
[2022-12-08] MEDS: amLODIPine 10 MG TAB PO SCH (08:07)
[2022-12-08] MEDS: FAMOTIDINE 20 MG TAB PO SCH ×2 (08:07→21:06)
[2022-12-08] MEDS: HEPARIN SODIUM,PORCINE 5,000 UNIT/ML 1 ML VIAL SQ SCH ×2 (08:08→16:58)
[2022-12-08 10:23] LABS: Blood Urea Nitrogen 32.4 mg/dL (9.0-27.0); Calcium 9.7 mg/dL (8.7-10.3); Carbon Dioxide 25.1 mmol/L (21.6-31.8); Chloride 102 mmol/L (96-109); Glucose 110 mg/dL (70-110); Potassium 3.8 mmol/L (3.5-5.5); Sodium 139 mmol/L (135-145)
[2022-12-08 11:46] LABS: Glucose,Whole Blood 147 mg/dL (70-110)
--- NOTE | 2022-12-08 12:19 | P.PN ---
Subjective Progress Note Date: 12/08/22 Hospital course: Patient is a very pleasant 62-year-old male with history of hypertension, dyslipidemia, diabetes found unresponsive at a local truck stop on 10/11/22. Per report, patient was not moving for a few days and please/EMS were called to investigate. Patient was brought to the emergency department for evaluation. He underwent a CT brain and was found to have a large left-sided MCA subacute stroke. Laboratory workup also showed leukocytosis, elevated BUN, and elevated CK. Patient was admitted under our services for further stroke workup and started on IV fluids. Neurology was consulted. Urine indicative of a possible urinary tract infection, started on IV ceftriaxone. Echo report reviewed, revealed normal LV size and systolic function with an EF of 55-60%, no filling defects to indicate thrombus. Repeat head CT on 10/13/22 did not show any hemorrhagic transformation, midline shift, hydrocephalus, or herniation. EEG reported no epileptiform activity. Carotid Dopplers revealing occlusion of left common carotid artery and left ICA. Patient again underwent CT head on 10/18/22 which revealed evolution of a large left middle cerebral artery territory infarct and computed tomography scan again completed on 10/25/22 showing evolution of large MCA territory infarct and a remote right parietal region injury. Patient had periods of hypotension, developed acute kidney injury and was treated with IV fluid hydration. He underwent a renal ultrasound showing cortical medullary differentiation maintained with no evidence for obstructive uropathy.. BP meds were held and after IV fluid hydration, Renal function improved. Oral intake has also improved. Patient had Isolated episode of fever and this was believed to be to secondary to atelectasis. Patient encouraged to use incentive spirometry as infectious workup negative. patient has been followed by neurology, physical and occupational therapy, and case management/social work. Per social work, Full guardianship has been granted to the state and they are working on placement. Patient will require rehab upon discharge as he continues to have right-sided flaccidity/weakness and moderate to severe aphasia. Patient seen and examined at bedside. No acute events overnight. Vitals Signs Reviewed. General: nontoxic, no distress, appears at stated age Derm: warm, dry, right lateral foot small ulcer with scab Head: atraumatic, normocephalic, symmetric Eyes: EOMI, no lid lag, anicteric sclera Cardiovascular: S1S2 reg, no murmur Lungs: CTA bilateral, no rhonchi, no rales , no accessory muscle use Ext: no gross muscle atrophy, no edema, no contractures. 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 Hemoglobin A1c 8.0%. Hypertension Acute metabolic encephalopathy secondary to above, resolved Hyponatremia mild, hypovolemic, resolved Mild rhabdomyolysis, resolved Leukocytosis, resolved Urinary tract infection, resolved Acute urinary retention, resolved Acute kidney injury, resolved Constipation, resolved Isolated episode of Febrile temp, resolved Enterococcus faecalis UTI, completed 5 day course of IV antibiotics with Rocephin on 10/16/22 Hypomagnesemia, resolved -Continue daily medication regimen with aspirin 81 mg, amlodipine 10 mg daily, atorvastatin 80 mg nightly, Plavix 75 mg daily, Pepcid 20 mg every 12 hours, and Flomax 0.4 mg nightly. -Continue glycemic protocol with NovoLog sliding scale and Levemir 15 units daily. -Continue MiraLAX 17 g daily -Patient has a right lateral foot ulceration, no significant induration or drainage. Continue wound care and offloading off of heel (pt has air boots/heel protectors) -Physical and occupational therapy following. -Patient requires rehab upon discharge as he continues to have right-sided flaccidity/weakness and moderate to severe aphasia. Right shoulder pain -Patient with right upper extremity weakness, right shoulder pain is concerning for subluxation of right shoulder secondary to right upper extremity flaccidity. -X-ray right shoulder showed remote right humeral neck fracture with widening of the before meals joint concerning for grade 1 ligamentous injury/separation -Orthopedic surgery evaluated, in agreement with right arm sling, continue physical therapy as tolerated, symptomatic care and pain management, and sling as needed for comfort. Data Reviewed: -Creatinine 0.8, blood sugars range between 109-147 DVT ppx: Subcu heparin Code status: Full code Anticipated discharge place: Placement/guardianship Anticipated discharge time: Pending placement bed availability Objective - Vital Signs Vital signs: Vital Signs Temp 97.9 F 12/08/22 07:15 Pulse 64 12/08/22 07:15 Resp 16 12/08/22 07:15 BP 118/71 12/08/22 07:15 Pulse Ox 99 12/08/22 07:15 FiO2 21 11/05/22 09:26 Intake & Output 12/07/22 12/08/22 12/08/22 18:59 06:59 18:59 Output Total 700 250 300 Balance -700 -250 -300 Output: Urine 700 250 300 Other: Voiding Method Diaper Diaper Incontinent Incontinent External Catheter External Catheter - Labs CBC & Chem 7: 11/28/22 05:46 12/08/22 05:03 Labs: Abnormal Lab Results - Last 24 Hours (Table) 12/07/22 12/08/22 12/08/22 Range/Units 16:30 05:03 05:26 BUN 32.4 H (9.0-27.0) mg/dL BUN/Creatinine Ratio 40.50 H (12.00-20.00) Ratio POC Glucose (mg/dL) 133 H 117 H (70-110) mg/dL 12/08/22 Range/Units 11:45 BUN (9.0-27.0) mg/dL BUN/Creatinine Ratio (12.00-20.00) Ratio POC Glucose (mg/dL) 147 H (70-110) mg/dL
[2022-12-08 16:23] LABS: Glucose,Whole Blood 161 mg/dL (70-110)
[2022-12-08 20:39] LABS: Glucose,Whole Blood 101 mg/dL (70-110)
[2022-12-08] MEDS: HYDROcodone/APAP 5-325MG 1 EACH TAB PO PRN (21:05)
[2022-12-08] MEDS: ATORVASTATIN 80 MG TAB PO SCH (21:06)
[2022-12-09] MEDS: HEPARIN SODIUM,PORCINE 5,000 UNIT/ML 1 ML VIAL SQ SCH ×3 (00:01→15:46)
[2022-12-09 06:14] LABS: Glucose,Whole Blood 134 mg/dL (70-110)
[2022-12-09] MEDS: INSULIN ASPART (NovoLOG) 100 UNIT/ML VIAL SQ SCH ×4 (06:17→21:45)
[2022-12-09] MEDS: INSULIN DETEMIR (LEVEMIR) 100 UNIT/ML SYR SQ SCH (06:36)
[2022-12-09] MEDS: amLODIPine 10 MG TAB PO SCH (08:39)
[2022-12-09] MEDS: FAMOTIDINE 20 MG TAB PO SCH ×2 (08:39→21:45)
[2022-12-09] MEDS: ASPIRIN 81 MG PO SCH (08:39)
[2022-12-09] MEDS: droNABinol 2.5 MG CAP PO SCH ×2 (08:39→15:46)
[2022-12-09] MEDS: CLOPIDOGREL 75 MG TAB PO SCH (08:39)
[2022-12-09] MEDS: HYDROcodone/APAP 5-325MG 1 EACH TAB PO PRN ×2 (08:39→21:44)
[2022-12-09] MEDS: SODIUM BICARBONATE TAB 650 MG TAB PO SCH ×3 (08:39→21:44)
[2022-12-09] MEDS: TAMSULOSIN 0.4 MG CAP.ER.24H PO SCH (08:39)
[2022-12-09] MEDS: polyethylene glycoL 3350 17 GM POWD.PACK PO SCH (08:40)
[2022-12-09 11:39] LABS: Glucose,Whole Blood 136 mg/dL (70-110)
--- NOTE | 2022-12-09 13:18 | P.PN ---
Subjective Progress Note Date: 12/09/22 Hospital course: Patient is a very pleasant 62-year-old male with history of hypertension, dysl ipidemia, diabetes found unresponsive at a local truck stop on 10/11/22. Per report, patient was not moving for a few days and please/EMS were called to investigate. Patient was brought to the emergency department for evaluation. He underwent a CT brain and was found to have a large left-sided MCA subacute stroke. Laboratory workup also showed leukocytosis, elevated BUN, and elevated CK. Patient was admitted under our services for further stroke workup and started on IV fluids. Neurology was consulted. Urine indicative of a possible urinary tract infection, started on IV ceftriaxone. Echo report reviewed, revealed normal LV size and systolic function with an EF of 55-60%, no filling defects to indicate thrombus. Repeat head CT on 10/13/22 did not show any hemorrhagic transformation, midline shift, hydrocephalus, or herniation. EEG reported no epileptiform activity. Carotid Dopplers revealing occlusion of left common carotid artery and left ICA. Patient again underwent CT head on 10/18/22 which revealed evolution of a large left middle cerebral artery territory infarct and computed tomography scan again completed on 10/25/22 showing evolution of large MCA territory infarct and a remote right parietal region injury. Patient had periods of hypotension, developed acute kidney injury and was treated with IV fluid hydration. He underwent a renal ultrasound showing cortical medullary differentiation maintained with no evidence for obstructive uropathy.. BP meds were held and after IV fluid hydration, Renal function improved. Oral intake has also improved. Patient had Isolated episode of fever and this was believed to be to secondary to atelectasis. Patient encouraged to use incentive spirometry as infectious workup negative. patient has been followed by neurology, physical and occupational therapy, and case management/social work. Per social work, Full guardianship has been granted to the state and they are working on placement. Patient will require rehab upon discharge as he continues to have right-sided flaccidity/weakness and moderate to severe aphasia. Patient seen and examined at bedside. No acute events overnight. Vitals Signs Reviewed. General: nontoxic, no distress, appears at stated age Derm: warm, dry, right lateral foot small ulcer with scab Head: atraumatic, normocephalic, symmetric Eyes: EOMI, no lid lag, anicteric sclera Cardiovascular: S1S2 reg, no murmur Lungs: CTA bilateral, no rhonchi, no rales , no accessory muscle use Ext: no gross muscle atrophy, no edema, no contractures. 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 Hemoglobin A1c 8.0%. Hypertension Acute metabolic encephalopathy secondary to above, resolved Hyponatremia mild, hypovolemic, resolved Mild rhabdomyolysis, resolved Leukocytosis, resolved Urinary tract infection, resolved Acute urinary retention, resolved Acute kidney injury, resolved Constipation, resolved Isolated episode of Febrile temp, resolved Enterococcus faecalis UTI, completed 5 day course of IV antibiotics with Rocephin on 10/16/22 Hypomagnesemia, resolved -Continue daily medication regimen with aspirin 81 mg, amlodipine 10 mg daily, atorvastatin 80 mg nightly, Plavix 75 mg daily, Pepcid 20 mg every 12 hours, and Flomax 0.4 mg nightly. -Continue glycemic protocol with NovoLog sliding scale and Levemir 15 units daily. -Continue MiraLAX 17 g daily -Patient has a right lateral foot ulceration, no significant induration or drainage. Continue wound care and offloading off of heel (pt has air boots/heel protectors) -Physical and occupational therapy following. -Patient requires rehab upon discharge as he continues to have right-sided flaccidity/weakness and moderate to severe aphasia. Right shoulder pain -Patient with right upper extremity weakness, right shoulder pain is concerning for subluxation of right shoulder secondary to right upper extremity flaccidity. -X-ray right shoulder showed remote right humeral neck fracture with widening of the before meals joint concerning for grade 1 ligamentous injury/separation -Orthopedic surgery evaluated, in agreement with right arm sling, continue physical therapy as tolerated, symptomatic care and pain management, and sling as needed for comfort. Data Reviewed: -Creatinine 0.8, blood sugars range between 101-161 DVT ppx: Subcu heparin Code status: Full code Anticipated discharge place: Placement/guardianship Anticipated discharge time: Pending placement bed availability Objective - Vital Signs Vital signs: Vital Signs Temp 98.3 F 12/09/22 06:49 Pulse 58 L 12/09/22 06:49 Resp 17 12/09/22 06:49 BP 116/72 12/09/22 06:49 Pulse Ox 98 10/05/23 06:49 FiO2 21 11/05/22 09:26 Intake & Output 12/08/22 12/09/22 12/09/22 18:59 06:59 18:59 Output Total 300 520 Balance -300 -520 Output: Urine 300 520 Other: Voiding Method Diaper Incontinent External Catheter # Voids 0 1 - Labs CBC & Chem 7: 11/28/22 05:46 12/08/22 05:03 Labs: Abnormal Lab Results - Last 24 Hours (Table) 12/08/22 12/09/22 12/09/22 Range/Units 16:21 06:12 11:35 POC Glucose (mg/dL) 161 H 134 H 136 H (70-110) mg/dL
[2022-12-09 16:55] LABS: Glucose,Whole Blood 133 mg/dL (70-110)
[2022-12-09 19:33] LABS: Glucose,Whole Blood 131 mg/dL (70-110)
[2022-12-09] MEDS: ATORVASTATIN 80 MG TAB PO SCH (21:45)
[2022-12-10] MEDS: HEPARIN SODIUM,PORCINE 5,000 UNIT/ML 1 ML VIAL SQ SCH ×4 (00:22→23:46)
[2022-12-10 06:18] LABS: Glucose,Whole Blood 120 mg/dL (70-110)
[2022-12-10] MEDS: INSULIN ASPART (NovoLOG) 100 UNIT/ML VIAL SQ SCH ×4 (06:32→21:43)
[2022-12-10] MEDS: HYDROcodone/APAP 5-325MG 1 EACH TAB PO PRN ×2 (07:42→20:21)
[2022-12-10] MEDS: FAMOTIDINE 20 MG TAB PO SCH ×2 (07:42→20:21)
[2022-12-10] MEDS: droNABinol 2.5 MG CAP PO SCH ×2 (07:42→17:22)
[2022-12-10] MEDS: CLOPIDOGREL 75 MG TAB PO SCH (07:42)
[2022-12-10] MEDS: ASPIRIN 81 MG PO SCH (07:42)
[2022-12-10] MEDS: amLODIPine 10 MG TAB PO SCH (07:42)
[2022-12-10] MEDS: TAMSULOSIN 0.4 MG CAP.ER.24H PO SCH (07:42)
[2022-12-10] MEDS: SODIUM BICARBONATE TAB 650 MG TAB PO SCH ×3 (07:42→20:20)
[2022-12-10] MEDS: polyethylene glycoL 3350 17 GM POWD.PACK PO SCH (07:43)
[2022-12-10] MEDS: INSULIN DETEMIR (LEVEMIR) 100 UNIT/ML SYR SQ SCH (07:43)
[2022-12-10 12:11] LABS: Glucose,Whole Blood 183 mg/dL (70-110)
--- NOTE | 2022-12-10 14:30 | P.PN ---
Subjective Progress Note Date: 12/10/22 Hospital course: Patient is a very pleasant 62-year-old male with history of hypertension, dysl ipidemia, diabetes found unresponsive [place] truck stop on 10/11/22. Per report, patient was not moving for a few days and please/EMS were called to investigate. Patient was brought to the emergency department for evaluation. He underwent a CT brain and was found to have a large left-sided MCA subacute stroke. Laboratory workup also showed leukocytosis, elevated BUN, and elevated CK. Patient was admitted under our services for further stroke workup and started on IV fluids. Neurology was consulted. Urine indicative of a possible urinary tract infection, started on IV ceftriaxone. Echo report reviewed, revealed normal LV size and systolic function with an EF of 55-60%, no filling defects to indicate thrombus. Repeat head CT on 10/13/22 did not show any hemorrhagic transformation, midline shift, hydrocephalus, or herniation. EEG reported no epileptiform activity. Carotid Dopplers revealing occlusion of left common carotid artery and left ICA. Patient again underwent CT head on 10/18/22 which revealed evolution of a large left middle cerebral artery territory infarct and computed tomography scan again completed on 10/25/22 showing evolution of large MCA territory infarct and a remote right parietal region injury. Patient had periods of hypotension, developed acute kidney injury and was treated with IV fluid hydration. He underwent a renal ultrasound showing cortical medullary differentiation maintained with no evidence for obstructive uropathy.. BP meds were held and after IV fluid hydration, Renal function improved. Oral intake has also improved. Patient had Isolated episode of fever and this was believed to be to secondary to atelectasis. Patient encouraged to use incentive spirometry as infectious workup negative. patient has been followed by neurology, physical and occupational therapy, and case management/social work. Per social work, Full guardianship has been granted to the state and they are working on placement. Patient will require rehab upon discharge as he continues to have right-sided flaccidity/weakness and moderate to severe aphasia. Patient seen and examined at bedside. No acute events overnight. Vitals Signs Reviewed. General: nontoxic, no distress, appears at stated age Derm: warm, dry, right lateral foot small ulcer with scab Head: atraumatic, normocephalic, symmetric Eyes: EOMI, no lid lag, anicteric sclera Cardiovascular: S1S2 reg, no murmur Lungs: CTA bilateral, no rhonchi, no rales , no accessory muscle use Ext: no gross muscle atrophy, no edema, no contractures. 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 Hemoglobin A1c 8.0%. Hypertension Acute metabolic encephalopathy secondary to above, resolved Hyponatremia mild, hypovolemic, resolved Mild rhabdomyolysis, resolved Leukocytosis, resolved Urinary tract infection, resolved Acute urinary retention, resolved Acute kidney injury, resolved Constipation, resolved Isolated episode of Febrile temp, resolved Enterococcus faecalis UTI, completed 5 day course of IV antibiotics with Rocephin on 10/16/22 Hypomagnesemia, resolved -Continue daily medication regimen with aspirin 81 mg, amlodipine 10 mg daily, atorvastatin 80 mg nightly, Plavix 75 mg daily, Pepcid 20 mg every 12 hours, and Flomax 0.4 mg nightly. -Continue glycemic protocol with NovoLog sliding scale and Levemir 15 units daily. -Continue MiraLAX 17 g daily -Patient has a right lateral foot ulceration, no significant induration or drainage. Continue wound care and offloading off of heel (pt has air boots/heel protectors) -Physical and occupational therapy following. -Patient requires rehab upon discharge as he continues to have right-sided flaccidity/weakness and moderate to severe aphasia. Right shoulder pain -Patient with right upper extremity weakness, right shoulder pain is concerning for subluxation of right shoulder secondary to right upper extremity flaccidity. -X-ray right shoulder showed remote right humeral neck fracture with widening of the before meals joint concerning for grade 1 ligamentous injury/separation -Orthopedic surgery evaluated, in agreement with right arm sling, continue physical therapy as tolerated, symptomatic care and pain management, and sling as needed for comfort. Data Reviewed: -Creatinine 0.8, blood sugars range between 120-193 DVT ppx: Subcu heparin Code status: Full code Anticipated discharge place: Placement/guardianship Anticipated discharge time: Pending placement bed availability Objective - Vital Signs Vital signs: Vital Signs Temp 97.4 F L 12/10/22 01:24 Pulse 53 L 12/10/22 07:09 Resp 16 12/10/22 07:09 BP 116/64 12/10/22 07:09 Pulse Ox 98 12/10/22 07:09 FiO2 21 11/05/22 09:26 Intake & Output 12/09/22 12/10/22 12/10/22 18:59 06:59 18:59 Output Total 500 Balance -500 Output: Urine 500 Other: Voiding Method Diaper Incontinent External Catheter # Voids 1 - Labs CBC & Chem 7: 11/28/22 05:46 12/08/22 05:03 Labs: Abnormal Lab Results - Last 24 Hours (Table) 12/09/22 12/09/22 12/10/22 Range/Units 16:55 19:31 06:17 POC Glucose (mg/dL) 133 H 131 H 120 H (70-110) mg/dL 12/10/22 Range/Units 12:10 POC Glucose (mg/dL) 183 H (70-110) mg/dL
[2022-12-10 16:48] LABS: Glucose,Whole Blood 84 mg/dL (70-110)
[2022-12-10] MEDS: ATORVASTATIN 80 MG TAB PO SCH (20:20)
[2022-12-10 20:51] LABS: Glucose,Whole Blood 111 mg/dL (70-110)
[2022-12-11 05:52] LABS: Glucose,Whole Blood 94 mg/dL (70-110)
[2022-12-11] MEDS: INSULIN ASPART (NovoLOG) 100 UNIT/ML VIAL SQ SCH ×4 (06:25→21:42)
[2022-12-11] MEDS: droNABinol 2.5 MG CAP PO SCH ×2 (06:42→17:01)
[2022-12-11] MEDS: INSULIN DETEMIR (LEVEMIR) 100 UNIT/ML SYR SQ SCH (06:42)
[2022-12-11] MEDS: amLODIPine 10 MG TAB PO SCH (09:12)
[2022-12-11] MEDS: SODIUM BICARBONATE TAB 650 MG TAB PO SCH ×3 (09:12→21:42)
[2022-12-11] MEDS: TAMSULOSIN 0.4 MG CAP.ER.24H PO SCH (09:12)
[2022-12-11] MEDS: ASPIRIN 81 MG PO SCH (09:12)
[2022-12-11] MEDS: FAMOTIDINE 20 MG TAB PO SCH ×2 (09:12→21:42)
[2022-12-11] MEDS: CLOPIDOGREL 75 MG TAB PO SCH (09:12)
[2022-12-11] MEDS: HYDROcodone/APAP 5-325MG 1 EACH TAB PO PRN (09:12)
[2022-12-11] MEDS: HEPARIN SODIUM,PORCINE 5,000 UNIT/ML 1 ML VIAL SQ SCH ×2 (09:12→16:47)
[2022-12-11] MEDS: polyethylene glycoL 3350 17 GM POWD.PACK PO SCH (09:13)
--- NOTE | 2022-12-11 10:00 | P.PN ---
Subjective Progress Note Date: 12/11/22 Hospital course: Patient is a very pleasant 62-year-old male with history of hypertension, dysl ipidemia, diabetes found unresponsive at a local truck stop on 10/11/22. Per report, patient was not moving for a few days and please/EMS were called to investigate. Patient was brought to the emergency department for evaluation. He underwent a CT brain and was found to have a large left-sided MCA subacute stroke. Laboratory workup also showed leukocytosis, elevated BUN, and elevated CK. Patient was admitted under our services for further stroke workup and started on IV fluids. Neurology was consulted. Urine indicative of a possible urinary tract infection, started on IV ceftriaxone. Echo report reviewed, revealed normal LV size and systolic function with an EF of 55-60%, no filling defects to indicate thrombus. Repeat head CT on 10/13/22 did not show any hemorrhagic transformation, midline shift, hydrocephalus, or herniation. EEG reported no epileptiform activity. Carotid Dopplers revealing occlusion of left common carotid artery and left ICA. Patient again underwent CT head on 10/18/22 which revealed evolution of a large left middle cerebral artery territory infarct and computed tomography scan again completed on 10/25/22 showing evolution of large MCA territory infarct and a remote right parietal region injury. Patient had periods of hypotension, developed acute kidney injury and was treated with IV fluid hydration. He underwent a renal ultrasound showing cortical medullary differentiation maintained with no evidence for obstructive uropathy.. BP meds were held and after IV fluid hydration, Renal function improved. Oral intake has also improved. Patient had Isolated episode of fever and this was believed to be to secondary to atelectasis. Patient encouraged to use incentive spirometry as infectious workup negative. patient has been followed by neurology, physical and occupational therapy, and case management/social work. Per social work, Full guardianship has been granted to the state and they are working on placement. Patient will require rehab upon discharge as he continues to have right-sided flaccidity/weakness and moderate to severe aphasia. Patient seen and examined at bedside. No acute events overnight. Vitals Signs Reviewed. General: nontoxic, no distress, appears at stated age Derm: warm, dry, right lateral foot small ulcer with scab Head: atraumatic, normocephalic, symmetric Eyes: EOMI, no lid lag, anicteric sclera Cardiovascular: S1S2 reg, no murmur Lungs: CTA bilateral, no rhonchi, no rales , no accessory muscle use Ext: no gross muscle atrophy, no edema, no contractures. 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 Hemoglobin A1c 8.0%. Hypertension Acute metabolic encephalopathy secondary to above, resolved Hyponatremia mild, hypovolemic, resolved Mild rhabdomyolysis, resolved Leukocytosis, resolved Urinary tract infection, resolved Acute urinary retention, resolved Acute kidney injury, resolved Constipation, resolved Isolated episode of Febrile temp, resolved Enterococcus faecalis UTI, completed 5 day course of IV antibiotics with Rocephin on 10/16/22 Hypomagnesemia, resolved -Continue daily medication regimen with aspirin 81 mg, amlodipine 10 mg daily, atorvastatin 80 mg nightly, Plavix 75 mg daily, Pepcid 20 mg every 12 hours, and Flomax 0.4 mg nightly. -Continue glycemic protocol with NovoLog sliding scale and Levemir 15 units daily. -Continue MiraLAX 17 g daily -Patient has a right lateral foot ulceration, no significant induration or drainage. Continue wound care and offloading off of heel (pt has air boots/heel protectors) -Physical and occupational therapy following. -Patient requires rehab upon discharge as he continues to have right-sided flaccidity/weakness and moderate to severe aphasia. Right shoulder pain -Patient with right upper extremity weakness, right shoulder pain is concerning for subluxation of right shoulder secondary to right upper extremity flaccidity. -X-ray right shoulder showed remote right humeral neck fracture with widening of the before meals joint concerning for grade 1 ligamentous injury/separation -Orthopedic surgery evaluated, in agreement with right arm sling, continue physical therapy as tolerated, symptomatic care and pain management, and sling as needed for comfort. Data Reviewed: -blood sugars range between 84-183 DVT ppx: Subcu heparin Code status: Full code Anticipated discharge place: Placement/guardianship Anticipated discharge time: Pending placement bed availability Objective - Vital Signs Vital signs: Vital Signs Temp 97.7 F 12/11/22 07:30 Pulse 52 L 12/11/22 07:30 Resp 18 12/11/22 07:30 BP 130/68 12/11/22 07:30 Pulse Ox 97 12/11/22 07:30 FiO2 21 11/05/22 09:26 Intake & Output 12/10/22 12/11/22 12/11/22 18:59 06:59 18:59 Output Total 400 Balance -400 Output: Urine 400 Other: Voiding Method Diaper Incontinent External Catheter # Voids 2 1 - Labs CBC & Chem 7: 11/28/22 05:46 12/08/22 05:03 Labs: Abnormal Lab Results - Last 24 Hours (Table) 12/10/22 12/10/22 Range/Units 12:10 20:49 POC Glucose (mg/dL) 183 H 111 H (70-110) mg/dL
[2022-12-11 11:57] LABS: Glucose,Whole Blood 102 mg/dL (70-110)
[2022-12-11 16:35] LABS: Glucose,Whole Blood 189 mg/dL (70-110)
[2022-12-11 21:27] LABS: Glucose,Whole Blood 173 mg/dL (70-110)
[2022-12-11] MEDS: ATORVASTATIN 80 MG TAB PO SCH (21:42)
[2022-12-12] MEDS: HEPARIN SODIUM,PORCINE 5,000 UNIT/ML 1 ML VIAL SQ SCH ×3 (00:36→17:56)
[2022-12-12] MEDS: droNABinol 2.5 MG CAP PO SCH ×2 (06:17→17:56)
[2022-12-12] MEDS: INSULIN DETEMIR (LEVEMIR) 100 UNIT/ML SYR SQ SCH (06:17)
[2022-12-12 06:23] LABS: Glucose,Whole Blood 115 mg/dL (70-110)
[2022-12-12] MEDS: INSULIN ASPART (NovoLOG) 100 UNIT/ML VIAL SQ SCH ×4 (06:32→21:03)
[2022-12-12] MEDS: ASPIRIN 81 MG PO SCH (09:25)
[2022-12-12] MEDS: SODIUM BICARBONATE TAB 650 MG TAB PO SCH ×3 (09:25→21:00)
[2022-12-12] MEDS: polyethylene glycoL 3350 17 GM POWD.PACK PO SCH (09:25)
[2022-12-12] MEDS: CLOPIDOGREL 75 MG TAB PO SCH (09:25)
[2022-12-12] MEDS: FAMOTIDINE 20 MG TAB PO SCH ×2 (09:25→21:00)
[2022-12-12] MEDS: TAMSULOSIN 0.4 MG CAP.ER.24H PO SCH (09:25)
[2022-12-12] MEDS: amLODIPine 10 MG TAB PO SCH (09:25)
[2022-12-12] MEDS: HYDROcodone/APAP 5-325MG 1 EACH TAB PO PRN (09:26)
[2022-12-12 11:46] LABS: Glucose,Whole Blood 120 mg/dL (70-110)
--- NOTE | 2022-12-12 12:31 | P.PN ---
Subjective Progress Note Date: 12/12/22 Hospital course: Patient is a very pleasant 62-year-old male with history of hypertension, dysl ipidemia, diabetes found unresponsive at a local truck stop on 10/11/22. Per report, patient was not moving for a few days and please/EMS were called to investigate. Patient was brought to the emergency department for evaluation. He underwent a CT brain and was found to have a large left-sided MCA subacute stroke. Laboratory workup also showed leukocytosis, elevated BUN, and elevated CK. Patient was admitted under our services for further stroke workup and started on IV fluids. Neurology was consulted. Urine indicative of a possible urinary tract infection, started on IV ceftriaxone. Echo report reviewed, revealed normal LV size and systolic function with an EF of 55-60%, no filling defects to indicate thrombus. Repeat head CT on 10/13/22 did not show any hemorrhagic transformation, midline shift, hydrocephalus, or herniation. EEG reported no epileptiform activity. Carotid Dopplers revealing occlusion of left common carotid artery and left ICA. Patient again underwent CT head on 10/18/22 which revealed evolution of a large left middle cerebral artery territory infarct and computed tomography scan again completed on 10/25/22 showing evolution of large MCA territory infarct and a remote right parietal region injury. Patient had periods of hypotension, developed acute kidney injury and was treated with IV fluid hydration. He underwent a renal ultrasound showing cortical medullary differentiation maintained with no evidence for obstructive uropathy.. BP meds were held and after IV fluid hydration, Renal function improved. Oral intake has also improved. Patient had Isolated episode of fever and this was believed to be to secondary to atelectasis. Patient encouraged to use incentive spirometry as infectious workup negative. patient has been followed by neurology, physical and occupational therapy, and case management/social work. Per social work, Full guardianship has been granted to the state and they are working on placement. Patient will require rehab upon discharge as he continues to have right-sided flaccidity/weakness and moderate to severe aphasia. Patient seen and examined at bedside. No acute events overnight. Vitals Signs Reviewed. General: nontoxic, no distress, appears at stated age Derm: warm, dry, right lateral foot small ulcer with scab Head: atraumatic, normocephalic, symmetric Eyes: EOMI, no lid lag, anicteric sclera Cardiovascular: S1S2 reg, no murmur Lungs: CTA bilateral, no rhonchi, no rales , no accessory muscle use Ext: no gross muscle atrophy, no edema, no contractures. 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 Hemoglobin A1c 8.0%. Hypertension Acute metabolic encephalopathy secondary to above, resolved Hyponatremia mild, hypovolemic, resolved Mild rhabdomyolysis, resolved Leukocytosis, resolved Urinary tract infection, resolved Acute urinary retention, resolved Acute kidney injury, resolved Constipation, resolved Isolated episode of Febrile temp, resolved Enterococcus faecalis UTI, completed 5 day course of IV antibiotics with Rocephin on 10/16/22 Hypomagnesemia, resolved -Continue daily medication regimen with aspirin 81 mg, amlodipine 10 mg daily, atorvastatin 80 mg nightly, Plavix 75 mg daily, Pepcid 20 mg every 12 hours, and Flomax 0.4 mg nightly. -Continue glycemic protocol with NovoLog sliding scale and Levemir 15 units daily. -Continue MiraLAX 17 g daily -Patient has a right lateral foot ulceration, no significant induration or drainage. Continue wound care and offloading off of heel (pt has air boots/heel protectors) -Physical and occupational therapy following. -Patient requires rehab upon discharge as he continues to have right-sided flaccidity/weakness and moderate to severe aphasia. Right shoulder pain -Patient with right upper extremity weakness, right shoulder pain is concerning for subluxation of right shoulder secondary to right upper extremity flaccidity. -X-ray right shoulder showed remote right humeral neck fracture with widening of the before meals joint concerning for grade 1 ligamentous injury/separation -Orthopedic surgery evaluated, in agreement with right arm sling, continue physical therapy as tolerated, symptomatic care and pain management, and sling as needed for comfort. Data Reviewed: -blood sugars range between 115 to 173 DVT ppx: Subcu heparin Code status: Full code Anticipated discharge place: Placement/guardianship Anticipated discharge time: Pending placement bed availability Objective - Vital Signs Vital signs: Vital Signs Temp 98.1 F 12/12/22 02:00 Pulse 57 L 12/12/22 02:00 Resp 16 12/12/22 02:00 BP 125/68 12/12/22 02:00 Pulse Ox 95 12/12/22 02:00 FiO2 21 11/05/22 09:26 Intake & Output 12/11/22 12/12/22 12/12/22 18:59 06:59 18:59 Output Total 700 Balance -700 Output: Urine 700 - Labs CBC & Chem 7: 11/28/22 05:46 12/08/22 05:03 Labs: Abnormal Lab Results - Last 24 Hours (Table) 12/11/22 12/11/22 12/12/22 Range/Units 16:33 21:26 06:23 POC Glucose (mg/dL) 189 H 173 H 115 H (70-110) mg/dL 12/12/22 Range/Units 11:45 POC Glucose (mg/dL) 120 H (70-110) mg/dL
[2022-12-12 17:01] LABS: Glucose,Whole Blood 108 mg/dL (70-110)
[2022-12-12 21:00] LABS: Glucose,Whole Blood 193 mg/dL (70-110)
[2022-12-12] MEDS: ATORVASTATIN 80 MG TAB PO SCH (21:00)
[2022-12-13] MEDS: HEPARIN SODIUM,PORCINE 5,000 UNIT/ML 1 ML VIAL SQ SCH ×2 (00:44→08:42)
[2022-12-13 06:26] LABS: Glucose,Whole Blood 111 mg/dL (70-110)
[2022-12-13] MEDS: INSULIN DETEMIR (LEVEMIR) 100 UNIT/ML SYR SQ SCH (06:31)
[2022-12-13] MEDS: INSULIN ASPART (NovoLOG) 100 UNIT/ML VIAL SQ SCH ×2 (06:31→12:15)
[2022-12-13] MEDS: droNABinol 2.5 MG CAP PO SCH (06:31)
[2022-12-13 08:18] VITALS: RESP 17
[2022-12-13] MEDS: TAMSULOSIN 0.4 MG CAP.ER.24H PO SCH (08:42)
[2022-12-13] MEDS: amLODIPine 10 MG TAB PO SCH (08:42)
[2022-12-13] MEDS: SODIUM BICARBONATE TAB 650 MG TAB PO SCH (08:42)
[2022-12-13] MEDS: FAMOTIDINE 20 MG TAB PO SCH (08:42)
[2022-12-13] MEDS: ASPIRIN 81 MG PO SCH (08:42)
[2022-12-13] MEDS: CLOPIDOGREL 75 MG TAB PO SCH (08:42)
[2022-12-13] MEDS: polyethylene glycoL 3350 17 GM POWD.PACK PO SCH (08:42)
[2022-12-13 11:12] LABS: Glucose,Whole Blood 198 mg/dL (70-110)
--- NOTE | 2022-12-13 14:15 | P.DS ---
Providers Date of admission: 10/11/22 20:25 Expected date of discharge: 12/13/22 Attending physician: King Lock MD Consults: 10/11/22 20:26 Consult Physician Urgent Consulting Provider: Jaguar Schafer Consult Reason/Comments: Acute ischemic stroke, left MCA. 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 Hemoglobin A1c 8.0%. Hypertension Acute metabolic encephalopathy secondary to above Hyponatremia mild, hypovolemic Mild rhabdomyolysis Leukocytosis Acute urinary retention Acute kidney injury Constipation Isolated episode of Febrile temp Enterococcus faecalis UTI, completed 5 day course of IV antibiotics with Rocephin on 10/16/22 Hypomagnesemia Hospital Course: Patient is a very pleasant 62-year-old male with history of hypertension, dysl ipidemia, diabetes found unresponsive [place] a local truck stop on 10/11/22. Per report, patient was not moving for a few days and please/EMS were called to investigate. Patient was brought to the emergency department for evaluation. He underwent a CT brain and was found to have a large left-sided MCA subacute stroke. Laboratory workup also showed leukocytosis, elevated BUN, and elevated CK. Patient was admitted under our services for further stroke workup and started on IV fluids. Neurology was consulted. Urine indicative of a possible urinary tract infection, started on IV ceftriaxone. Echo report reviewed, revealed normal LV size and systolic function with an EF of 55-60%, no filling defects to indicate thrombus. Repeat head CT on 10/13/22 did not show any hemorrhagic transformation, midline shift, hydrocephalus, or herniation. EEG reported no epileptiform activity. Carotid Dopplers revealing occlusion of left common carotid artery and left ICA. Patient again underwent CT head on 10/18/22 which revealed evolution of a large left middle cerebral artery territory infarct and computed tomography scan again completed on 10/25/22 showing evolution of large MCA territory infarct and a remote right parietal region injury. Patient had periods of hypotension, developed acute kidney injury and was treated with IV fluid hydration. He underwent a renal ultrasound showing cortical medullary differentiation maintained with no evidence for obstructive uropathy.. BP meds were held and after IV fluid hydration, Renal function improved. Oral intake has also improved. Patient had Isolated episode of fever and this was believed to be to secondary to atelectasis. Patient encouraged to use incentive spirometry as infectious workup negative. patient has been followed by neurology, physical and occupational therapy, and case management/social work. Patient being discharged to subacute rehab. Patient seen and examined at bedside. Vital signs reviewed and stable. General: nontoxic, no distress, appears at stated age Derm: warm, dry, right lateral foot small ulcer with scab, healing well Head: atraumatic, normocephalic, symmetric Eyes: EOMI, no lid lag, anicteric sclera Cardiovascular: S1S2 reg, no murmur Lungs: CTA bilateral, no rhonchi, no rales , no accessory muscle use Ext: no gross muscle atrophy, no edema, no contractures. Neuro: right-sided deficits, significant aphasia Psych: Awake and Alert, follows some commands A total of 36 minutes of time were spent preparing this complex discharge summary. Patient was discharged on 12/23/22 at 13:46. Patient Condition at Discharge: Stable Plan - Discharge Summary New Discharge Prescriptions: New Aspirin 81 mg PO DAILY tab Insulin Detemir (Levemir) [Levemir] 15 unit SQ DAILY@0700 each Atorvastatin [Lipitor] 80 mg PO HS tab INSULIN ASPART (NovoLOG) [NovoLOG (formulary)] 0 unit SQ ACHS each Famotidine [Pepcid] 20 mg PO Q12HR tab Sodium Bicarbonate Tab 650 mg PO TID tab droNABinol [Marinol] 2.5 mg PO AC-BID 3 Days #6 cap bisacodyL [Dulcolax] 10 mg RECTAL DAILY PRN suppositor PRN Reason: Constipation Tamsulosin [Flomax] 0.4 mg PO PC-BRKFST cap polyethylene glycoL 3350 [Miralax] 17 gm PO DAILY packet amLODIPine [Norvasc] 10 mg PO DAILY tab Clopidogrel [Plavix] 75 mg PO DAILY tab Acetaminophen Tab [Tylenol] 650 mg PO Q6HR PRN tab PRN Reason: Fever And/ Or Pain Continue Ergocalciferol (Vitamin D2) [Drisdol (50,000 Iu)] 1,250 mcg PO WEEKLY Discontinued metFORMIN HCL [Glucophage] 1,000 mg PO BID Valsartan [Diovan] 160 mg PO DAILY Glimepiride [Amaryl] 4 mg PO BID Atorvastatin [Lipitor] 20 mg PO HS Discharge Medication List Ergocalciferol (Vitamin D2) [Drisdol (50,000 Iu)] 1,250 mcg PO WEEKLY 10/11/22 [History] Acetaminophen Tab [Tylenol] 650 mg PO Q6HR PRN tab 12/13/22 [Rx] Aspirin 81 mg PO DAILY tab 12/13/22 [Rx] Atorvastatin [Lipitor] 80 mg PO HS tab 12/13/22 [Rx] Clopidogrel [Plavix] 75 mg PO DAILY tab 12/13/22 [Rx] Famotidine [Pepcid] 20 mg PO Q12HR tab 12/13/22 [Rx] INSULIN ASPART (NovoLOG) [NovoLOG (formulary)] 0 unit SQ ACHS each 12/13/22 [Rx] Insulin Detemir (Levemir) [Levemir] 15 unit SQ DAILY@0700 each 12/13/22 [Rx] Sodium Bicarbonate Tab 650 mg PO TID tab 12/13/22 [Rx] Tamsulosin [Flomax] 0.4 mg PO PC-BRKFST cap 12/13/22 [Rx] amLODIPine [Norvasc] 10 mg PO DAILY tab 12/13/22 [Rx] bisacodyL [Dulcolax] 10 mg RECTAL DAILY PRN suppositor 12/13/22 [Rx] droNABinol [Marinol] 2.5 mg PO AC-BID 3 Days #6 cap 12/13/22 [Rx] polyethylene glycoL 3350 [Miralax] 17 gm PO DAILY packet 12/13/22 [Rx] Follow up Appointment(s)/Referral(s): None,Stated [Primary Care Provider] - 1-2 days (Please call a primary care provider for follow-up appointment.) Patient Instructions/Handouts: Ischemic Stroke (IP) Activity/Diet/Wound Care/Special Instructions: Please see a PCP. Discharge Disposition: TRANSFER TO SNF/ECF
[2022-12-13 14:45] VITALS: BP 108/67; PULSE 63; TEMP 97.7
--- NOTE | 2022-12-14 12:51 | CDI ---
Documentation Clarification Form Date: 12/14/2022 12:23:12 PM From: Taylor Shay Phone: Admit Date: 10/11/2022 08:25:00 PM Patient Name: Stewart Allan Visit Number: [id number] Discharge Date: 12/13/2022 04:48:00 PM ATTENTION: The Clinical Documentation Specialists (CDI) and [facility] Coding Staff appreciate your assistance in clarifying documentation. Please respond to the clarification below the line at the bottom and electronically sign. The CDI & [facility] Coding staff will review the response and follow-up if needed. Please note: Queries are made part of the Legal Health Record. If you have any questions, please contact the author of this message via ITS. Dr. Enrike Reeder There is documentation of right lateral foot ulceration Progress Note 9/8. Additional specificity regarding the etiology and severity of the wound is requested. Patient history/risk factors: LMCA and RPCVA, LICA occlusion, DMII w A1C 8.0, HTN, met enceph, hyponatremia, dehydratio, rhabdo d/t prolonged downtime, UTI, ANNA, hypomag, Clinical Indicators: Wound assessment: no significantindurationor drainage. Chest x-raydoes not show any acute process. Treatment: Continuewoundcare and offloading off of heel (pt. has air boots/heel protectors). Physical andoccupational therapyfollowing. Please clarify the etiology and severity of the wound: Etiology: [ ] Non-pressure chronic ulcer due to diabetes [ ] Non-pressure chronic ulcer due to trauma [ ] Other, Please specify [ x ] Unable to determine Severity: [ ] Limited to breakdown of skin [ ] With fat layer exposed [ ] Other, Please specify [ x ] Unable to determine Present on Admission: [ x] Yes [ ] No (Template Last Revised: May 2020) MTDD
== END 2022-12-13 16:48 | DRG 64 ==
LOC: EC 18:04 → EEVIPCON 20:25 → 3SCARD 20:25 → 4SSUR 10-15 22:05 → UNDODISIN 10-26 17:28 → 4SSUR 11-11 20:20
PROVIDERS: ADMIT Internal Medicine; ATTEND Internal Medicine
DX: I63.412 Cerebral infarction due to embolism of left middle cerebral artery (principal); G93.41 Metabolic encephalopathy; N17.9 Acute kidney failure, unspecified; E87.1 Hypo-osmolality and hyponatremia; G81.94 Hemiplegia, unspecified affecting left nondominant side; G81.01 Flaccid hemiplegia affecting right dominant side; N39.0 Urinary tract infection, site not specified; J98.11 Atelectasis; Z16.11 Resistance to penicillins; E11.649 Type 2 diabetes mellitus with hypoglycemia without coma; E11.65 Type 2 diabetes mellitus with hyperglycemia; T79.6XXA Traumatic ischemia of muscle, initial encounter; L97.519 Non-pressure chronic ulcer of other part of right foot with unspecified severity; R47.01 Aphasia; E86.0 Dehydration; I11.9 Hypertensive heart disease without heart failure; E86.1 Hypovolemia; I95.9 Hypotension, unspecified; I65.22 Occlusion and stenosis of left carotid artery; B96.1 Klebsiella pneumoniae [K. pneumoniae] as the cause of diseases classified elsewhere; B95.2 Enterococcus as the cause of diseases classified elsewhere; E78.5 Hyperlipidemia, unspecified; E83.42 Hypomagnesemia; S43.111A Subluxation of right acromioclavicular joint, initial encounter; Z75.1 Person awaiting admission to adequate facility elsewhere; Z28.310 Unvaccinated for COVID-19; I49.3 Ventricular premature depolarization; I49.1 Atrial premature depolarization; K59.00 Constipation, unspecified; S43.50XA Sprain of unspecified acromioclavicular joint, initial encounter; D64.9 Anemia, unspecified; R13.10 Dysphagia, unspecified; Z79.84 Long term (current) use of oral hypoglycemic drugs; Z79.899 Other long term (current) drug therapy; Z87.81 Personal history of (healed) traumatic fracture
CPT/HCPCS: 36415; 70450; 70496; 70498; 71045; 71046; 74230; 76770; 80048; 80053; 80061; 80306; 81001; 82550; 83036; 83735; 84484; 85025; 85027; 85610; 85730; 87040; 87077; 87086; 87186; 93005; 93306; 93880; 94760; 95816; 96361; 96374; 99291

== ENCOUNTER 2024-03-06 18:01 | Emergency (ER) | payer OTHER ==
[2024-03-06 18:10] VITALS: BP 137/74; PULSE 66; RESP 18; TEMP 98
--- NOTE | 2024-03-06 18:11 | ED ---
General Adult HPI - General Stated complaint: R Arm Injury Source: patient, EMS, RN notes reviewed Mode of arrival: EMS Limitations: altered mental status - History of Present Illness Initial comments: Patient is a 63-year-old male present to the emergency department with concerns for right arm injury. Patient fell at 820 this morning while transferring from bed to wheelchair. Patient has discomfort of right upper arm. Patient also has discomfort of his right hand. Patient has history of previous stroke with right-sided deficits. Patient did strike his head. Patient is on Plavix. Patient states mild headache. No loss of consciousness. No neck or back pain - Related Data Home Medications Medication Instructions Recorded Confirmed Ergocalciferol (Vitamin D2) 1,250 mcg PO WEEKLY 10/11/22 10/11/22 [Drisdol (50,000 Iu)] Previous Rx's Medication Instructions Recorded Acetaminophen Tab [Tylenol] 650 mg PO Q6HR PRN tab 12/13/22 Aspirin 81 mg PO DAILY tab 12/13/22 Atorvastatin [Lipitor] 80 mg PO HS tab 12/13/22 Clopidogrel [Plavix] 75 mg PO DAILY tab 12/13/22 Famotidine [Pepcid] 20 mg PO Q12HR tab 12/13/22 INSULIN ASPART (NovoLOG) [NovoLOG 0 unit SQ ACHS each 12/13/22 (formulary)] Insulin Detemir (Levemir) [Levemir] 15 unit SQ DAILY@0700 each 12/13/22 Sodium Bicarbonate Tab 650 mg PO TID tab 12/13/22 Tamsulosin [Flomax] 0.4 mg PO PC-BRKFST cap 12/13/22 amLODIPine [Norvasc] 10 mg PO DAILY tab 12/13/22 bisacodyL [Dulcolax] 10 mg RECTAL DAILY PRN suppositor 12/13/22 droNABinol [Marinol] 2.5 mg PO AC-BID 3 Days #6 cap 12/13/22 polyethylene glycoL 3350 [Miralax] 17 gm PO DAILY packet 12/13/22 Allergies Allergy/AdvReac Type Severity Reaction Status Date / Time No Known Allergies Allergy Verified 03/06/24 18:10 Review of Systems ROS Statement: Those systems with pertinent positive or pertinent negative responses have been documented in the HPI. ROS Other: All systems not noted in ROS Statement are negative. Constitutional: Denies: fever Eyes: Denies: eye pain ENT: Denies: ear pain Respiratory: Denies: dyspnea Musculoskeletal: Reports: as per HPI Neurological: Reports: as per HPI, headache, weakness (Chronic right-sided deficits from previous stroke) Past Medical History Past Medical History: Unable to Obtain History of Any Multi-Drug Resistant Organisms: Unobtainable Past Surgical History: Unable to Obtain Past Psychological History: Unable to Obtain Smoking Status: Unknown if ever smoked Past Drug Use History: Unable to Obtain General Exam Limitations: no limitations General appearance: alert, in no apparent distress Head exam: Present: normocephalic Eye exam: Present: normal appearance, PERRL ENT exam: Present: normal oropharynx Neck exam: Present: normal inspection. Absent: tenderness, meningismus Respiratory exam: Present: normal lung sounds bilaterally Cardiovascular Exam: Present: regular rate, normal rhythm GI/Abdominal exam: Present: soft. Absent: tenderness Extremities exam: Present: tenderness (Moderate swelling and tenderness right dorsal hand. Mild tenderness right proximal humerus.) Back exam: Present: normal inspection Neurological exam: Present: alert, motor sensory deficit (Right-sided weakness that patient states is consistent with previous stroke) Psychiatric exam: Present: normal affect, normal mood Skin exam: Present: normal color Course Vital Signs 03/06/24 18:04 Temperature 98 F Pulse Rate 66 Respiratory 18 Rate Blood Pressure 137/74 O2 Sat by Pulse 98 Oximetry Procedures - Orthopedic Splinting/Casting Injury #1 Side: right Upper Extremity Injury Location: short arm, hand Upper Extremity Immobilizer: volar splint Medical Decision Making - Medical Decision Making Was pt. sent in by a medical professional or institution (, PA, MANAGER FINANCIAL, urgent care, hospital, or jail...) When possible be specific @ -Patient sent from nursing facility Did you speak to anyone other than the patient for history (EMS, parent, family, police, friend...)? What history was obtained from this source @ -No Did you review nursing and triage notes (agree or disagree)? Why? @ -I reviewed and agree with nursing and triage notes Were old charts reviewed (outside hosp., previous admission, EMS record, old EKG, old radiological studies, urgent care reports/EKG's, jail records)? Report findings @ -Transfer paperwork reviewed from nursing facility Differential Diagnosis (chest pain, altered mental status, abdominal pain women, abdominal pain men, vaginal bleeding, weakness, fever, dyspnea, syncope, headache, dizziness, GI bleed, back pain, seizure, CVA, palpatations, mental health, musculoskeletal)? @ -Differential Musculoskeletal Muscular strain, contusion, ligament sprain, fracture, arthritis, septic arthritis, bursitis, cellulitis, muscle spasm, nerve compression, DVT, arterial occlusion, herpes zoster, electrolyte abnormality, tumor.... This is not meant to be in all inclusive list EKG interpreted by me (3pts min.). @ -As above X-rays interpreted by me (1pt min.). @ -Pelvis x-ray and chest x-ray without acute abnormality. Chest x-ray shows some questionable mild interstitial changes. X-ray of right humerus shows proximal humerus fracture, age-indeterminate. X-ray right hand does not reveal acute fracture CT interpreted by me (1pt min.). @ -CT scan brain and cervical spine without acute abnormality U/S interpreted by me (1pt. min.). @ -None done What testing was considered but not performed or refused? (CT, X-rays, U/S, labs)? Why? @ -None What meds were considered but not given or refused? Why? @ -None Did you discuss the management of the patient with other professionals (professionals i.e. , PA, MANAGER [employer], lab, RT, psych nurse, social media senior associate, geometry teacher, teacher, chief administrative officer, nurse case manager)? Give summary @ -No Was smoking cessation discussed for >3mins.? @ -No Was critical care preformed (if so, how long)? @ -No Were there social determinants of health that impacted care today? How? (Homelessness, low income, unemployed, alcoholism, drug addiction, transportation, low edu. Level, literacy, decrease access to med. care, senior care, rehab)? @ -No Was there de-escalation of care discussed even if they declined (Discuss DNR or withdrawal of care, Hospice)? DNR status @ -No What co-morbidities impacted this encounter? (DM, HTN, Smoking, COPD, CAD, Cancer, CVA, ARF, Chemo, Hep., AIDS, mental health diagnosis, sleep apnea, morbid obesity)? @ -Questionable old right arm injury. Patient Was patient admitted / discharged? Hospital course, mention meds given and route, prescriptions, significant lab abnormalities, going to OR and other pertinent info. @ -Patient presents for fall. Head CT unremarkable. X-rays concerning for proximal humerus fracture, age-indeterminate. X-ray right hand unremarkable however patient has significant discomfort there and splint is placed. Patient will be discharged with orthopedic follow-up. Undiagnosed new problem with uncertain prognosis? @ -No Drug Therapy requiring intensive monitoring for toxicity (Heparin, Nitro, Insulin, Cardizem)? @ -No Were any procedures done? @ -No Diagnosis/symptom? @ -Fall, proximal humerus fracture Acute, or Chronic, or Acute on Chronic? @ -, Acute Uncomplicated (without systemic symptoms) or Complicated (systemic symptoms)? @ -Complicated with indeterminant age of humerus fracture Side effects of treatment? @ -No Exacerbation, Progression, or Severe Exacerbation? @ -No Poses a threat to life or bodily function? How? (Chest pain, [place], [place], pneumonia, PE, COPD, DKA, ARF, appy, cholecystitis, CVA, Diverticulitis, Homicidal, Suicidal, threat to staff... and all critical care pts) @ -threat 2 musculoskeletal function Disposition Clinical Impression: Fall, Proximal humerus fracture Disposition: HOME SELF-CARE Condition: Stable Instructions (If sedation given, give patient instructions): Fall Prevention (ED), Arm Fracture in Adults (ED) Additional Instructions: Use sling. Ice to affected areas. Please follow-up with orthopedics and primary care physician in the next couple of days for recheck. Return for increased pain, confusion, weakness, worsening or changing symptoms or other concerns or change in mental status Is patient prescribed a controlled substance at d/c from ED?: No Referrals: Milton Felton MD [Primary Care Provider] - 1-2 days Declan Meneses MD [STAFF PHYSICIAN] - 1-2 days Time of Disposition: 19:48
--- NOTE | 2024-03-06 18:44 | CT ---
EXAMINATION TYPE: CT brain charissaine wo con DATE OF EXAM: 03/06/2024 6:30 PM COMPARISON: Brain 10/25/2022 CLINICAL INDICATION: Male, 63 years old with pain after history of fall, CODE COAG, fall on thinners. , Technique: Examination of the head was done in axial plane without intravenous contrast. Coronal and sagittal reconstructions performed. CT of the cervical spine was obtained in axial plane without intravenous injection of contrast mater ial. Coronal and sagittal reformatted images were obtained from the axial views for evaluation of f ractures, spinal alignment and canal. CT DLP: 1565.5 mGycm, Automated exposure control for dose reduction was used. FINDINGS: Head: There is no evidence of acute intracranial hemorrhage, acute ischemic changes, mass, mass-effect, or extra-axial fluid collection. There is no effacement of cerebral sulci or basal subarachnoid cister ns. There is no hydrocephalus. There is no midline shift. Lujan-white matter distinction is preserv ed. Interval development of extensive encephalomalacia left MCA territory and posterior right parietal lo be. Mild ventricular prominence likely due to central cerebral atrophy. Rightward nasal septal deviation. Trace mucosal thickening floors of the maxillary sinuses and ethmoi d air cells. Mastoid air cells well pneumatized. The globes are intact. Cervical spine: No craniocervical junction abnormality, predental space widening, or prevertebral soft tissue swellin g. Degenerative change C1 dens articulation. Alignment is maintained. Facet and uncovertebral joint arthropathy is present throughout. No acute fracture of the cervical spine. No evident canal compromise by CT. Sagittal and coronal reformatted images confirm above findings. COMBINED IMPRESSION: Brain: 1. Interval further evolution of patient's left MCA territory infarct now with the development of chr onic encephalomalacia. Additional area of encephalomalacia related to infarct posterior right parieta l lobe. 2. Mild ventricular prominence likely due to central cerebral atrophy. 3. No acute intracranial abnormality seen. Cervical spine: 4. No acute fracture or malalignment of the cervical spine. Mild spondylotic change. [facility], , 03/06/2024 6:42 PM
--- NOTE | 2024-03-06 18:56 | XR ---
EXAMINATION TYPE: XR chest 1V portable, XR humerus 2 views RT, XR hand complete 3 views RT, XR pelvis AP view DATE OF EXAM: 03/06/2024 6:44 PM COMPARISON: Chest radiographs from 11/12/2022. Shoulder 11/26/2022 CLINICAL INDICATION: Male, 63 years old with pain after history of fall, , FINDINGS: Chest: The heart is mildly enlarged. Diffuse interstitial density. No jelly consolidation or pleural effusio n. Humerus: There is an impaction deformity with mild lateral apex angulation deformity at the level of the surgi dg neck proximal humerus. Severe osteopenia and bony demineralization. Overlying soft tissue swellin g though this fracture appears to have been present on 11/26/2022. Suboptimal lateral view at the leve l of the elbow for assessment of elbow joint effusion. There seems to be some underlying osteoarthrit ic changes. RIGHT hand: Diffuse osteopenia with subarticular osseous demineralization throughout. Scattered [id number] degenerative change throughout the fingers and mild to moderate at the base of the thumb. Pelvis: Osteopenia. Limited visualization of the femoral necks due to external rotation of the hips during im aging. SI joints appear symmetric and intact as does the pubic symphysis. Mild degenerative change of both hips. IMPRESSION: 1. Chest: Correlate for CHF with pulmonary vascular congestion. 2. Humerus: Impacted and mildly angulated surgical neck fracture is age indeterminate as this appears to have been present on 11/26/2022. However, given the overlying soft tissue swelling, correlate with point tenderness to exclude a new injury here. The degree of severe disuse osteopenia limits the ass essment. 3. Right hand: Severe disuse osteopenia with scattered mild osteoarthritic changes throughout. 4. Pelvis: Suboptimal assessment of the femoral necks due to patient positioning. No obvious displace d fracture is seen. Mild bilateral hip OA. [facility], , 03/06/2024 6:53 PM
[2024-03-06] MEDS: ACETAMINOPHEN TAB 500 MG TAB PO STA (19:46)
== END 2024-03-06 23:07 | disposition home or self-care (01) ==
LOC: EC 18:01
DX: S42.201A Unspecified fracture of upper end of right humerus, initial encounter for closed fracture (principal); W19.XXXA Unspecified fall, initial encounter
CPT/HCPCS: 70450; 71045; 72125; 72170; 99284